=== PATIENT | female | born 1955 | race Caucasian/White ===

== ENCOUNTER 2020-07-12 00:43 | Outpatient (CLI) | payer MEDICARE, BC, SELFPAY ==
[2020-07-12 18:04] LABS: SARS-CoV-2 RNA PCR Negative
== END 2020-07-12 00:44 | disposition home or self-care (01) ==
LOC: ANHCOVIDDT 00:43
PROVIDERS: PCP Physician Assistant; Visit Provider Internal Medicine Cardiovascular Disease
DX: Z01.812 Encounter for preprocedural laboratory examination (principal); Z20.828 Contact with and (suspected) exposure to other viral communicable diseases
CPT/HCPCS: 87635; C9803; U0003

== ENCOUNTER 2020-07-15 00:17 | Day surgery (SDC) | payer MEDICARE, BC, SELFPAY ==
[2020-07-14 10:59] VITALS: BMI 29.9
[2020-07-15] VITALS (8 sets, daily range): BP systolic 101–115; BP diastolic 48–70; PULSE 63–70; RESP 12–15; TEMP 36.1–36.3; O2SAT 97–100
--- NOTE | 2020-07-15 10:00 | ECG_ITS ---
Measurements Intervals [place] Rate: 60 P: -49 MS: 174 QRS: 10 QRSD: 147 T: 85 QT: 456 QTc: 456 Interpretive Statements ELECTRONIC ATRIAL PACEMAKER ELECTRONIC VENTRICULAR PACEMAKER BASELINE ARTIFACT- I, III, V4-V5 NO FURTHER INTERPRETATION IS POSSIBLE ATYPICAL ECG Electronically Signed On 07-15-2020 11:47:25 CDT by Collin Pederson D.O.
[2020-07-15 10:38] LABS: Basophils Percent Auto 0.5 % (0.2-1.2); Eosinophils Absolute Auto 0.1 K/mm3 (0-0.3); Eosinophils Percent Auto 1.9 % (0-4.4); Hematocrit 36.9 % (37.0-47.0); Hemoglobin 12.2 g/dL (12.0-15.0); Immature Granulocyte Absolute 0.01 K/mm3 (0.00-0.031); Immature Granulocyte Percent A 0.3 % (0-0.5); Lymphocytes Absolute Auto 1.22 K/mm3 (0.9-3.2); Lymphocytes Percent Auto 33.1 % (18.3-44.2); Mean Corpuscular HGB Conc 33.1 g/dl (32-36); Mean Corpuscular Hemoglobin 31.4 pg (26-34); Mean Corpuscular Volume 95.1 fl (80-100); Mean Platelet Volume 10.5 fl (7.4-10.4); Monocytes Absolute Auto 0.2 K/mm3 (0.1-0.6); Monocytes Percent Auto 6.5 % (2.6-8.5); Neutrophils Absolute Auto 2.1 K/mm3 (1.3-6.7); Neutrophils Percent Auto 57.7 % (45.5-73.1); Platelet Count Result 198 k/mm3 (150-375); Red Blood Count 3.88 M/mm3 (4.2-5.4); Red Cell Distribution Width 12.3 % (11.5-14.5); White Blood Count 3.7 K/mm3 (4.5-10.0)
[2020-07-15 10:48] LABS: Prothrombin Time 13.1 Seconds (11.1-14.7)
--- NOTE | 2020-07-15 11:22 | WPDHPUPDATE1 ---
History and Physical Update Update Date/Time: 07/15/20 11:22 History and Physical has been reviewed, including an updated exam of the patient. There are NO changes in the patient's condition. History of [employer]'s pacemaker implanted in 2010 in [place] followed by Dr. Pederson. Found to be at [facility] recently and is here for generator change. She is pacemaker dependent. Good left ventricular function. Risks, benefits, and alternatives have been discussed and questions answered. Patient agrees to proceed with procedure.
[2020-07-15 11:24] LABS: Anion Gap 4 mmol/L (8-16); Blood Urea Nitrogen 22 mg/dL (7-17); Calcium 7.9 mg/dL (8.4-10.2); Carbon Dioxide 28 mmol/L (22-30); Chloride 107 mmol/L (98-107); Estimated CRCL calculation 63 ml/min; Estimated Glomerular Filt Rate > 60; Glucose 62 mg/dL (65-105); Potassium 4.4 mmol/L (3.4-5.0); Sodium 139 mmol/L (137-145)
--- NOTE | 2020-07-15 11:24 | WPDMODSED ---
Moderate Sedation Note-Pt Data Patient Data Diagnosis: Pacemaker at [facility] Present Complaint: History of [employer]'s pacemaker implanted in 2010 in [place] followed by Dr. Pederson. Found to be at [facility] recently and is here for generator change. She is pacemaker dependent. Good left ventricular function. Nausea with most opiates which can be offset by antiemetics. Able to tolerate Versed. Procedure to be performed/Plan: generator change Reviewed risks of pacemaker implant with patient. These include breathing problems, allergic reactions, bleeding, infection were again reviewed. Also if there is a lead problem and the lead needs to be replaced there is a possibility of pneumothorax, cardiac puncture, need for unanticipated surgery, lead dislodgement among others. She is aware she is pacemaker dependent and that adds some risks to the procedure. Allergies Allergy/AdvReac Type Severity Reaction Status Date / Time morphine Allergy Severe Hives Verified 07/01/20 14:12 Sulfa (Sulfonamide Allergy Unknown hives Verified 07/01/20 14:12 Antibiotics) pentazocine [From Talwin] AdvReac Severe nausea Verified 07/01/20 14:12 vomiting acetaminophen AdvReac Unknown vomiting Verified 07/01/20 14:12 oxycodone AdvReac Unknown vomiting Verified 07/01/20 14:12 propoxyphene AdvReac Unknown vomiting Verified 07/01/20 14:12 meperidine [From Demerol] AdvReac Hives Verified 07/01/20 14:12 Home Medications Medication Instructions Recorded Confirmed Type bupropion HCl 150 mg PO DAILY 08/23/19 07/14/20 History dexlansoprazole [Dexilant] 60 mg PO DAILY 08/23/19 07/14/20 History trazodone 150 mg PO DAILY 08/23/19 07/14/20 History cholecalciferol (vitamin D3) 250 250 mcg PO DAILY 06/11/20 07/14/20 History mcg (10,000 unit) capsule comp.stocking,knee,long,medium #12 each 06/11/20 06/11/20 Rx cyclobenzaprine 5 mg tablet 5 mg PO TID PRN 06/11/20 07/14/20 History dicyclomine 10 mg capsule 10 mg PO TID 06/11/20 07/14/20 History furosemide 40 mg tablet 40 mg PO DAILY tablet 06/11/20 07/14/20 History levothyroxine 125 mcg tablet 125 mcg PO DAILY 06/11/20 07/14/20 History linaclotide 72 mcg capsule 72 mcg PO TID PRN cap 06/11/20 07/14/20 History pilocarpine HCl 5 mg tablet 5 mg PO BID tablet 06/11/20 07/14/20 History potassium chloride 10 mEq 10 meq PO BID 06/11/20 07/14/20 History tablet,extended release tramadol 50 mg tablet 100 mg PO BID tablet 06/11/20 07/14/20 History liothyronine 5 mcg tablet 5 mcg PO DAILY 07/01/20 07/14/20 History magnesium glycinate 100 mg tablet 200 mg PO DAILY tablet 07/01/20 07/14/20 History multivitamin 1 tablet PO DAILY 07/01/20 07/14/20 History vitamin B complex 1 tablet PO DAILY 07/01/20 07/14/20 History Sedation/Anesthesia: No previous sedation/anesthesia problems (including family history). [facility] Past Medical History Medical History (Updated 07/15/20 @ 11:27 by Prabha Ho MD) AV block, 3rd degree Cataracts, bilateral Low blood pressure Pacemaker Saint Danyel pacemaker for complete heart block in 2010, [place] Thyroid disease Surgical History Surgical History H/O cataract removal with insertion of prosthetic lens H/O oophorectomy rt H/O: hysterectomy History of bunionectomy bilateral History of knee replacement History of total knee arthroplasty bilateral Hx of cholecystectomy Hx of hernia repair Hx of tonsillectomy S/P gastroplasty S/P laser cataract surgery Family History Family History Father Heart disease Cancer Mother Cancer Sibling Heart disease Social History Social History (Updated 07/15/20 @ 11:28 by Prabha Ho MD) Social History: , 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 Living [place] but returned to [place] in 2019 to be closer to family. Has 2 daughters and a stepdaughter. Likes to do crafts and needle
--- NOTE | 2020-07-15 13:48 | PM.OP ---
Procedure Note - Brief Procedure Note - Brief Date of procedure: 07/15/20 Pre-op diagnosis: TC Post-op diagnosis: same Procedure performed: Conscious sedation generator change Description of procedure: See detailed report Anesthesia: local ( with conscious sedation) Surgeon: Prabha Ho MD Estimated blood loss (mL): 15 Drains: No Packing: No Pathology: none sent Condition: stable Disposition: observation Findings: extremely thickened capsule, oozing of pocket
--- NOTE | 2020-07-15 13:49 | PM.PROC ---
Procedure Note - Detailed Date of procedure: 07/15/20 Pre-op diagnosis: TC Post-op diagnosis: same Procedure performed: conscious sedation generator change Description of procedure: PROCEDURE: Conscious sedation Generator change UNDERLYING RHYTHM: pacemaker dependent CONSCIOUS SEDATION: Assessment: The patient has no history of anesthesia problems. The oropharynx is clear. The patient was deemed to be a good candidate for conscious sedation. The patient had continuous hemodynamic and oximetric monitoring during the procedure. Start time: 1208 Completion time: 1345 Total conscious sedation time: 97 minutes Medications: Versed 8 mg fentanyl 150 mcg Zofran 4 mg IV push in divided doses Trained observer: Zakia Alonso RN Outcome: The patient tolerated the procedure well with no complications. PROCEDURE: After informed consent, the patient is brought to the civil laboratory technician and the left prepectoral area was prepped and draped in usual fashion. The patient was given a prophylactic antibiotic with ancef intravenously. After conscious sedation as described above, the area was anesthetized with 1% lidocaine. A skin incision is made with the Plasma Blade and carried down to the pacing capsule which was also incised. The pacing capsule was extremely thickened and very tough, about 1 cm in thickness, and required extensive dissection to reach and free the pulse generator and leads. Some of the capsule was excised and removed, to allow for better visualization, better skin approximation and wound healing. Hemostasis is obtained using the Plasma Blade. The lead/s was/were freed from the underlying capsule and the pulse generator was delivered from the pocket. The lead/s was/were disconnected from the existing device and reconnected to the new device. A gentle tug could not remove it/them. The device and lead/s was/were interrogated and found to be functioning appropriately. The area was copiously irrigated with antibiotic-containing solution. There was a lot of oozing fo the soft tissues and the areas were cauterized. The device was replaced in the pocket. I started to close the pocket but the incision again commenced oozing, so the pocket was reopened and explored, and electrocautery applied. There was generalized oozing but no specific area of bleeding. The pocket was re-irrigated with antibiotic solution. Topical thrombin was placed in the pocket and the pulse generator was replaced. The subcutaneous tissues were closed in a two-layer fashion with interrupted 2 0 Vicryl sutures and the skin was closed in a continuous fashion using 4 0 Vicryl. The area was cleansed , local pressure applied, and then an Aquacel dressing applied. A pressure dressing was applied as well. The patient tolerated the procedure well with no complications. Estimated blood loss was 15 cc's. DEVICE INFORMATION: New pulse generator: [employer] D[employer] model PM 2272, serial number [id number] Existing right atrial lead: [employer], model 2088 TC/46, serial number [id number] Existing right ventricular lead: [employer], model 2088 TC / 52, serial number [id number] Explanted pulse generator: [employer] model number WF9618, serial number [id number] THRESHOLD INFORMATION: Rght atrium: P-wave sensing 1.5 mV, impedance 440 Ohms, threshold 0.5 volts at 0.5 milliseconds Right atrium: No R-wave sensed, impedance 450 Ohms, threshold 0.7 volts at pulse width 0.5 milliseconds PROGRAMMED PARAMETERS: DDD 60/150 Surgeon: Prabha Ho MD Estimated blood loss (mL): 15 Drains: No Packing: No Pathology: none sent Complications: No immediate complications Condition: stable Disposition: observation Findings: Extremely thickened and very tough capsule over the pulse generator requiring extensive dissection to free the pulse generator and leads. Pacemaker dependent. Follow up: Follow up in our office in one week for an incision check th
--- NOTE | 2020-07-15 13:56 | ECG_ITS ---
Measurements Intervals [place] Rate: 60 P: 65 [place]: 176 QRS: 20 QRSD: 140 T: 127 QT: 464 QTc: 467 Interpretive Statements ELECTRONIC ATRIAL PACEMAKER WITH INHIBITION ELECTRONIC VENTRICULAR PACEMAKER NO FURTHER INTERPRETATION IS POSSIBLE ATYPICAL ECG Electronically Signed On 07-15-2020 15:20:42 CDT by Collin Pederson D.O.
== END 2020-07-15 16:55 | disposition home or self-care (01) ==
PROVIDERS: PCP Physician Assistant; Visit Provider Internal Medicine Cardiovascular Disease
PROC: 0JPT0PZ Removal of Cardiac Rhythm Related Device from Trunk Subcutaneous Tissue and Fascia, Open Approach (ICD-10-PCS; CPT 33228; principal; 2020-07-15 11:30)
DX: Z45.010 Encounter for checking and testing of cardiac pacemaker pulse generator [battery] (principal); I44.2 Atrioventricular block, complete; E07.9 Disorder of thyroid, unspecified; H26.9 Unspecified cataract; Z87.891 Personal history of nicotine dependence
CPT/HCPCS: 33228; 36415; 80048; 85025; 85610; 93005; C1785; J0690; J2250; J2405; J3010; J7040

== ENCOUNTER → 2020-07-28 12:46 | Outpatient (CLI) | payer MEDICARE, BC, SELFPAY ==
--- NOTE | ~2020-07-28 | XR_ITS ---
EXAMINATION: XR lumbar spine 6V w bending DATE: 07/28/2020 13:14 INDICATION: Lumbago. TECHNIQUE: 7 views of lumbar spine including flexion and extension views were obtained. COMPARISON: Lumbar spine CT 07/28/2020 FINDINGS: There is 18 degrees levoscoliosis of lumbar spine. Vertebral body heights are normal. There is mildly decreased disc height at L2-L3 and L4-L5. The spine is hypomobile with flexion and extensi on. There is severe facet joint osteoarthritis on the right from L3-L4 through L5-S1 and on the left at L3-L4 and L4-L5. Surgical clips overlie the abdomen. IMPRESSION: 1. Mild lumbar spondylosis. 2. Lumbar levoscoliosis. Reviewed, dictated and finalized at location B. R SET UP OPERATOR
--- NOTE | ~2020-07-28 | CT_ITS ---
EXAMINATION: CT lumbar spine wo con DATE: 07/28/2020 13:24 INDICATION: Low back pain. Left-sided sciatica. TECHNIQUE: Computed tomography (CT) of the lumbar spine was performed without intravenous contrast. A utomated exposure control and iterative reconstruction technique were employed. The dose-length produ ct was 767.41 mGy-cm. COMPARISON: Lumbar spine radiographs 07/28/2020 FINDINGS: There are surgical changes in the stomach. There is 22 degrees levoscoliosis of lumbar spin e. Vertebral body heights are normal. There is mildly decreased disc height at L2-L3 and L4-L5. The f ollowing disc levels are specifically discussed: L1-L2: The disc does not extend beyond the endplate margin. There is mild bilateral facet joint osteo arthritis. There is no neural foraminal stenosis. There is no central canal stenosis. L2-L3: The disc is bulging. There is mild right and severe left facet joint osteoarthritis. There is no neural foraminal stenosis. There is mild central canal stenosis. L3-L4: The disc is bulging. There is severe bilateral facet joint osteoarthritis. There is mild bilat eral neural foraminal stenosis. There is mild central canal stenosis. L4-L5: The disc is bulging and There is severe bilateral facet joint osteoarthritis. There is mild bi lateral neural foraminal stenosis. There is mild central canal stenosis. L5-S1: The disc is bulging. There is severe bilateral facet joint osteoarthritis. There is mild bilat eral neural foraminal stenosis. There is mild central canal stenosis. IMPRESSION: 1. Mild lumbar spondylosis. 2. Lumbar levoscoliosis. Reviewed, dictated and finalized at location B. CTOR OF UNDERGRADUATE ADMISSIONS
== END ==
PROVIDERS: PCP Physician Assistant; Visit Provider Nurse Practitioner Adult Health
DX: M47.26 Other spondylosis with radiculopathy, lumbar region (principal)
CPT/HCPCS: 72114; 72131

== ENCOUNTER 2020-08-05 06:53 | Outpatient (NON) | payer MEDICARE, BC, SELFPAY ==
[2020-08-06 18:24] LABS: SARS-CoV-2 RNA PCR Negative
== END 2020-08-05 06:54 ==
LOC: ANHCOVIDDT 07:27
PROVIDERS: PCP Physician Assistant; Visit Provider Physician Assistant
DX: Z20.828 Contact with and (suspected) exposure to other viral communicable diseases (principal); R68.89 Other general symptoms and signs
CPT/HCPCS: 87635; C9803; U0003

== ENCOUNTER → 2020-09-23 15:36 | Outpatient (CLI) | payer MEDICARE, BC, SELFPAY ==
--- NOTE | ~2020-09-23 | MM_ITS ---
EXAMINATION: MM screening [facility] BI w cristopher HISTORY: Screening mammogram TECHNIQUE: Craniocaudal and mediolateral oblique 3-D tomosynthesis images were obtained and synthetic 2-D images were generated. CAD analysis was submitted and interpreted. COMPARISON: No prior mammogram is available for comparison at this institution. BREAST PARENCHYMAL COMPOSITION: The breasts are almost entirely fatty. FINDINGS: RIGHT BREAST: A mass is present in the anterior third of the upper outer quadrant of the breast 4 cm from the nipple. LEFT BREAST: There is no evidence of suspicious mass, calcification, or architectural distortion to s uggest malignancy. IMPRESSION: 1. Right breast mass which may represent the patient's baseline however no comparison is currently av ailable. 2. Comparison with prior mammograms is necessary. BI-RADS Category 0: Incomplete: Needs comparison with prior mammograms. Reviewed, dictated and finalized at location A. 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 Right breast mass which may represent the patient's baseline however no comp arison is currently available. 2. Comparison with prior mammograms is necessary. BI-RADS Category 0: Incomplete: Needs comparison with prior mammograms.
== END ==
PROVIDERS: PCP Physician Assistant; Visit Provider Physician Assistant
DX: Z12.31 Encounter for screening mammogram for malignant neoplasm of breast (principal); R92.8 Other abnormal and inconclusive findings on diagnostic imaging of breast
CPT/HCPCS: 77063; 77067

== ENCOUNTER 2021-03-27 11:37 | Outpatient (CLI) | payer MEDICARE, BC, SELFPAY ==
--- NOTE | ~2021-03-27 | XR_ITS ---
EXAMINATION: XR abdomen obstructive series EXAM DATE: 03/27/2021 11:58 INDICATION: Lower abdominal pain. TECHNIQUE: Frontal upright projection of the upper abdomen, frontal projection of the lower abdomen f or interpretation. There is no prior study for comparison. FINDINGS: There is moderate amount of colonic stool and gas. No small bowel dilation, nonobstructiv e bowel gas pattern. Calcifications in the pelvis are believed to be phleboliths. There is no orga nomegaly suspected. There is moderate lumbar levoscoliosis. Epigastric surgical/anastomosis material. Surgical clips overlying the abdomen Some right basilar granulomas. Pacemaker/AICD device. IMPRESSION: Moderate amount of colonic stool. Reviewed, dictated and finalized at location B.
== END 2021-03-27 11:38 | disposition home or self-care (01) ==
LOC: ANHIMG 11:42
PROVIDERS: PCP Physician Assistant; Visit Provider Physician Assistant
DX: R10.9 Unspecified abdominal pain (principal)
CPT/HCPCS: 74019

== ENCOUNTER 2021-04-09 00:49 | Day surgery (SDC) | payer MEDICARE, BC, SELFPAY ==
[2021-03-30 14:25] VITALS: BMI 31.6
[2021-04-09 06:40] VITALS: BP 122/40; PULSE 60; RESP 18; TEMP 36.1; O2SAT 99
--- NOTE | 2021-04-09 06:52 | WPDANESEPPF ---
Anes - Initial Pre Proc Eval Procedure: Operation Date: 04/09/21 08:00 Proposed Procedures p Esophagogastroduodenoscopy & Screening Colonoscopy - Alexis Hess MD Date/Time: 04/09/21 06:52 Surgeon: Alexis Hess MD Pre Op Diagnosis: GERD, neoplasm Screening Patient Data Age: 65 Gender: F Height: 1.65 m Weight: 86.3 kg Last Vital Signs Temp 36.1 C L 04/09/21 06:40 Pulse 60 04/09/21 06:40 Resp 18 04/09/21 06:40 BP 122/40 L 04/09/21 06:40 Pulse Ox 99 04/09/21 06:40 Allergies Allergy/AdvReac Type Severity Reaction Status Date / Time morphine Allergy Severe Hives Verified 04/09/21 06:39 Sulfa (Sulfonamide Allergy Unknown hives Verified 04/09/21 06:39 Antibiotics) meperidine [From Demerol] Allergy Hives Verified 04/09/21 06:39 pentazocine [From Talwin] AdvReac Severe nausea Verified 04/09/21 06:39 vomiting acetaminophen AdvReac Unknown vomiting Verified 04/09/21 06:39 oxycodone AdvReac Unknown vomiting Verified 04/09/21 06:39 propoxyphene AdvReac Unknown vomiting Verified 04/09/21 06:39 Home Medications Medication Instructions Recorded Confirmed Type comp.stocking,knee,long,medium #12 each 06/11/20 03/30/21 Rx cyclobenzaprine 5 mg tablet 5 mg PO TID PRN 06/11/20 03/30/21 History levothyroxine 125 mcg tablet 125 mcg PO DAILY 06/11/20 03/30/21 History tramadol 50 mg tablet 100 mg PO BID tablet 06/11/20 03/30/21 History liothyronine 5 mcg tablet 5 mcg PO BID 07/01/20 03/30/21 History magnesium glycinate 100 mg tablet 200 mg PO DAILY tablet 07/01/20 03/30/21 History vitamin B complex 1 tablet PO DAILY 07/01/20 03/30/21 History bupropion HCl 150 mg tablet,12 hr 150 mg PO DAILY #90 tablet 09/08/20 03/30/21 Rx sustained-release dicyclomine 10 mg capsule 10 mg PO TID PRN #270 cap 09/08/20 03/30/21 Rx pilocarpine HCl 5 mg tablet 5 mg PO BID #180 tablet 09/08/20 03/30/21 Rx trazodone 150 mg tablet 150 mg PO .QHS #90 tablet 09/08/20 03/30/21 Rx multivitamin with minerals 1 tablet PO DAILY 12/30/20 03/30/21 History dexlansoprazole 60 mg 60 mg PO DAILY #90 cap 02/24/21 03/30/21 Rx capsule,biphase delayed release cholecalciferol (vitamin D3) 250 5,000 mcg PO DAILY cap 03/27/21 03/30/21 History mcg (10,000 unit) capsule furosemide 40 mg PO DAILY PRN 03/30/21 03/30/21 History potassium chloride 10 meq PO BID PRN 03/30/21 03/30/21 History Patient hx anesthesia problems: none Family hx anesthesia problems: none PMFSH Past Medical History Medical History Anxiety AV block, 3rd degree Cataracts, bilateral Chronic pain syndrome Fibromyalgia History of pacemaker Low blood pressure Pacemaker Saint [employer]el pacemaker for complete heart block in [address], [place] Thyroid disease Surgical History Surgical History H/O cataract removal with insertion of prosthetic lens H/O oophorectomy rt H/O: hysterectomy History of bunionectomy bilateral History of knee replacement History of total knee arthroplasty bilateral Hx of cholecystectomy Hx of hernia repair Hx of tonsillectomy S/P gastroplasty S/P laser cataract surgery Family History Family History Father Heart disease Cancer Mother Cancer Sibling Heart disease FH: heart attack Social History Social History Social History: , 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 Living [place] but returned to [place] in 2019 to be closer to family. Has 2 daughters and a stepdaughter. Likes to do crafts and needle work. Smoking packs per day: 1 Smoking cigarettes per day: 20.0 Years smoked: 12 Smoking pack-years: 12.00 Smoking status: Former smoker Tobacco type: cigarettes Smoking end date: 04/02/07 Alcohol intake: current Alcohol use details: 6 PE
[2021-04-09] MEDS: LACTATED RINGERS 1,000 ML 150 ML IV CONT (06:54)
--- NOTE | 2021-04-09 07:11 | WPDGICN ---
Assessment and Plan Assessment and plan (1) GERD (gastroesophageal reflux disease): Code(s): K21.9 - Gastro-esophageal reflux disease without esophagitis Status: Acute Assessment and Plan: Patient complains of chronic GE reflux disease. Currently this appears controlled on Dexilant. Plan to continue anti-reflux measures an EGD will be performed because a chronic GE reflux disease. Which no patients has a family history of esophageal cancer in her mother. (2) Abdominal pain: Code(s): R10.9 - Unspecified abdominal pain Status: Acute Assessment and Plan: Patient with known irritable bowel syndrome. Recently has had more intense abdominal pain. This will be evaluated time of colonoscopy. (3) Encounter for screening colonoscopy: Code(s): Z12.11 - Encounter for screening for malignant neoplasm of colon Status: Acute Assessment and Plan: Screening colonoscopy advised because of patient's age. She has a history of chronic constipation presumed to be from irritable bowel syndrome. Currently stable on Linzess. Further recommendations will be given after endoscopy. GI Consult Note Consult date/time: 04/09/21 07:11 HPI: Kenrick Marr is a 65 year old female Presents for GI endoscopy. Followed by DALY Da Silva. Patient has a long history of irritable bowel syndrome. She has a tendency towards constipation and takes Linzess on a daily basis. She reports having a very intense abdominal pain several weeks ago. The pain lasted for 2 days. This prompted her to request follow-up screening colonoscopy. Patient denies any blood in her stools. Her weight appetite and bowel movements have otherwise been normal. Patient does have an underlying history of GE reflux disease. She has history of chronic heartburn for which she takes PPI for control of symptoms. Family history is significant that her mother had esophageal cancer. And for these reasons an EGD will be performed. Patient denies any dysphagia. She has had no bleeding. Heartburn appears controlled on current therapy. Review of Systems Review of Systems: All systems reviewed & are unremarkable except as noted in HPI and below PMFSH Past Medical History Medical History Anxiety AV block, 3rd degree Cataracts, bilateral Chronic pain syndrome Fibromyalgia History of pacemaker Low blood pressure Pacemaker Saint Danyel pacemaker for complete heart block in 2010, [place] Thyroid disease Surgical History Surgical History H/O cataract removal with insertion of prosthetic lens H/O oophorectomy rt H/O: hysterectomy History of bunionectomy bilateral History of knee replacement History of total knee arthroplasty bilateral Hx of cholecystectomy Hx of hernia repair Hx of tonsillectomy S/P gastroplasty S/P laser cataract surgery Family History Family History Father Heart disease Cancer Mother Cancer Sibling Heart disease FH: heart attack Social History Social History Social History: , 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 Living [place] but returned to [place] in 2019 to be closer to family. Has 2 daughters and a stepdaughter. Likes to do crafts and needle work. Smoking packs per day: 1 Smoking cigarettes per day: 20.0 Years smoked: 12 Smoking pack-years: 12.00 Smoking status: Former smoker Tobacco type: cigarettes Smoking end date: 04/02/07 Alcohol intake: current Alcohol use details: 6 PER YEAR Substance use: never Substance use type: does not use Living arrangements: with family Gender identity (if verbalized by the patient): Female Spiritual care concerns: No Meds Home Medications and
[2021-04-09 08:31] VITALS: BP 95/53; PULSE 70; RESP 20; O2SAT 100
[2021-04-09 08:41] VITALS: BP 111/59; PULSE 66; RESP 22; O2SAT 99
[2021-04-09 08:51] VITALS: BP 106/63; PULSE 65; RESP 17; O2SAT 99
== END 2021-04-09 08:57 | disposition home or self-care (01) ==
PROVIDERS: PCP Physician Assistant; Visit Provider Internal Medicine Gastroenterology
PROC: 0DJ08ZZ Inspection of Upper Intestinal Tract, Via Natural or Artificial Opening Endoscopic (ICD-10-PCS; CPT 43235; principal; 2021-04-09 08:00)
DX: Z12.11 Encounter for screening for malignant neoplasm of colon (principal); D17.5 Benign lipomatous neoplasm of intra-abdominal organs; K64.8 Other hemorrhoids; K57.30 Diverticulosis of large intestine without perforation or abscess without bleeding; I44.2 Atrioventricular block, complete; M79.7 Fibromyalgia; F41.9 Anxiety disorder, unspecified; Z95.0 Presence of cardiac pacemaker; E07.9 Disorder of thyroid, unspecified; Z87.891 Personal history of nicotine dependence; E66.9 Obesity, unspecified; Z68.31 Body mass index [BMI] 31.0-31.9, adult
CPT/HCPCS: 45385; 88305; J2704; J7120

== ENCOUNTER 2021-06-09 13:31 | Outpatient (CLI) | payer MEDICARE, BC, SELFPAY ==
--- NOTE | 2021-06-09 13:41 | ECHO_ITS ---
Patient Info Name: Kenrick Marr Age: 66 years : 1955 Gender: Female Ht: 65 in Wt: 185 lbs BSA: 1.99 m2 BP: 93 / 68 mmHg Heart Rhythm: Sinus Rhythm Exam Date: 06/09/2021 1:50 PM Exam Location: [facility] Patient Status: Outpatient Admit Date: 06/09/2021 Staff Ordering Physician: Collin Pederson DO Software Intern: Lolly Olson CT Attending Provider: Collin Pederson DO Referring Physician: Bg PA; Exam Type: CA echo doppler color flow Study Info Indications I51.9 - Heart disease, unspecified Complete two-dimensional, color flow and Doppler transthoracic echocardiogram is performed. Summary 1. Complete two-dimensional, color flow and Doppler transthoracic echocardiogram is performed. 2. Left ventricular systolic function is preserved, estimated at 50-55%. 3. Left ventricular chamber dimension is mildly enlarged. 4. The left ventricular diastolic function is abnormal. 5. E/e' 10 is mildly elevated. 6. Global longitudinal strain is mildly abnormal at -16.1%. 7. Linear artifact in right ventricle suggestive of catheter(s), pacemaker lead(s), or ICD lead(s). 8. Left atrial chamber dimension is mildly enlarged. 9. Linear artifact in the right atrium suggestive of catheter(s), pacemaker lead(s), or ICD lead(s). 10. There is trace mitral valve regurgitation. 11. No pulmonary hypertension, estimated pulmonary arterial systolic pressure is 7 mmHg. Left Ventricle E/e' 10 is mildly elevated. Global longitudinal strain is mildly abnormal at -16.1%. Left ventricular systolic function is preserved, estimated at 50-55%. Left ventricular chamber dimension is mildly enlarged. The left ventricular diastolic function is abnormal. Right Ventricle Linear artifact in right ventricle suggestive of catheter(s), pacemaker lead(s), or ICD lead(s). Right ventricular chamber dimension is normal. Right ventricular systolic function is normal. Left Atria Left atrial chamber dimension is mildly enlarged. Right Atria Linear artifact in the right atrium suggestive of catheter(s), pacemaker lead(s), or ICD lead(s). Right atrial chamber dimension is normal. Aortic Valve The aortic valve is trileaflet. There is no aortic valve stenosis. There is no aortic valve regurgitation. Pulmonic Valve There is no pulmonic regurgitation. Mitral Valve There is no mitral valve stenosis. There is trace mitral valve regurgitation. Tricuspid Valve There is no tricuspid valve regurgitation. No pulmonary hypertension, estimated pulmonary arterial systolic pressure is 7 mmHg. Pericardium/Pleural There is no pericardial effusion. Inferior Vena Cava Normal inferior vena cava with >50% collapse upon inspiration consistent with normal right atrial pressure, 5 mmHg. Aorta The aortic root size at the sinus of Valsalva is normal. Left Ventricular Outflow Tract Name Value Normal LVOT 2D LVOT Diameter 2.2 cm LVOT Doppler LVOT Peak Gradient 4 mmHg LVOT Mean Gradient 2 mmHg LVOT VTI 24 cm LVOT VTI/AV VTI Ratio
== END 2021-06-09 13:32 | disposition home or self-care (01) ==
LOC: ANHCARD 13:33
PROVIDERS: PCP Physician Assistant; Visit Provider Internal Medicine Cardiovascular Disease
DX: I51.9 Heart disease, unspecified (principal)
CPT/HCPCS: 93306

== ENCOUNTER → 2021-06-16 04:43 | Outpatient (CLI) | payer MEDICARE, BC, SELFPAY ==
[2021-06-17 01:26] LABS: SARS-CoV-2 RNA PCR Negative
== END ==
PROVIDERS: PCP Physician Assistant; Visit Provider Physician Assistant
DX: Z20.822 Contact with and (suspected) exposure to COVID-19 (principal); R09.89 Other specified symptoms and signs involving the circulatory and respiratory systems
CPT/HCPCS: C9803; U0003; U0005

== ENCOUNTER → 2021-11-06 13:54 | Outpatient (CLI) | payer MEDICARE, BC, SELFPAY ==
--- NOTE | ~2021-11-06 | MM_ITS ---
EXAMINATION: MM screening lyndsey BI w cristopher HISTORY: Screening TECHNIQUE: Craniocaudal and mediolateral oblique 3-D tomosynthesis images were obtained and synthetic 2-D images were generated. CAD analysis was submitted and interpreted. COMPARISON: Comparison to multiple prior studies sequentially, with oldest reviewed study dated 03/29. BREAST PARENCHYMAL COMPOSITION: There are scattered areas of fibroglandular density. FINDINGS: There is no evidence of suspicious mass, calcification, or architectural distortion to sugg est malignancy in either breast. There has been no suspicious interval change. IMPRESSION: 1. No mammographic evidence of malignancy. 2. Recommend routine screening mammography in one year. BI-RADS Category 1: Negative Reviewed, dictated and finalized at location A. ESS ARTIST
== END ==
PROVIDERS: PCP Physician Assistant; Visit Provider Physician Assistant
DX: Z12.31 Encounter for screening mammogram for malignant neoplasm of breast (principal)
CPT/HCPCS: 77063; 77067

== ENCOUNTER 2022-04-18 16:53 | Emergency (ER) | payer MEDICARE, BC, SELFPAY ==
--- NOTE | ~2022-04-18 | XR_ITS ---
EXAM: XR abdomen/kub 1V DATE: 04/18/2022 17:33 HISTORY: left flank pain hx kidney stones . COMPARISON: None available. FINDINGS: Suture lines over the GE junction and the upper abdomen. Normal bowel gas pattern. No orga nomegaly. No abnormal abdominal calcification. Lumbar scoliosis and degenerative change. IMPRESSION: No radiographic evidence of obstruction or ileus.. Reviewed, dictated and finalized at location K.
--- NOTE | 2022-04-18 16:55 | ED.BACK ---
HPI - Back Pain/Injury General Chief Complaint: Back Pain/Injury Stated Complaint: lower back pain Time Seen by Provider: 04/18/22 16:55 Source: patient Mode of arrival: ambulatory Limitations: no limitations History of Present Illness HPI Narrative: Ms. Marr is a 66-year-old female patient presenting to the clinic today with complaints of left sided back/flank pain. Pain is dull at this time rating about a 7 out of 10 currently. Reports that the pain wraps around into her groin. States that she has had nausea, fatigue, and flank pain over the last 3 weeks She denies any fever, chills, or urinary symptoms. Has not had any blood in her stool or urine. Last bowel movement was this morning and was normal for the patient. States she has a history of IBS and she had not had a bowel movement for 1 week prior but has been taking her Linzess. Related Data Home Medications Medication Instructions Recorded Confirmed liothyronine 5 mcg tablet 5 mcg PO BID 07/01/20 04/18/22 magnesium glycinate 100 mg tablet 200 mg PO DAILY 07/01/20 04/18/22 vitamin B complex 1 tablet PO DAILY 07/01/20 04/18/22 multivitamin with minerals 1 tablet PO DAILY 12/30/20 04/18/22 (Hair,Skin and Nails tablet) cholecalciferol (vitamin D3) 250 5,000 mcg PO DAILY 03/27/21 04/18/22 mcg (10,000 unit) capsule gabapentin 300 mg capsule 300 mg PO BID 01/19/22 04/18/22 levothyroxine 125 mcg tablet 112 mcg PO DAILY 01/19/22 04/18/22 (Synthroid) topiramate 50 mg tablet 50 mg PO BID 01/19/22 04/18/22 cholecalciferol (vitamin D3) 125 125 mcg PO DAILY 02/18/22 04/18/22 mcg (5,000 unit) capsule cyclobenzaprine 5 mg tablet 5 mg PO BID PRN muscle spasms 02/18/22 04/18/22 metformin 500 mg tablet 500 mg PO DAILY 02/18/22 04/18/22 vitamin Q46-tdsqgmm B1 1,000 1 ml IM WEEKLY 02/18/22 04/18/22 mcg-100 mg/mL injection solution Allergies Allergy/AdvReac Type Severity Reaction Status Date / Time morphine Allergy Severe Hives Verified 04/18/22 16:56 Sulfa (Sulfonamide Allergy Unknown hives Verified 04/18/22 16:56 Antibiotics) meperidine [From Demerol] Allergy Hives Verified 04/18/22 16:56 pentazocine [From Talwin] AdvReac Severe nausea Verified 04/18/22 16:56 vomiting oxycodone AdvReac Unknown vomiting Verified 04/18/22 16:56 propoxyphene AdvReac Unknown vomiting Verified 04/18/22 16:56 Review of Systems Review of Systems: Pertinent positives per HPI. Patient denies any fever, chills, rash, headache, visual changes, dizziness, cough, runny nose, sore throat, shortness of breath, chest pain, palpitations, nausea, vomiting, diarrhea, constipation, abdominal pain, or any urinary issues. [facility] Past Medical History Medical History Anxiety AV block, 3rd degree Cataracts, bilateral Chronic pain syndrome Fibromyalgia History of pacemaker Low blood pressure Pacemaker Saint Danyel pacemaker for complete heart block in 2010, [place] Thyroid disease Surgical History Surgical History H/O cataract removal with insertion of prosthetic lens H/O oophorectomy rt H/O: hysterectomy History of bunionectomy bilateral History of knee replacement History of total knee arthroplasty bilateral Hx of cholecystectomy Hx of hernia repair Hx of tonsillectomy S/P gastroplasty S/P laser cataract surgery Family History Family History Father Heart disease Cancer Mother Cancer Sibling Heart disease FH: heart attack Social History Social History Social History: , 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 Living [place] but returned to [place] in 2019 to be closer to family. Has 2 daughters and a stepdaughter. Likes to do crafts and needle work. Smoking packs per day: 1 Smoking c
[2022-04-18 17:10] VITALS: BP 123/70; PULSE 81; RESP 16; TEMP 37.1; O2SAT 98
[2022-04-18 17:18] VITALS: BP 123/70; PULSE 81; RESP 16; TEMP 37.1; O2SAT 98
== END 2022-04-18 18:17 | disposition home or self-care (01) ==
PROVIDERS: Emergency Provider Nurse Practitioner Family; PCP Physician Assistant
DX: R10.9 Unspecified abdominal pain (principal); R11.2 Nausea with vomiting, unspecified; K59.04 Chronic idiopathic constipation; Z87.891 Personal history of nicotine dependence; M79.7 Fibromyalgia; Z95.0 Presence of cardiac pacemaker; Z98.42 Cataract extraction status, left eye; Z98.41 Cataract extraction status, right eye; Z96.1 Presence of intraocular lens; Z96.653 Presence of artificial knee joint, bilateral
CPT/HCPCS: 74018; 81003; 87086; 99213; G0463

== ENCOUNTER 2022-06-10 15:35 | Emergency (ER) | payer MEDICARE, BC, SELFPAY ==
--- NOTE | 2022-06-10 15:44 | ED.URI ---
HPI - URI/Sore Throat General Chief Complaint: Upper Respiratory Infection Stated Complaint: sore throat, drainage, short of breath, fatigue Time Seen by Provider: 06/10/22 16:00 Source: patient and RN notes reviewed Mode of arrival: ambulatory Limitations: no limitations History of Present Illness HPI Narrative: 67-year-old female presents with concern for approximately 2-week history of nasal congestion, rhinorrhea, sinus pain, persistent cough, sore throat. Reports she has began having fatigue and feels achy. Reports she has had several negative COVID test at home, she has been taking [id number]-ers-[id number] cough medicine with temporary relief. She reports chest wall pain from coughing MD elicited complaint: cough and nasal congestion Related Data Home Medications Medication Instructions Recorded Confirmed liothyronine 5 mcg tablet 5 mcg PO BID 07/01/20 06/10/22 magnesium glycinate 100 mg tablet 200 mg PO DAILY 07/01/20 06/10/22 vitamin B complex 1 tablet PO DAILY 07/01/20 06/10/22 multivitamin with minerals 1 tablet PO DAILY 12/30/20 06/10/22 (Hair,Skin and Nails tablet) cholecalciferol (vitamin D3) 250 5,000 mcg PO DAILY 03/27/21 06/10/22 mcg (10,000 unit) capsule levothyroxine 125 mcg tablet 112 mcg PO DAILY 01/19/22 06/10/22 (Synthroid) topiramate 50 mg tablet 50 mg PO BID 01/19/22 06/10/22 cyclobenzaprine 5 mg tablet 5 mg PO BID PRN muscle spasms 02/18/22 06/10/22 metformin 500 mg tablet 500 mg PO DAILY 02/18/22 06/10/22 vitamin B11-exwtbdk B1 1,000 1 ml IM WEEKLY 02/18/22 06/10/22 mcg-100 mg/mL injection solution semaglutide 0.25 mg or 0.5 mg (2 0.25 mg subcut DIRECTED 06/10/22 06/10/22 mg/1.5 mL) subcutaneous pen injector (Ozempic) Allergies Allergy/AdvReac Type Severity Reaction Status Date / Time morphine Allergy Severe Hives Verified 04/18/22 16:56 Sulfa (Sulfonamide Allergy Unknown hives Verified 04/18/22 16:56 Antibiotics) meperidine [From Demerol] Allergy Hives Verified 04/18/22 16:56 pentazocine [From Amy] AdvReac Severe nausea Verified 04/18/22 16:56 vomiting oxycodone AdvReac Unknown vomiting Verified 04/18/22 16:56 propoxyphene AdvReac Unknown vomiting Verified 04/18/22 16:56 Review of Systems Review of Systems: CONSTITUTIONAL: Reports malaise, chills, fatigue. Denies sweats, or fever. EYES: Denies visual changes, redness, or discharge. ENT: Reports rhinorrhea, congestion, sinus pain, sore throat. Denies otalgia CARDIOVASCULAR: Denies chest pain, palpitations, or edema. RESPIRATORY: Reports persistent cough. Denies dyspnea. GASTROINTESTINAL: Denies abdominal pain, nausea, vomiting, diarrhea SKIN: Denies rash or itching. MUSCULOSKELETAL: Reports myalgia. NEUROLOGIC: Denies headache. All systems reviewed & are unremarkable except as noted in HPI and below PMFSH Past Medical History Medical History Anxiety AV block, 3rd degree Cataracts, bilateral Chronic pain syndrome Fibromyalgia History of pacemaker Low blood pressure Pacemaker Saint Danyel pacemaker for complete heart block in [address], [place] Thyroid disease Surgical History Surgical History H/O cataract removal with insertion of prosthetic lens H/O oophorectomy rt H/O: hysterectomy History of bunionectomy bilateral History of knee replacement History of total knee arthroplasty bilateral Hx of cholecystectomy Hx of hernia repair Hx of tonsillectomy S/P gastroplasty S/P laser cataract surgery Family History Family History Father Heart disease Cancer Mother Cancer Sibling Heart disease FH: heart attack Social History Social History Social History: , 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 Living [place] but ret
[2022-06-10 15:46] VITALS: BP 118/65; PULSE 97; RESP 16; TEMP 36.9; O2SAT 100
== END 2022-06-10 16:20 | disposition home or self-care (01) ==
PROVIDERS: Emergency Provider Nurse Practitioner; PCP Physician Assistant
DX: J32.9 Chronic sinusitis, unspecified (principal); J40 Bronchitis, not specified as acute or chronic; Z87.891 Personal history of nicotine dependence; M79.7 Fibromyalgia; Z95.0 Presence of cardiac pacemaker; E07.9 Disorder of thyroid, unspecified
CPT/HCPCS: 99213; G0463

== ENCOUNTER 2023-05-14 18:16 | Inpatient (IN) | payer MEDICARE, BC, SELFPAY ==
[2023-05-14] VITALS (31 sets, daily range): BP systolic 92–123; BP diastolic 48–83; PULSE 60–84; RESP 12–25; TEMP 36.2–36.7; O2SAT 96–100; BMI 25.9
--- NOTE | ~2023-05-14 | NM_ITS ---
EXAMINATION: NM niki stress w perfusion DATE: 05/17/2023 09:49 INDICATION: Dyspnea TECHNIQUE: Rest images were obtained following intravenous administration of 11.5 mCi Tc99m tetrofosm in (Myoview). The patient was infused intravenously with Lexiscan (Regadenoson). Then, 30.8 mCi Tc99m tetrofosmin (Myoview) was administered intravenously, and stress images were obtained. Data was andrés nstructed into short axis and horizontal and vertical long axis SPECT images. Gated SPECT images were also obtained. COMPARISON: None. FINDINGS: There is a mild perfusion defect at the apical septal segment and partially involving the a djacent apical and mid anteroseptal segments on the stress images appears larger and more prominent o n the rest images equivocal for infarct versus breast attenuation artifact. No reversible perfusion d efects to suggest ischemia. There is normal left ventricular chamber size, wall motion and ejection f raction. Left ventricular ejection fraction measures 66%. IMPRESSION: 1. Perfusion defect at the apical septal and portions of the immediately adjacent apical and mid ante roseptal segments on the stress image which appears larger and more severe on the rest imaging which could represent either infarct or breast attenuation artifact. No reversible perfusion defects to sug gest ischemia. 2. Left ventricular ejection fraction measuring 66%. Reviewed, dictated and finalized at location A. IMPRESSION: 1. Perfusion defect at the apical septal and portions of the immediately adjace nt apical and mid anteroseptal segments on the stress image which appears large r and more severe on the rest imaging which could represent either infarct or b reast attenuation artifact. No reversible perfusion defects to suggest ischemia . 2. Left ventricular ejection fraction measuring 66%.
--- NOTE | ~2023-05-14 | XR_ITS ---
XR chest 2V DATE: 05/14/2023 18:58 INDICATION: Chest pain. Hypotension. TECHNIQUE: PA and lateral views COMPARISON: 08/23/2019 PA and lateral chest FINDINGS: Left-sided dual-lead pacemaker device with leads unchanged in position since 08/23/2019. Pos toperative changes are again noted in the left upper quadrant of the abdomen. Normal heart size. Mild aortic unfolding. No hilar or mediastinal enlargement. No pulmonary infiltrate or consolidation, pleural effusion or pulmonary vascular congestion or pneumo thorax. Diffuse osteopenia. IMPRESSION: No active cardiopulmonary disease or significant change since 08/23/2019 Reviewed, dictated and finalized at location A. IMPRESSION: No active cardiopulmonary disease or significant change since 2018
--- NOTE | 2023-05-14 18:28 | ED.CHESTPAIN ---
HPI - Chest Pain General Chief Complaint: Chest Pain Stated Complaint: CHEST PAIN /SOB Time Seen by Provider: 05/14/23 18:27 History of Present Illness HPI narrative: Patient is a 67-year-old female with history of third-degree heart block status post pacemaker placement, systolic dysfunction, hypotension here with chest pain. Chest pain began around 10 30 11:00 a.m. this morning, she noted it was worse on exertion when she was walking up the stairs from her laundry room. It is associated with some shortness of breath. The pain radiated into her upper chest and neck. She denies any associated diaphoresis. She notes that it feels like a pressure sensation at this moment but does not feel as strong as it did earlier. Her last stress test she believes was about 3 years ago when she had her last echocardiogram. She uses Lasix intermittently for lower extremity edema, has not needed it recently due to minimal amount of swelling. No cough, congestion, fever, chills. No recent illness, no recent diarrhea. No recent long car rides, no history of PE or DVT. She notes that her blood pressures usually run 90s over 60s. [employer] Grinder is Dr. Pederson. Related Data Home Medications Medication Instructions Recorded Confirmed liothyronine 5 mcg tablet 5 mcg PO BID 07/01/20 02/17/23 magnesium glycinate 100 mg tablet 200 mg PO DAILY 07/01/20 02/17/23 multivitamin with minerals 1 tablet PO DAILY 12/30/20 02/17/23 (Hair,Skin and Nails tablet) cholecalciferol (vitamin D3) 250 5,000 mcg PO DAILY 03/27/21 02/17/23 mcg (10,000 unit) capsule vitamin B20-lrtdqkf B1 1,000 1 ml IM WEEKLY 02/18/22 02/17/23 mcg-100 mg/mL injection solution potassium chloride 10 mEq 10 meq PO DAILY 07/23/22 02/17/23 tablet,extended release levothyroxine 112 mcg tablet 112 mcg PO DAILY 08/19/22 02/17/23 (Levo-T) semaglutide 0.25 mg or 0.5 mg (2 0.5 mg subcut DIRECTED 01/21/23 02/17/23 mg/1.5 mL) subcutaneous pen injector (Ozempic) Allergies Allergy/AdvReac Type Severity Reaction Status Date / Time morphine Allergy Severe Hives Verified 05/14/23 18:28 Sulfa (Sulfonamide Allergy Unknown hives Verified 05/14/23 18:28 Antibiotics) meperidine [From Demerol] Allergy Hives Verified 05/14/23 18:28 pentazocine [From Talwin] AdvReac Severe nausea Verified 05/14/23 18:28 vomiting oxycodone AdvReac Unknown vomiting Verified 05/14/23 18:28 propoxyphene AdvReac Unknown vomiting Verified 05/14/23 18:28 Review of Systems Review of Systems: CONSTITUTIONAL: Denies fever, chills, or sweats. ENT: Denies rhinorrhea, congestion, sore throat, or otalgia. CARDIOVASCULAR: chest pain, no palpitations, or edema. RESPIRATORY: Denies cough or dyspnea. GASTROINTESTINAL: Denies abdominal pain, nausea, vomiting, or diarrhea. MUSCULOSKELETAL: Denies back pain, joint pain, or myalgia. NEUROLOGIC: Denies headache, numbness, or weakness. [facility] Past Medical History Medical History Anxiety AV block, 3rd degree Cataracts, bilateral Chronic pain syndrome Fibromyalgia History of pacemaker Low blood pressure Pacemaker Saint Danyel pacemaker for complete heart block in 2010, [place] Thyroid disease Surgical History Surgical History H/O cataract removal with insertion of prosthetic lens H/O oophorectomy rt H/O: hysterectomy History of bunionectomy bilateral History of knee replacement History of total knee arthroplasty bilateral Hx of cholecystectomy Hx of hernia repair Hx of tonsillectomy S/P gastroplasty S/P laser cataract surgery Family History Family History Father Heart disease Cancer Mother Cancer Sibling Heart disease FH: heart attack Social History Social History Social History:
--- NOTE | 2023-05-14 18:35 | ECG_ITS ---
Measurements Intervals [place] Rate: 65 P: 35 MO: 147 QRS: 18 QRSD: 169 T: 96 QT: 433 QTc: 453 Interpretive Statements ELECTRONIC VENTRICULAR PACEMAKER ABNORMAL RHYTHM ECG COMPARED TO ECG 07/15/2020 15:05:20 NO SIGNIFICANT CHANGES Electronically Signed On 05-15-2023 11:12:36 CDT by Keara Menchaca MD
[2023-05-14 18:44] LABS: Basophils Percent Auto 0.7 % (0.2-1.2); Eosinophils Absolute Auto 0.1 K/mm3 (0-0.3); Eosinophils Percent Auto 1.1 % (0-4.4); Hemoglobin 12.5 g/dL (12.0-15.0); Immature Granulocyte Absolute 0.01 K/mm3 (0.00-0.031); Immature Granulocyte Percent A 0.2 % (0-0.5); Lymphocytes Absolute Auto 1.42 K/mm3 (0.9-3.2); Lymphocytes Percent Auto 31.1 % (18.3-44.2); Mean Corpuscular HGB Conc 32.1 g/dl (32-36); Mean Corpuscular Hemoglobin 30.3 pg (26-34); Mean Corpuscular Volume 94.4 fl (80-100); Mean Platelet Volume 11.1 fl (7.4-10.4); Monocytes Absolute Auto 0.3 K/mm3 (0.1-0.6); Monocytes Percent Auto 7.4 % (2.6-8.5); Neutrophils Absolute Auto 2.7 K/mm3 (1.3-6.7); Neutrophils Percent Auto 59.5 % (45.5-73.1); Platelet Count Result 235 k/mm3 (150-375); Red Blood Count 4.13 M/mm3 (4.2-5.4); Red Cell Distribution Width 12.9 % (11.5-14.5); White Blood Count 4.6 K/mm3 (4.5-10.0)
[2023-05-14 18:54] LABS: Alanine Aminotransferase 16 U/L (6-35); Alkaline Phosphatase 70 U/L (38-126); Anion Gap 6 mmol/L (8-16); Aspartate Amino Transferase 28 U/L (14-36); Bilirubin,Total 0.4 mg/dL (0.2-1.3); Blood Urea Nitrogen 13 mg/dL (7-17); Calcium 8.6 mg/dL (8.4-10.2); Carbon Dioxide 29 mmol/L (22-30); Chloride 100 mmol/L (98-107); Estimated CRCL calculation 47 ml/min; Estimated Glomerular Filt Rate > 60; Glucose 97 mg/dL (65-110); Lipase 96 U/L (23-300); Potassium 3.8 mmol/L (3.4-5.0); Sodium 135 mmol/L (137-145)
[2023-05-14 19:02] LABS: INR 1.1
[2023-05-14 19:05] LABS: NT Pro B Type Natriuretic Pept 102 pg/mL (19.9-100)
[2023-05-14 19:06] LABS: Troponin I < 0.012 ng/mL (0.000-0.034)
[2023-05-14] MEDS: ASPIRIN 81 MG CHEWABLE TABLET 324 MG PO (19:31)
[2023-05-14] MEDS: fentaNYL CITRATE INJ (*CRX) 100 MCG/2 ML VIAL 50 MCG IV PUSH (19:33)
[2023-05-14 21:56] LABS: Troponin I < 0.012 ng/mL (0.000-0.034)
--- NOTE | 2023-05-14 23:06 | ADMGEN ---
This patient, Kenrick Marr, was admitted to IMU Room 213-01 at 2158. Patient/family oriented to hospital policies and general routines including ID bracelet, bed and alarms, visiting hours, pain management, procedures, bathroom and other care routines, personal items, smoking policy, room service/diet, and visiting hours. Information on how to activate the Rapid Response Team has been discussed. Patient/Family are encouraged to report perceived risks to care and to ask questions if they do not understand what they are told or what they should do.
[2023-05-15] VITALS (16 sets, daily range): BP systolic 94–111; BP diastolic 37–53; PULSE 59–83; RESP 18–20; TEMP 36.3–37.1; O2SAT 97–100
--- NOTE | 2023-05-15 01:28 | PM.IMHP ---
H&P: HPI History of Present Illness Date/Time: 05/14/23 23:30 Chief Complaint: Chest pain and shortness a breath. Narrative: This is a very pleasant 67-year-old female with history of complete heart block status post Saint Danyel dual chamber pacemaker implantation in November 2010, systolic and diastolic dysfunction, GERD, fibromyalgia, and hypothyroidism who presented to the emergency department via private vehicle from home for evaluation of chest pain and shortness of breath. The patient provides the following history. She felt fine when she got up this morning. At about 10:30 she was walking up the stairs from her laundry room when she started to feel much more winded than would be typical in this situation and she tells me that it was hard for her to make it up the stairs. Around the same time she developed a heaviness or tightness in the upper chest which worsened as the day progressed. She has never had similar symptoms and given her strong family history of coronary artery disease she decided to come in for evaluation. She denies syncope, near syncope, sweats, nausea, and vomiting. on arrival to the ED she was given 4 baby aspirin and 50 mcg of fentanyl with resolution of her symptoms. EKG showed a paced rhythm and her initial troponin was negative. She is being admitted in this setting for close monitoring and Cardiology consultation given her risk factors. Review of Systems Review of Systems: Twelve systems were reviewed and are negative except for as per HPI. [facility] Past Medical History Medical History (Updated 05/15/23 @ 01:41 by Iram Sloan PA-C) Anxiety AV block, 3rd degree Chronic pain syndrome Combined systolic and diastolic cardiac dysfunction Fibromyalgia Hypothyroidism Irritable bowel syndrome Low blood pressure Pacemaker Saint Danyel pacemaker for complete heart block in [place], [place] Surgical History Surgical History (Updated 05/15/23 @ 01:41 by Irma Sloan PA-C) History of bilateral knee arthroplasty History of bunionectomy of both great toes History of cataract extraction with lens replacement History of cholecystectomy History of hernia repair History of hysterectomy History of permanent cardiac pacemaker placement (11/2010) Saint Danyel dual chamber pacemaker. History of right oophorectomy History of tonsillectomy Status post gastroplasty Family History Family History Father Heart disease Cancer Mother Cancer Sibling Heart disease FH: heart attack Social History Social History (Updated 05/15/23 @ 01:38 by Irma Sloan PA-C) Social History: Surrogate medical decision maker: Shady Marr, spouse. Code status: Full code. Smoking packs per day: 1 Smoking cigarettes per day: 20.0 Years smoked: 25 Smoking pack-years: 25.00 Smoking status: Former smoker Tobacco type: cigarettes Second hand tobacco smoke exposure: Yes Smoking end date: 04/02/07 Alcohol intake: current Alcohol use details: 6 PER YEAR Substance use: never Substance use type: does not use Lack of Transportation: No Lack of Food: Never True Current Housing: I Have Housing Concerned About Future Housing: No Difficulty Paying Gas/Electric Bills: No Difficulty Paying for Meds: No Currently Unemployed: No Education: High School Diploma/GED Difficulty w/ Childcare or Family Care: No Living arrangements: with family Additional living arrangements comments: . Has 2 daughters and a stepdaughter. Enjoys crafting and doing needle work. 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 Spiritual care concerns: No Meds Home Medications and Allergies Home Medications Medication Instructions Recorded Confirmed Type liothyronine 5 mcg tablet 5 mcg PO BID 07/01/20 05/14/23 History magnesium glycinate 100 mg tablet 200 mg PO DAILY
[2023-05-15 01:33] LABS: Troponin I < 0.012 ng/mL (0.000-0.034)
[2023-05-15] MEDS: fentaNYL CITRATE INJ (*CRX) 100 MCG/2 ML VIAL 25 MCG IV PUSH ×2 (02:04→09:57)
[2023-05-15] MEDS: LEVOTHYROXINE SODIUM 112 MCG TABLET PO ×2 (02:46→21:04)
[2023-05-15] MEDS: MELATONIN 5 MG TABLET 30 MG PO ×2 (02:47→21:05)
[2023-05-15] MEDS: PANTOPRAZOLE 40 MG TABLET PO ×2 (02:48→21:04)
[2023-05-15] MEDS: traZODone HCL 50 MG TABLET 150 MG PO ×2 (02:48→21:04)
[2023-05-15 04:14] LABS: Anion Gap 2 mmol/L (8-16); Blood Urea Nitrogen 14 mg/dL (7-17); Calcium 8.3 mg/dL (8.4-10.2); Carbon Dioxide 27 mmol/L (22-30); Chloride 104 mmol/L (98-107); Cholesterol 139 mg/dL (0-200); Estimated CRCL calculation 52 ml/min; Estimated Glomerular Filt Rate > 60; Glucose 72 mg/dL (65-110); HDL Direct 48 mg/dL; Magnesium 2.3 mg/dL (1.6-2.3); Potassium 3.7 mmol/L (3.4-5.0); Sodium 133 mmol/L (137-145); Triglycerides 57 mg/dL (<150)
[2023-05-15 04:25] LABS: LDL Cholesterol Direct 68 mg/dL
--- NOTE | 2023-05-15 07:24 | PM.IMPN ---
Progress Note: A&P Assessment and Plan (1) Chest pain: Qualifiers: Chest pain type: unspecified Qualified Code(s): R07.9 - Chest pain, unspecified Code(s): R07.9 - Chest pain, unspecified Status: Acute Assessment and Plan: Monitor telemetry, echo pending Troponin negative x3 Consult cardiology, may need stress test (2) Combined systolic and diastolic cardiac dysfunction: Code(s): I51.89 - Other ill-defined heart diseases Status: Acute Assessment and Plan: Appears euvolemic at this time, monitor (3) Hypothyroidism: Code(s): E03.9 - Hypothyroidism, unspecified Status: Acute Assessment and Plan: Check TSH, continue levothyroxine (4) Low blood pressure: Code(s): I95.9 - Hypotension, unspecified Status: Acute Assessment and Plan: Blood pressures 05/15 Stable, monitor Plan DVT prophylaxis with Lovenox GI prophylaxis not indicated Code status full code Subjective Date/time seen: 05/15/23 07:24 Interval history: 67-year-old female with history of complete heart block status post pacemaker, heart failure, GERD and hypothyroidism among other comorbidities is presenting with chest pain and shortness of breath. No overnight events noted. No chest pain or shortness of breath. No nausea, vomiting or diarrhea. No fevers or chills. Review of Systems Review of Systems: 12 point review of systems was assessed and was negative except as noted in the HPI Exam Narrative: General: No acute distress, alert and oriented per baseline HEENT: Atraumatic, normocephalic, mucous membranes moist CV: Regular rate and rhythm, S1, S2 Lungs: Clear to auscultation bilaterally, no rales or crackles noted, no wheezes, good air entry Abdomen: Soft, nontender, nondistended Extremities: Normal to inspection Skin: No rashes noted, no lesions or wounds seen Psych: Euthymic, normal affect Objective Data Vital Signs Vital Signs: Vital Signs - 24 hr 05/14/23 18:21 05/14/23 18:26 05/14/23 18:27 Temperature 98.0 F Pulse Rate 75 71 Respiratory Rate 18 Blood Pressure 100/51 L Pulse Oximetry 99 100 Oxygen Delivery Room Air Room Air 05/14/23 18:28 05/14/23 18:30 05/14/23 18:31 Temperature Pulse Rate 69 69 71 Respiratory Rate 25 H 14 15 Blood Pressure Pulse Oximetry 100 98 Oxygen Delivery 05/14/23 18:40 05/14/23 18:45 05/14/23 18:46 Temperature Pulse Rate 66 64 63 Respiratory Rate 17 19 13 Blood Pressure 92/48 L 93/63 L Pulse Oximetry 100 100 100 Oxygen Delivery 05/14/23 18:56 05/14/23 19:00 05/14/23 19:01 Temperature Pulse Rate 66 64 63 Respiratory Rate 12 13 20 Blood Pressure 97/78 L 94/61 L Pulse Oximetry 100 100 100 Oxygen Delivery 05/14/23 19:15 05/14/23 19:16 05/14/23 19:30 Temperature Pulse Rate 68 62 63 Respiratory Rate 18 19 23 H Blood Pressure 93/61 L 103/63 Pulse Oximetry 100 100 100 Oxygen Delivery 05/14/23 19:36 05/14/23 19:45 05/14/23 20:00 Temperature Pulse Rate 62 61 64 Respiratory Rate 15 16 14 Blood Pressure 113/68 Pulse Oximetry 97 100 100 Oxygen Delivery 05/14/23 20:05 05/14/23 20:15 05/14/23 20:16 Temperature Pulse Rate 68 63 62 Respiratory Rate 19 14 18 Blood Pressure 118/60 Pulse Oximetry 100 98 100 Oxygen Delivery 05/14/23 20:34 05/14/23 20:45 05/14/23 21:05 Temperature Pulse Rate 62 63 62 Respiratory Rate 16 19 21 H Blood Pressure 108/83 Pulse Oximetry 100 100 96 Oxygen Delivery 05/14/23 21:15 05/14/23 21:16 05/14/23 22:09 Temperature 97.9 F Pulse Rate 64 60 71 Respiratory Rate 13 17 18 Blood Pressure 123/63 109/51 L Pulse Oximetry 100 100 100 Oxygen Delivery 05/14/23 22:05 05/14/23 22:02 05/14/23 23:23 Temperature 97.1 F L Pulse Rate 71 84 63 Respiratory Rate 18 18 Blood Pressure 105/50 L Pulse Oximetry 100 100 Oxygen Delivery Room Air
[2023-05-15 07:53] LABS: Alanine Aminotransferase 14 U/L (6-35); Albumin Level 3.1 g/dL (3.5-5.1); Alkaline Phosphatase 63 U/L (38-126); Aspartate Amino Transferase 21 U/L (14-36); Bilirubin,Total 0.3 mg/dL (0.2-1.3)
[2023-05-15 07:56] LABS: Basophils Percent Auto 0.8 % (0.2-1.2); Eosinophils Absolute Auto 0.1 K/mm3 (0-0.3); Eosinophils Percent Auto 1.8 % (0-4.4); Hematocrit 37.6 % (37.0-47.0); Hemoglobin 11.9 g/dL (12.0-15.0); Immature Granulocyte Absolute 0.01 K/mm3 (0.00-0.031); Immature Granulocyte Percent A 0.3 % (0-0.5); Lymphocytes Absolute Auto 1.55 K/mm3 (0.9-3.2); Mean Corpuscular HGB Conc 31.6 g/dl (32-36); Mean Corpuscular Hemoglobin 30.2 pg (26-34); Mean Corpuscular Volume 95.4 fl (80-100); Monocytes Absolute Auto 0.3 K/mm3 (0.1-0.6); Monocytes Percent Auto 8.1 % (2.6-8.5); Platelet Count Result 223 k/mm3 (150-375); Red Blood Count 3.94 M/mm3 (4.2-5.4); Red Cell Distribution Width 12.9 % (11.5-14.5)
[2023-05-15] MEDS: buPROPion HCL SR (12 HR) 150 MG TAB PO ×2 (09:33→21:04)
[2023-05-15] MEDS: MAGNESIUM OXIDE 200 MG TABLET PO (09:33)
[2023-05-15] MEDS: CHOLECALCIFEROL 1,000 UNITS TABLET 10000 UNITS PO (09:34)
[2023-05-15] MEDS: LIOTHYRONINE SODIUM 5 MCG TABLET PO ×2 (09:34→18:26)
[2023-05-15] MEDS: ENOXAPARIN 40 MG/0.4 ML SYRINGE SUB-Q (09:57)
--- NOTE | 2023-05-15 21:16 | PHAR ---
PT'S HOME MEDS PILOCARPINE 5 MG TABS AND LINZESS 72 MCG CAPSULES VERIFIED BY PHARMACY
[2023-05-15] MEDS: traMADol HCL (*CRX) 50 MG TABLET 100 MG PO (21:26)
[2023-05-16] VITALS (13 sets, daily range): BP systolic 85–101; BP diastolic 45–59; PULSE 60–76; RESP 14–20; TEMP 36.2–36.6; O2SAT 95–100
--- NOTE | 2023-05-16 01:45 | ECHO_ITS ---
Patient Info Name: Kenrick Marr Age: 67 years : 1955 Gender: Female Ht: 65 in Wt: 155 lbs BSA: 1.81 m2 HR: 70 bpm BP: 99 / 45 mmHg Technical Quality: Fair Exam Date: 05/16/2023 1:20 PM Exam Location: [facility] Patient Status: Inpatient Admit Date: 05/16/2023 Staff Ordering Physician: Irma Sloan PA-C Parachute Marker: Barbara Mishra RDCS Attending Provider: Cecilia Vernon MD Referring Physician: Nathalia TOMPKINS; Exam Type: CA echo dop color flow w con Study Info Indications R07.9 - Chest pain, unspecified Complete two-dimensional, color flow and Doppler transthoracic echocardiogram is performed with contrast to opacify the left ventricle and to improve the deliniation of the left ventricle endocardial borders. Contrast/Agitated Saline Contrast/Ag. Saline: Definity Amount: 4.00 ml Administered By: Barbara Mishra RDCS Existing IV Access: Yes IV Access Condition: patent with no signs of infiltration Summary 1. Definity contrast administered improved wall motion interpretation. 2. Left ventricular systolic function is preserved, estimated at 50-55%. 3. Left ventricular chamber dimension is normal. 4. The left ventricular diastolic function is grade I diastolic dysfunction. 5. E/e' 8 is minimally elevated. 6. No pulmonary hypertension, estimated pulmonary arterial systolic pressure is 25 mmHg. Left Ventricle E/e' 8 is minimally elevated. Definity contrast administered improved wall motion interpretation. Left ventricular systolic function is preserved, estimated at 50-55%. Left ventricular chamber dimension is normal. The left ventricular diastolic function is grade I diastolic dysfunction. Right Ventricle Right ventricular systolic function is normal and with normal TAPSE 1.8 cm. Right ventricular chamber dimension is normal. Left Atria Left atrial chamber dimension is normal. Right Atria Right atrial chamber dimension is normal. Aortic Valve The aortic valve is probable trileaflet. There is no aortic valve stenosis. There is no aortic valve regurgitation. Pulmonic Valve There is no pulmonic regurgitation. Mitral Valve There is no mitral valve stenosis. There is no mitral valve regurgitation. Tricuspid Valve There is no tricuspid valve regurgitation. No pulmonary hypertension, estimated pulmonary arterial systolic pressure is 25 mmHg. Pericardium/Pleural There is no pericardial effusion. Inferior Vena Cava Normal inferior vena cava with >50% collapse upon inspiration consistent with normal right atrial pressure, 5 mmHg. Aorta The aortic root size at the sinus of Valsalva is normal. Left Ventricular Outflow Tract Name Value Normal LVOT 2D LVOT Diameter 1.93 cm LVOT Doppler LVOT Peak Gradient 3 mmHg LVOT Mean Gradient 2 mmHg LVOT VTI 20.28 cm LVOT VTI/AV VTI Ratio 0.94 LVOT Stroke Volume 59.38 ml LVOT CO 3.54 l/min LVOT CI 1.95 L/min/m2 Pulmonic Valve
--- NOTE | 2023-05-16 08:23 | PM.IMPN ---
Progress Note: A&P Assessment and Plan (1) Chest pain: Qualifiers: Chest pain type: unspecified Qualified Code(s): R07.9 - Chest pain, unspecified Code(s): R07.9 - Chest pain, unspecified Status: Acute Assessment and Plan: Monitor telemetry, echo pending Troponin negative x3 Consult cardiology pending, may need stress test (2) Combined systolic and diastolic cardiac dysfunction: Code(s): I51.89 - Other ill-defined heart diseases Status: Acute Assessment and Plan: Appears euvolemic at this time, monitor (3) Hypothyroidism: Code(s): E03.9 - Hypothyroidism, unspecified Status: Acute Assessment and Plan: Check TSH, continue levothyroxine (4) Low blood pressure: Code(s): I95.9 - Hypotension, unspecified Status: Acute Assessment and Plan: Blood pressures 05/16 Stable, monitor Plan DVT prophylaxis with Lovenox GI prophylaxis not indicated Code status full code Subjective Date/time seen: 05/16/23 08:23 Interval history: 67-year-old female with history of complete heart block status post pacemaker, heart failure, GERD and hypothyroidism among other comorbidities is presenting with chest pain and shortness of breath. No overnight events noted. No chest pain or shortness of breath. No nausea, vomiting or diarrhea. No fevers or chills. Review of Systems Review of Systems: 12 point review of systems was assessed and was negative except as noted in the HPI Exam Narrative: General: No acute distress, alert and oriented per baseline HEENT: Atraumatic, normocephalic, mucous membranes moist CV: Regular rate and rhythm, S1, S2 Lungs: Clear to auscultation bilaterally, no rales or crackles noted, no wheezes, good air entry Abdomen: Soft, nontender, nondistended Extremities: Normal to inspection Skin: No rashes noted, no lesions or wounds seen Psych: Euthymic, normal affect Objective Data Vital Signs Vital Signs: Vital Signs - 24 hr 05/15/23 12:00 05/15/23 10:00 05/15/23 12:00 Temperature 97.7 F Pulse Rate 65 63 65 Respiratory Rate 18 Blood Pressure 111/37 L Pulse Oximetry 97 Oxygen Delivery 05/15/23 14:00 05/15/23 16:00 05/15/23 16:00 Temperature 98.8 F Pulse Rate 83 67 66 Respiratory Rate 20 Blood Pressure 95/38 L Pulse Oximetry 98 Oxygen Delivery 05/15/23 18:00 05/15/23 20:00 05/15/23 20:00 Temperature 97.6 F Pulse Rate 65 60 70 Respiratory Rate 20 Blood Pressure 94/40 L Pulse Oximetry 100 Oxygen Delivery 05/15/23 20:00 05/15/23 22:00 05/15/23 23:18 Temperature 97.6 F Pulse Rate 60 73 69 Respiratory Rate 20 20 Blood Pressure 94/46 L Pulse Oximetry 100 99 Oxygen Delivery Room Air 05/16/23 00:00 05/16/23 02:00 05/16/23 04:00 Temperature Pulse Rate 69 60 60 Respiratory Rate 20 Blood Pressure Pulse Oximetry 99 Oxygen Delivery Room Air 05/16/23 04:00 05/16/23 04:00 05/16/23 05:51 Temperature 97.9 F Pulse Rate 60 60 61 Respiratory Rate 20 18 Blood Pressure 99/45 L Pulse Oximetry 99 100 Oxygen Delivery Room Air 05/16/23 07:56 Temperature 97.3 F L Pulse Rate 68 Respiratory Rate 14 Blood Pressure 87/47 L Pulse Oximetry 97 Oxygen Delivery Intake/Output Intake/Output: Intake & Output 05/13/23 05/14/23 05/15/23 05/16/23 23:59 23:59 23:59 23:59 Intake Total 780 550 Output Total 1875 700 Balance -1095 -150 Meds/Results Medications: Active Medications Generic Name Dose Route Start Last Admin Trade Name Phiq PRN Reason Stop Dose Admin Acetaminophen 650 mg 05/15/23 01:45 Acetaminophen 325 Mg Tablet PO Q6H PRN Mild Pain (1-3) or Fever Bupropion HCl 150 mg 05/15/23 09:00 05/15/23 21:04 Bupropion Hcl Sr (12 Hr) 150 Mg Tab PO 150 mg Q12HR ELISABETH Administration Cyclobenzaprine HCl 5 mg 05/15/23 01:47 Cyclobenzaprine Hcl 5 Mg Ta
[2023-05-16] MEDS: MAGNESIUM OXIDE 200 MG TABLET PO (09:27)
[2023-05-16] MEDS: CHOLECALCIFEROL 1,000 UNITS TABLET 10000 UNITS PO (09:27)
[2023-05-16] MEDS: LIOTHYRONINE SODIUM 5 MCG TABLET PO ×2 (09:27→17:31)
[2023-05-16] MEDS: ENOXAPARIN 40 MG/0.4 ML SYRINGE SUB-Q (09:28)
[2023-05-16] MEDS: buPROPion HCL SR (12 HR) 150 MG TAB PO ×2 (09:28→21:36)
[2023-05-16 09:52] LABS: Thyroid Stimulating Hormone 0.107 uIU/mL (0.465-4.680)
--- NOTE | 2023-05-16 11:30 | PM.CNCAR ---
Assessment and Plan Assessment and plan (1) Chest pain: Qualifiers: Chest pain type: unspecified Qualified Code(s): R07.9 - Chest pain, unspecified Code(s): R07.9 - Chest pain, unspecified Status: Acute Assessment and Plan: Atypical. MA has been r/o by serial troponin and EKG. Obtain lexiscan myoview stress test in AM. (2) Systolic dysfunction: Code(s): I51.9 - Heart disease, unspecified Status: Acute Assessment and Plan: Very mild systolic and diastolic dysfunction. An echo has been ordered. (3) Low blood pressure: Code(s): I95.9 - Hypotension, unspecified Status: Acute Assessment and Plan: Stable. Advise to keep well hydrated. Could be side effect of non-cardiac medication. (4) Pacemaker: Code(s): Z95.0 - Presence of cardiac pacemaker Status: Acute Assessment and Plan: PPM had been interrogated recently 02/17/23 with normal function. History of Present Illness History of Present Illness Consult date/time: 05/16/23 11:30 Reason For Visit: CHEST PAIN Narrative: 67 yr old woman who is my regular cardiology patient presents to hospital for chest pain. She has a history of [employer] pacemaker. Presents with her . States she had exertional sob and chest pressure intermittently. Her BP was running low also.? She has some dizziness upon standing at times. Reports she can walk 1/4 mile without any problems. She has edema of legs that gets worse at end of the day for years.? Denies chest pain, sob, orthopnea, PND, palpitations. Cardiovascular Procedures Echo/MUGA:: 06/09/21 Echo: EF 50-55%, mild LVE, diastolic dysfunction (E/e' 10), mild LAE, trace MR. 07/02/20 Echo: EF 45-50%, grade I diastolic dysfunction, trace MR/TR. 12/15/16 Echo: EF 55-60%. Electrophysiology:: 02/17/23 EKG: Ventriclar paced rhythm at 91 bpm. EKG: AV paced rhythm. 07/15/20 Dr. Ho: Generator change. 08/23/19 EKG: AV pacemaker. 12/03/10 [employer]el dual chamber pacemaker implant. Review of Systems Constitutional: Constitutional: Reports as per HPI, Denies chills and Denies fever(s) Cardiovascular: Cardiovascular: Reports as per HPI, Reports chest pain and Denies irregular heart rhythm Respiratory: Respiratory: Reports as per HPI and Reports dyspnea Gastrointestinal: Gastrointestinal: Reports as per HPI and Denies abdominal pain Genitourinary: Genitourinary: Reports as per HPI and Denies dysuria Musculoskeletal: Musculoskeletal: Reports as per HPI Neurologic: Reports as per HPI, Denies dizziness and Denies syncope [facility] Past Medical History Medical History (Updated 05/15/23 @ 01:41 by Irma Sloan PA-C) Anxiety AV block, 3rd degree Chronic pain syndrome Combined systolic and diastolic cardiac dysfunction Fibromyalgia Hypothyroidism Irritable bowel syndrome Low blood pressure Pacemaker [employer] pacemaker for complete heart block in 2010, [place] Surgical History Surgical History (Updated 05/15/23 @ 01:41 by Irma Sloan PA-C) History of bilateral knee arthroplasty History of bunionectomy of both great toes History of cataract extraction with lens replacement History of cholecystectomy History of hernia repair History of hysterectomy History of permanent cardiac pacemaker placement (11/2010) [employer]el dual chamber pacemaker. History of right oophorectomy History of tonsillectomy Status post gastroplasty Family History Family History Father Heart disease Cancer Mother Cancer Sibling Heart disease FH: heart attack Social History Social History (Updated 05/15/23 @ 01:38 by Irma Sloan PA-C) Social History: Surrogate medical decision maker: Shady Marr, spouse. Code status: Full code. Smoking packs per day: 1 Smoking cigarettes per day: 20.0 Years smoked: 25 Smoking pack-years: 25.00 Smoking status: F
[2023-05-16] MEDS: PERFLUTREN LIPID MICROSPHERES 1.5 ML VIAL DILUTED TO 10 ML TOTAL VOLUME IV PUSH (14:10)
[2023-05-16] MEDS: SODIUM CHLORIDE 0.9% IV 250 ML 100 ML IV CONT (15:44)
[2023-05-16] MEDS: BISACODYL 10 MG SUPPOSITORY RECTAL (18:25)
[2023-05-16] MEDS: traMADol HCL (*CRX) 50 MG TABLET 100 MG PO (21:35)
[2023-05-16] MEDS: MELATONIN 5 MG TABLET 30 MG PO (21:35)
[2023-05-16] MEDS: PANTOPRAZOLE 40 MG TABLET PO (21:35)
[2023-05-16] MEDS: traZODone HCL 50 MG TABLET 150 MG PO (21:35)
[2023-05-16] MEDS: LEVOTHYROXINE SODIUM 112 MCG TABLET PO (21:36)
[2023-05-17] VITALS (9 sets, daily range): BP systolic 91–104; BP diastolic 43–56; PULSE 59–76; RESP 16–18; TEMP 35.9–36.8; O2SAT 96–99
--- NOTE | 2023-05-17 | EST_ITS ---
Patient Info Name: Kenrick Marr Age: 67 years : 1955 Gender: Female Ht: 65 in Wt: 158 lbs BSA: 1.83 m2 HR: 64 bpm BP: 150 / 53 mmHg Heart Rhythm: Left Bundle Branch Block Exam Date: 05/17/2023 8:38 AM Exam Location: [facility] Stress Patient Status: Inpatient Admit Date: 05/16/2023 Staff Ordering Physician: Collin Pederson DO Attending Provider: Cecilia Vernon MD Exercise Technologist: Lolly Olson CT Exercise Physician: Collin Pederson DO Exam Type: CA stress niki w NM Study Info Indications Z95.0 - Presence of cardiac pacemaker I44.7 - Left bundle-branch block, unspecified R07.89 - Other chest pain A regadenoson stress test was performed. Summary 1. 1. Inconclusive lexiscan stress test for ischemic ST changes by ECG criteria due to baseline LBBB. 2. 2. Stable hemodynamics throughout the test. 3. 3. Nuclear scan to follow and will be reported separately. Please correlate with it. 4. 4. Patient informed of the above results. Protocol: Lexiscan Stress ECG Details Stage: REST Duration (min): 0 min : 59 sec HR (bpm): 60 SBP (mmHg): 150 DBP (mmHg): 53 Stage: REST Duration (min): 7 min : 58 sec HR (bpm): 62 SBP (mmHg): 150 DBP (mmHg): 53 Stage: STAGE 1 Duration (min): 1 min : 0 sec HR (bpm): 80 SBP (mmHg): 150 DBP (mmHg): 53 Stage: RECOVERY Duration (min): 1 min : 0 sec HR (bpm): 77 SBP (mmHg): 84 DBP (mmHg): 56 Stage: RECOVERY Duration (min): 2 min : 0 sec HR (bpm): 79 SBP (mmHg): 84 DBP (mmHg): 56 Stage: RECOVERY Duration (min): 3 min : 0 sec HR (bpm): 72 SBP (mmHg): 100 DBP (mmHg): 59 Stage: RECOVERY Duration (min): 3 min : 57 sec HR (bpm): 72 SBP (mmHg): 100 DBP (mmHg): 59 Rest HR: 62 bpm Peak HR: 82 bpm Rest Sys BP: 150 mmHg Peak Sys BP: 100 mmHg Max Pred HR: 151 bpm % Max Pred HR: 54 % Target HR: 128 bpm Max RPP: 8,200 bpm*mmHg Termination Reason: Completed protocol Total Time: 1 min : 0 sec Rest Mejia BP: 53 mmHg Peak Mejia BP: 59 mmHg Total Dose: 0.4 mg Resting ECG Sinus rhythm, LBBB. Stress ECG No ST changes. Arrhythmias None. Report Signatures
[2023-05-17] MEDS: ONDANSETRON INJ 4 MG/2 ML VIAL IV PUSH (02:26)
--- NOTE | 2023-05-17 07:50 | PM.PNCARD ---
Progress Note: A&P Assessment and Plan (1) Chest pain: Qualifiers: Chest pain type: unspecified Qualified Code(s): R07.9 - Chest pain, unspecified Code(s): R07.9 - Chest pain, unspecified Status: Acute Assessment and Plan: Atypical. [place] has been r/o by serial troponin and EKG. Obtain lexiscan myoview stress test today. If negative, may d/c home from cardiology standpoint. (2) Systolic dysfunction: Code(s): I51.9 - Heart disease, unspecified Status: Acute Assessment and Plan: Euvolemic. Very mild systolic and diastolic dysfunction. 05/16/23 Echo: EF 50-55%, grade I diastolic dysfunction (E/e' 8). (3) Low blood pressure: Code(s): I95.9 - Hypotension, unspecified Status: Acute Assessment and Plan: Stable and could be her normal. Advise to keep well hydrated. Could be side effect of non-cardiac medication contributing. (4) Pacemaker: Code(s): Z95.0 - Presence of cardiac pacemaker Status: Acute Assessment and Plan: PPM had been interrogated recently 02/17/23 with normal function. Subjective Date/time seen: 05/17/23 07:50 Interval history: She is feeling better. No chest pain or sob this morning. Exam Const: General: cooperative, healthy appearing and comfortable Orientation/consciousness: oriented to person, oriented to place and oriented to time Resp: Auscultation: clear to auscultation bilaterally, no crackles, no rales and no rhonchi Cardio: Rate: regular rate Rhythm: regular rhythm Heart sounds: no murmurs Peripheral pulses: dorsalis pedis present Neuro: General: oriented to person, oriented to place and oriented to time Extrem: Right lower extremity: no edema Left lower extremity: no edema Objective Data Vital Signs Vital Signs: Vital Signs - 24 hr 05/16/23 07:56 05/16/23 12:00 05/16/23 16:00 Temperature 97.3 F L 97.4 F L 97.7 F Pulse Rate 68 66 65 Respiratory Rate 14 16 16 Blood Pressure 87/47 L 85/59 L 101/57 L Pulse Oximetry 97 100 95 Oxygen Delivery 05/16/23 08:00 05/16/23 10:00 05/16/23 12:00 Temperature Pulse Rate 63 62 64 Respiratory Rate Blood Pressure Pulse Oximetry Oxygen Delivery 05/16/23 14:00 05/16/23 16:00 05/16/23 08:00 Temperature Pulse Rate 65 62 Respiratory Rate Blood Pressure Pulse Oximetry Oxygen Delivery Room Air 05/16/23 12:00 05/16/23 16:00 05/16/23 18:00 Temperature Pulse Rate 76 Respiratory Rate Blood Pressure Pulse Oximetry Oxygen Delivery Room Air Room Air 05/16/23 20:00 05/16/23 20:00 05/16/23 20:00 Temperature 97.1 F L Pulse Rate 60 60 60 Respiratory Rate 18 18 Blood Pressure 98/53 L Pulse Oximetry 99 99 Oxygen Delivery Room Air 05/16/23 22:00 05/17/23 00:00 05/17/23 00:00 Temperature Pulse Rate 63 60 63 Respiratory Rate 18 Blood Pressure Pulse Oximetry 99 Oxygen Delivery Room Air 05/17/23 00:15 05/17/23 02:00 05/17/23 04:00 Temperature 97 F L Pulse Rate 59 L 64 76 Respiratory Rate 16 Blood Pressure 104/43 L Pulse Oximetry 99 Oxygen Delivery 05/17/23 04:00 05/17/23 04:00 05/17/23 06:00 Temperature 96.7 F L Pulse Rate 64 71 70 Respiratory Rate 16 16 Blood Pressure 92/43 L Pulse Oximetry 99 98 Oxygen Delivery Room Air Intake/Output Intake/Output: Intake & Output 05/14/23 05/15/23 05/16/23 05/17/23 23:59 23:59 23:59 23:59 Intake Total 780 2110 550 Output Total 187 1850 1650 Balance -1095 260 -1100 Meds/Results Medications: Active Medications Generic Name Dose Route Start Last Admin Trade Name Freq PRN Reason Stop Dose Admin Acetaminophen 650 mg 05/15/23 01:45 Acetaminophen 325 Mg Tablet PO Q6H PRN Mild Pain (1-3) or Fever Bisacodyl 10 mg 05/16/23 13:37 05/16/23 18:25 Bisacodyl 10 Mg Suppository RECTAL 10 mg QAM PRN Administration Constipation Bupropion HCl 150 mg 05/15/23 0
--- NOTE | 2023-05-17 08:44 | PM.IMPN ---
Progress Note: A&P Assessment and Plan (1) Chest pain: Qualifiers: Chest pain type: unspecified Qualified Code(s): R07.9 - Chest pain, unspecified Code(s): R07.9 - Chest pain, unspecified Status: Acute Assessment and Plan: Monitor telemetry, troponin negative x3 Consult cardiology appreciated, stress test 05/17 (2) Combined systolic and diastolic cardiac dysfunction: Code(s): I51.89 - Other ill-defined heart diseases Status: Acute Assessment and Plan: Appears euvolemic at this time, monitor Echo from 05/16 showed an EF of 50-55% with grade 1 diastolic dysfunction (3) Hypothyroidism: Code(s): E03.9 - Hypothyroidism, unspecified Status: Acute Assessment and Plan: TSH quite low, continue levothyroxine at lower dose, recheck TSH in 4-6 weeks (4) Low blood pressure: Code(s): I95.9 - Hypotension, unspecified Status: Acute Assessment and Plan: Blood pressures 05/17 Stable, monitor Plan DVT prophylaxis with Lovenox GI prophylaxis not indicated Code status full code Subjective Date/time seen: 05/17/23 08:44 Interval history: 67-year-old female with history of complete heart block status post pacemaker, heart failure, GERD and hypothyroidism among other comorbidities is presenting with chest pain and shortness of breath. No overnight events noted. No chest pain or shortness of breath. No nausea, vomiting or diarrhea. No fevers or chills. Review of Systems Review of Systems: 12 point review of systems was assessed and was negative except as noted in the HPI Exam Narrative: General: No acute distress, alert and oriented per baseline HEENT: Atraumatic, normocephalic, mucous membranes moist CV: Regular rate and rhythm, S1, S2 Lungs: Clear to auscultation bilaterally, no rales or crackles noted, no wheezes, good air entry Abdomen: Soft, nontender, nondistended Extremities: Normal to inspection Skin: No rashes noted, no lesions or wounds seen Psych: Euthymic, normal affect Objective Data Vital Signs Vital Signs: Vital Signs - 24 hr 05/16/23 12:00 05/16/23 16:00 05/16/23 10:00 Temperature 97.4 F L 97.7 F Pulse Rate 66 65 62 Respiratory Rate 16 16 Blood Pressure 85/59 L 101/57 L Pulse Oximetry 100 95 Oxygen Delivery 05/16/23 12:00 05/16/23 14:00 05/16/23 16:00 Temperature Pulse Rate 64 65 62 Respiratory Rate Blood Pressure Pulse Oximetry Oxygen Delivery 05/16/23 12:00 05/16/23 16:00 05/16/23 18:00 Temperature Pulse Rate 76 Respiratory Rate Blood Pressure Pulse Oximetry Oxygen Delivery Room Air Room Air 05/16/23 20:00 05/16/23 20:00 05/16/23 20:00 Temperature 97.1 F L Pulse Rate 60 60 60 Respiratory Rate 18 18 Blood Pressure 98/53 L Pulse Oximetry 99 99 Oxygen Delivery Room Air 05/16/23 22:00 05/17/23 00:00 05/17/23 00:00 Temperature Pulse Rate 63 60 63 Respiratory Rate 18 Blood Pressure Pulse Oximetry 99 Oxygen Delivery Room Air 05/17/23 00:15 05/17/23 02:00 05/17/23 04:00 Temperature 97 F L Pulse Rate 59 L 64 76 Respiratory Rate 16 Blood Pressure 104/43 L Pulse Oximetry 99 Oxygen Delivery 05/17/23 04:00 05/17/23 04:00 05/17/23 06:00 Temperature 96.7 F L Pulse Rate 64 71 70 Respiratory Rate 16 16 Blood Pressure 92/43 L Pulse Oximetry 99 98 Oxygen Delivery Room Air 05/17/23 08:00 Temperature 98 F Pulse Rate 59 L Respiratory Rate 18 Blood Pressure 98/47 L Pulse Oximetry 98 Oxygen Delivery Intake/Output Intake/Output: Intake & Output 05/14/23 05/15/23 05/16/23 05/17/23 23:59 23:59 23:59 23:59 Intake Total 780 2110 550 Output Total 1879 1850 1650 [facility] -1095 260 -2859 Meds/Results Medications: Active Medications Generic Name Dose Route Start Last Admin Trade Name Freq PRN Reason Stop Dose Admin Acetaminophen 650 mg 04/20
[2023-05-17] MEDS: CHOLECALCIFEROL 1,000 UNITS TABLET 10000 UNITS PO (10:23)
[2023-05-17] MEDS: MAGNESIUM OXIDE 200 MG TABLET PO (10:24)
[2023-05-17] MEDS: ENOXAPARIN 40 MG/0.4 ML SYRINGE SUB-Q (10:24)
[2023-05-17] MEDS: LIOTHYRONINE SODIUM 5 MCG TABLET PO (10:25)
[2023-05-17] MEDS: buPROPion HCL SR (12 HR) 150 MG TAB PO (10:25)
--- NOTE | 2023-05-17 13:52 | PM.DS ---
DS: Admitting Diagnosis Discharge Date 05/17/23 Admitting Diagnosis chest pain DS: Discharge Diagnosis Discharge Diagnosis (1) Chest pain: Qualifiers: Chest pain type: unspecified Qualified Code(s): R07.9 - Chest pain, unspecified Code(s): R07.9 - Chest pain, unspecified Status: Acute Assessment and Plan: Monitor telemetry, troponin negative x3 Consult cardiology appreciated, stress test 05/17 (2) Combined systolic and diastolic cardiac dysfunction: Code(s): I51.89 - Other ill-defined heart diseases Status: Acute Assessment and Plan: Appears euvolemic at this time, monitor Echo from 05/16 showed an EF of 50-55% with grade 1 diastolic dysfunction (3) Hypothyroidism: Code(s): E03.9 - Hypothyroidism, unspecified Status: Acute Assessment and Plan: TSH quite low, continue levothyroxine at lower dose, recheck TSH in 4-6 weeks (4) Low blood pressure: Code(s): I95.9 - Hypotension, unspecified Status: Acute Assessment and Plan: Blood pressures 05/17 Stable, monitor Plan DVT prophylaxis with Lovenox GI prophylaxis not indicated Code status full code DS: Summary Hospital Course Hospital Course: 67-year-old female with history of complete heart block status post pacemaker, heart failure, GERD and hypothyroidism among other comorbidities is presenting with chest pain and shortness of breath. Euvolemic. Very mild systolic and diastolic dysfunction. 05/16/23 Echo: EF 50-55%, grade I diastolic dysfunction (E/e' 8). Please see above and med rec for details. Stress test was negative, symptoms resolved. Time Spent with Patient Time attestation: Total time spent providing and/or coordinating discharge services: Exam Narrative: General: No acute distress, alert and oriented per baseline HEENT: Atraumatic, normocephalic, mucous membranes moist CV: Regular rate and rhythm, S1, S2 Lungs: Clear to auscultation bilaterally, no rales or crackles noted, no wheezes, good air entry Abdomen: Soft, nontender, nondistended Extremities: Normal to inspection Skin: No rashes noted, no lesions or wounds seen Psych: Euthymic, normal affect Discharge Plan Discharge Attending physician on discharge: Marlen Duckworth Consulting providers: Collin Pederson; Keara Menchaca; Jhon Parisi; Radhames Manning Discharging Clinician: Marlen Duckworth Patient Disposition: Home, Self-Care Activity: as tolerated Diet: as tolerated Patient Instructions: Chest Pain (DC) Stand Alone Forms: General Discharge Information Follow-up/Referrals: Collin Pederson DO [Physician] - Zoran Da Silva, SAVAGEC [Primary Care Provider] - Discharge Medications: Continued cholecalciferol (vitamin D3) 250 mcg (10,000 unit) capsule 10,000 mcg PO DAILY liothyronine 5 mcg tablet 5 mcg PO BID magnesium glycinate 100 mg tablet 200 mg PO DAILY vitamin [id number] B1 1,000-100 mg/mL solution 1 ml IM WEEKLY Rx Instructions: Takes on Tuesday evening. levothyroxine [Levo-T] 112 mcg tablet 112 mcg PO HS pilocarpine HCl 5 mg tablet 10 mg PO BID cyclobenzaprine 5 mg tablet 5 mg PO DAILY PRN (Reason: muscle spasms) Ozempic 1 mg/dose (4 mg/3 mL) pen injector 1.5 mg SUBCUT WEEKLY Rx Instructions: Takes on Sundays dexlansoprazole [Dexilant] 60 mg capsule,biphase delayed releas 60 mg PO HS melatonin tablet 30 mg PO HS bupropion HCl 150 mg tablet sustained-release 12 hr 150 mg PO BID Linzess 72 mcg capsule 75 mcg PO DAILY trazodone 150 mg tablet 150 mg PO HS No Action tramadol 50 mg tablet 100 mg PO BID PRN (Reason: pain) Qty: 120 0RF Date of admission: 05/16/23 10:45 Primary Care Provider: Zoran Da Silva Admitting Provider: Cecilia Vernon V. Attending physician on admission: Marlen Duckworth Condition: Serious
== END 2023-05-17 15:03 | disposition home or self-care (01) | DRG 313 ==
LOC: ANHED 20:57 → ANHIMU 21:36
PROVIDERS: Physician Assistant; Admitting Provider Internal Medicine; Emergency Provider Student in an Organized Health Care Education/Training Program; PCP Physician Assistant; Visit Provider Student in an Organized Health Care Education/Training Program
DX: R07.9 Chest pain, unspecified (principal); I51.89 Other ill-defined heart diseases; I95.9 Hypotension, unspecified; K58.9 Irritable bowel syndrome, unspecified; K21.9 Gastro-esophageal reflux disease without esophagitis; E03.9 Hypothyroidism, unspecified; M79.7 Fibromyalgia; G89.4 Chronic pain syndrome; F41.9 Anxiety disorder, unspecified; Z96.653 Presence of artificial knee joint, bilateral; Z95.0 Presence of cardiac pacemaker; Z87.891 Personal history of nicotine dependence
CPT/HCPCS: 36415; 71046; 78452; 80048; 80053; 80061; 80076; 83690; 83735; 83880; 84443; 84484; 85025; 85610; 85730; 93005; 93017; 96372; 96374; 96376; 99285; A9270; A9502; C8929; G0378; J1650; J2405; J2785; J3010; J7050; Q9957

== ENCOUNTER → 2023-06-11 10:22 | Outpatient (CLI) | payer MEDICARE, BC, SELFPAY ==
--- NOTE | ~2023-06-11 | MM_ITS ---
EXAMINATION: MM screening lyndsey BI w cristopher HISTORY: Screening mammogram TECHNIQUE: Craniocaudal and mediolateral oblique 3-D tomosynthesis images were obtained and synthetic 2-D images were generated. CAD analysis was submitted and interpreted. COMPARISON: November 06, 2021, September 23, 2020, April 06, 2019 bilateral screening mammogram examinati ons BREAST PARENCHYMAL COMPOSITION: FINDINGS: There are 2 closely associated asymmetric opacities in the anterior lower outer quadrant of the right breast, measuring approximately 3 and 4.5 mm (craniocaudal Tomosynthesis image ). Latonia gnostic right mammogram is recommended, with ultrasound if required. Otherwise no suspicious mass, architectural distortion, malignant calcification, skin thickening or r etraction or significant new or developing density of either breast is noted. IMPRESSION: 1. Right breast mammographic asymmetries, anterior lower outer quadrant 2. Diagnostic right mammogram is recommended, with ultrasound if required BI-RADS Category 0: Incomplete: Needs additional imaging evaluation. Reviewed, dictated and finalized at location A.
== END ==
PROVIDERS: PCP Physician Assistant; Visit Provider Physician Assistant
DX: Z12.31 Encounter for screening mammogram for malignant neoplasm of breast (principal); R92.8 Other abnormal and inconclusive findings on diagnostic imaging of breast
CPT/HCPCS: 77063; 77067

== ENCOUNTER → 2023-06-30 09:15 | Outpatient (CLI) | payer MEDICARE, BC, SELFPAY ==
--- NOTE | ~2023-06-30 | MMUS_ITS ---
EXAMINATION: MM diagnostic lyndsey RT w cristopher, US breast RT limited HISTORY: 2 closely associated asymmetric opacities in the anterior lower outer right breast were repo rted on 06/11/2023 screening mammogram examination TECHNIQUE: Additional 3-D tomosynthesis images of the right breast were performed and synthetic 2-D i mages were generated. CAD analysis was submitted and interpreted. High resolution upper outer and low er-outer quadrant right breast ultrasound was performed. COMPARISON: 06/11/2023, , 09/23/2020 bilateral screening mammogram examinations FINDINGS: MAMMOGRAPHIC FINDINGS: There are 2 small circumscribed opacities measuring approximately 3.74 mm in the anterior aspect of t he mid to lower outer right breast. ULTRASOUND: 9:00 4.5 cm from nipple: 2.5 x 5.7 mm probable benign lymph node, measuring approximately 2.5 x 5.7 m m. 9-10:00 4 cm from nipple: Parallel circumscribed sonolucency measuring 2.3 x 1.5 x 3.4 mm, without in ternal vascularity or posterior shadowing, benign in appearance No suspicious mass or shadowing of the upper outer or lower outer quadrants is detected IMPRESSION: 1. Benign findings; no mammographic or sonographic evidence of malignancy 2. Routine annual mammographic screening is recommended BI-RADS Category 2: Benign finding(s). Reviewed, dictated and finalized at location A. IMPRESSION: 1. Benign findings; no mammographic or sonographic evidence of malignancy 2. Routine annual mammographic screening is recommended BI-RADS Category 2: Benign finding(s).
== END ==
PROVIDERS: PCP Physician Assistant; Visit Provider Physician Assistant
DX: R92.8 Other abnormal and inconclusive findings on diagnostic imaging of breast (principal)
CPT/HCPCS: 76642; 77061; 77065; G0279

== ENCOUNTER 2023-10-28 19:36 | Emergency (ER) | payer MEDICARE, BC, SELFPAY ==
[2023-10-28 19:45] VITALS: BP 98/68; PULSE 57; RESP 14; TEMP 36.6; O2SAT 100
[2023-10-28 20:20] LABS: Basophils Percent Auto 0.8 % (0.2-1.2); Eosinophils Absolute Auto 0.1 K/mm3 (0-0.3); Eosinophils Percent Auto 1.7 % (0-4.4); Hemoglobin 12.7 g/dL (12.0-15.0); Immature Granulocyte Absolute 0.01 K/mm3 (0.00-0.031); Immature Granulocyte Percent A 0.2 % (0-0.5); Lymphocytes Absolute Auto 1.77 K/mm3 (0.9-3.2); Lymphocytes Percent Auto 37.6 % (18.3-44.2); Mean Corpuscular Hemoglobin 30.1 pg (26-34); Mean Corpuscular Volume 97.2 fl (80-100); Monocytes Absolute Auto 0.4 K/mm3 (0.1-0.6); Monocytes Percent Auto 7.4 % (2.6-8.5); Neutrophils Absolute Auto 2.5 K/mm3 (1.3-6.7); Neutrophils Percent Auto 52.3 % (45.5-73.1); Platelet Count Result 251 k/mm3 (150-375); Red Blood Count 4.22 M/mm3 (4.2-5.4); Red Cell Distribution Width 13.2 % (11.5-14.5); White Blood Count 4.7 K/mm3 (4.5-10.0)
[2023-10-28 20:33] LABS: Alanine Aminotransferase 13 U/L (6-35); Alkaline Phosphatase 73 U/L (38-126); Anion Gap 7 mmol/L (8-16); Aspartate Amino Transferase 26 U/L (14-36); Bilirubin,Total 0.5 mg/dL (0.2-1.3); Blood Urea Nitrogen 11 mg/dL (7-17); Calcium 8.7 mg/dL (8.4-10.2); Carbon Dioxide 24 mmol/L (22-30); Chloride 103 mmol/L (98-107); Estimated CRCL calculation 46 ml/min; Estimated Glomerular Filt Rate > 60; Glucose 74 mg/dL (65-110); Lipase 79 U/L (23-300); Potassium 3.9 mmol/L (3.4-5.0); Sodium 134 mmol/L (137-145)
[2023-10-28 21:42] LABS: Appearance Urine Clear (Clear); Bacteria Urine None Seen /hpf; Bilirubin Urine Negative (Negative); Blood Urine Negative (Negative); Color Urine Yellow (Yellow); Glucose Urine UA Negative (Negative); Ketones Urine Negative (Negative); Leukocyte Esterase Ur Trace LEU/UL (Negative); Nitrate Urine Negative (Negative); Non Pathogenic Casts 0-2; Protein Urine Negative (Negative); RBC Urine 0-2 /hpf (0-2); Specific Grav Ur 1.013 (1.001-1.035); Squamous Epithelial Cell Urine None seen /hpf (Few); Urobilinogen Urine 0.2 mg/dL (<2.0); WBC Urine 0-5 /hpf; pH Urine 5.5 (5.0-9.0)
[2023-10-28 21:48] LABS: Add Urine Microscopic? YES
== END 2023-10-28 23:35 | disposition left against medical advice (07) ==
LOC: ANHED 23:19
PROVIDERS: Emergency Provider Emergency Medicine; PCP Physician Assistant
DX: R10.9 Unspecified abdominal pain (principal)
CPT/HCPCS: 36415; 80053; 81001; 83690; 85025; 99199

== ENCOUNTER 2023-11-23 12:31 | Outpatient (CLI) | payer MEDICARE, BC, SELFPAY ==
--- NOTE | ~2023-11-23 | CT_ITS ---
EXAMINATION: CT soft tissue neck chest wo DATE: 11/23/2023 13:26 INDICATION: Neck pain. Shortness of breath. Hyperhidrosis. TECHNIQUE: Computed tomography (CT) of the neck and chest was performed with 75 mL Omnipaque-350 intr avenous contrast. Automated exposure control and iterative reconstruction technique were employed. Th e dose-length product was 1436.46 mGy-cm. COMPARISON: CT lumbar spine 07/28/2020 FINDINGS: CT NECK: There are likely changes of ocular lens replacement surgeries. There are no pathologically e nlarged lymph nodes. CT CHEST: There is mild scarring at the lung apices. Calcified right lung nodules and calcified right hilar and mediastinal lymph nodes are consistent with old granulomatous disease. There is mild atele ctasis in the inferior lungs. No pleural effusion. The heart size is normal. No pericardial effusion. There is a left chest wall pacer with leads in the right atrium and right ventricle. There is mild i ntrahepatic biliary duct dilatation. Calcifications in the spleen are consistent with old granulomato us disease. There are surgical changes of the stomach. There is mild thoracic spondylosis. IMPRESSION: 1. No etiology for the patient's symptoms. 2. Mild intrahepatic biliary duct dilatation. Reviewed, dictated and finalized at location E. DERMATOLOGY
== END 2023-11-23 12:32 ==
LOC: MICIMG 12:32
PROVIDERS: PCP Physician Assistant; Visit Provider Physician Assistant
DX: R61 Generalized hyperhidrosis (principal); K83.8 Other specified diseases of biliary tract
CPT/HCPCS: 70490; 71250

== ENCOUNTER 2023-11-29 04:50 | Inpatient (IN) | payer MEDICARE, BC, SELFPAY ==
[2023-11-29] VITALS (10 sets, daily range): BP systolic 103–142; BP diastolic 55–80; PULSE 56–118; RESP 14–18; TEMP 36.3–36.8; O2SAT 95–100; BMI 25.4
--- NOTE | ~2023-11-29 | XR_ITS ---
EXAMINATION: XR sm bowel follow through WS DATE: 11/30/2023 16:02 INDICATION: Small bowel obstruction. TECHNIQUE: Oral contrast was administered, and a time course of radiographs of the abdomen was obtain ed. Fluoroscopy of the small bowel was not performed. Fluoroscopy exposure time was 0 minutes. The to kam number of images was 6. COMPARISON: CT abdomen and pelvis 11/29/2023 FINDINGS: There are surgical clips and staple lines are in the stomach. The nasogastric tube tip is in the stom ach with proximal side port in the distal esophagus. There are multiple dilated loops of small bowel. Transit time from the stomach to proximal colon was approximately 1 hour. IMPRESSION: 1. Dilated small bowel with normal transit time of contrast to the colon, consistent with adynamic il eus versus partial small bowel obstruction. Reviewed, dictated and finalized at location A. IMPRESSION: 1. Dilated small bowel with normal transit time of contrast to the colon, consi stent with adynamic ileus versus partial small bowel obstruction.
--- NOTE | ~2023-11-29 | XR_ITS ---
EXAMINATION: XR abdomen gastric tube insert DATE: 11/29/2023 10:19 INDICATION: Nasogastric tube placement. TECHNIQUE: An upright view of the abdomen was obtained on 2 radiographs. COMPARISON: CT abdomen and pelvis 11/29/2023 FINDINGS: The lower abdomen is excluded. There are no dilated loops of bowel. There is a left chest w all pacer with leads in the right atrium and right ventricle. There are surgical changes in the stoma ch. The nasogastric tube is folded on itself with tip in the distal esophagus. IMPRESSION: 1. Nasogastric tube folded on itself with tip in the distal esophagus. Reviewed, dictated and finalized at location A.
--- NOTE | ~2023-11-29 | CT_ITS ---
CT of the Abdomen and Pelvis: Indication: Abdominal pain Technique: 2.5 mm axial scans were obtained through the abdomen and pelvis following intravenous adm inistration of 100 cc of Omnipaque 350. Dose reduction technique was used on this scan by utilizing a utomated exposure control and iterative reconstruction technique. The dose-length product (DLP) was 3 63.64 mGy-cm. Findings: Scans through the lung bases are unremarkable. There is severe intrahepatic and extrahepatic biliary dilatation, common bile duct measuring up to 15 mm in diameter diffusely. Main pancreatic duct is also extensively dilated up to 5 mm. No definite o bstructing mass seen at the pancreatic head region. The spleen, adrenals and kidneys are within kolby l limits. No evidence of aortic aneurysm. No lymphadenopathy. Extensive stool is compatible with constipation. There are multiple dilated proximal small bowel loop s, transition point in the mid abdomen (axial image 99, coronal image 29). This is consistent with sm all bowel obstruction Images through the pelvis were performed. Urinary bladder unremarkable. No adnexal mass evident. Smal l amount of abdominopelvic ascites present. Impression: Small bowel obstruction, transition point at the mid small bowel, as detailed above. Severe intrahepatic and extra hepatic biliary dilatation, as well as mild dilatation of the main panc reatic duct. No definite obstructing mass identified, however a small ampullary lesion is a considera tion given apparent double duct sign. Correlate clinically and with LFTs. Consider ERCP as indicated. Comparison with any prior outside abdominopelvic CT scans (if such exist) would be useful to assess for chronicity of these findings. Small amount of abdominopelvic ascites. Reviewed, dictated and finalized at [facility]. Impression: Small bowel obstruction, transition point at the mid small bowel, as detailed a wojciech. Severe intrahepatic and extra hepatic biliary dilatation, as well as mild dilat ation of the main pancreatic duct. No definite obstructing mass identified, how ever a small ampullary lesion is a consideration given apparent double duct sig n. Correlate clinically and with LFTs. Consider ERCP as indicated. Comparison w ith any prior outside abdominopelvic CT scans (if such exist) would be useful t o assess for chronicity of these findings. Small amount of abdominopelvic ascites.
--- NOTE | ~2023-11-29 | US_ITS ---
EXAMINATION: US abdomen limited DATE: 12/01/2023 10:23 INDICATION: Abnormal liver function tests. TECHNIQUE: Multiple grayscale and Doppler ultrasound images of the abdomen were obtained. COMPARISON: CT abdomen and pelvis 11/29/2023 FINDINGS: The visualized portions of the head and body of the pancreas are normal. The pancreatic mary t is at the upper limits of normal in size. There is severe intrahepatic biliary duct dilatation. The re is normal flow in the main portal vein. The gallbladder is absent. The common duct is dilated to 1 2 mm. IMPRESSION: 1. Severe intrahepatic biliary duct dilatation and moderate extrahepatic biliary duct dilatation stat us post cholecystectomy. Reviewed, dictated and finalized at location A. IMPRESSION: 1. Severe intrahepatic biliary duct dilatation and moderate extrahepatic biliar y duct dilatation status post cholecystectomy.
--- NOTE | ~2023-11-29 | XR_ITS ---
EXAMINATION: XR abdomen gastric tube insert DATE: 11/29/2023 10:19 INDICATION: Nasogastric tube placement. TECHNIQUE: An upright view of the abdomen was obtained. COMPARISON: Abdomen radiographs at 10:03 AM FINDINGS: The lower abdomen is excluded. There are no dilated loops of bowel. There are surgical parker ges of the stomach. The nasogastric tube tip is in the stomach. There is a left chest wall pacer with leads in the right atrium and right ventricle. IMPRESSION: 1. Nasogastric tube tip in the stomach. Reviewed, dictated and finalized at location A.
--- NOTE | ~2023-11-29 | XR_ITS ---
Supine and upright views of the abdomen Clinical history: Small bowel obstruction COMPARISON: 04/18/2022 Findings: Bowel gas pattern is nonspecific. No evidence for obstruction or free air. No abnormal mass lesion or calcification is seen. Suture line noted in the left midabdomen. Osseous structures are in tact. Impression: Nonspecific bowel gas pattern. Reviewed, dictated and finalized at [facility]. Impression: Nonspecific bowel gas pattern.
--- NOTE | 2023-11-29 05:16 | ED.GENADULT ---
HPI - General Adult General Chief complaint: Abdominal Pain <Presley Light MD - Last Filed: 11/29/23 06:50> Stated complaint: abd pain <Presley Light MD - Last Filed: 11/29/23 06:50> Time Seen by Provider: 11/29/23 05:08 <Presley Light MD - Last Filed: 11/29/23 06:50> History of Present Illness HPI narrative: patient is a 68-year-old female who presents emergency department with chief complaint of right-sided abdominal pain. Patient reports that she was sleeping woke up with diffuse pain throughout her abdomen. The patient states he feels as though it is fall and feels as though her abdomen is distended. The patient reports that she has prior history of a gastric plaque CN also has history of a cholecystectomy and appendectomy. Patient reports no prior history of bowel obstructions reports no urinary symptoms does report that she has had some nausea and feels as though she needs to vomit. <Presley Light MD - Last Filed: 11/29/23 06:50> Related Data Home medications: Home Medications Medication Instructions Recorded Confirmed magnesium glycinate 100 mg tablet 200 mg PO DAILY 07/01/20 11/17/23 cholecalciferol (vitamin D3) 250 10,000 mcg PO DAILY 03/27/21 11/17/23 mcg (10,000 unit) capsule vitamin [id number] B1 1,000 1 ml IM WEEKLY 02/18/22 11/17/23 mcg-100 mg/mL injection solution melatonin 30 mg PO HS 05/14/23 11/17/23 semaglutide 1 mg/dose (4 mg/3 mL) 1.5 mg subcut WEEKLY 05/14/23 11/17/23 subcutaneous pen injector (Ozempic) <Presley Light MD - Last Filed: 11/29/23 06:50> Allergies/adverse reactions: Allergies Allergy/AdvReac Type Severity Reaction Status Date / Time morphine Allergy Severe Hives Verified 11/29/23 05:07 Sulfa (Sulfonamide Allergy Unknown hives Verified 11/29/23 05:07 Antibiotics) meperidine [From Demerol] Allergy Hives Verified 11/29/23 05:07 pentazocine [From Talwin] AdvReac Severe nausea Verified 11/29/23 05:07 vomiting oxycodone AdvReac Unknown vomiting Verified 11/29/23 05:07 propoxyphene AdvReac Unknown vomiting Verified 11/29/23 05:07 <Presley Light MD - Last Filed: 11/29/23 06:50> Review of Systems Review of Systems: A 10 system review of systems was completed on the patient and is negative except for what is stated in the HPI. Nursing and ancillary documentation was reviewed. <Presley Light MD - Last Filed: 11/29/23 06:50> [facility] Past Medical History Medical History: Medical History Anxiety AV block, 3rd degree Chronic pain syndrome Combined systolic and diastolic cardiac dysfunction Fibromyalgia Hypothyroidism Irritable bowel syndrome Low blood pressure Pacemaker Saint Danyel pacemaker for complete heart block in 2010, [place] <Presley Light MD - Last Filed: 11/29/23 06:50> Surgical History Surgical History: Surgical History History of bilateral knee arthroplasty History of bunionectomy of both great toes History of cataract extraction with lens replacement History of cholecystectomy History of hernia repair History of hysterectomy History of permanent cardiac pacemaker placement (11/2010) Saint Danyel dual chamber pacemaker. History of right oophorectomy History of tonsillectomy Status post gastroplasty <Presley Light MD - Last Filed: 11/29/23 06:50> Family History Family History: Family History Father Heart disease Cancer Mother Cancer Sibling Heart disease FH: heart attack <Presley Light MD - Last Filed: 11/29/23 06:50> Social History Social History: Social History Social History: Surrogate medical
[2023-11-29] MEDS: HYDROmorphone HCL INJ (*CRX) 1 MG/ML SYR IV PUSH ×4 (05:27→23:40)
[2023-11-29] MEDS: SODIUM CHLORIDE 0.9% IV 1,000 ML 999 ML IV CONT (05:27)
[2023-11-29] MEDS: ONDANSETRON INJ 4 MG/2 ML VIAL IV PUSH ×4 (05:27→19:18)
--- NOTE | 2023-11-29 05:55 | PC.NURSE ---
2 nurses and 1 tech attempted to draw labs. Phlebotomy contacted to attempt lab draw.
[2023-11-29 06:30] LABS: Basophils Percent Auto 0.6 % (0.2-1.2); Eosinophils Absolute Auto 0.1 K/mm3 (0-0.3); Hematocrit 43.7 % (37.0-47.0); Hemoglobin 13.8 g/dL (12.0-15.0); Immature Granulocyte Absolute 0.01 K/mm3 (0.00-0.031); Immature Granulocyte Percent A 0.2 % (0-0.5); Lymphocytes Absolute Auto 1.63 K/mm3 (0.9-3.2); Lymphocytes Percent Auto 32.5 % (18.3-44.2); Mean Corpuscular HGB Conc 31.6 g/dl (32-36); Mean Corpuscular Hemoglobin 30.5 pg (26-34); Mean Corpuscular Volume 96.5 fl (80-100); Mean Platelet Volume 10.5 fl (7.4-10.4); Monocytes Absolute Auto 0.4 K/mm3 (0.1-0.6); Monocytes Percent Auto 8.2 % (2.6-8.5); Neutrophils Absolute Auto 2.9 K/mm3 (1.3-6.7); Neutrophils Percent Auto 57.5 % (45.5-73.1); Platelet Count Result 222 k/mm3 (150-375); Red Blood Count 4.53 M/mm3 (4.2-5.4); Red Cell Distribution Width 12.9 % (11.5-14.5)
[2023-11-29 07:10] LABS: Alanine Aminotransferase 27 U/L (6-35); Albumin Level 4.1 g/dL (3.5-5.1); Alkaline Phosphatase 86 U/L (38-126); Anion Gap 2 mmol/L (8-16); Aspartate Amino Transferase 95 U/L (14-36); Bilirubin,Total 0.4 mg/dL (0.2-1.3); Blood Urea Nitrogen 15 mg/dL (7-17); Calcium 8.9 mg/dL (8.4-10.2); Carbon Dioxide 30 mmol/L (22-30); Chloride 102 mmol/L (98-107); Estimated CRCL calculation 46 ml/min; Estimated Glomerular Filt Rate > 60; Glucose 98 mg/dL (65-110); Lactic Acid Reflex 1.3 mmol/L (0.7-2.0); Lipase 140 U/L (23-300); Sodium 134 mmol/L (137-145)
--- NOTE | 2023-11-29 07:10 | PC.NURSE ---
Report given to JACKIE Mendez. RN stated she had no questions for me at this time.
[2023-11-29 07:31] LABS: Add Urine Microscopic? YES; Appearance Urine Cloudy (Clear); Bacteria Urine None Seen /hpf; Bilirubin Urine Negative (Negative); Blood Urine Negative (Negative); Color Urine Yellow (Yellow); Glucose Urine UA Negative (Negative); Ketones Urine Trace mg/dL (Negative); Leukocyte Esterase Ur 1+ LEU/UL (Negative); Need Manual Microscopic Reviewed; Nitrate Urine Negative (Negative); Non Pathogenic Casts 0-2; Protein Urine Negative (Negative); RBC Urine 0-2 /hpf (0-2); Specific Grav Ur 1.016 (1.001-1.035); Squamous Epithelial Cell Urine Moderate /hpf (Few); Urobilinogen Urine 0.2 mg/dL (<2.0); WBC Urine 0-5 /hpf; pH Urine 5.5 (5.0-9.0)
[2023-11-29] MEDS: HYDROmorphone HCL INJ (*CRX) 1 MG/ML SYR 0.5 MG IV PUSH (08:44)
[2023-11-29] MEDS: METOCLOPRAMIDE HCL INJ 10 MG/2 ML VIAL IV PUSH (09:05)
[2023-11-29] MEDS: diphenhydrAMINE HCl INJ 50 MG/ML VIAL 25 MG IV PUSH (09:08)
--- NOTE | 2023-11-29 10:45 | ADMGEN ---
This patient, Kenrick Marr, was admitted to Medical Room 342-01. Patient/family oriented to hospital policies and general routines including ID bracelet, bed and alarms, visiting hours, pain management, procedures, bathroom and other care routines, personal items, smoking policy, room service/diet, and visiting hours. Information on how to activate the Rapid Response Team has been discussed. Patient/Family are encouraged to report perceived risks to care and to ask questions if they do not understand what they are told or what they should do.
--- NOTE | 2023-11-29 13:39 | PM.CNGS ---
Assessment and Plan Assessment and plan (1) SBO (small bowel obstruction): Code(s): K56.609 - Unspecified intestinal obstruction, unspecified as to partial versus complete obstruction Status: Acute Assessment and Plan: CT showed evidence of a small bowel obstruction with transition point in the mid small bowel. Lactic acid and WBC normal. She has no diffuse peritoneal signs on exam. We would recommend continuing conservative management for now with NG tube decompression and bowel rest. Will start IV fluids, PRN analgesics, and antiemetics as needed. Will order an obstructive series for tomorrow morning. May consider evaluating the small bowel obstruction further with a water soluble small bowel follow through in the next few days depending on how the patient progresses. Continue to monitor with serial abdominal exams and imaging. (2) Irritable bowel syndrome: Qualifiers: Irritable bowel syndrome type: with diarrhea Qualified Code(s): K58.0 - Irritable bowel syndrome with diarrhea Code(s): K58.9 - Irritable bowel syndrome without diarrhea Status: Acute Assessment and Plan: Typically deals with constipation. There is stool throughout the colon on CT. She last had a BM yesterday but reports her bowel movements are typically small and she does not feel like she is completely relieved. Offered a dulcolax suppository but she refused as she cannot hold them in. Discussed possibly an enema and she states she would prefer to hold off for now. (3) Pacemaker: Code(s): Z95.0 - Presence of cardiac pacemaker Status: Acute (4) Chronic pain: Qualifiers: Chronic pain type: other chronic pain Qualified Code(s): G89.29 - Other chronic pain Code(s): G89.29 - Other chronic pain Status: Acute (5) Fibromyalgia: Code(s): M79.7 - Fibromyalgia Status: Chronic (6) Abnormal CT of the abdomen: Code(s): R93.5 - Abnormal findings on diagnostic imaging of other abdominal regions, including retroperitoneum Status: Acute Assessment and Plan: Discussed incidental findings of severe intrahepatic and extra hepatic biliary dilatation with mild dilatation of the main pancreatic duct on CT with the patient. Recommended f/u with PCP for further workup. Plan I have discussed the patient's case and plan of care with Dr. Tubbs. Thank you for allowing us to see the patient in consultation and we will continue to follow along with you. History of Present Illness Consult details Consult date: 11/29/23 Reason for consult: other (Small bowel obstruction) Requesting physician: Jill Shearer MD Narrative: This is a 68 year old woman with multiple previous abdominal surgeries who we have been asked to see in surgical consultation for a small bowel obstruction. She reports waking up around 3 am this morning with severe right-sided abdominal pain radiating around to her right mid back. She had associated bloating, nausea, and multiple episodes of vomiting at home and in the ER. In the ER, workup showed CT evidence of a small bowel obstruction with transition point at the mid small bowel, and small amount of abdominopelvic ascites. Also noted was severe intrahepatic and extra hepatic biliary dilatation as well as mild dilatation of the main pancreatic duct, no obstructing mass identified but a small ampullary lesion is a consideration given apparent double duct sign. WBC count and lactic acid normal. She was admitted to the Hospitalist service. We were consulted and she is now seen on the medical floor. An NG tube was successfully placed and she has about 400 cc out of the NG in the canister on my exam. She is still complaining of a significant amount of abdominal pain and does not have any PRN medications ordered. She had some dry heaving around the NG tube after it was placed. She denies ever having a small bowel obstruction in the past. She does report issues with chronic constipati
[2023-11-29] MEDS: SODIUM CHLORIDE 0.9% IV 1,000 ML 100 ML IV CONT ×2 (13:57→23:40)
--- NOTE | 2023-11-29 15:03 | PM.IMHP ---
H&P: HPI History of Present Illness Date/Time: 11/29/23 15:00 Chief Complaint: Abdominal pain. Narrative: This is a 68-year-old female with history of open cholecystectomy, hysterectomy, gastroplasty, hiatal hernia repair, gastroesophageal reflux disease, complete heart block status post Saint Danyel dual chamber pacemaker implantation in November 2010, systolic and diastolic dysfunction, fibromyalgia, and hypothyroidism who presented to the emergency department for evaluation of abdominal pain. The patient provides the following history. She was in her usual state of health when she went to bed last night and was wakened at 04:00 with right-sided abdominal pain associated with bloating, nausea, and dry heaves. She had several episodes of nonbloody and nonbilious emesis thereafter. The pain is sharp and shooting and occasional cramping in nature and seems to radiate through to the back. The pain radiates through to the back. She had a normal bowel movement yesterday and reports that she typically suffers from constipation. She has never had similar symptoms. She denies fever, chills, sweats, cold and flu symptoms, chest and pleuritic pain, palpitations, and shortness of breath. Of note, she was seen by her primary care provider on 10/28/23 with epigastric and left lower quadrant discomfort which was suspected to be related to Ozempic as her symptoms improved with decreasing dose. She was also complaining of sharp and shooting pain in her neck which did not show any acute findings. In the ED: She was afebrile on arrival with stable blood pressures. CT of the abdomen and pelvis showed a small bowel obstruction with transition point at the mid small bowel, a small amount of ascites, and severe intrahepatic and extrahepatic biliary deligation and mild dilatation of the main pancreatic duct. NG tube was inserted for decompression and she is being admitted in this setting for GI and surgery consultations. Review of Systems Review of Systems: Twelve systems were reviewed and are negative except for as per HPI. [facility] Past Medical History Medical History (Updated 11/29/23 @ 19:23 by Irma Sloan PA-C) Anxiety AV block, 3rd degree Chronic pain syndrome Combined systolic and diastolic cardiac dysfunction Fibromyalgia Ru's thyroiditis Irritable bowel syndrome Pacemaker Saint Danyel pacemaker for complete heart block in . Sjogrens syndrome Surgical History Surgical History History of appendectomy during her cholecystectomy History of bilateral knee arthroplasty History of bunionectomy of both great toes History of cataract extraction with lens replacement History of cholecystectomy Open cholecystectomy with incidental appendectomy over 40 years ago History of exploratory laparotomy 35 years ago had an exploratory surgery due to a duodenal obstruction, did not require bowel resection History of hernia repair Hiatal hernia repair during her gastric stapling History of hysterectomy Open partial hysterectomy and eventual open total abdominal hysterectomy History of permanent cardiac pacemaker placement (11/2010) Saint Danyel dual chamber pacemaker. History of right oophorectomy History of tonsillectomy Status post gastroplasty Gastric stapling about 40 years ago Family History Family History Father Heart disease Cancer Mother Cancer Sibling Heart disease FH: heart attack Social History Social History Social History: Surrogate medical decision maker: Shady Marr, spouse. Code status: Full code. Smoking packs per day: 1 Smoking cigarettes per day: 20.0 Years smoked: 25 Smoking pack-years: 25.00 Smoking status: Former smoker Second hand tobacco smoke exposure: Yes Alcohol intake: former Alcohol use d
[2023-11-30] MEDS: ONDANSETRON INJ 4 MG/2 ML VIAL IV PUSH ×3 (02:29→21:14)
[2023-11-30] MEDS: PHENOL/SOD PHENO SPRAY CHERRY (*BKC) 1 SPRAY MUCOUS MEM ×2 (02:29→21:15)
[2023-11-30] MEDS: HYDROmorphone HCL INJ (*CRX) 1 MG/ML SYR IV PUSH ×4 (04:31→21:14)
[2023-11-30 06:00] VITALS: BP 121/70; PULSE 86; RESP 18; TEMP 36.6; O2SAT 97
[2023-11-30 06:05] LABS: Hematocrit 45.5 % (37.0-47.0); Hemoglobin 14.4 g/dL (12.0-15.0); Mean Corpuscular HGB Conc 31.6 g/dl (32-36); Mean Corpuscular Hemoglobin 30.4 pg (26-34); Mean Corpuscular Volume 96.2 fl (80-100); Mean Platelet Volume 10.8 fl (7.4-10.4); Platelet Count Result 277 k/mm3 (150-375); Red Blood Count 4.73 M/mm3 (4.2-5.4); White Blood Count 12.8 K/mm3 (4.5-10.0)
[2023-11-30 06:15] LABS: Alanine Aminotransferase 89 U/L (6-35); Albumin Level 3.8 g/dL (3.5-5.1); Alkaline Phosphatase 85 U/L (38-126); Anion Gap 5 mmol/L (8-16); Aspartate Amino Transferase 112 U/L (14-36); Blood Urea Nitrogen 13 mg/dL (7-17); Calcium 8.4 mg/dL (8.4-10.2); Carbon Dioxide 25 mmol/L (22-30); Chloride 104 mmol/L (98-107); Estimated CRCL calculation 51 ml/min; Estimated Glomerular Filt Rate > 60; Glucose 109 mg/dL (65-110); Magnesium 2.3 mg/dL (1.6-2.3); Potassium 3.8 mmol/L (3.4-5.0); Sodium 134 mmol/L (137-145)
[2023-11-30] MEDS: LEVOTHYROXINE SODIUM INJ 100 MCG/5 ML VIAL 50 MCG IV PUSH (06:30)
[2023-11-30] MEDS: diphenhydrAMINE HCl INJ 50 MG/ML VIAL 25 MG IV PUSH ×3 (08:41→22:13)
[2023-11-30] MEDS: BISACODYL 10 MG SUPPOSITORY RECTAL (08:42)
[2023-11-30] MEDS: HYDROmorphone HCL INJ (*CRX) 1 MG/ML SYR 0.5 MG IV PUSH (08:50)
[2023-11-30] MEDS: SODIUM CHLORIDE 0.9% IV 1,000 ML 100 ML IV CONT ×2 (09:33→21:14)
--- NOTE | 2023-11-30 09:42 | PM.PNGS ---
Progress Note: A&P Assessment and Plan (1) SBO (small bowel obstruction): Code(s): K56.609 - Unspecified intestinal obstruction, unspecified as to partial versus complete obstruction Status: Acute Assessment and Plan: Clinically improving with conservative measures. KUB this morning showed normal bowel gas pattern. Dulcolax supp given this am. Continue NG tube decompression, bowel rest, and IV fluids for now. Consider water soluble SBFT if no bowel function later today Plan I have discussed the patient's case and plan of care with Dr. Tubbs. Subjective Subjective Date/Time Seen: 11/30/23 09:42 Patient reports: no new complaints, feels better, pain is less, no flatus and no bowel movement Interval history: Patient doing better this morning. Reports abdominal pain is much improved since yesterday, as well as her abdominal distention. Nausea has resolved. No other complaints at this time. Exam Const: General: comfortable and no acute distress Orientation/consciousness: patient oriented x3 GI: Inspection: non-distended GI Palp: Yes Soft to palpation, No Tenderness to palpation present (GI), No Guarding due to palpation present (GI) and No Rebound tenderness present Auscultation: normal bowel sounds Objective Data Vital Signs Vital Signs: Vital Signs - 24 hr 11/29/23 10:21 11/29/23 11:35 11/29/23 14:00 Temperature 97.6 F 97.4 F L 97.9 F Pulse Rate 56 L 68 73 Respiratory Rate 14 15 14 Blood Pressure 130/77 139/70 129/66 Pulse Oximetry 98 95 96 Oxygen Delivery 11/29/23 20:31 11/29/23 20:00 11/30/23 06:00 Temperature 98.3 F 98 F Pulse Rate 95 86 Respiratory Rate 18 18 Blood Pressure 121/62 121/70 Pulse Oximetry 97 97 Oxygen Delivery Room Air Intake/Output Intake/Output: Intake & Output 11/27/23 11/28/23 11/29/23 11/30/23 23:59 23:59 23:59 23:59 Intake Total 1971.7 988.3 Output Total 750 Balance 1971.7 238.3 Meds/Results Medications: Active Medications Generic Name Dose Route Start Last Admin Trade Name Freq PRN Reason Stop Dose Admin Hydromorphone HCl 0.5 mg 11/29/23 13:40 11/30/23 08:50 Hydromorphone Hcl Inj (*Crx) 1 Mg/Ml Syr IV PUSH 0.5 mg Q2H PRN Administration Pain Rated 4-6 Hydromorphone HCl 1 mg 11/29/23 13:40 11/30/23 04:31 Hydromorphone Hcl Inj (*Crx) 1 Mg/Ml Syr IV PUSH 1 mg Q2H PRN Administration Pain Rated 7-10 Sodium Chloride 1,000 mls @ 100 mls/hr 11/29/23 13:40 11/30/23 09:33 Normal Saline Iv IV CONT 100 mls/hr .Q10H ELISABETH Administration Levothyroxine Sodium 50 mcg 11/30/23 06:30 11/30/23 06:30 Levothyroxine Sodium Inj 100 Mcg/5 Ml Vial IV PUSH 50 mcg DAILY@0630 ELISABETH Administration Ondansetron HCl 4 mg 11/29/23 13:40 11/30/23 02:29 Ondansetron Inj 4 Mg/2 Ml Vial IV PUSH 4 mg Q6H PRN Administration Nausea And Vomiting Phenol 1 spray 11/29/23 19:46 11/30/23 02:29 Phenol/Sod Pheno [place] (*Bkc) MUCOUS MEM 1 spray PRN PRN Administration Sore Throat Radiology Results: ITS Impressions Abdomen/Pelvis CT 11/29/23 07:47 Impression: Small bowel obstruction, transition point at the mid small bowel, as detailed above. Severe intrahepatic and extra hepatic biliary dilatation, as well as mild dilatation of the main pancreatic duct. No definite obstructing mass identified, however a small ampullary lesion is a consideration given apparent double duct sign. Correlate clinically and with LFTs. Consider ERCP as indicated. Comparison with any prior outside abdominopelvic CT scans (if such exist) would be useful to assess for chronicity of these findings. Small amount of abdominopelvic ascites. Abdomen X-Ray 11/30/23 06:04 Impression: Nonspecific bowel gas pattern. Labs Labs: Laboratory Results - last 24 hr 11/30/23 05:19 WBC 12.8 H RBC 4.73 Hgb 14.4 Hct 45.5 MCV 96.2 MCH 30.4 MCHC 31.6 L RDW 13.0 Plt Coun
--- NOTE | 2023-11-30 12:36 | WPDGICN ---
Assessment and Plan Assessment and plan (1) Dilated bile duct: Code(s): K83.8 - Other specified diseases of biliary tract Status: Acute Assessment and Plan: -incidental findings of severe intrahepatic and extra hepatic biliary dilatation with mild dilatation of the main pancreatic duct on CT scan. No obvious gallstones or pancreatic mass, however a small ampullary lesion is a consideration given apparent double duct sign.?She is asymptomatic in regards to these findings at this time. -s/p cholecystectomy. -Recommended an MRCP but due to her having a pacemaker, she states she cannot have one. -Recommend EUS as out patient, pending EUS finding may need outpatient ERCP. ERCP to be done here would be difficult due to her previous gastroplasty with cayla fundoplication. (2) Elevated LFTs: Code(s): R79.89 - Other specified abnormal findings of blood chemistry Status: Acute Assessment and Plan: ALT/AST elevation, mixed pattern, will complete liver work-up to r/o chronic liver diseases. abdominal US ordered. (3) Small bowel obstruction: Code(s): K56.609 - Unspecified intestinal obstruction, unspecified as to partial versus complete obstruction Status: Acute Assessment and Plan: managed by surgery (4) GERD (gastroesophageal reflux disease): Code(s): K21.9 - Gastro-esophageal reflux disease without esophagitis Status: Acute Assessment and Plan: well controlled on dexilant. (5) Pacemaker: Code(s): Z95.0 - Presence of cardiac pacemaker Status: Acute Assessment and Plan: due to hx of pacemaker, she is unable to have MRCP (6) Status post gastroplasty: Code(s): Z98.890 - Other specified postprocedural states Status: Acute (7) History of hernia repair: Code(s): Z98.890 - Other specified postprocedural states; Z87.19 - Personal history of other diseases of the digestive system Status: Acute (8) History of cholecystectomy: Code(s): Z90.49 - Acquired absence of other specified parts of digestive tract Status: Acute GI Consult Note Consult date/time: 11/30/23 12:36 Reason for consult: Severe intrahepatic and extra hepatic biliary dilatation, HPI: Kenrick Marr is a 68 year old female ?who presented to the emergency department yesterday with abdominal pain that started the night before.? She states that this was the worst pain she has ever had.? She is also feeling very bloated.? She had a bowel movement yesterday afternoon but has not had 1 since.? She is not passing any flatus.? She does not recall anything in particular that she ate yesterday that could have led to these symptoms.? Patient has had multiple open abdominal surgeries in the past including an open cholecystectomy, gastroplasty, and hiatal hernia repair. CT showed evidence of a small bowel obstruction with transition point in the mid small bowel along with incidental findings of severe intrahepatic and extra hepatic biliary dilatation with mild dilatation of the main pancreatic duct. patient denies any prior history of being told she had ductal dilation or elevated liver enzymes. She denies any right upper quadrant pain or previous history of jaundice, Past medical history significant for cholecystectomy 2/ to cholelithiasis in 1976, gastroplasty and hiatal hernia repair. She denies any family history liver cancers or chronic liver disease. She denies any significant alcohol use. She denies any new medications. She has a history of GERD and IBS. Currently on Dexilant 60 mg daily. Reports for the past 5 year with chronic constipation. patient reports for many years she had alternating diarrhea constipation but does struggle with constipation past 5 years. EGD/colonoscopy in 2020. 4 cm hiatal hernia noted otherwise normal EGD. colonoscopy with benign Lipoma, on 10 year recall. family hx significant for grandmother with esophageal cancer. Review
[2023-11-30 14:00] VITALS: BP 107/59; PULSE 85; RESP 16; TEMP 36.8; O2SAT 94
--- NOTE | 2023-11-30 16:08 | PM.IMPN ---
Progress Note: A&P Assessment and Plan (1) Small bowel obstruction: Code(s): K56.609 - Unspecified intestinal obstruction, unspecified as to partial versus complete obstruction Status: Acute Assessment and Plan: CT scan showed small-bowel obstruction with transition point at the mid small bowel as well as severe intrahepatic and extrahepatic biliary dilatation and mild dilatation of the main pancreatic duct without definitive obstructing mass. NG tube has been inserted for decompression. Continue IVF, bowel rest. Analgesics and antiemetics. 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 She has had some mild itching treated with Benadryl. GI and general surgery following, plan for small bowel follow through today as ERCP is not possible due to her pacemaker. Will continue to follow recs of specialists and conservative management. Review of Systems Review of Systems: All systems reviewed & are unremarkable except as noted in HPI and below Exam Narrative: General:?Well-developed, moderately ill-appearing female in the semi-Oscar position in bed. HEENT:??PERRL, EOMI. NG tube in the right naris draining opaque yellowish orange fluid. Neck:??Supple. No JVD. Respiratory:?Lungs are clear to auscultation bilaterally. Cardiovascular:??RRR with S1-S2. Chest:?Pacemaker device in the left anterior chest. Gastrointestinal:??Abdomen is mildly tender to right side, without rebound. hypoactive bowel sounds. Skin:??Warm and dry.?Generalized pallor Extremities:??No cyanosis, clubbing, or significant edema. Radial and pedal pulses intact. Neurological:??Alert.? Cranial nerves 2-12 are grossly intact. No gross focal deficits to casual conversation. Psychiatric:?Appropriate mood and affect. Objective Data Vital Signs Vital Signs: Vital Signs - 24 hr 11/29/23 20:31 11/29/23 20:00 11/30/23 06:00 Temperature 98.3 F 98 F Pulse Rate 95 86 Respiratory Rate 18 18 Blood Pressure 121/62 121/70 Pulse Oximetry 97 97 Oxygen Delivery Room Air 11/30/23 08:45 11/30/23 14:00 Temperature 98.3 F Pulse Rate 85 Respiratory Rate 16 Blood Pressure 107/59 L Pulse Oximetry 94 Oxygen Delivery Room Air Intake/Output Intake/Output: Intake & Output 11/27/23 11/28/23 11/29/23 11/30/23 23:59 23:59 23:59 23:59 Intake Total 1971.7 988.3 Output Total 750 Balance 1971.7 238.3 Meds/Results Medications: Active Medications Generic Name Dose Route Start Last Admin Trade Name Freq PRN Reason Stop Dose Admin Diphenhydramine HCl 25 mg 11/30/23 14:22 Diphenhydramine Hcl Inj 50 Mg/Ml Vial IV PUSH Q6HR PRN Itching Hydromorphone HCl 0.5 mg 11/29/23 13:40 11/30/23 08:50 Hydromorphone Hcl Inj (*Crx) 1 Mg/Ml Syr IV PUSH 0.5 mg Q2H PRN Administration Pain Rated 4-6 Hydromorphone HCl 1 mg 11/29/23 13:40 11/30/23 13:17 Hydromorphone Hcl Inj (*Crx) 1 Mg/Ml Syr IV PUSH 1 mg Q2H PRN Administration Pain Rated 7-10 Sodium Chloride 1,000 mls @ 100 mls/hr 11/29/23 13:40 11/30/23 09:33 Norm
[2023-11-30 17:31] LABS: INR 1.1; Prothrombin Time 14.9 Seconds (11.1-14.7)
[2023-11-30 17:53] LABS: Iron 86 ug/dL (37-170)
[2023-11-30 18:02] LABS: Percent Iron Saturation 23 % (20-50)
[2023-11-30 18:27] LABS: Hepatitis B Surface Antigen Negative (Negative)
[2023-11-30 18:32] LABS: HAV RESULT Negative (Negative); Hepatitis B Core IgM Result Negative (Negative)
[2023-11-30 18:44] LABS: Hepatitis C Virus Antibody Negative (Negative)
[2023-11-30 20:05] VITALS: BP 129/74; PULSE 74; RESP 18; TEMP 36.7; O2SAT 98
[2023-12-01] MEDS: HYDROmorphone HCL INJ (*CRX) 1 MG/ML SYR IV PUSH ×2 (01:24→06:42)
[2023-12-01] MEDS: diphenhydrAMINE HCl INJ 50 MG/ML VIAL 25 MG IV PUSH ×2 (04:46→12:03)
[2023-12-01] MEDS: SODIUM CHLORIDE 0.9% IV 1,000 ML 100 ML IV CONT (05:57)
[2023-12-01] MEDS: LEVOTHYROXINE SODIUM INJ 100 MCG/5 ML VIAL 50 MCG IV PUSH (05:57)
[2023-12-01 06:32] LABS: Basophils Percent Auto 0.5 % (0.2-1.2); Eosinophils Percent Auto 0.3 % (0-4.4); Hematocrit 42.3 % (37.0-47.0); Hemoglobin 13.3 g/dL (12.0-15.0); Immature Granulocyte Absolute 0.03 K/mm3 (0.00-0.031); Immature Granulocyte Percent A 0.4 % (0-0.5); Lymphocytes Absolute Auto 0.82 K/mm3 (0.9-3.2); Lymphocytes Percent Auto 10.7 % (18.3-44.2); Mean Corpuscular HGB Conc 31.4 g/dl (32-36); Mean Corpuscular Hemoglobin 30.9 pg (26-34); Mean Corpuscular Volume 98.4 fl (80-100); Mean Platelet Volume 11.1 fl (7.4-10.4); Monocytes Absolute Auto 0.7 K/mm3 (0.1-0.6); Monocytes Percent Auto 9.1 % (2.6-8.5); Neutrophils Absolute Auto 6.1 K/mm3 (1.3-6.7); Platelet Count Result 238 k/mm3 (150-375); Red Cell Distribution Width 13.5 % (11.5-14.5); White Blood Count 7.7 K/mm3 (4.5-10.0)
[2023-12-01 06:37] LABS: Anion Gap 4 mmol/L (8-16); Blood Urea Nitrogen 21 mg/dL (7-17); Calcium 8.4 mg/dL (8.4-10.2); Carbon Dioxide 28 mmol/L (22-30); Chloride 111 mmol/L (98-107); Estimated CRCL calculation 51 ml/min; Estimated Glomerular Filt Rate > 60; Glucose 90 mg/dL (65-110); Potassium 4.2 mmol/L (3.4-5.0); Sodium 143 mmol/L (137-145)
[2023-12-01 06:41] VITALS: BP 110/60; PULSE 91; RESP 18; TEMP 36.8; O2SAT 95
[2023-12-01] MEDS: ONDANSETRON INJ 4 MG/2 ML VIAL IV PUSH (06:42)
--- NOTE | 2023-12-01 10:44 | PM.PNGS ---
Progress Note: A&P Assessment and Plan (1) SBO (small bowel obstruction): Code(s): K56.609 - Unspecified intestinal obstruction, unspecified as to partial versus complete obstruction Status: Acute Assessment and Plan: Continues to slowly improve. SBFT suggests PSBO vs ileus with normal transit of contrast to the colon. Bowels are moving. Will try clamping trial and remove NG if tolerated. Start clear liquids once NG is removed. Plan I have discussed the patient's case and plan of care with Dr. Tubbs. Subjective Subjective Date/Time Seen: 12/01/23 09:44 Patient reports: flatus and bowel movement Interval history: Patient feeling much better today. Her abdominal pain is improving. She has had over 5 bowel movements since the small-bowel follow-through yesterday, which showed normal transit of contrast to the colon with dilated small bowel. Her NG has been clamped since about 8:50 this morning and she is tolerating this well. She had an abdominal US ordered today due to elevated liver enzymes. She is s/p cholecystectomy. Initial CT abd/pelvis from the ER did mention biliary and pancreatic duct dilatation. Exam Const: General: comfortable and no acute distress Orientation/consciousness: patient oriented x3 GI: Inspection: non-distended GI Palp: Yes Soft to palpation, No Tenderness to palpation present (GI) (no tenderness but feels sore throughout), No Guarding due to palpation present (GI) and No Rebound tenderness present Auscultation: normal bowel sounds Objective Data Vital Signs Vital Signs: Vital Signs - 24 hr 11/30/23 14:00 11/30/23 20:05 11/30/23 21:00 Temperature 98.3 F 98.1 F Pulse Rate 85 74 Respiratory Rate 16 18 Blood Pressure 107/59 L 129/74 Pulse Oximetry 94 98 Oxygen Delivery Room Air 12/01/23 06:41 Temperature 98.2 F Pulse Rate 91 Respiratory Rate 18 Blood Pressure 110/60 Pulse Oximetry 95 Oxygen Delivery Intake/Output Intake/Output: Intake & Output 11/28/23 11/29/23 11/30/23 12/01/23 23:59 23:59 23:59 23:59 Intake Total 1971.7 1988.3 871.7 Output Total 1250 700 Balance 1971.7 738.3 171.7 Meds/Results Medications: Active Medications Generic Name Dose Route Start Last Admin Trade Name Freq PRN Reason Stop Dose Admin Acetaminophen 1,000 mg 12/01/23 10:42 Acetaminophen 500 Mg Tablet PO Q6H PRN Mild Pain (1-3) or Fever Diphenhydramine HCl 25 mg 11/30/23 14:22 12/01/23 04:46 Diphenhydramine Hcl Inj 50 Mg/Ml Vial IV PUSH 25 mg Q6HR PRN Administration Itching Hydromorphone HCl 0.5 mg 12/01/23 10:44 Hydromorphone Hcl Inj (*Crx) 1 Mg/Ml Syr IV PUSH Q2H PRN Pain Rated 7-10 Sodium Chloride 1,000 mls @ 70 mls/hr 11/29/23 13:40 12/01/23 05:57 Normal Saline Iv IV CONT 100 mls/hr .[id number] ELISABEHT Administration Levothyroxine Sodium 50 mcg 11/30/23 06:30 12/01/23 05:57 Levothyroxine Sodium Inj 100 Mcg/5 Ml Vial IV PUSH 50 mcg DAILY@0630 ELISABETH Administration Ondansetron HCl 4 mg 11/29/23 13:40 12/01/23 06:42 Ondansetron Inj 4 Mg/2 Ml Vial IV PUSH 4 mg Q6H PRN Administration Nausea And Vomiting Phenol 1 spray 11/29/23 19:46 11/30/23 21:15 Phenol/Sod Pheno [place] Banda (*Bkc) MUCOUS MEM 1 spray PRN PRN Administration Sore Throat Radiology Results: ITS Impressions Abdomen/Pelvis CT 11/29/23 07:47 Impression: Small bowel obstruction, transition point at the mid small bowel, as detailed above. Severe intrahepatic and extra hepatic biliary dilatation, as well as mild dilatation of the main pancreatic duct. No definite obstructing mass identified, however a small ampullary lesion is a consideration given apparent double duct sign. Correlate clinically and with LFTs. Consider ERCP as indicated. Comparison with any prior outside abdominopelvic CT scans (if such exist) would be useful to assess for chronicity of these findings. Small amount of abd
[2023-12-01 14:00] VITALS: BP 109/54; PULSE 82; RESP 16; TEMP 36.8; O2SAT 95
[2023-12-01] MEDS: HYDROmorphone HCL INJ (*CRX) 1 MG/ML SYR 0.5 MG IV PUSH (14:34)
--- NOTE | 2023-12-01 16:16 | PM.IMPN ---
Progress Note: A&P Assessment and Plan (1) Small bowel obstruction: Code(s): K56.609 - Unspecified intestinal obstruction, unspecified as to partial versus complete obstruction Status: Acute Assessment and Plan: CT scan showed small-bowel obstruction with transition point at the mid small bowel as well as severe intrahepatic and extrahepatic biliary dilatation and mild dilatation of the main pancreatic duct without definitive obstructing mass. NG tube removed today, trial clear liquids. Continue IVF, bowel rest. Analgesics and antiemetics. GI and gen surgery following ERCP not able to be done due to pacemaker Abdominal US showed severe intrahepatic biliary duct dilatation and moderate extrahepatic biliary duct dilatation status post cholecystectomy. 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 NG tube removed today and she will trial clear liquids. She has had some mild itching treated with Benadryl. GI and general surgery following. Abdominal US showed severe intrahepatic biliary duct dilatation and moderate extrahepatic biliary duct dilatation status post cholecystectomy. Will continue to follow recs of specialists and conservative management with PRN pain and antiemetics. Review of Systems Review of Systems: All systems reviewed & are unremarkable except as noted in HPI and below Exam Narrative: General:?Well-developed, moderately ill-appearing female in the semi-Oscar position in bed. HEENT:??PERRLA, EOMI. Neck:??Supple. No JVD. Respiratory:?Lungs are clear to auscultation bilaterally. Cardiovascular:??RRR with S1-S2. Chest:?Pacemaker device in the left anterior chest. Gastrointestinal:??Abdomen is mildly tender to right side, without rebound. Normoactive bowel sounds. Skin:??Warm and dry.? Extremities:??No cyanosis, clubbing, or significant edema. Radial and pedal pulses intact. Neurological:??Alert.? Cranial nerves 2-12 are grossly intact. No gross focal deficits to casual conversation. Psychiatric:?Appropriate mood and affect. Objective Data Vital Signs Vital Signs: Vital Signs - 24 hr 11/30/23 20:05 11/30/23 21:00 12/01/23 06:41 Temperature 98.1 F 98.2 F Pulse Rate 74 91 Respiratory Rate 18 18 Blood Pressure 129/74 110/60 Pulse Oximetry 98 95 Oxygen Delivery Room Air 12/01/23 08:33 12/01/23 14:00 Temperature 98.3 F Pulse Rate 82 Respiratory Rate 16 Blood Pressure 109/54 L Pulse Oximetry 95 Oxygen Delivery Room Air Intake/Output Intake/Output: Intake & Output 11/28/23 11/29/23 11/30/23 12/01/23 23:59 23:59 23:59 23:59 Intake Total 1971.7 1988.3 1575.0 Output Total 1250 700 Balance 1971.7 738.3 875.0 Meds/Results Medications: Active Medications Generic Name Dose Route Start Last Admin Trade Name Freq PRN Reason Stop Dose Admin Acetaminophen 1,000 mg 12/01/23 10:42 Acetaminophen 500 Mg Tablet PO Q6H PRN Mild Pain (1-3) or Fever Diphenhydramine HCl 25 mg 11/30/23 14:22 12/01/23 12:03 Diphenhydramine Hcl Inj 50 Mg/Ml Vial IV PUSH 25 mg Q6HR PRN Administration Itching Hydromorphone HCl 0.5 mg 12/01/23 10:44 12/01/23 14:34 Hydromorphone Hcl Inj (*Crx) 1 Mg/Ml Syr IV PUSH 0.5 mg Q2H PRN Administration
--- NOTE | 2023-12-01 16:47 | WPDGIPROGNO ---
Progress Note: A&P Assessment and Plan (1) Dilated bile duct: Code(s): K83.8 - Other specified diseases of biliary tract Status: Acute Assessment and Plan: ct reviewed, dilated bile duct but no obvious lesion given previous gastric surgery, ercp will be challenging at our institution already sent referral for EUS pancreas at [facility], patient is aware (2) Elevated LFTs: Code(s): R79.89 - Other specified abnormal findings of blood chemistry Status: Acute Assessment and Plan: trend lft's, mild elevation ordered work up hepatitis negative (3) Small bowel obstruction: Code(s): K56.609 - Unspecified intestinal obstruction, unspecified as to partial versus complete obstruction Status: Acute Assessment and Plan: clinically better, surgery on board SB XR Dilated small bowel with normal transit time of contrast to the colon, consistent with adynamic ileus versus partial small bowel obstruction. (4) Abnormal CT of the abdomen: Code(s): R93.5 - Abnormal findings on diagnostic imaging of other abdominal regions, including retroperitoneum Status: Acute (5) Status post gastroplasty: Code(s): Z98.890 - Other specified postprocedural states Status: Acute (6) History of cholecystectomy: Code(s): Z90.49 - Acquired absence of other specified parts of digestive tract Status: Acute (7) GERD (gastroesophageal reflux disease): Code(s): K21.9 - Gastro-esophageal reflux disease without esophagitis Status: Acute Subjective Date/time seen: 12/01/23 16:47 Interval history: she is feeling better, tolerating liquid diet, passing gas Review of Systems Review of Systems: All systems reviewed & are unremarkable except as noted in HPI and below Exam Const: General: comfortable and no acute distress Orientation/consciousness: patient oriented x3 HENMT: Face/Nose/Sinus: Normal nares present Eyes: General: appearance normal, both eyes and all related structures Neck: Neck: supple Resp: Effort & Inspection: normal respiratory effort Cardio: Rate: regular rate GI: Inspection: non-distended GI Palp: Yes Soft to palpation, No Tenderness to palpation present (GI) (no tenderness but feels sore throughout), No Guarding due to palpation present (GI) and No Rebound tenderness present Auscultation: normal bowel sounds Skin: General skin exam: normal color Neuro: Speech: normal speech Motor exam (neuro): 5/5 motor strength present throughout Extrem: General: normal to inspection Psych: Affect: normal affect Objective Data Vital Signs Vital Signs: Vital Signs - 24 hr 11/30/23 20:05 11/30/23 21:00 12/01/23 06:41 Temperature 98.1 F 98.2 F Pulse Rate 74 91 Respiratory Rate 18 18 Blood Pressure 129/74 110/60 Pulse Oximetry 98 95 Oxygen Delivery Room Air 12/01/23 08:33 12/01/23 14:00 Temperature 98.3 F Pulse Rate 82 Respiratory Rate 16 Blood Pressure 109/54 L Pulse Oximetry 95 Oxygen Delivery Room Air Intake/Output Intake/Output: Intake & Output 11/28/23 11/29/23 11/30/23 12/01/23 23:59 23:59 23:59 23:59 Intake Total 1971.7 1988.3 1575.0 Output Total 1250 700 Balance 1971.7 738.3 875.0 Meds/Results Medications: Active Medications Generic Name Dose Route Start Last Admin Trade Name Freq PRN Reason Stop Dose Admin Acetaminophen 1,000 mg 12/01/23 10:42 Acetaminophen 500 Mg Tablet PO Q6H PRN Mild Pain (1-3) or Fever Diphenhydramine HCl 25 mg 11/30/23 14:22 12/01/23 12:03 Diphenhydramine Hcl Inj 50 Mg/Ml Vial IV PUSH 25 mg Q6HR PRN Administration Itching Hydromorphone HCl 0.5 mg 12/01/23 10:44 12/01/23 14:34 Hydromorphone Hcl Inj (*Crx) 1 Mg/Ml Syr IV PUSH 0.5 mg Q2H PRN Administration Pain Rated 7-10 Sodium Chloride 1,000 mls @ 70 mls/hr 11/29/23 13:40 12/01/23 11:47 Normal Saline Iv IV CONT 70 mls/hr .[id number] ELISABETH Infusion Ke
[2023-12-01] MEDS: KETOROLAC 10 MG TABLET PO (18:35)
[2023-12-01] MEDS: SODIUM CHLORIDE 0.9% IV 1,000 ML 70 ML IV CONT (19:25)
[2023-12-01 19:53] VITALS: BP 101/57; PULSE 69; RESP 18; TEMP 36.6; O2SAT 97
[2023-12-01] MEDS: traZODone HCL 50 MG TABLET 150 MG PO (22:41)
[2023-12-02] MEDS: diphenhydrAMINE HCl INJ 50 MG/ML VIAL 25 MG IV PUSH ×2 (03:30→10:12)
[2023-12-02 04:15] VITALS: BP 108/55; PULSE 72; RESP 18; TEMP 37; O2SAT 100
[2023-12-02] MEDS: LEVOTHYROXINE SODIUM INJ 100 MCG/5 ML VIAL 50 MCG IV PUSH (05:51)
[2023-12-02 06:44] LABS: Basophils Percent Auto 0.5 % (0.2-1.2); Eosinophils Absolute Auto 0.1 K/mm3 (0-0.3); Eosinophils Percent Auto 1.6 % (0-4.4); Hematocrit 34.6 % (37.0-47.0); Hemoglobin 10.9 g/dL (12.0-15.0); Immature Granulocyte Absolute 0.02 K/mm3 (0.00-0.031); Immature Granulocyte Percent A 0.4 % (0-0.5); Lymphocytes Absolute Auto 1.23 K/mm3 (0.9-3.2); Lymphocytes Percent Auto 22.2 % (18.3-44.2); Mean Corpuscular HGB Conc 31.5 g/dl (32-36); Mean Corpuscular Hemoglobin 30.4 pg (26-34); Mean Corpuscular Volume 96.6 fl (80-100); Mean Platelet Volume 10.5 fl (7.4-10.4); Monocytes Absolute Auto 0.6 K/mm3 (0.1-0.6); Monocytes Percent Auto 10.6 % (2.6-8.5); Neutrophils Absolute Auto 3.6 K/mm3 (1.3-6.7); Neutrophils Percent Auto 64.7 % (45.5-73.1); Platelet Count Result 183 k/mm3 (150-375); Red Blood Count 3.58 M/mm3 (4.2-5.4); Red Cell Distribution Width 13.2 % (11.5-14.5); White Blood Count 5.5 K/mm3 (4.5-10.0)
[2023-12-02 07:14] LABS: Alanine Aminotransferase 41 U/L (6-35); Albumin Level 2.9 g/dL (3.5-5.1); Alkaline Phosphatase 58 U/L (38-126); Anion Gap -3 mmol/L (8-16); Aspartate Amino Transferase 34 U/L (14-36); Blood Urea Nitrogen 18 mg/dL (7-17); Calcium 8.1 mg/dL (8.4-10.2); Carbon Dioxide 29 mmol/L (22-30); Chloride 109 mmol/L (98-107); Estimated CRCL calculation 51 ml/min; Estimated Glomerular Filt Rate > 60; Glucose 83 mg/dL (65-110); Lipase 98 U/L (23-300); Potassium 3.6 mmol/L (3.4-5.0); Sodium 135 mmol/L (137-145)
--- NOTE | 2023-12-02 08:18 | PM.PNGS ---
Progress Note: A&P Assessment and Plan (1) SBO (small bowel obstruction): Code(s): K56.609 - Unspecified intestinal obstruction, unspecified as to partial versus complete obstruction Status: Resolved Assessment and Plan: Advance diet as tolerated. OK to discharge from surgical standpoint if tolerating solid diet. Recommend Low fiber diet x1-2 weeks and MiraLax daily. Subjective Subjective Date/Time Seen: 12/02/23 08:18 Interval history: Tolerating liquids. Bowels moving. No abdominal pain. Exam GI: Inspection: non-distended GI Palp: Yes Soft to palpation, No Tenderness to palpation present (GI) and No Guarding due to palpation present (GI) Auscultation: normal bowel sounds Objective Data Vital Signs Vital Signs: Vital Signs - 24 hr 12/01/23 08:33 12/01/23 14:00 12/01/23 19:53 Temperature 36.8 C 36.6 C Pulse Rate 82 69 Respiratory Rate 16 18 Blood Pressure 109/54 L 101/57 L Pulse Oximetry 95 97 Oxygen Delivery Room Air 12/01/23 20:00 12/02/23 04:15 Temperature 37.0 C Pulse Rate 72 Respiratory Rate 18 Blood Pressure 108/55 L Pulse Oximetry 100 Oxygen Delivery Room Air Intake/Output Intake/Output: Intake & Output 11/29/23 11/30/23 12/01/23 12/02/23 23:59 23:59 23:59 23:59 Intake Total 1971.7 1988.3 2331.7 250 Output Total 0405 329 0836 Balance 1971.7 738.3 1631.7 -750 Meds/Results Medications: Active Medications Generic Name Dose Route Start Last Admin Trade Name Freq PRN Reason Stop Dose Admin Acetaminophen 1,000 mg 12/01/23 10:42 Acetaminophen 500 Mg Tablet PO Q6H PRN Mild Pain (1-3) or Fever Diphenhydramine HCl 25 mg 11/30/23 14:22 12/02/23 03:30 Diphenhydramine Hcl Inj 50 Mg/Ml Vial IV PUSH 25 mg Q6HR PRN Administration Itching Hydromorphone HCl 0.5 mg 12/01/23 10:44 12/01/23 14:34 Hydromorphone Hcl Inj (*Crx) 1 Mg/Ml Syr IV PUSH 0.5 mg Q2H PRN Administration Pain Rated 7-10 Sodium Chloride 1,000 mls @ 70 mls/hr 11/29/23 13:40 12/01/23 19:25 Normal Saline Iv IV CONT 70 mls/hr .[id number] ELISABETH Administration Ketorolac Tromethamine 10 mg 12/01/23 15:33 12/01/23 18:35 Ketorolac 10 Mg Tablet PO 10 mg Q6H PRN Administration Pain Rated 4-6 Levothyroxine Sodium 50 mcg 11/30/23 06:30 12/02/23 05:51 Levothyroxine Sodium Inj 100 Mcg/5 Ml Vial IV PUSH 50 mcg DAILY@0630 ELISABETH Administration Ondansetron HCl 4 mg 11/29/23 13:40 12/01/23 06:42 Ondansetron Inj 4 Mg/2 Ml Vial IV PUSH 4 mg Q6H PRN Administration Nausea And Vomiting Phenol 1 spray 11/29/23 19:46 11/30/23 21:15 Phenol/Sod Pheno [place] (*Bkc) MUCOUS MEM 1 spray PRN PRN Administration Sore Throat Trazodone HCl 150 mg 12/01/23 21:00 12/01/23 22:41 Trazodone Hcl 50 Mg Tablet PO 150 mg HS ELISABETH Administration Radiology Results: ITS Impressions Abdomen/Pelvis CT 11/29/23 07:47 Impression: Small bowel obstruction, transition point at the mid small bowel, as detailed above. Severe intrahepatic and extra hepatic biliary dilatation, as well as mild dilatation of the main pancreatic duct. No definite obstructing mass identified, however a small ampullary lesion is a consideration given apparent double duct sign. Correlate clinically and with LFTs. Consider ERCP as indicated. Comparison with any prior outside abdominopelvic CT scans (if such exist) would be useful to assess for chronicity of these findings. Small amount of abdominopelvic ascites. Abdomen X-Ray 11/30/23 06:04 Impression: Nonspecific bowel gas pattern. Small Bowel X-Ray 11/30/23 16:30 IMPRESSION: 1. Dilated small bowel with normal transit time of contrast to the colon, consistent with adynamic ileus versus partial small bowel obstruction. Abdomen Ultrasound 12/01/23 10:25 IMPRESSION: 1. Severe intrahepatic biliary duct dilatation and moderate extrahepatic biliary duct dil
[2023-12-02] MEDS: buPROPion HCL SR (12 HR) 150 MG TAB PO (10:12)
[2023-12-02 13:57] VITALS: O2SAT 98
[2023-12-02 14:31] VITALS: BP 103/63; PULSE 64; RESP 16; TEMP 36.7; O2SAT 100
--- NOTE | 2023-12-02 14:35 | PM.DS ---
DS: Admitting Diagnosis Discharge Date 12/02/23 Admitting Diagnosis abdominal pain DS: Discharge Diagnosis Discharge Diagnosis (1) Small bowel obstruction: Code(s): K56.609 - Unspecified intestinal obstruction, unspecified as to partial versus complete obstruction Status: Acute Assessment and Plan: CT scan showed small-bowel obstruction with transition point at the mid small bowel as well as severe intrahepatic and extrahepatic biliary dilatation and mild dilatation of the main pancreatic duct without definitive obstructing mass. tolerating PO intake today GI and gen surgery - cleared for d/c ERCP not able to be done due to pacemaker - referral sent to [facility] by GI Abdominal US showed severe intrahepatic biliary duct dilatation and moderate extrahepatic biliary duct dilatation status post cholecystectomy. (2) Dilated bile duct: Code(s): K83.8 - Other specified diseases of biliary tract Status: Acute Assessment and Plan: see above (3) Hypothyroidism: Qualifiers: Hypothyroidism type: unspecified Qualified Code(s): E03.9 - Hypothyroidism, unspecified Code(s): E03.9 - Hypothyroidism, unspecified Status: Chronic Assessment and Plan: Continue levothyroxine (4) Combined systolic and diastolic cardiac dysfunction: Code(s): I51.89 - Other ill-defined heart diseases Status: Chronic DS: Summary Hospital Course Hospital Course: Patient is a 68-year-old female with PMH of open cholecystectomy, hysterectomy, gastroplasty, hiatal hernia repair, gastroesophageal reflux disease, complete heart block status post [employer] dual chamber pacemaker implantation in November 2010, systolic and diastolic dysfunction, fibromyalgia, and hypothyroidism admitted for evaluation of abdominal pain. She denies fever, chills, sweats, cold and flu symptoms, chest and pleuritic pain, palpitations, and shortness of breath. CT of the abdomen and pelvis showed a small bowel obstruction with transition point at the mid small bowel, a small amount of ascites, and severe intrahepatic and extrahepatic biliary deligation and mild dilatation of the main pancreatic duct. NG tube was inserted for decompression and subsequently removed and she is now tolerating a low fiber diet. General surgery and GI following. Patient will need EUP unable to be done here, so referral was sent by GI to [facility]. Patient is cleared and stable for d/c home today to follow up outpatient and tertiary care for further treatment. Status at Discharge Functional status at discharge: independent ambulation Overall status at discharge: patient is progressing back to baseline Time Spent with Patient Time attestation: Total time spent providing and/or coordinating discharge services: Exam Narrative: General:?Well-developed, moderately ill-appearing female in the semi-Oscar position in bed. HEENT:??PERRLA, EOMI. Neck:??Supple. No JVD. Respiratory:?Lungs are clear to auscultation bilaterally. Cardiovascular:??RRR with S1-S2. Chest:?Pacemaker device in the left anterior chest. Gastrointestinal:??Abdomen is mildly tender to right side, without rebound. Normoactive bowel sounds. Skin:??Warm and dry.? Extremities:??No cyanosis, clubbing, or significant edema. Radial and pedal pulses intact. Neurological:??Alert.? Cranial nerves 2-12 are grossly intact. No gross focal deficits to casual conversation. Psychiatric:?Appropriate mood and affect. DS: Data Data Completed and Pending Labs on day of discharge: Labs from last 24 hours 12/02/23 06:27 WBC 5.5 RBC 3.58 L Hgb 10.9 L Hct 34.6 L MCV 96.6 MCH 30.4 MCHC 31.5 L RDW 13.2 Plt Count 183 MPV 10.5 H Immature Gran % (Auto) 0.4 Neut % (Auto) 64.7 Lymph % (Auto) 22.2 Bacon % (Auto) 10.6 H Eos % (Auto) 1.6 Baso % (Auto) 0.5 Lymph # (Auto) 1.23 Bacon # (Auto) 0.6 Eos # (Auto) 0.1 Baso # (Auto) 0.0 Abs Immat Gran (auto) 0.02 Absolute Neut
[2023-12-03 20:17] LABS: Ceruloplasmin 24 mg/dL (18-53)
[2023-12-04 10:29] LABS: Actin Antibody (IgG) <20 U (<20); LKM 1 Antibody <=20.0 U (<=20.0)
[2023-12-05 18:10] LABS: Anti Nuclear Antibody Titer 1:40 (Negative)
[2023-12-06 20:18] LABS: Mitochondrial (M2) Ab (IgG) <=20.0 U (<=20.0)
== END 2023-12-02 15:02 | disposition home or self-care (01) | DRG 390 ==
LOC: ANHED 09:13 → ANH3MED 09:55
PROVIDERS: Emergency Medicine; Nurse Practitioner Family; Physician Assistant; Admitting Provider General Practice; Emergency Provider Emergency Medicine; PCP Physician Assistant; Visit Provider Nurse Practitioner
DX: K56.609 Unspecified intestinal obstruction, unspecified as to partial versus complete obstruction (principal); K83.8 Other specified diseases of biliary tract; K58.9 Irritable bowel syndrome, unspecified; E03.9 Hypothyroidism, unspecified; I51.89 Other ill-defined heart diseases; K21.9 Gastro-esophageal reflux disease without esophagitis; M79.7 Fibromyalgia; Z98.84 Bariatric surgery status; Z95.0 Presence of cardiac pacemaker; Z90.710 Acquired absence of both cervix and uterus; Z90.49 Acquired absence of other specified parts of digestive tract; Z98.49 Cataract extraction status, unspecified eye; Z96.653 Presence of artificial knee joint, bilateral; Z96.1 Presence of intraocular lens; Z87.891 Personal history of nicotine dependence
CPT/HCPCS: 36415; 74019; 74177; 74250; 76705; 80048; 80053; 80074; 80076; 81001; 82390; 82728; 83520; 83540; 83550; 83605; 83690; 83735; 85025; 85027; 85610; 86038; 86039; 86364; 86376; 96361; 96374; 96375; 96376; 99285; A9270; J1170; J1200; J2405; J2765; J7030; Q9967

== ENCOUNTER 2024-04-04 13:38 | Emergency (ER) | payer MEDICARE, BC, SELFPAY ==
[2024-04-04 13:55] VITALS: BP 114/66; PULSE 78; RESP 16; TEMP 36.3; O2SAT 99
--- NOTE | 2024-04-04 13:56 | ED.SKABFB ---
HPI - Skin/Abscess/Foreign Bdy General Chief complaint: Skin/Abscess/Foreign Body Stated complaint: Hx scabies, still itching Time Seen by Provider: 04/04/24 13:56 Source: patient Mode of arrival: ambulatory Limitations: no limitations History of Present Illness HPI narrative: 68-year-old female presents with complaint of itching. Patient reports that she was exposed to mites from her cat 1 month ago. Was told by the that that she needed to be treated for human scabies . Patient states at that time she was itching and had several erythematous, scabbed bites. Went to an urgent care while on vacation in [place] and was given permethrin, Medrol Dosepak and improve active. Patient states she continues to have itching. Has washed her sheets at leaks 6 times, has use bug bombs and her house. States cat no longer has any active mites. Called a platform stapler today but was not able to get an appointment until May. Patient has no bites but states she has noticed several red bumps to skin that she has never seen before. All systems reviewed and negative except as noted above. Related Data Home Medications Medication Instructions Recorded Confirmed magnesium glycinate 100 mg (as 200 mg PO DAILY 07/01/20 04/04/24 glycinate) tablet melatonin 15 mg PO HS 05/14/23 04/04/24 biotin 10,000 mcg chewable tablet 10,000 mcg PO DAILY 01/24/24 04/04/24 (Hair, Skin and Nails (biotin)) cholecalciferol (vitamin D3) 125 125 mcg PO DAILY 01/24/24 04/04/24 mcg (5,000 unit) tablet Allergies Allergy/AdvReac Type Severity Reaction Status Date / Time morphine Allergy Severe Hives Verified 04/04/24 13:52 meperidine [From Demerol] Allergy Intermediate Hives Verified 04/04/24 13:52 Sulfa (Sulfonamide Allergy Intermediate hives Verified 04/04/24 13:52 Antibiotics) pentazocine [From Talwin] AdvReac Severe nausea Verified 04/04/24 13:52 vomiting oxycodone AdvReac Intermediate vomiting Verified 04/04/24 13:52 propoxyphene AdvReac Intermediate vomiting Verified 04/04/24 13:52 Review of Systems Review of Systems: CONSTITUTIONAL: Denies fever, chills, or sweats. EYES: Denies visual changes, redness, or discharge. ENT: Denies rhinorrhea, congestion, sore throat, or otalgia. CARDIOVASCULAR: Denies chest pain, palpitations, or edema. RESPIRATORY: Denies cough or dyspnea. GASTROINTESTINAL: Denies abdominal pain, nausea, vomiting, or diarrhea. GENITOURINARY: Denies dysuria or hematuria. SKIN: Denies rash. Reports itching, red bumps. MUSCULOSKELETAL: Denies back pain, joint pain, or myalgia. NEUROLOGIC: Denies headache, numbness, or weakness. PSYCHIATRIC: Denies anxiety or depression. All other systems reviewed are negative, except as documented in HPI. [facility] Past Medical History Medical History Anxiety AV block, 3rd degree Chronic pain syndrome Combined systolic and diastolic cardiac dysfunction Fibromyalgia Ru's thyroiditis Irritable bowel syndrome Pacemaker Saint [employer]anyel pacemaker for complete heart block in 2010, [place]. Sjogrens syndrome Surgical History Surgical History History of appendectomy during her cholecystectomy History of bilateral knee arthroplasty History of bunionectomy of both great toes History of cataract extraction with lens replacement History of cholecystectomy Open cholecystectomy with incidental appendectomy over 40 years ago History of exploratory laparotomy 35 years ago had an exploratory surgery due to a duodenal obstruction, did not require bowel resection History of hernia repair Hiatal hernia repair during her gastric stapling History of hysterectomy Open partial hysterectomy and eventual open total abdominal hysterectomy History of permanent cardiac pacemaker placement (11/2010) Saint [employer]anyel dual chamber pacemaker. History of right oophorectomy History of tonsillec
== END 2024-04-04 14:32 | disposition home or self-care (01) ==
PROVIDERS: Emergency Provider Nurse Practitioner Family; PCP Physician Assistant
DX: L29.9 Pruritus, unspecified (principal); Z87.891 Personal history of nicotine dependence; M79.7 Fibromyalgia; E06.3 Autoimmune thyroiditis; Z95.0 Presence of cardiac pacemaker; M35.00 Sjogren syndrome, unspecified; Z96.653 Presence of artificial knee joint, bilateral; Z96.1 Presence of intraocular lens; Z98.42 Cataract extraction status, left eye; Z98.41 Cataract extraction status, right eye
CPT/HCPCS: 99213; G0463

== ENCOUNTER 2024-04-09 10:40 | Outpatient (CLI) | payer MEDICARE, BC, SELFPAY ==
--- NOTE | ~2024-04-09 | XR_ITS ---
EXAMINATION: XR chest 2V 04/09/2024 10:56 INDICATION: Cough for 3 months PROCEDURE: 2 view chest COMPARISON: 05/14/2023 FINDINGS: The lungs are clear. The cardiomediastinal silhouette is within normal limits. There are no pleural effusions. There is no pneumothorax suspected. IMPRESSION: 1: NO ACUTE CARDIOPULMONARY DISEASE. Reviewed, dictated and finalized at location B.
== END 2024-04-09 10:41 ==
LOC: MICIMG 10:43
PROVIDERS: PCP Internal Medicine; Visit Provider Internal Medicine
DX: R05.9 Cough, unspecified (principal)
CPT/HCPCS: 71046

== ENCOUNTER 2024-08-01 12:45 | Outpatient (CLI) | payer MEDICARE, BC, SELFPAY ==
--- NOTE | ~2024-08-01 | CT_ITS ---
EXAMINATION: CT lumbar spine wo con DATE: 08/01/2024 13:04 INDICATION: Lumbar radiculopathy. TECHNIQUE: Computed tomography (CT) of the lumbar spine was performed without intravenous contrast. A utomated exposure control and iterative reconstruction technique were employed. The dose-length produ ct was 733.48 mGy-cm. COMPARISON: CT lumbar spine 07/28/2020 FINDINGS: There is a 10 degrees levoscoliosis of lumbar spine. Vertebral body heights are normal. 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 There is mildly decreased disc height from T12-L1 through L5-S1. The following disc levels are specifically discussed: L1-L2: The disc is bulging. There is mild bilateral facet joint osteoarthritis. There is mild right n eural foraminal stenosis. There is mild central canal stenosis. L2-L3: The disc is bulging. There is mild right and severe left facet joint osteoarthritis. There is mild bilateral neural foraminal stenosis. There is no central canal stenosis. L3-L4: The disc is bulging. There is severe bilateral facet joint osteoarthritis. There is mild bilat eral neural foraminal stenosis. There is mild central canal stenosis. L4-L5: The disc is bulging. There is severe bilateral facet joint osteoarthritis. There is mild bilat eral neural foraminal stenosis. There is mild central canal stenosis. L5-S1: The disc is bulging. There is severe right facet joint osteoarthritis. There is mild bilateral neural foraminal stenosis. There is mild central canal stenosis. IMPRESSION: 1. Mild lumbar spondylosis. 2. Lumbar levoscoliosis. Reviewed, dictated and finalized at location A. TECHNOLOGIST
== END 2024-08-01 12:46 | disposition home or self-care (01) ==
LOC: MICIMG 12:46
PROVIDERS: PCP Internal Medicine; Visit Provider Nurse Practitioner Family
DX: M47.26 Other spondylosis with radiculopathy, lumbar region (principal)
CPT/HCPCS: 72131

== ENCOUNTER 2024-09-09 01:34 | Emergency (ER) | payer MEDICARE, BC, SELFPAY ==
--- NOTE | ~2024-09-09 | XR_ITS ---
EXAMINATION: XR hip RT 2V w AP pelvis DATE: 09/09/2024 04:46 INDICATION: Right hip pain. TECHNIQUE: An anteroposterior view of the pelvis and 2 views of right hip were obtained. COMPARISON: None. FINDINGS: There is lumbar levoscoliosis and mild spondylosis. No fracture. There is mild osteoarthrit is of right hip and moderate osteoarthritis of left hip. IMPRESSION: 1. 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 Reviewed, dictated and finalized at location [facility] [employer]
[2024-09-09 02:03] VITALS: BP 127/72; PULSE 75; RESP 15; TEMP 36.3; O2SAT 99
--- NOTE | 2024-09-09 03:55 | ED_ITS ---
HPI - General Adult General Chief complaint: Extremity Injury, Lower Stated complaint: R groin pain Time Seen by Provider: 09/09/24 03:43 History of Present Illness HPI narrative: 69-year-old female present to the emergency department for evaluation for right groin pain. Patient does have history of sciatica and did recently receive steroid injections that she does not feel helped significantly. Patient has been running with stairs more often trying to get ready for [place] and may have strained her right leg. Patient denies any falls or injuries. Related Data Home Medications ?Medication ?Instructions ?Recorded ?Confirmed ?Last Taken ?Type magnesium glycinate 100 mg (as 200 mg PO DAILY 07/01/20 08/30/24 05/14/23 History glycinate) tablet melatonin 15 mg PO HS 05/14/23 08/30/24 05/13/23 History cholecalciferol (vitamin D3) 125 125 mcg PO DAILY 01/24/24 08/30/24 Unknown History mcg (5,000 unit) tablet dexlansoprazole 60 mg 60 mg PO DAILY 04/04/24 08/30/24 Unknown History capsule,biphase delayed release Allergies Allergy/AdvReac Type Severity Reaction Status Date / Time morphine Allergy Severe Hives Verified 09/09/24 04:13 meperidine (From Demerol) Allergy Intermediate Hives Verified 09/09/24 04:13 Sulfa (Sulfonamide Allergy Intermediate hives Verified 09/09/24 04:13 Antibiotics) pentazocine (From Talwin) AdvReac Severe nausea Verified 09/09/24 04:13 vomiting oxycodone AdvReac Intermediate vomiting Verified 09/09/24 04:13 propoxyphene AdvReac Intermediate vomiting Verified 09/09/24 04:13 Review of Systems Review of Systems: All systems reviewed & are unremarkable except as noted in HPI and below PMFSH Past Medical History Medical History Sjogrens syndrome 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 Surgical History Surgical History History of exploratory laparotomy 35 years ago had an exploratory surgery due to a duodenal obstruction, did not require bowel resection History of appendectomy during her cholecystectomy History of bilateral knee arthroplasty Status post gastroplasty Gastric stapling about 40 years ago History of hernia repair Hiatal hernia repair during her gastric stapling History of tonsillectomy History of cholecystectomy Open cholecystectomy with incidental appendectomy over 40 years ago History of cataract extraction with lens replacement History of hysterectomy Open partial hysterectomy and eventual open total abdominal hysterectomy History of right oophorectomy History of bunionectomy of both great toes History of permanent cardiac pacemaker placement (11/2010) Saint Danyel dual chamber pacemaker. Family History Family History Father Heart disease Cancer Mother Cancer Sibling Heart disease FH: heart attack Social History Social History Social History: Surrogate medical decision maker: Shady Marr, spouse. Code status: Full code. Smoking packs per day: 1 Smoking cigarettes per day: 20.0 Years smoked: 25 Smoking pack-years: 25.00 Smoking status: Former smoker Second hand tobacco smoke exposure: Yes Alcohol intake: former Alcohol use details: 6 PER YEAR Substance use: never Substance use type: does not use Do You Feel Safe in your Home?: Yes Lack of Transportation: No Lack of Food: Never True Current Housing: I Have Housing Concerned About Future Housing: No Difficulty Paying Gas/Electric Bills: No Difficulty Paying for Meds: No Currently Unemployed: No Education: High School Diploma/GED Difficulty w/ Childcare or Family Care: No Living arrangements: with family Additional living arrangements comments: . Has 2 daughters and a stepdaughter. Enjoys crafting and doing needle work. 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 Spiritual care concerns: No Exam Narrative: APPEARANCE: Well appearing, no pain, no distress, well-nourished. HEAD: normocephalic, atraumatic. EYES: PERRLA/EOMI, conjunctivae clear. NOSE: Normal no drainage EARS:TMS clear with good light reflex. THROAT: Pharynx clear, no exudate. NECK: Supple. No adenopathy, no masses. RESPIRATORY: Airway patent, respirations nonlabored. Clear to auscultation bilaterally, no rales, rhonchi, wheezing. CARDIOVASCULAR: Regular rate and rhythm without murmurs rubs or gallops. ABDOMINAL: Soft, nontender, nondistended, normal bowel sounds MUSCULOSKELETAL: Moves all extremities. Strength/ROM intact, No edema, No calf tenderness. NEURO: Alert. Cranial nerves II through XII intact. Good gait. Good coordination SKIN: Warm, dry. Normal Color Course Vital Signs Vital signs: Vital Signs Temperature 97.3 F L 09/09/24 02:03 Pulse Rate 75 09/09/24 02:03 Respiratory Rate 15 09/09/24 02:03 Blood Pressure 127/72 09/09/24 02:03 Pulse Oximetry 99 09/09/24 02:03 Oxygen Delivery Room Air 09/09/24 02:03 Temperature 97.3 F L 09/09/24 02:03 Pulse Rate 64 09/09/24 04:08 Respiratory Rate 20 09/09/24 04:08 Blood Pressure 126/79 09/09/24 04:08 Pulse Oximetry 100 09/09/24 04:08 Oxygen Delivery Room Air 09/09/24 04:08 Medical Decision Making MDM Narrative Medical decision making narrative: 69-year-old female presenting to the emergency department for evaluation for right hip and groin pain without injury. X-ray was negative for acute findings. Patient was treated with IM Dilaudid for pain control and patient states her pain was improved. Patient will have close follow-up with her pain clinic. Patient is being provided [place] for pain control for home. Patient and family are updated on results of workup and plan for treatment for home. Vital Signs Vital Signs: Vital Signs Temperature 97.3 F L 09/09/24 02:03 Pulse Rate 75 09/09/24 02:03 Respiratory Rate 15 09/09/24 02:03 Blood Pressure 127/72 09/09/24 02:03 Pulse Oximetry 99 09/09/24 02:03 Oxygen Delivery Room Air 09/09/24 02:03 Temperature 97.3 F L 09/09/24 02:03 Pulse Rate 64 09/09/24 04:08 Respiratory Rate 20 09/09/24 04:08 Blood Pressure 126/79 09/09/24 04:08 Pulse Oximetry 100 09/09/24 04:08 Oxygen Delivery Room Air 09/09/24 04:08 Imaging Data My impression: Hip x-ray: No acute fracture dislocation Discharge Plan Discharge Clinical Impression: Acute hip pain Patient Disposition: Home, Self-Care Condition: Stable Instructions: Antibiotic Form Additional Instructions: Tramadol for pain control. For additional pain control replace the tramadol with [place]. If you end up needing [place] for pain control than make sure you are taking a stool softener to prevent constipation. Have close follow-up with your pain specialist. Have close follow-up with your primary care physician. Patient Language: Latvian Prescriptions: New hydrocodone-acetaminophen 5-325 mg tablet 1 tablet PO Q12H PRN (Reason: pain) Qty: 14 0RF ondansetron 4 mg tablet,disintegrating 4 mg PO Q8H PRN (Reason: nausea and vomiting) Qty: 20 0RF No Action dexlansoprazole 60 mg capsule,biphase delayed releas 60 mg PO DAILY Ozempic 0.25 mg or 0.5 mg (2 mg/3 mL) pen injector 0.25 mg subcut WEEKLY Qty: 3 0RF Rx Instructions: for 4 weeks; call for next dose magnesium glycinate 100 mg tablet 200 mg PO DAILY cholecalciferol (vitamin D3) 125 mcg (5,000 unit) tablet 125 mcg PO DAILY melatonin tablet 15 mg PO HS bupropion HCl 150 mg tablet sustained-release 12 hr 150 mg PO BID Qty: 90 3RF levothyroxine [Synthroid] 112 mcg tablet See Rx Instructions .ROUTE .COMPLEX Qty: 125 1RF Dose Instruction: TAKE 1 TABLET DAILY Rx Instructions: take 9 pills a week, one from Tuesday to Fridays , 2 on Saturdays and Sundays tramadol 50 mg tablet 50 mg PO Q8H PRN (Reason: pain) Qty: 30 1RF trazodone 150 mg tablet 150 mg PO HS Qty: 90 1RF pilocarpine HCl 5 mg tablet See Rx Instructions .ROUTE .COMPLEX Qty: 360 3RF Dose Instruction: TAKE 1 TABLET FOUR TIMES A DAY Rx Instructions: TAKE 1 TABLET FOUR TIMES A DAY furosemide 20 mg tablet 20 mg PO QAM Qty: 30 5RF Rx Instructions: Take 1 tab prn daily for edema. potassium chloride [Klor-Con 10] 10 mEq tablet extended release 10 meq PO DAILY Qty: 30 5RF Rx Instructions: Take 1 tab prn with Furosemide. cyclobenzaprine 5 mg tablet See Rx Instructions .ROUTE .COMPLEX Qty: 180 0RF Dose Instruction: TAKE 1 TABLET TWICE A DAY NEEDED FOR MUSCLE SPASMS Rx Instructions: TAKE 1 TABLET TWICE A DAY NEEDED FOR MUSCLE SPASMS Follow-up/Referrals: Gildardo Vazquez DO [Primary Care Provider] -
[2024-09-09] MEDS: HYDROmorphone HCL INJ (*CRX) 1 MG/ML SYR 0.5 MG IM (04:05)
[2024-09-09] MEDS: CYCLOBENZAPRINE HCL 10 MG TABLET PO (04:05)
[2024-09-09] MEDS: ONDANSETRON HCL ODT 4 MG TABLET PO (04:05)
[2024-09-09 04:08] VITALS: BP 126/79; PULSE 64; RESP 20; O2SAT 100
[2024-09-09 06:06] VITALS: BP 102/60; PULSE 72; RESP 17; O2SAT 99
--- OUTSIDE RECORDS SUMMARY | 2024-09-16 02:23 | XMS_ITS | Encounter Summary ---
Author Organization [facility] Healthcare Address [address] [place] [address] Care Team Providers [facility] Name Role Phone Jacobo Mcintosh MD Primary Care Provider [phone] Reason for Visit * Auth/Cert (Routine) Specialty Diagnoses / Procedures Referred By Contac t Referred To Contact Diagnoses Other specified diseases of biliary tract Other specified diseases of biliary tract [K83.8] Procedures FL EDG US EXAM SURGICAL ALTER STOM DUODENUM/JEJUNUM FL ERCP DX COLLECTION SPECIMEN BRUSHING/WASHING EUS ERCP Referral ID Status Reason Start Date Expiration Date Visits Re quested Visits Authorized [id number] 1 1 Encounter Details Date Type Department Care Team (Late st Contact Info) Description 12/15/2023 12:15 PM CDT Lab [facility] Outpatient Lab [address] [place] [address] Other specified diseases of biliary tract Social History Tobacco Use Types Packs/Day Years Used Date Smoking Tobacco: Former Cigarettes Q uit: 06/25/2007 Smokeless Tobacco: Never Alcohol Use Standard Drinks/Week Comments Yes 2 (1 standard drink = 0.6 oz pur e alcohol) monthly AUDIT-C Answer Date Recorded Q1: How often do you have a drink containing alc ohol? Monthly or less 12/15/2023 Q2: How many drinks containi ng alcohol do you have on a typical day when you are drinking? 1 or 2 12/15/2023 Q3: How often do you have si x or more drinks on one occasion? Never 12/15/2023 Personal Safety Answer Date Recorded Have you ever been in or are you currently in a harmful physical or emotional relationship or is someone making you feel afraid or unsafe? 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
--- OUTSIDE RECORDS SUMMARY | 2024-09-16 02:23 | XMS_ITS | Referral Summary ---
Author Organization [facility] [address] Address [address] [place] [address] Care Team Providers Care Gastroenterology Manager Name Role Phone Jacobo Mcintosh MD Primary Care Provider [phone] Allergies Active Allergy Reactions Criticality Noted Date Comments Codeine Nausea & Vomiting Low 06/25/2020 Propoxyphene Nausea & Vomiting Low 06/25/2020 Meperidine Nausea & Vomiting Low 06/25/2020 Morphine Nausea & Vomiting Low 06/25/2020 Oxycodone-Acetaminophen Hallucinations Medium 06/25/20 20 Audio hallucinations. Sulfa (Sulfonamide Antibiotics) Hives Medium 06/25/2020 Pentazocine Nausea & Vomiting Low 06/25/2020 Medications dexlansoprazole (DEXILANT) 60 mg capsule Take 1 capsule (60 mg total) by mouth daily Active traZODone (DESYREL) 150 mg tablet Take 1 tablet (150 mg total) by mouth nightly Active pilocarpine (SALAGEN) 5 mg tablet Take 1 tablet (5 mg total) by mouth 2 (two) times a day Active dicyclomine (BENTYL) 10 mg capsule Take 10 mg by mouth 3 (three) times a day As needed for spasm. Active buPROPion SR (WELLBUTRIN SR) 150 mg 12 hr tablet Take 1 tablet (150 mg total) by mouth 2 (two) times a day Active furosemide (LASIX) 40 mg tablet Take 1 tablet (40 mg total) by mouth daily Active cyclobenzaprine (FLEXERIL) 5 mg tablet Take 1 tablet (5 mg total) by mouth 3 (three) times a day as needed for muscle spasms Active potassium chloride ER (potassium chloride ER) 10 mEq CR tablet Take 10 mEq by mouth daily Active cholecalciferol (VITAMIN D-3) 5,000 unit capsule Take 1 capsule (5,000 Units total) by mouth daily Active MAGNESIUM GLYCINATE ORAL Take 200 mg by mouth daily Active Synthroid 100 mcg tablet Take 1 tablet (100 mcg total) by mouth mottler machine feeder before breakfast Active semaglutide (Ozempic) 0.25 mg or 0.5 mg(2 mg/1.5 mL) pen injector injection Inject under the skin Active cyanocobalamin (Vitamin B-12) 1,000 mcg/mL injection Active Active Problems Problem Noted Date Diagnosed Date Other specified diseases of biliary tract 2023 Visit for wound check 07/22/2020 Pacemaker battery depletion 06/25/2020 Complete heart block (CMS/HCC) 06/25/2020 Lipid screening 06/25/2020 Pacemaker-dependent due to n ative cardiac rhythm insufficient to support life 06/25/2020 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 Social History Tobacco Use Types Packs/Day Years Used Date Smoking Tobacco: Former Cigarettes Q uit: 06/25/2007 Smokeless Tobacco: Never Tobacco Cessation:Counseling Given: Not Answered Alcohol Use Standard Drinks/Week Comments Yes 2 [...] on file 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 Gender Identity Not on file Sexual Orientation Not on file Last Filed Vital Signs Vital Sign Reading Time Taken Comments Blood Pressure 117/66 12/15/2023 4:25 PM CDT Pulse 69 12/15/2023 4:25 PM CDT Temperature 36.2 ??C (97.2 ??F) 12/15/2023 1:53 PM CD T Respiratory Rate 23 12/15/2023 4:25 PM CDT Oxygen Saturation 100% 12/15/2023 4:25 PM CDT Inhaled Oxygen Concentration - - Weight 71.7 kg (158 lb) 12/05/2023 1:40 PM CDT Height 165.1 cm (5' 5 ) 12/15/2023 1:53 PM CDT Body Mass Index 26.29 12/05/2023 1:40 PM CDT Plan of Treatment Not on file Insurance MEDICARE [facility] [place] [address] MEDICARE [facility] ACCESS O Advance Directives For more information, please contact: [phone] * Full Code (Latest Code Status on File) Date Activated Date Inactivated Comments 12/15/2023 1:47 PM 12/15/2023 8:39 PM Care Teams Gastroenterology Manager Relationship Specialty Start Date End Date Jacobo Mcintosh MD [address] [facility] [address] [place] [address] PCP - General Internal Medicine 06/25/20
--- OUTSIDE RECORDS SUMMARY | 2024-09-16 02:23 | XMS_ITS | Encounter Summary ---
Author Organization [facility] Address [address] [place] [address] Care Team Providers Care Magnetic Observer Name Role Phone Jacobo Mcintosh MD Primary Care Provider [phone] Reason for Visit * Auth/Cert (Routine) Specialty Diagnoses / Procedures Referred By Contac t Referred To Contact Diagnoses Other specified diseases of biliary tract Other specified diseases of biliary tract [K83.8] Procedures AK EDG US EXAM SURGICAL ALTER STOM DUODENUM/JEJUNUM AK ERCP DX COLLECTION SPECIMEN BRUSHING/WASHING EUS ERCP Referral ID Status Reason Start Date Expiration Date Visits Re quested Visits Authorized [id number] 1 1 Encounter Details Date Type Department Care Team (Late st Contact Info) Description 12/15/2023 3:17 PM CDT Anesthesia Event [facility] [address] [place] [address] Samina Todd MD [address] [facility] [place] [address] Navin Glez CRNA [address] [place] [address] Anesthesia Record Procedure Summary Procedure Name Responsible Anesthesiologist Anesthesia Start Time Anesthesia Stop Time ESOPHAGOGASTRODUODENOSCOPY ULTRASOUND EXAM LIMITED Samina Todd MD 12/15/23 1517 12/15/23 1555 Events Date Time Event Comment 12/15/2023 1355 1517 In Room 1517 An Start 1517 An Start Data 1521 Patient Positioned Laterally 1524 An Data Art 1528 An Data Art Pulse ox switch ed to ear probe 1532 Bite Block Placed 1532 An Induction The patient was reevaluated immediately before moderate or deep sedation use and before anesthesia induction. 1533 Proc Start 1533 Anesthesia Ready 1542 Proc Fin 1548 an stop data 1549 Out of Room 1555 Handoff to RN I completed my handoff to the receiving nurse during which we: 1. Patient identified 2. Responsible provider identified 3. Pertinent medical history reviewed 4. Procedure type and surgical course discussed 5. Intraoperative anesthetic management and any significant issues discussed 6. Expectations and concerns for postop period discussed 7. Questions solicited from receiving nurse 8. Patient disposition at the time of handoff: No value filed. 1555 An Stop Meds Name Total lidocaine (cardiac) syringe 2 % 4 mL propofol 300 mg ondansetron 4 mg Lactated Ringer's (LR) infusion 500 mL * Agents Name O2 * Blood No blood administrations on file. 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 Gender Identity Not on file Sexual Orientation Not on file documented as of this encounter OR Notes * Anesthesia Postprocedure Evaluation - Pat Solano CRNA - 12/15/2023 3:55 PM CDT Patient: Kenrick Marr Procedure Summary Date: 12/15/23 Room / Location: [facility] / [facility] Anesthesia Start: 1517 Anesthesia Stop: 1555 Procedure: ESOPHAGOGASTRODUODENOSCOPY ULTRASOUND EXAM LIMITED Diagnosis: Other specified diseases of biliary tract (Other specified diseases of biliary tract [K83.8]) Providers: Agusto Huddleston MD Responsible Provider: Samina Todd MD Anesthesia Type: general/TIVA ASA Status: 3 Anesthesia Type: general/TIVA Last vitals BP 114/66 Pulse 75 Temp 36.2 ??C (97.2 ??F) (Temporal) Resp 14 SpO2 100% Anesthesia Post Evaluation Patient location: GI recovery area. 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 * Anesthesia Preprocedure Evaluation - Samina Todd MD - 12/15/2023 1:41 PM CDT Images from the original note were not included. Anesthesia Evaluation Kenrick Marr is a 68 y.o. female EUS ERCP Pre-Op Diagnosis Codes: * Other specified diseases of biliary tract [K83.8] HISTORY Past Medical History Information obtained from: patient and chart. Information obtained during: In Person Neurological + Psychiatric history - anxiety and depression Pertinent negatives: CVA/stroke; TIA and CEA Cardiovascular + Other arrhythmia - 3rd degree AV block. + Pacemaker/ICD - Pertinent negatives: NH ; CABG ; negative for CHF; drug-eluting stent(s); bare metal stent(s); unknown stent(s) type and coronary angioplasty Hypertension: hypotension. Respiratory Pertinent negatives: COPD; asthma and sleep apnea (AMARI) Hepatic / Heme + Liver disease (elevated LFT's) Gastrointestinal + GERD - on daily therapy. Daily symptoms. Renal / Pertinent negatives: renal disease Musculoskeletal/Pain + Chronic pain - fibromyalgia. Endocrine / Other + Thyroid disease - hypothyroidism + Rheumatological disease - Sjogren syndrome. 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 06/25/2020 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 Past Medical History: Diagnosis Date Acid indigestion Anxiety and depression Cataracts, bilateral Colon polyp Diverticulitis Elevated LFTs Fibromyalgia GERD (gastroesophageal reflux disease) Ru's thyroiditis Hypothyroidism Pacemaker 2010 [employer] pacemaker for complete heart block, [place] Sjogren's disease (HCC) Small bowel obstruction (CMS/HCC) (HCC) Past Surgical History: Procedure Laterality Date BUNIONECTOMY Bilateral 1990 CATARACT EXTRACTION W/ INTRAOCULAR LENS IMPLANT AND ENDOCYCLOPHOTOCOAGULATION Left 1995 CATARACT EXTRACTION W/ INTRAOCULAR LENS IMPLANT AND ENDOCYCLOPHOTOCOAGULATION 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 Allergies Allergen Reactions Percocet [Oxycodone-Acetaminophen] Hallucinations Audio hallucinations. Sulfa (Sulfonamide Antibiotics) Hives Codeine Nausea & Vomiting Darvon [Propoxyphene] Nausea & Vomiting Demerol [Meperidine] Nausea & Vomiting Morphine Nausea & Vomiting Talwin [Pentazocine] Nausea & Vomiting Taking? Last Dose Start Date End Date Provider BIOTIN ORAL -- -- -- Anatoly Ware MD buPROPion (WELLBUTRIN) 100 mg tablet Not Taking -- -- Anatoly Ware MD buPROPion SR (WELLBUTRIN SR) 150 mg 12 hr tablet 12/09/2023 -- -- Anatoly Ware MD cholecalciferol (VITAMIN D-3) 5,000 unit capsule 12/09/2023 -- -- Anatoly Ware MD cyclobenzaprine (FLEXERIL) 5 mg tablet 12/09/2023 -- -- Anatoly Ware MD dexlansoprazole (DEXILANT) 60 mg capsule 12/09/2023 -- -- Anatoly Ware MD dicyclomine (BENTYL) 10 mg capsule -- -- -- Anatoly Ware MD furosemide (LASIX) 40 mg tablet -- -- -- Anatoly Ware MD levothyroxine (SYNTHROID) 125 mcg tablet Not Taking -- -- Anatoly Ware MD linaCLOtide (Linzess) 72 mcg capsule Not Taking -- -- Anatoly Ware MD liothyronine (CYTOMEL) 5 mcg tablet Not Taking -- -- Anatoly Ware MD magnesium glycinate 100 mg tablet Not Taking -- -- Anatoly Ware MD MAGNESIUM GLYCINATE ORAL 12/09/2023 -- -- Anatoly Ware MD pilocarpine (SALAGEN) 5 mg tablet 12/09/2023 -- -- Anatoly Ware MD potassium chloride ER (potassium chloride ER) 10 mEq CR tablet -- -- -- Anatoly Ware MD Synthroid 100 mcg tablet 12/09/2023 11/18/23 -- Anatoly Ware MD traMADoL (ULTRAM) 50 mg tablet Not Taking -- -- Anatoly Ware MD traZODone (DESYREL) 150 mg tablet 12/08/2023 -- -- Anatoly Ware MD vitamin B complex capsule 12/09/2023 -- -- Anatoly Ware MD vitamin b complex tablet -- -- -- Anatoly Ware MD No current facility-administered medications for this encounter. Social History Tobacco Use Smoking Status Former Current packs/day: 0.00 Types: Cigarettes Quit date: 06/25/2007 Years since quittin.4 Smokeless Tobacco Never Alcohol Use: Unknown (12/09/2023) AUDIT-C Frequency of Alcohol Consumption: Monthly or less Average Number of Drinks: 1 or 2 Frequency of Binge Drinking: Not on file Substance and Sexual Activity Drug Use Never Family History Problem Relation Age of Onset Esophageal cancer Mother Lung cancer Father No Known Problems Brother No Known Problems Brother There were no vitals filed for this visit. PT: No results found for requested labs within last 30 days. INR: No results found for requested labs within last 30 days. APTT: No results found for requested labs within last 30 days. Hgb A1C: No results found for requested labs within last 30 days. CBC RBC: No results found for requested labs within last 30 days. RDW: No results found for requested labs within last 30 days. MCHC: No results found for requested labs within last 30 days. MCH: No results found for requested labs within last 30 days. MCV: No results found for requested labs within last 30 days. Hct: No results found for requested labs within last 30 days. Hgb: No results found for requested labs within last 30 days. WBC: No results found for requested labs within last 30 days. MPV: No results found for requested labs within last 30 days. Platelets: No results found for requested labs within last 30 days. RDW CV: No results found for requested labs within last 30 days. RDW Sd: No results found for requested labs within last 30 days. BMP Glucose: No results found for requested labs within last 30 days. Calcium: No results found for requested labs within last 30 days. Sodium: No results found for requested labs within last 30 days. Potassium: No results found for requested labs within last 30 days. CO2: No results found for requested labs within last 30 days. Chloride: No results found for requested labs within last 30 days. BUN: No results found for requested labs within last 30 days. Creatinine: No results found for requested labs within last 30 days. DOS Physical Exam Medical history, medications, and allergies reviewed. Attestation: This PAT evaluation 12/15/2023. Airway Exam: Mallampati: II Cervical ROM: FROM TM distance: >4 Cardiovascular Exam: Rate: regular Rhythm: regular Dental Exam: Otherwise appears intact and caps Current state: Patient's current state is cooperative. Anesthesia Plan ASA 3 My patient is approved for the Anesthesia Controlled Medication protocol when under care of a SPINAL SURGEON Planned anesthesia: General/TIVA Induction: Induction: intravenous. Postoperative Plan: No plan for postoperative opioid use. No postoperative mechanical ventilation intended. Patient's planned disposition post procedure is Outpatient. Informed Consent: Discussed plan with SPINAL SURGEON. Anesthesia plan and risks discussed with patient. Plan and Consent Comments: Backup plan is a general anesthetic with or without an endotracheal tube or LMA as required Consent and Attending signature: I and/or my designee have discussed the anesthesia plan, benefits, possible alternatives, parental presence at time of induction (if indicated), and clinically relevant risks that may include dental injury, unintentional awareness, and/or other complications. The patient and/or parent/legal guardian understand, and agree to proceed. All questions answered. documented in this encounter Plan of Treatment Not on file documented as of this encounter Visit Diagnoses Not on filedocumented in this encounter Administered Medications Inactive Administered Medications - up to 3 most recent administrations Medication Order MAR Action Action Date Dose Rate Site Lactated Ringer's (LR) infusion 30 mL/hr, intravenous, Continuous, Starting on Kerline 12/15/23 at 1430, Pre-Procedure (GI) Rate/Dose Verify 12/15/2023 3:17 PM CDT 30 mL/hr New Bag 12/15/2023 2:00 PM CDT 30 mL/hr 30 mL/hr lidocaine (cardiac) (XYLOCAINE) preservative free injection intravenous, As needed, Starting on Kerline 12/15/23 at 1532, Anesthesia Intra-op, Indications: Ventricular ArrhythmiasIndications:Ventricular Arrhythmias Given 12/15/2023 3:32 PM CDT 4 mL ondansetron (ZOFRAN) injection intravenous, Administer over 2 Minutes, As needed, Starting on Kerline 12/15/23 at 1522, Anesthesia Intra-op Given 12/15/2023 3:22 PM CDT 4 mg propofoL (DIPRIVAN) 10 mg/mL IV intravenous, As needed, Starting on Kerline 12/15/23 at 1532, Anesthesia Intra-op New Bag 12/15/2023 3:32 PM CDT 300 mg documented in this encounter Care Teams Magnetic Observer Relationship Specialty Start Date End Date Jacobo Mcintosh MD [address] [place] [address] PCP - General Internal Medicine 06/25/20 documented as of this encounter
--- OUTSIDE RECORDS SUMMARY | 2024-09-16 02:23 | XMS_ITS | Encounter Summary ---
Author Organization [facility] Address [address] [place] [address]. 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 No / Unsure 11/04/2021 2:26 PM TRAVEL MED SURG RN documented as of this encounter Plan of Treatment Not on file documented as of this encounter Visit Diagnoses Not on filedocumented in this encounter Care Teams Investigator Claims Relationship Specialty Start Date End Date Zoran Da Silva PA-C [address] [facility] [address] [place] [address] PCP - General PHYSICIAN WARBLE SAW OPERATOR 11/04/21 documented as of this encounter
--- OUTSIDE RECORDS SUMMARY | 2024-09-16 02:23 | XMS_ITS | Data Portability ---
Author Organization [facility] [employer], Main Office Address [address] [place] [address] Assessment No assessment recorded. Plan of Treatment Reminders Order Date Submit Date Provider Last Modified By Organization Details Last Modified Time Details Appointments None recorded. Lab HbA1c (hemoglobin A1c), blood [address] [facility], [address], [place], [address], 3 15:01:06 CMP, serum or plasma [address] [facility], 2022 [address], [place], [address], 3 16:32:59 insulin, serum [address] [facility], 2022 [address] Ac[address], [address], [place], [address], 3 15:01:06 TSH + free T4, serum [address] [facility], 2022 Elizabeth Acosta, [address], [place], [address], 3 15:01:05 T3, free, serum or plasma [address] [facility], 2022 [address], [place], [address], 3 15:01:04 Referral None recorded. Procedures None recorded. Surgeries None recorded. Imaging None recorded. Medication Orders Synthroid 100 mcg tablet 2022 023 [facility], [address], [address], [place], [address], 3 15:00:59 Ozempic 1 mg/dose (4 mg/3 mL) subcutaneou s pen injector 2022 023 [facility], [address] [place], [address], 14:38:36 Synthroid 75 mcg tablet 2022 023 [facility], [address], [address], [place], [address], 14:37:27 Patient TargetsNo targets recorded. Patient InstructionsNo instructions recorded. Reason for Referral None Reported. Results Created Date Observation Date Name Description Value Unit Range Abnormal Flag Note LastModifiedBy Organization Detail LastModifiedTime Result Notes None recorded. Problems Name Problem SNOMED Code Status Onset Date Resolution Date Notes Provider Name and Address Organization Details Recorded Time Prediabetes 930579307 Active 2022 Not Available [facility] 3 09:57:34 Irritable bowel syndrome 36685931 Active 1999 Not Available [facility] 3 09:57:34 Insomnia 622249746 Active 1999 Not Available [facility] 3 09:57:34 Fibromyalgia 559694471 Active 1997 Not Available [facility] 3 09:57:34 Atrioventricu lar block 907499594 Active 2010 Not Available [facility] 3 09:57:34 Hyperthyroidi sm with Ru disease 82434150 Active 2006 Not Available [facility] 3 09:57:34 Depressive disorder 92119229 Active 1969 Not Available [facility] 3 09:57:34 Hypothyroidis m 64419141 Active 2022 Not Available [facility] 3 09:57:34 Problem Notes None recorded. Procedures Surgical History Date Name Laterality Status Provider Name and Address Organization Details Recorded Time Knee Replacement completed Not Available [facility] 11/17/2022 04:43:10 Hysterectomy completed Not [facility] 11/17/2022 04:43:10 Pacemaker completed Not Available [facility] 0 11/17/2022 04:43:10 cholecystectomy completed Not Available [facility] 11/17/2022 04:43:10 Shoulder completed Not Available [facility] 04:43:10 Tonsillectomy completed Not Available [facility] th 11/17/2022 04:43:10 Imaging Results None recorded. Procedure Notes None recorded. Medical Equipment None Reported. Allergies Allergen ID Allergen Name Allergen Category Reaction Reaction Severity Criticality Documentation Date Start Date Code Code System Note Provider Name and Address Organization Details Recorded Time 7155 Talwin medicatio n nausea vomiting Not available Not available Not available 11/17/2022 8002 RxNorm Not Available [facility] 3 04:56:38 7156 Substance with sulfonami de structure and antibacte rial mechanism of action (substanc e) medicatio n hives Not available Not available 11/17/2022 26551 8003 SNOMED Not Available [facility] 3 04:56:38 7157 acetamino phen / oxycodone medicatio n hallucina tions Not available Not available 11/17/2022 23170 3 RxNorm Not Available [facility] 3 04:56:38 7158 morphine medicatio n nausea vomiting Not available Not available Not available 11/17/2022 7052 RxNorm Not Available [facility] 3 04:56:38 7159 Demerol medicatio n nausea vomiting Not available Not available Not available 11/17/2022 77949 1 RxNorm Not Available [facility] 3 04:56:38 7160 propoxyph cleve hydrochlo ride medicatio n nausea vomiting Not available Not available Not available 11/17/2022 19507 RxNorm Not Available [facility] 3 04:56:39 7161 codeine medicatio n nausea vomiting Not available Not available Not available 11/17/2022 2670 RxNorm Not Available [facility] 3 04:56:39 Medications Name Sig Start Date Stop Date Status Note LastModified by Organization Details LastModified Time amoxicillin 500 mg capsule TK FOUR CS PO 1 HOUR B DAPP active Not Available Not Available No t Available furosemide 40 mg tablet active Not Available Not Available Not Available bupropion HCl SR 150 mg tablet,12 hr sustained-r elease active Not Available Not Available Not Available promethazin e-DM 6.25 mg-15 mg/5 mL oral syrup TAKE 5 ML BY MOUTH EVERY 4 TO 6 HOURS NEEDED FOR COUGH 12/30 completed Not Available Not Available Not Available pilocarpine 5 mg tablet TK 1 T PO QID active Not Available Not Available No t Available aspirin 325 mg tablet TK 1 T PO QD 05/19 completed Not Available Not Available Not Available Synthroid 100 mcg tablet TAKE 1 TABLET EVERY MORNING FOR HYPOTHYRO IDISM 2022 active Not Available Not Available Not Avai lable potassium chloride ER 10 mEq tablet,exte nded release active Not Available Not Available Not Available liothyronin e 5 mcg tablet active Not Available Not Available Not Available tramadol 50 mg tablet TAKE 2 TABLETS BY MOUTH TWICE DAILY NEEDED FOR PAIN active Not Available Not Available No t Available ketorolac 10 mg tablet TAKE 1 TABLET BY MOUTH EVERY 6 HOURS FOR 5 DAYS NEEDED FOR PAIN 12/30 completed Not Available Not Available Not Available tamsulosin 0.4 mg capsule TAKE 1 CAPSULE BY MOUTH DAILY 12/30 completed Not Available Not Available Not Available cephalexin 500 mg capsule TK 1 C PO Q 8 H active Not Available Not Available No t Available cyanocobala min (vit B-12) 1,000 mcg/mL injection solution Inject 1 mL every week by subcutane ous route in the morning for 90 days. active Not Available Not Available No t Available trazodone 150 mg tablet TAKE 1 TABLET BY MOUTH EVERY NIGHT AT BEDTIME active Not Available Not Available No t Available levothyroxi ne 125 mcg tablet Take 1 tablet every day by oral route in the morning for 90 days. 12/30 completed Not Available Not Available Not Available Synthroid 75 mcg tablet Take 1 tablet every day by oral route in the morning for 90 days. 2022 active Not Available Not Available Not Avai lable gabapentin 300 mg capsule TAKE ONE CAPSULE BY MOUTH TWICE DAILY 12/30 completed Not Available Not Available Not Available Synthroid 112 mcg tablet TAKE 1 TABLET EVERY MORNING FOR HYPOTHYRO IDISM 2022 active Not Available Not Available Not Avai lable methylpredn isolone 4 mg tablets in a dose pack FOLLOW PACKAGE DIRECTION S 12/30 completed Not Available Not Available Not Available ondansetron 4 mg disintegrat ing tablet DISSOLVE 1 TABLET ON THE TONGUE EVERY 6 HOURS FOR 3 DAYS NEEDED FOR NAUSEA OR VOMITING active Not Available Not Available No t Available metformin ER 500 mg tablet,exte nded release 24 hr Take 1 tablet every day by oral route at dinner for 90 days. 12/30 completed Not Available Not Available Not Available dicyclomine 10 mg capsule take 1 cap po TID PRN active Not Available Not Available No t Available amoxicillin 875 mg-potassiu m clavulanate 125 mg tablet TAKE 1 TABLET BY MOUTH EVERY 12 HOURS FOR 10 DAYS 12/30 completed Not Available Not Available Not Available cyclobenzap rine 5 mg tablet Take 1 tablet 3 times a day by oral route as needed. active Not Available Not Available No t Available potassium chloride ER 10 mEq tablet,exte nded release(par t/cryst) active Not Available Not Available Not Available topiramate 50 mg tablet Take 1 tablet twice a day by oral route. 12/30 completed Not Available Not Available Not Available dexlansopra zole 60 mg capsule,bip hase delayed release TAKE ONE CAPSULE BY MOUTH EVERY DAY. active Not Available Not Available No t Available BD Ultra-Fine Leighann Pen Needle 32 gauge x 5/32 active Not Available Not Available Not Available TRUEplus Insulin 1 mL 31 gauge x 5/16 syringe USE FOR BEFORE-12 INJECTION S UNDER THE SKIN ONCE WEEKLY. active Not Available Not Available No t Available Linzess 145 mcg capsule 03/03 completed Not Available Not Available Not Available Victoza 3-Bryce 0.6 mg/0.1 mL (18 mg/3 mL) subcutaneou s pen injector inject 0.6 mg SQ daily x 1 week, then 1.2 mg SQ daily x 2 weeks then increase to 1.8 mg SQ daily with largest meal 03/03 completed Not Available Not Available Not Available Saxenda 3 mg/0.5 mL (18 mg/3 mL) subcutaneou s pen injector INJECT 0.6 MG UNDER THE SKIN FOR 1 WEEK, 1.2 MG FOR 1 WEEK, 1.8 MG FOR 1 WEEK, 2.4 MG FOR 1 WEEK, THEN 3.0 MG PAULABirgit R. 11/07 completed Not Available Not Available Not Available Linzess 72 mcg capsule TK 1 C PO QD active Not Available Not Available No t Available Ozempic 0.25 mg or 0.5 mg (2 mg/1.5 mL) subcutaneou s pen injector Inject 0.5 mg every week by subcutane ous route at dinner for 90 days. 2022 active Not Available Not Available Not Avai lable Ozempic 1 mg/dose (4 mg/3 mL) subcutaneou s pen injector active Not Available Not Available Not Available Paxlovid 300 mg (150 mg x 2)-100 mg tablets in a dose pack TAKE 2 NIRMATREL VIR WITH 1 RITONAVIR TABLET TWICE DAILY FOR 5 DAYS 12/30 completed Not Available Not Available Not Available Ozempic 0.25 mg or 0.5 mg (2 mg/3 mL) subcutaneou s pen injector active Not Available Not Available Not Available Vitals Date Recorded Body mass index (BMI) Body height Oxygen saturation Oxygen saturation in Arterial blood by Pulse oximetry Heart rate Body temperature Body weight Systolic blood pressure Diastolic blood pressure Provider Name and Address Organization Details Last Updated DateTime 2 32.3 kg/m2 165.1 cm 97 % 97 % 66 /min 98 [degF] 23793.9 2 g 100 mm[Hg] 75 mm[Hg] Not Available [facility] 3 04:45:44 Date Recorded Body mass index (BMI) Body height Oxygen saturation Oxygen saturation in Arterial blood by Pulse oximetry Heart rate Body temperature Body weight Systolic blood pressure Diastolic blood pressure Provider Name and Address Organization Details Last Updated DateTime 2 32.2 kg/m2 165.1 cm 98 % 98 % 67 /min 98 [degF] 14259.4 8 g 115 mm[Hg] 75 mm[Hg] Not Available [facility] 3 04:45:44 Date Recorded Body height Body mass index (BMI) Body weight Respiratory rate Body temperature Heart rate Systolic blood pressure Diastolic blood pressure Provider Name and Address Organization Details Last Updated DateTime 3 165.1 cm 26.6 kg/m2 21479.3 4 g 18 /min 97.2 [degF] 80 /min 111 mm[Hg] 76 mm[Hg] MINDA Callejas [place] [email or web address] [employer] 3 14:33:58 Date Recorded Body height Body mass index (BMI) Body weight Body temperature Heart rate Systolic blood pressure Diastolic blood pressure Provider Name and Address Organization Details Last Updated DateTime 3 165.1 cm 25.5 kg/m2 16604.6 3 g 97.5 [degF] 70 /min 120 mm[Hg] 62 mm[Hg] Kayleigh Orozco [place] [email or web address] [employer] 3 14:19:46 Social History Question Answer Notes LastModified by Organizat ion Details LastModified Time Tobacco Smoking Status Former Smoker Quit in 2206 Not Available [facility] 11/17/2022 04:40:22 What Is Your Level Of Alcohol Consumption? Occasional [id number].[id number] Information not available 11/17/2022 Are You Blind Or Do You Have Difficulty Seeing? No MIGRATION.86243 [id number] Information not available 11/17/2022 What Is Your Level Of Caffeine Consumption? Moderate MIGRATION.28673 [id number] Information not available 11/17/2022 How Much Tobacco Do You Chew? None MIGRATION.57736 [id number] Information not available 11/17/2022 In The 14 Days Before Symptom Onset, Have You Had Close Contact With A Laboratory-confir med COVID-19 While That Case Was Ill? No MIGRATION.43072 [id number] Information not available 11/17/2022 In The 14 Days Before Symptom Onset, Have You Had Close Contact With A Person Who Is Under Investigation For COVID-19 While That Person Was Ill? No MIGRATION.94756 37056 Information not available 11/17/2022 Are You Deaf Or Do You Have Serious Difficulty Hearing? No MIGRATION.92947 36535 Information not available 11/17/2022 What Type Of Diet Are You Following? REGULAR MIGRATION.32357 57905 Information not available 11/17/2022 Which Illicit Or Recreational Drugs Have You Used? None MIGRATION.01567 29960 Information not available 11/17/2022 Do You Or Have You Ever Used E-cigarettes Or Vape? Never Used Electronic Cigarettes MIGRATION.85953 18039 Information not available 11/17/2022 What Is Your Occupation? Retired MIGRATION.36120 18414 Information not available 11/17/2022 What Is Your Relationship Status? MIGRATION.42991 13860 Information not available 11/17/2022 Do You Or Have You Ever Used Smokeless Tobacco? Never Used Smokeless Tobacco MIGRATION.42905 38339 Information not available 11/17/2022 Have You Recently Traveled Abroad? No MIGRATION.84515 81371 Information not available 11/17/2022 Do You Have Any Dietary Restrictions? No MIGRATION.70230 82032 Information not available 11/17/2022 Sex: Female Functional Status Question Answer Note LastModified by Organizat ion Details LastModified Time Do you have difficulty walking or climbing stairs? No MIGRATION.[id number] 026 Information not available 11/17/2022 Do you have transportation difficulties? No MIGRATION.[id number] 026 Information not available 11/17/2022 Are you able to walk? YESWOREST MIGRATION.1436363 026 Information not available 11/17/2022 Do you have difficulty doing errands alone? No MIGRATION.[id number] 026 Information not available 11/17/2022 Are you able to care for yourself? Yes MIGRATION.[id number] 026 Information not available 11/17/2022 Do you have difficulty dressing or bathing? No MIGRATION.[id number] 026 Information not available 11/17/2022 Mental Status Question Answer Note LastModified by Organizat ion Details LastModified Time Do you have difficulty concentrating, remembering or making decisions? No MIGRATION.[id number] 6 Information not available 11/17/2022 Family History Relationship Description Onset Age of this Age Resolved Age Notes LastModified by Organization Details LastModified Time Father Diabetes mellitus MIGRATION.[id number] Not available 11/17/2022 04:43:13 Father Heart disease MIGRATION.973 [id number] Not available 11/17/2022 04:43:13 Mother Diabetes mellitus MIGRATION.126 [id number] Not available 11/17/2022 04:43:14 Mother Heart disease MIGRATION.294 [id number] Not available 11/17/2022 04:43:14 Brother Hypothyroidi sm MIGRATION.304 [id number] Not available 11/17/2022 04:43:14 Brother Heart disease MIGRATION.315 [id number] Not available 11/17/2022 04:43:14 Paternal Aunt Ru thyroiditis MIGRATION.460 [id number] Not available 11/17/2022 04:43:14 Medical History Condition Response ARTHRITIS Y THYROID DISEASE Y GI PROBLEMS Y HEART DISEASE/HEART PROBLEMS Y INSOMNIA Y DEPRESSION (INCLUDING POST ) Y Gynecological HistoryNo gynecological history recorded. Obstetrics History GPAL:G 0 P 0 0 0 0 Past Encounters Encounter ID Performer Location Encounter Start Date Encounter Closed Date Diagnosis/Indication Diagnosis SNOMED-CT Code Diagnosis ICD10 Code [id number] [facility] [address] [place] [address] 03/03/2021 00:00:00 03/03/2021 14:26:21 [id number] [facility] [address] [place] [address] 08/10/2021 00:00:00 08/10/2021 13:54:33 [id number] [facility] [address] [place] [address] 01/08/2022 00:00:00 01/08/2022 13:17:59 [id number] [facility] [address] [place] [address] 05/07/2022 00:00:00 05/07/2022 12:14:50 [id number] Felicia Richmond MD [facility] [address] [place] [address] 12/30/2022 14:20:49 12/30/2022 15:11:18 Prediabetes 852432372 R73.03 Hypothyroidism 91043912 E03.9 [id number] Felicia Richmond MD [facility] [address] [place] [address] 06/23/2023 13:57:49 06/23/2023 15:29:18 Hypothyroidism 44244723 E03.9 Prediabetes 475012409 R7 3.03 Health Concerns Section Related Observation LastModified by Organization Detai ls LastModified Time None Recorded Concern Status LastModified by Organization Details LastModified Time None Recorded Advance Directives Directive None Recorded Payers Encounter Date Sequence Insurance Name Policy Number Policy Mcneil Covered Member ID Mcneil Member ID Guarantor Name 12/30/2022 1 [place] Kenrick Marr [id number] Kenrick Marr 12/30/2022 2 [facility] [id number] Shady Marr [id number] Kenrick Marr 06/23/2023 1 [place] Kenrick Marr [id number] Kenrick Marr 06/23/2023 2 [facility] [id number] Shady Marr [id number] Kenrick Marr Notes Date Note Type Note Provider Name and Address Organization Details Recorded Time 12/30/2022 text/html 67 yo female com es in for follow up in management of prediabetes and hypothyroidism last seen in April at that time we started ozempic for glucose and weight control. we dropped her synthroid down to 112 mcg daily and continued LT3 5 mcg twice daily She has lost over 35 pounds- she just got up to the 0.5 mg dose last month. She is only doing the tick guzman and just got up to the 0.5 mg dose and three clicks. She is tolerating this well. She plateaus and tolerating the titrations well. She was on byetta in the past and dropped down to 155 pounds- she was 159 pounds this morning. For the nausea with the ozempic - she uses the round peppermints and this really helps knock out the GI upset. labs from 12/22/22:TSH of 0.017 uIU/mlFT4 of 1.90 ng/dLglucose 70 mg/dLCr normalLFT utetcu721/64/65/78A1 C 4.9%FT3 of 3.9 pg/mL Felicia Richmond MD [address] [facility] [address], [place], [address], [facility] [employer] 12/30/2022 15:18:22 06/23/2023 text/html 68 yo female com es in for follow up in management of hypothyroidism and prediabetes (A1C of 4.9%) last seen in December at that time we dropped synthroid down to 100 mcg daily due to weight loss and continued T3 5 mcg twice daily. we continued ozempic 0.5 mg weekly as she has lost almost 50 pounds. She has lost another 9 pounds since her last visit. She was recently in the hospital with shortness of breath and palpitations- her cardiac workup was normal and she was sent home She has noticed more jitters and shakiness and sweats. She stopped taking the liothyronine and feels the sweats are a little better/feels better overall. She has dropped her ozempic 1 mg dose and tolerating well.-her sugars are now just over 100 mg/dL fasting and up to 110 mg/dL. She has always eaten small portions and ever since having the gastroplasty surgery in 1980 she has always eaten small portions. labs from 06/11:TSH of 0.108 uIU/mlFT4 of 1.83 ng/dLa1c 4.9%FT3 of 3.5 pg/mlinsulin 8.5 uU/mlglucose 77 mg/dLCr normalLFT normal Felicia Richmond MD [address] [facility] [address], [place], [address], [facility] [employer] [facility] 06/23/2023 14:59:58 OBGyn Episode No OBEpisode recorded.
--- OUTSIDE RECORDS SUMMARY | 2024-09-16 02:23 | XMS_ITS | Clinical Summary ---
Author Organization [facility] [address] Address [address] [place] [address] Care Team Providers Care Gear Shaper Set Up Operator Name Role Phone Jacobo Mcintosh MD Primary Care Provider [phone] Allergies Active Allergy Reactions Criticality Noted Date [...] 1 tablet (100 mcg total) by mouth tar leveler before breakfast 4 Active semaglutide (Ozempic) 0.25 mg or 0.5 [...] to support life 06/25/2020 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 Surgical History Surgery Date Site/Laterality Comments INSERT / REPLACE / REMOVE PACEMAKER 2010 - 09/18/2011 Pacemaker implant 2010 for complete heart block, [place] TONSILLECTOMY 09/19/1964 - 09/18/1965 HIATAL HERNIA REPAIR 09/19/1976 - 09/18/1977 CHOLECYSTECTOMY 09/19/1976 - 09/18/1977 GASTROPLASTY 09/19/1980 - 09/18/1981 HYSTERECTOMY 09/19/1980 - 09/18/1981 half of an ovary was left OOPHORECTOMY 09/19/1982 - 09/18/1983 BUNIONECTOMY 09/19/1990 - 09/18/1991 Bilateral REPLACEMENT TOTAL KNEE 02/17/2010 - 03/18/2010 Bilateral CATARACT EXTRACTION W/ INTRA OCULAR LENS IMPLANT AND ENDOCYCLOPHOTOCOAGULATION 09/19/1995 - 09/18/1996 Left CATARACT EXTRACTION W/ INTRA OCULAR LENS IMPLANT AND ENDOCYCLOPHOTOCOAGULATION 09/19/1984 - 09/18/1985 Right for congenital cataract LASER SURGERY Right laser surgery on right eye to open up capsule from the cataract surgery Medical History Medical History Date Comments Pacemaker 2010 [facility] pac emaker for complete heart block, [place] GERD (gastroesophageal reflux disease) Fibromyalgia Sjogren's disease (HCC) Ru's thyroiditis Acid indigestion Diverticulitis Cataracts, bilateral Anxiety and depression Colon polyp Small bowel obstruction (CMS/HCC) (HCC) Elevated LFTs Hypothyroidism Family History Medical History Relation Name Comments No Known Problems Brother 1 No Known Problems Brother 2 Lung cancer Father Esophageal cancer Mother Relation Name Status Comments Brother 1 Alive Brother 2 Alive Father (Age 82) Mother (Age 76) Social History Tobacco Use Types Packs/Day Years [...] on file 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 Gender Identity Not on file Sexual Orientation Not on file Obstetrics History Last Filed Vital Signs Vital Sign Reading [...] 12/05/2023 1:40 PM CDT Plan of Treatment Health Maintenance Due Date Last Done Comments Breast Cancer Screening-Mammogram 1953 Colon Cancer Screening-Colonoscopy 1953 Depression Screening 1953 Fall Risk Assessment 1953 Hepatitis C Screening 1953 Osteoporosis Screening-Bone Density Scan 1953 DTaP/Tdap/Td Vaccine (1 - Tdap) 1964 Hepatitis B Screening 1971 Zoster Vaccine (1 of 2) 2003 Pneumococcal vaccine 65+ (1 of 1 - PCV) 2018 Well Visit 65+ 2018 Covid-19 Vaccine (5 - 2023-2 5 season) 2024 06/30/2022, 07/23/2021, 12/08/2020, Additional history exists Influenza Vaccine (#1) 2024 Insurance MEDICARE [facility] MEDICARE MEDICARE BLUE ACCESS [employer] Advance Directives For more information, please contact: [phone] * Full Code (Latest Code Status on File) Date Activated Date Inactivated Comments 12/15/2023 1:47 PM 12/15/2023 8:39 PM Care Teams Gear Shaper Set Up Operator Relationship Specialty Start Date End Date Jacobo Mcintosh MD [address] [facility] [address] [place] [address] PCP - General Internal Medicine 06/25/20
--- OUTSIDE RECORDS SUMMARY | 2024-09-16 02:23 | XMS_ITS | Encounter Summary ---
Author Organization [facility] Address [address] [place] [address] Phone Care Team Providers Care Deputy Sheriff Name Role Phone Jacobo Mcintosh MD Primary Care Provider [phone] Encounter Details Date Type Department Care Team (Late st Contact Info) Description 01/03/2024 Documentation [facility] Gastroenterology 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 She said the next couple weeks are not good for an appt due to family matters. Asked to have after 01/29. Made reminder to follow up documented in this encounter Plan of Treatment Not on file documented as of this encounter Visit Diagnoses Not on filedocumented in this encounter Care Teams Deputy Sheriff Relationship Specialty Start Date End Date Jacobo Mcintosh MD [address] [address] PCP - General Internal Medicine 06/25/20 documented as of this encounter
--- OUTSIDE RECORDS SUMMARY | 2024-09-16 02:23 | XMS_ITS | Clinical Summary ---
Author Organization [facility] Address [address] [place] [address]. 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 Gender Identity Not on file Sexual Orientation Not on file Plan of Treatment Health Maintenance Due Date Last Done Comments Colorectal Cancer Screening Colonoscopy (10 Years) 1953 Hepatitis C 1971 DTaP, Tdap and Td Vaccines ( 1 - Tdap) 1972 Mammogram Screening 1993 Zoster Vaccines (1 of 2) 2003 Annual Medicare Wellness Visit 2018 Dexa Scan (General) 2018 Pneumococcal Vaccine: 65+ Years (1 of 1 - PCV) 2018 COVID-19 Vaccine ( - 2023-2 5 season) 2024 07/23/2021, 12/08/2020, 10/30/2020 Influenza Adult (#1) 2024 RSV Immunization or 60+ Years (1 - 1-dose 75+ series) 2028 Meningococcal Vaccine Aged Out No shanna eran eligible based on patient's age to complete this topic RSV Immunizations Under 20 Months Aged Out No longer eligible b ased on patient's age to complete this topic Insurance [facility] MEDICARE [facility] Care Teams Fuel Manager Relationship Specialty Start Date End Date Zoran Da Silva PA-C [address] [facility] [address] [place] [address] PCP - 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
--- OUTSIDE RECORDS SUMMARY | 2024-09-16 02:23 | XMS_ITS | Encounter Summary ---
Author Organization [facility] Address [address] [place] [address] Phone Care Team Providers Care Pharmacy Technician Assistant Name Role Phone Jacobo Mcintosh MD Primary Care Provider [phone]- [phone] Reason for Referral * Consultation (Routine) - Pending Review Specialty Diagnoses / Procedures Referred By Contac t Referred To Contact Gastroenterology Diagnoses Abdominal pain Agusto Huddleston MD [address] [place] [address] Phone: tel: fax: [facility] (All Locations) Referral ID Status Reason Start Date Expiration Date Visits Requested Visits Authorized [id number] Pending Review Specialty Services Required 12/15/2023 01/13/2025 1 1 Question Answer Process Instructions: THE AMBULATORY REFERRAL TO GASTROENTEROLOGY IS NOT AN ORDER FOR A PROCEDURE (I.E. EGD, COLONOSCOPY.) USE THE DIRECT SCHEDULING CASE REQUEST ORDER (GI50) IF THE PATIENT REQUIRES A PROCEDURE TO BE PERFORMED. Please select the performing region: [facility] (All Locations) [167] # of visits: 1 Comments Refer to a general GI physician at [facility] for further workup of abdominal pain Encounter Details Date Type Department Care Team (Late st Contact Info) Description 12/15/[address] 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 Gender Identity Not on file Sexual Orientation Not on file documented as of this encounter Plan of Treatment Scheduled Referrals Name Type Priority Associated Diagnoses Order Schedule Ambulatory referral to Gastroenterology Outpatient Referral Routine Abdominal pain Expected: 12/15/2023 (Approximate), Expires: 12/14/2024 documented as of this encounter Visit Diagnoses Diagnosis Abdominal pain- Primary Abdominal pain, unspecified site documented in this encounter Care Teams Pharmacy Technician Assistant Relationship Specialty Start Date End Date Jacobo Mcintosh MD [address] [place] [address] PCP - General Internal Medicine 06/25/20 documented as of this encounter
--- OUTSIDE RECORDS SUMMARY | 2024-09-16 02:23 | XMS_ITS | Data Portability ---
Author Organization [facility], Physiatry Address [address] [place] [address] Assessment No assessment recorded. Plan of Treatment Reminders Order Date Submit Date Provider Last Modified By Organization Details Last Modified Time Details Appointments None recorded. Lab None recorded. Referral None recorded. Procedures None recorded. Surgeries None recorded. Imaging None recorded. Medication Orders ivermectin 3 mg tablet 2023 024 [facility] [id number] [employer], [address], [place], [address], 4 18:15:28 permethrin 5 % topical cream 2023 024 [facility] [id number] [employer], [address], [place], [address], 4 18:15:26 Medrol (Bryce) 4 mg tablets in a dose pack 2023 024 [place] [id number] [employer], [address], [place], [address], 4 18:15:27 Patient TargetsNo targets recorded. Patient InstructionsNo instructions recorded. Reason for Referral None Reported. 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 ? 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 Not Available [facility] 0 19:17:55 Abdominal pain 16441821 Active 2018 R10.9:Abdo judi pain Not Available [facility] 0 19:17:55 Urinary tract infectiou s disease 19602795 Active 2018 N39.0:U T I Not Available [facility] 0 19:17:55 Cardiac pacemaker in situ 885728537 Active 2018 Z95.0:Pace maker, permanent Not Available [facility] 0 19:17:55 Irritable bowel syndrome 87113873 Active 2019 K58.9:Irri table bowel, predominan tly constipati on Not Available [facility] 0 19:17:55 Knee pain Active 2019 POLA MORTENSEN [facility] 0 12:04:39 Problem Notes None recorded. Medical Equipment None Reported. Allergies Allergen ID Allergen Name Allergen Category Reaction Reaction Severity Criticality Documentation Date Start Date Code Code System Note Provider Name and Address Organization Details Recorded Time 67550 codeine sulfate medicatio n Not available Not available Not available 03/13/20202008 54936 RxNorm Not Available [facility] 0 05:06:27 73039 Demerol medicatio n Not available Not available Not available 03/13/20202008 44148 1 RxNorm Not Available [facility] 0 05:06:27 70559 acetamino phen / oxycodone medicatio n Not available Not available Not available 03/13/20202012 01450 3 RxNorm hallu cinat ions Not Available [facility] 0 05:06:27 36844 Talnaseem NX medicatio n Not available Not available Not available 03/13/20202008 42094 RxNorm Not Available [facility] 0 05:06:27 Medications Name Sig Start Date Stop Date Status Note LastModified by Organization Details LastModified Time amoxicillin 500 mg capsule TAKE 4 CAPS BY MOUTH NOW active Not Available Not Available No t Available ivermectin 3 mg tablet TAKE 1 TABLET BY MOUTH EVERY WEEK FOR 2 DOSES. active Not Available Not Available No t Available bupropion HCl SR 150 mg tablet,12 hr sustained-re lease Take 1 tablet twice a day by oral route. active Not Available Not Available No t Available pilocarpine 5 mg tablet TAKE 1 TABLET FOUR TIMES A DAY DIRECTED active Not Available Not Available Not Available Synthroid 100 mcg tablet active Not Available Not Available Not Available permethrin 5 % topical cream THOROUGHLY MASSAGE INTO SKIN FROM HEAD TO FOOT SOLES ONCE&LEAVE FOR 8-14 HOURS THEN THOROUGHLY WASH active Not Available Not Available No t Available liothyronine 5 mcg tablet active Not Available Not Available Not Available tramadol 50 mg tablet TAKE 2 TABLETS BY MOUTH TWICE DAILY NEEDED FOR PAIN active Not Available Not Available No t Available cyanocobalam in (vit B-12) 1,000 mcg/mL injection solution active Not Available Not Available Not Available trazodone 150 mg tablet TAKE 1 TABLET AT BEDTIME active Not Available Not Available No t Available insulin syringe U-100 with needle 1 mL 31 gauge x 02/01 USE DIRECTED MONTHLY FOR B12 INJECTIONS active Not Available Not Available N ot Available furosemide 20 mg tablet active Not Available Not Available Not Available Synthroid 112 mcg tablet active Not Available Not Available Not Available methylpredni solone 4 mg tablets in a dose pack TAKE 6 TABLETS ON DAY 1 DIRECTED ON PACKAGE AND DECREASE BY 1 TAB EACH DAY FOR A TOTAL OF 6 DAYS active Not Available Not Available No t Available dicyclomine 10 mg capsule active Not Available Not Available Not Available cyclobenzapr ine 5 mg tablet active Not Available Not Available Not Available Klor-Con M10 mEq tablet,exten ded release active Not Available Not Available Not Available topiramate 50 mg tablet TAKE 1 TABLET TWICE A DAY 2020 active Not Available Not Available Not Avai lable dexlansopraz ole 60 mg capsule,biph ase delayed release TAKE 1 CAPSULE BY MOUTH DAILY active Not Available Not Available Not Available Linzess 72 mcg capsule active Not Available Not Available Not Available tramadol 100 mg tablet active Not Available Not Available No t Available Ozempic 1 mg/dose (4 mg/3 mL) subcutaneous pen injector active Not Available Not Available Not Available Ozempic 0.25 mg or 0.5 mg (2 mg/3 mL) subcutaneous pen injector active Not Available Not Available Not Available Vitals Date Recorded Body weight Heart rate Respiratory rate Oxygen saturation Oxygen saturation in Arterial blood by Pulse oximetry Body temperature Systolic blood pressure Diastolic blood pressure Provider Name and Address Organization Details Last Updated DateTime 4 20936.4 4 g 79 /min 18 /min 97 % 97 % 97 [degF] 104 mm[Hg] 66 mm[Hg] Ruslan Reyes [facility] 18:00:05 Social History Question Answer Notes LastModified by Organizat ion Details LastModified Time Tobacco Smoking Status Former Smoker Ruslan [facility] 03/02/2024 18:00:49 What Is Your Level Of Alcohol Consumption? Occasional [email or web address] Information not available 03/02/2024 Sex: Unknown Functional Status None recorded. Mental Status None recorded. Family History Nothing Reported. Medical History No medical history recorded. Gynecological HistoryNo gynecological history recorded. Obstetrics History GPAL:G 0 P 0 0 0 0 Past Encounters Encounter ID Performer Location Encounter Start Date Encounter Closed Date Diagnosis/Indication Diagnosis SNOMED-CT Code Diagnosis ICD10 Code [id number] Ryan Denton APN [facility] [address] [place] [phone] 03/02/2024 17:41:40 03/13/2024 23:28:06 Infestation by Sarcoptes scabiei rikki hominis [id number] B86 Health Concerns Section Related Observation LastModified by Organization Detai ls LastModified Time None Recorded Concern Status LastModified by Organization Details LastModified Time None Recorded Advance Directives Directive None Recorded Payers Encounter Date Sequence Insurance Name Policy Number Policy Mcneil Covered Member ID Mcneil Member ID Guarantor Name 03/02/2024 2 [employer] (O) [id number] Shady Marr [id number] Kenrick Marr 03/02/2024 1 [place] Kenrick Marr [id number] Kenrick Marr Notes Date Note Type Note Provider Name and Address Organization Details Recorded Time 03/02/2024 text/html Animal/Insect/Sp id er BiteReported bypatient.Location :All over body Quality:itching; red Onset/Timin weeks ago Severitypain 09/28; mild Context:possible bed bugs; pt C/O itchy red dots on her body for 2 weeks and reports she feels that bugs are biting her occasionally. Associated Symptoms:swelling/ redness; no numbness/tingling; no bruising; no fever; no joint pain; no warmth Ryan Denton APN [id number] [facility], [place], [address], [place] - [facility] 03/02/2024 18:17:08 OBGyn Episode No OBEpisode recorded.
--- OUTSIDE RECORDS SUMMARY | 2024-09-16 02:23 | XMS_ITS | Encounter Summary ---
Author Organization [facility] Address [address] [place] [address]. [place], [place] [address] [place] [address] Care Team Providers Care Oncology Navigator Name Role Phone Zoran Da Silva PA-C Primary Care Provider [phone] Encounter Details Date Type Department Care Team (Late st Contact Info) Description 11/04/2021 2:[address] JUDGE - 11/04/2021 11:[address] JUDGE Hospital Encounter [facility] [place] [address] Mohamud Wagner MD [address] [facility] [address] [place], [place] [id number] Discharge Disposition: Home or Self Care (Routine Discharge) Social History Tobacco Use Types Packs/Day Years Used Date Smoking Tobacco: Never Assessed Comments Unknown Sex and Gender Information Value Date Recorded Sex Assigned at Not on file Legal Sex Female 5:[address] Gender Identity Not on file Sexual Orientation Not on file COVID-19 Exposure Response Date Recorded In the last 10 days, have yo u been in contact with someone who was confirmed or suspected to have Coronavirus/COVID-19? No / Unsure 11/04/2021 2:[address] JUDGE documented as of this encounter Plan of Treatment Not on file documented as of this encounter Procedures Procedure Name Priority Date/Time Associated Diagnosis Comments XR LUMB SP+FLEX+EXT MIN 4V Routine 11/04/2021 3:[address] JUDGE Lumbar radiculopathy documented in this encounter Results * XR LUMB SP+FLEX+EXT MIN 4V (11/04/2021 3:[address] JUDGE) Anatomical Region Laterality Modality Spine Radiographic Anna ging 11/05/2021 8:[address] JUDGE Impressions 11/05/2021 8:[address] JUDGE IMPRESSION: 1. ?? Moderate degenerative disease and dextroscoliosis. ??No malalignment or evidence of fracture. If neurologic signs are present, MRI recommended. Referred By: ?? Interpreted By: Marlon Vela MD, 11/05/2021 8:46 AM Narrative 11/05/2021 8:[address] JUDGE EXAMINATION: Lumbar spine EXAM DATE: 11/04/2021 2:58 PM REASON FOR EXAM: ??Lumbar radiculopathy ?? Lower back pain and bilateral lower extremity radiculopathy. COMPARISON: None TECHNIQUE: 4 views including neutral and flexion and extension views in lateral projection. FINDINGS: 5 lumbar-type vertebrae are identified. ??Vertebral body height and alignment normal at all levels. ??No evidence of misalignment with flexion or extension. Moderate diffuse degenerative disc disease and facet arthropathy. Moderate levoscoliosis. Postsurgical changes of the abdomen. Moderate bilateral sacroiliac osteoarthritis. Procedure Note Marlon Vela MD - 11/05/2021 EXAMINATION: Lumbar spine EXAM DATE: 11/04/2021 2:58 PM REASON FOR EXAM: Lumbar radiculopathy Lower back pain and bilateral lower extremity radiculopathy. COMPARISON: None TECHNIQUE: 4 views including neutral and flexion and extension views inlateral projection. FINDINGS: 5 lumbar-type vertebrae are identified. Vertebral body height andalignment normal at all levels. No evidence of misalignment with flexionor extension. Moderate diffuse degenerative disc disease and facet arthropathy. Moderate levoscoliosis. Postsurgical changes of the abdomen. Moderate bilateral sacroiliac osteoarthritis. IMPRESSION: 1. Moderate degenerative disease and dextroscoliosis. No malalignmentor evidence of fracture. If neurologic signs are present, MRI recommended. Referred By: Interpreted By: Marlon Vela MD, 11/05/2021 8:46 AM Mohamud Wagner MD GENERAL IMAGING Final Result documented in this encounter Visit Diagnoses Diagnosis Lumbar radiculopathy Thoracic or lumbosacral neuritis or radiculitis, unspecified documented in this encounter Care Teams Oncology Navigator Relationship Specialty Start Date End Date Zoran Da Silva PA-C [address] [address] PCP - General PHYSICIAN INSTRUMENT REPAIRER HELPER 11/04/21 documented as of this encounter
--- OUTSIDE RECORDS SUMMARY | 2024-09-16 02:24 | XMS_ITS | Encounter Summary ---
Author Organization [facility] Address [address] [place] [address] Care Team Providers Care Port Captain Name Role Phone Jacobo Mcintosh MD Primary Care Provider [phone] Reason for Referral * (Routine) - Closed Specialty Diagnoses / Procedures Referred By Russ magdaleno Referred To Contact Diagnoses Pacemaker Pacemaker battery depletion Complete heart block (CMS/HCC) (HCC) Procedures Transthoracic Echo Complete W Doppler/CF Prabha Garibay MD Phone: tel: fax: [facility] Referral ID Status Reason Start Date Expiration Date Visits Re quested Visits Authorized [id number] Closed 06/25/2020 07/25/2021 1 1 Reason for Visit * Reason Comments New Patient eval for gen change * Consultation (Routine) - Closed Specialty Diagnoses / Procedures Referred By Contmarcie t Referred To Contact Cardiology Diagnoses Pacemaker Collin Pederson, DO [address] [facility] [address] [place] [address] Phone: tel: fax: [facility] Cardiology [address] [place] [address] Phone: tel: fax: Referral ID Status Reason Start Date Expiration Date V isits Requested Visits Authorized [id number] Closed Specialty Services Required 06/12/2020 07/12/2021 1 1 Encounter Details Date Type Department Care Team (Late st Contact Info) Description 06/25/2020 2:00 PM CDT Office Visit [facility] Cardiology [address] [place] [address] Prabha Garibay MD [address] [place] [address] Pacemaker battery depletion (Primary Dx); Pacemaker; Complete heart block (CMS/HCC); Pacemaker-dependent due to [place] cardiac rhythm insufficient to support life; Idiopathic hypotension; Lipid screening; 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 use of drug Social History Tobacco Use Types Packs/Day Years Used Date Smoking Tobacco: Former Cigarettes Q uit: 06/25/2007 Smokeless Tobacco: Never Alcohol Use Standard Drinks/Week Comments Yes 2 (1 standard drink = 0.6 oz pur e alcohol) monthly Comments Unknown Sex and Gender Information Value Date Recorded Sex Assigned at Not on file Legal Sex Female 10:57 AM 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 Gender Identity Not on file Sexual Orientation Not on file documented as of this encounter Last Filed Vital Signs Vital Sign Reading Time Taken Comments Blood Pressure 92/64 06/25/2020 1:51 PM CDT Pulse 68 06/25/2020 1:51 PM CDT Temperature - - Respiratory Rate - - Oxygen Saturation 97% 06/25/2020 1:51 PM CDT Inhaled Oxygen Concentration - - Weight 80.7 kg (178 lb) 06/25/2020 1:51 PM CDT Height 165.1 cm (5' 5 ) 06/25/2020 1:51 PM CDT Body Mass Index 29.62 06/25/2020 1:51 PM CDT documented in this encounter Patient Instructions * Patient Instructions* Prabha Garibay MD - 06/25/2020 2:00 PM CDT Near EKG today showed normal pacemaker function Your cholesterol today was 150 which is great, triglycerides 63 and HDL cholesterol 60, LDL 77, allquite good. documented in this encounter Progress Notes * Prabha Garibay MD - 06/25/2020 2:00 PM CDT [facility] Cardiology [facility] DATE OF VISIT: 06/25/2020 DATE: 1955 CHIEF COMPLAINT Chief Complaint Patient presents with ??? New Patient eval for gen change Consultation for generator change HPI Danielle Locke is a 65 y.o. female Kindly referred by Dr. Pederson for pacemaker generator at TC, requiring generator change. She is pacemaker dependent. The patient has a history of complete heart block status post [employer] pacemaker in 2010 in [place]. She moved back home to be closer to her family after her has been retired. She currently is followed by Dr. Pederson. He interrogated the pacemaker and 06/11/2020 and found the patient battery was low at 2.63 volts, TC less than 3 months, pacer dependent. The leads were functioning well with good thresholds. Patient says she tends to run a low blood pressure, usually in the 90s but is asymptomatic. No chest pain, shortness of breath, edema, or dizziness. Echo EF was 58% in 2017. No history of CAD or CHF. No history of any heart failure or CAD. No hypertension or diabetes. Social: , 2 daughters and a stepdaughter. 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 Lived in [place] and returned to [place] in 2019. Likes to do crafts and needle work. MEDICAL HISTORY Past Medical History: Diagnosis Date ??? Acid indigestion ??? Anxiety and depression ??? Cataracts, bilateral ??? Diverticulitis ??? Fibromyalgia ??? GERD (gastroesophageal reflux disease) ??? Ru's thyroiditis ??? Pacemaker 2010 [employer] pacemaker for complete heart block, [place] ??? Sjogren's disease ([facility]/HCC) Social History Tobacco Use ??? Smoking status: Former Smoker Types: Cigarettes Quit date: 06/25/2007 Years since quittin.0 ??? Smokeless tobacco: Never Used Substance Use Topics ??? Alcohol use: Yes Alcohol/week: 2.0 standard drinks Types: 1 Cans of beer, 1 Glasses of wine per week Comment: monthly ??? Drug use: Never Family History Problem Relation Age of Onset ??? Esophageal cancer Mother ??? Lung cancer Father ??? No Known Problems Brother ??? No Known Problems Brother MEDICATIONS Current Outpatient Medications: ??? BIOTIN ORAL, Take by mouth, Disp: , Rfl: ??? buPROPion (WELLBUTRIN) 100 mg tablet, Take 150 mg by mouth Take once a day, second one in the afternoon as needed., Disp: , Rfl: ??? buPROPion SR (WELLBUTRIN SR) 150 mg 12 hr tablet, Take 150 mg by mouth 2 (two) times a day, Disp: , Rfl: ??? cholecalciferol (VITAMIN D-3) 5,000 unit capsule, Take 5,000 Units by mouth daily, Disp: , Rfl: ??? cyclobenzaprine (FLEXERIL) 5 mg tablet, Take 5 mg by mouth 3 (three) times a day as needed for muscle spasms, Disp: , Rfl: ??? dexlansoprazole (DEXILANT) 60 mg capsule, Take 60 mg by mouth daily, Disp: , Rfl: ??? dicyclomine (BENTYL) 10 mg capsule, Take 10 mg by mouth 3 (three) times a day As needed for spasm., Disp: , Rfl: ??? furosemide (LASIX) 40 mg tablet, Take 40 mg by mouth daily, Disp: , Rfl: ??? levothyroxine (SYNTHROID) 125 mcg tablet, Take 125 mcg by mouth behavior interventionist before breakfast,Disp: , Rfl: ??? linaCLOtide (Linzess) 72 mcg capsule, 72 mcg daily, Disp: , Rfl: ??? liothyronine (CYTOMEL) 5 mcg tablet, Take 5 mcg by mouth daily Take one tablet before bedtime.,Disp: , Rfl: ??? magnesium glycinate 100 mg tablet, Take by mouth, Disp: , Rfl: ??? MAGNESIUM GLYCINATE ORAL, Take 200 mg by mouth daily, Disp: , Rfl: ??? pilocarpine (SALAGEN) 5 mg tablet, Take 5 mg by mouth 2 (two) times a day, Disp: , Rfl: ??? potassium chloride ER (potassium chloride ER) 10 mEq CR tablet, Take 10 mEq by mouth daily, Disp: , Rfl: ??? traMADoL (ULTRAM) 50 mg tablet, Take 50 mg by mouth Take two in the morning and two at night., Disp: , Rfl: ??? traZODone (DESYREL) 150 mg tablet, Take 150 mg by mouth nightly, Disp: , Rfl: ??? vitamin B complex capsule, Take 1 capsule by mouth daily, Disp: , Rfl: ??? vitamin b complex tablet, Take 1 tablet by mouth daily, Disp: , Rfl: ALLERGIES Allergies Allergen Reactions ??? Percocet [Oxycodone-Acetaminophen] Hallucinations Audio hallucinations. ??? Sulfa (Sulfonamide Antibiotics) Hives ? ? Codeine Nausea & Vomiting ? ? Darvon [Propoxyphene] Nausea & Vomiting ? ? Demerol [Meperidine] Nausea & Vomiting ? ? Morphine Nausea & Vomiting ? ? Talwin [Pentazocine] Nausea & Vomiting REVIEW OF SYSTEMS Review of Systems Constitution: Negative for malaise/fatigue. HENT: Negative for congestion. Eyes: Negative for visual disturbance. Cardiovascular: Negative for chest pain, dyspnea on exertion and syncope. Respiratory: Negative for shortness of breath. Hematologic/Lymphatic: Negative for bleeding problem. Gastrointestinal: Positive for heartburn. Negative for abdominal pain. Genitourinary: Negative for hematuria. Neurological: Negative for dizziness. Psychiatric/Behavioral: Negative for depression. The patient is nervous/anxious. PHYSICAL EXAM Blood pressure 92/64, pulse 68, height 165.1 cm (5' 5 ), weight 80.7 kg (178 lb), SpO2 97 %. Body mass index is 29.62 kg/m??. Physical Exam Constitutional: She is oriented to person, place, and time. She appears well- developed and well-nourished. No distress. Pleasant middle-aged female in no distress. Pacemaker in the left prepectoral region is well healed. HENT: Head: Normocephalic and atraumatic. Neck: Neck supple. No thyromegaly present. Cardiovascular: Normal rate, regular rhythm and normal heart sounds. No murmur heard. Pulses: Carotid pulses are 2+ on the right side and 2+ on the left side. Dorsalis pedis pulses are 2+ on the right side and 2+ on the left side. Posterior tibial pulses are 2+ on the right side and 2+ on the left side. Pulmonary/Chest: Effort normal and breath sounds normal. No respiratory distress. She has no wheezes. She has no rales. Abdominal: Soft. She exhibits no distension. There is no hepatosplenomegaly. Musculoskeletal: General: No edema. Neurological: She is alert and oriented to person, place, and time. Skin: Skin is warm and dry. Psychiatric: She has a normal mood and affect. Her behavior is normal. LABS AND OTHER DIAGNOSTIC TESTS No results found for: WBC, HGB, HCT, MCV, PLT Chemistry No results found for: SODIUM, POTASSIUM, CHLORIDE, CO2, BUNSER, CREATININE, GLUCOSE No results found for: CALCIUM, ALKPHOS, AST, ALT, BILITOT No results found for: CHOL No results found for: GLUCOSE, CALCIUM, SODIUM, POTASSIUM, CO2, CHLORIDE, BUNSER, CREATININE No results found for: HDL No results found for: LDL] No results found for: LDLCALC No results found for: TRIG No results found for: CHOLHDL No results found for: INR, PROTIME ASSESSMENT Diagnoses and all orders for this visit: Pacemaker battery depletion (Primary) - Transthoracic Echo Complete W Doppler/CF; Future Pacemaker - Ambulatory referral to Cardiology - Transthoracic Echo Complete W Doppler/CF; Future Complete heart block (CMS/HCC) - Transthoracic Echo Complete W Doppler/CF; Future 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 Pacemaker has reached TC. Previously had good LV function by echo in 2017 but, since she is chronically RV pacing,we should re-evaluate her LV function to make sure they is no need for an upgrade to a biventricular pacemaker. Leads have good thresholds, does not appear there is any need for lead revision. Low blood pressure: Chronically low blood pressure, asymptomatic. Lipid screening: Total cholesterol 150, HDL 60, TG 63, LDL 77, glucose 70 all good. PLAN/RECOMMENDATIONS EKG today on my personal review shows NSR rate 60, P waves difficult to discern, LV pacing, Echo to reassess LV function Planning on a generator change on July 15, or . Reviewed risks of generator change which include infection, unlikely but possible need for lead revision, etcetera. Prabha Garibay MD, [facility] Cardiology Office: [phone] or [phone] Portions of the record may have been created with voice recognition [employer] Software.Lapper variances may occur. Despite proofreading, typographical errors may occur. Occasionalwrong-word or '[id number]' substitutions may have occurred due to the inherent limitations of voice recognition software. Read the chart carefully and recognize, using context, where substitutions have occurred. 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 use of drug Pacemaker Pacemaker battery depletion Complete heart block (CMS/HCC) 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 Lipid screening ECG 12-LEAD Routine 06/25/2020 Pacemaker Complete heart block (CMS/HCC) Idiopathic hypotension documented in this encounter Results * TRANSTHORACIC ECHO (TTE) COMPLETE W DOPPLER/CF W CONTRAST (07/02/2020 9:22 AM CDT) Anatomical Region Laterality Modality Ultrasound 07/02/2020 8:33 AM CDT Narrative 07/02/2020 4:33 PM CDT [facility] Cardiology [address], [place] [address] [address], [place] [address] P:[phone] P:[phone] Echocardiographic Report Patient Name: DANIELLE LOCKE : 1955 Study Date: 07/02/2020 8:33:29 AM Gender: F Tech: Location: [place] Ref.Provider: MARVIN Height(Cm): 165 BSA: 1.88 Weight(Kg): 80.74 Heart Rate: 60 BP: 95/62 Quality: Good Order Provider: PRABHA GARIBAY Procedures: Echocardiographic Report: Transthoracic echocardiogram with complete 2D, M-Mode, color Doppler examination and Definity contrast. Indications: Pacemaker Battery Depletion, Complete Heart Block, and Pacemaker. Measurements: 2D/M Mode ?Doppler ? Measurement ?Value ?Normal Range ? Measurement ?Value ?Normal Range ? EF Mod ? 49 ?AV Mean PG ? 3 ?mmHg ? EF MM ?44 ? [ 55 - 70 ] % ?AV Peak Monster ?1.32 ? m/s ? LVIDd MM ? 5.13 ? [ 3.90 - 5.30 ] cm ? AV Peak PG ? 7 ?mmHg ? LVIDs MM ? 4.00 ? [ 2.30 - 3.90 ] cm ? AV VTI ? 0.27 ? cm ? LVPWd MM ? 0.87 ? [ 0.60 - 1.00 ] cm ? LVOT Peak Monster ?0.86 ? [ 0.70 - 1.10 ] m/s ? IVSd MM ?0.93 ? [ 0.60 - 0.90 ] cm ? LVOT VTI ? 0.22 ? cm ? LA Dimension MM ?4.07 ? [ 2.70 - 3.80 ] cm ? MV E Peak Monsetr ?0.84 ? [ 0.60 - 1.30 ] m/s ? AoR Diam MM ?3.07 ? [ 2.60 - 3.70 ] cm ? MV A Peak Monster ?0.87 ? [ 0.40 - 0.80 ] m/s ? LA Volume Index ?20.00 ?[ 16.00 - 28.00 ] cc/m2 ?MV Decel Time ?216 ?[ 150 - 200 ] msec ? ACS MM ? 2.13 ? cm ? PV Peak Monster ?0.88 ? [ 0.40 - 0.80 ] m/s ? TR Peak Monster ?2.40 ? [ 0.40 - 0.80 ] m/s ? TR Peak PG ? 23 ? mmHg ? RVSP ? 31.00 ?mmHg ? E' ? 0.12 ? E/E' ? 7 ? Findings: Interpretation Site: Exam was interpreted at [facility]. Left Ventricle: Normal left ventricular size. Definity contrast agent used to visually enhance endocardial wall motion and contractility. Lot Number: [id number]. Normal left ventricular wall thickness. Mild global left ventricular systolic dysfunction. Paradoxical septal motion consistent with RV pacemaker. Impaired diastolic relaxation Grade I. Ejection fraction is visually estimated at 45-50 %. Ejection fraction is measured at 49 %. Right Ventricle: Normal right ventricular size. Normal right ventricular systolic function. Linear artifact in right ventricle suggestive of catheter(s), pacemaker lead(s), or ICD lead(s). Left Atrium: The left atrium is normal in size. Right Atrium: The right atrium is normal in size. Linear artifact in right atrium suggestive of catheter(s), pacemaker lead(s), or ICD lead(s). Atrial Septum: Normal atrial septum. Mitral Valve: Normal appearance of the mitral valve. Trivial regurgitation of the mitral valve. Aortic Valve: Aortic valve not well visualized. No evidence of hemodynamically significant aortic stenosis by Doppler. No aortic regurgitation. Tricuspid Valve: Normal appearance of the tricuspid valve. Normal right ventricular systolic pressure. Estimated peak RVSP is 31 mmHg. Trivial regurgitation in the tricuspid valve. Pulmonic Valve: Pulmonic valve not well visualized. Pericardium: Normal pericardium with no significant pericardial effusion. Aorta: Normal aortic root. No aortic root dilation. IVC: Normal size and normal respiratory collapse consistent with normal right atrial pressure (<5 mmHg). Conclusions: Normal left ventricular size. Definity contrast agent used to visually enhance endocardial wall motion and contractility. Lot Number: [id number]. Normal left ventricular wall thickness. Mild global left ventricular systolic dysfunction. Paradoxical septal motion consistent with RV pacemaker. Impaired diastolic relaxation Grade I. Ejection fraction is visually estimated at 45-50 %. Ejection fraction is measured at 49 %. Normal appearance of the mitral valve. Trivial regurgitation of the mitral valve. Aortic valve not well visualized. No evidence of hemodynamically significant aortic stenosis by Doppler. No aortic regurgitation. Normal appearance of the tricuspid valve. Normal right ventricular systolic pressure. Estimated peak RVSP is 31 mmHg. Trivial regurgitation in the tricuspid valve. Electronically Signed By: Gilbert Schneider MD 2020-07-02 16:33:41 CDT Procedure Note Lio Schneider MD - 07/02/2020 [facility] Cardiology [address], [place] [address] [address], [place] [address] P:[phone] P:[phone] Echocardiographic Report Patient Name: DANIELLE LOCKEPatient ID: [id number] : [id number] Date: 07/02/2020 8:33:29 AM Gender: FAccession #: [id number] Tech: GMLocation: [place] Ref.Provider: Kendell(Cm): 165 BSA: 1.88Weight(Kg): 80.74 Heart Rate: 60BP: 95/62 Quality: GoodOrder Provider: PRABHA GARIBAY Procedures: Echocardiographic Report: Transthoracic echocardiogram with complete 2D, M-Mode, color Dopplerexamination and Definity contrast. Indications: Pacemaker Battery Depletion, Complete Heart Block, and Pacemaker. Measurements: 2D/M Mode Doppler Measurement Value Normal Range MeasurementValue Normal Range EF Mod 49 AV Mean PG 3mmHg EF MM 44 [ 55 - 70 ] % AV Peak Vel1.32 m/s LVIDd MM 5.13 [ 3.90 - 5.30 ] cm AV Peak PG 7mmHg LVIDs MM 4.00 [ 2.30 - 3.90 ] cm AV VTI0.27 cm LVPWd MM 0.87 [ 0.60 - 1.00 ] cm LVOT Peak Vel0.86 [ 0.70 - 1.10 ] m/s IVSd MM 0.93 [ 0.60 - 0.90 ] cm LVOT VTI0.22 cm LA Dimension MM 4.07 [ 2.70 - 3.80 ] cm MV E Peak Vel0.84 [ 0.60 - 1.30 ] m/s AoR Diam MM 3.07 [ 2.60 - 3.70 ] cm MV A Peak Vel0.87 [ 0.40 - 0.80 ] m/s LA Volume Index 20.00 [ 16.00 - 28.00 ] cc/m2 MV Decel Ecaz589 [ 150 - 200 ] msec ACS MM 2.13 cm PV Peak Vel0.88 [ 0.40 - 0.80 ] m/s TR Peak Vel2.40 [ 0.40 - 0.80 ] m/s TR Peak PG 23mmHg RVSP31.00 mmHg E'0.12 E/E' 7 Findings: Interpretation Site: Exam was interpreted at [facility]. Left Ventricle: Normal left ventricular size. Definity contrast agent used to visuallyenhance endocardial wall motion and contractility. Lot Number: [id number]. Normal leftventricular wall thickness. Mild global left ventricular systolic dysfunction.Paradoxical septal motion consistent with RV pacemaker. Impaired diastolic relaxation GradeI. Ejection fraction is visually estimated at 45-50 %. Ejection fraction is measuredat 49 %. Right Ventricle: Normal right ventricular size. Normal right ventricular systolic function.Linear artifact in right ventricle suggestive of catheter(s), pacemaker lead(s),or ICD lead(s). Left Atrium: The left atrium is normal in size. Right Atrium: The right atrium is normal in size. Linear artifact in right atriumsuggestive of catheter(s), pacemaker lead(s), or ICD lead(s). Atrial Septum: Normal atrial septum. Mitral Valve: Normal appearance of the mitral valve. Trivial regurgitation of the mitralvalve. Aortic Valve: Aortic valve not well visualized. No evidence of hemodynamicallysignificant aortic stenosis by Doppler. No aortic regurgitation. Tricuspid Valve: Normal appearance of the tricuspid valve. Normal right ventricularsystolic pressure. Estimated peak RVSP is 31 mmHg. Trivial regurgitation in the tricuspidvalve. Pulmonic Valve: Pulmonic valve not well visualized. Pericardium: Normal pericardium with no significant pericardial effusion. Aorta: Normal aortic root. No aortic root dilation. IVC: Normal size and normal respiratory collapse consistent with normal rightatrial pressure (<5 mmHg). Conclusions: Normal left ventricular size. Definity contrast agent used to visuallyenhance endocardial wall motion and contractility. Lot Number: [id number]. Normal leftventricular wall thickness. Mild global left ventricular systolic dysfunction.Paradoxical septal motion consistent with RV pacemaker. Impaired diastolic relaxation GradeI. Ejection fraction is visually estimated at 45-50 %. Ejection fraction is measuredat 49 %. Normal appearance of the mitral valve. Trivial regurgitation of the mitralvalve. Aortic valve not well visualized. No evidence of hemodynamicallysignificant aortic stenosis by Doppler. No aortic regurgitation. Normal appearance of the tricuspid valve. Normal right ventricularsystolic pressure. Estimated peak RVSP is 31 mmHg. Trivial regurgitation in the tricuspidvalve. Electronically Signed By: Gilbert Schneider MD 2020-07-02 16:33:41 CDT Prabha Garibay MD CV ECHO PROCEDURES Final Re sult * POCT lipid panel (06/30/2020 5:48 PM CDT) Cholesterol, POC 150 mg/dL HDL, POC 60 mg/dL Triglycerides, POC 63 mg/dL LDL Cholesterol POC 77 mg/dL Chol/HDL Ratio, POC 2.5 Non-HDL Cholesterol, POC 90 mg/dL Cholesterol Total, POC 150 mg/dL Capillary blood 06/30/2020 5 :48 PM CDT us Prabha Garibay MD POINT OF CARE TEST ORDERABL ES Final Result * ECG 12 lead (06/25/2020) us Prabha Garibay MD ECG ORDERABLES Final Resul t documented in this encounter Visit Diagnoses Diagnosis Pacemaker battery depletion- Primary Fitting and adjustment of cardiac pacemaker Pacemaker Cardiac pacemaker in situ Complete heart block (CMS/HCC) (HCC) Atrioventricular block, complete 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 MAGNESIUM GLYCINATE ORAL Take 200 mg by mouth daily cholecalciferol (VITAMIN D-3) 5,000 unit capsule Take 1 capsule (5,000 Units total) by mouth daily potassium chloride ER (potassium chloride ER) 10 mEq CR tablet Take 10 mEq by mouth daily cyclobenzaprine (FLEXERIL) 5 mg tablet Take 1 tablet (5 mg total) by mouth 3 (three) times a day as needed for muscle spasms furosemide (LASIX) 40 mg tablet Take 1 tablet (40 mg total) by mouth daily buPROPion SR (WELLBUTRIN SR) 150 mg 12 hr tablet Take 1 tablet (150 mg total) by mouth 2 (two) times a day dicyclomine (BENTYL) 10 mg capsule Take 10 mg by mouth 3 (three) times a day As needed for spasm. pilocarpine (SALAGEN) 5 mg tablet Take 1 tablet (5 mg total) by mouth 2 (two) times a day traZODone (DESYREL) 150 mg tablet Take 1 tablet (150 mg total) by mouth nightly dexlansoprazole (DEXILANT) 60 mg capsule Take 1 capsule (60 mg total) by mouth daily BIOTIN ORAL Take by mouth 4 linaCLOtide (Linzess) 72 mcg capsule 72 mcg daily 4 magnesium glycinate 100 mg tablet Take by mouth 4 vitamin b complex tablet Take 1 tablet by mouth daily 4 vitamin B complex capsule Take 1 capsule by mouth daily 4 buPROPion (WELLBUTRIN) 100 mg tablet Take 150 mg by mouth Take once a day, second one in the afternoon as needed. 4 traMADoL (ULTRAM) 50 mg tablet Take 50 mg by mouth Take two in the morning and two at night. 4 liothyronine (CYTOMEL) 5 mcg tablet Take 5 mcg by mouth daily Take one tablet before bedtime. 4 levothyroxine (SYNTHROID) 125 mcg tablet Take 1 tablet (125 mcg total) by mouth behavior interventionist before breakfast 4 added in this encounter Orders Outpatient Referral Count Last Ordered Date Fir st Ordered Date AMB REFERRAL TO CARDIOLOGY 1 06/25/2020 documented in this encounter Care Teams Port Captain Relationship Specialty Start Date End Date Jacobo Mcintosh MD [address] [facility] [address] [place] [address] PCP - General Internal Medicine 06/25/20 documented as of this encounter
--- OUTSIDE RECORDS SUMMARY | 2024-09-16 02:24 | XMS_ITS | Encounter Summary ---
Author Organization [facility] Address [address] [place] [address] Care Team Providers Care Pediatric Speech Therapist Name Role Phone Jacobo Mcintosh MD Primary Care Provider [phone]- [phone] Reason for Visit * Reason Onset Date Comments Generator change 06/25/2020 Encounter Details Date Type Department Care Team (Late st Contact Info) Description 06/25/2020 Telephone [facility] Cardiology [address] [place] [address] Prabha Ho MD [address] [place] [address] Generator change Social History Tobacco Use Types Packs/Day Years Used Date Smoking Tobacco: Former Cigarettes Q uit: 06/25/2007 Smokeless Tobacco: Never Alcohol Use Standard Drinks/Week Comments Yes 2 (1 standard drink = 0.6 oz pur e alcohol) monthly Comments Unknown Sex and Gender Information Value Date Recorded Sex Assigned at Not on file Legal Sex Female 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 Discussed instructions, mailed them, and also sent them via my chart. Pt verbalized understanding. * Telephone Encounter - Prabha Ho MD - 06/25/2020 9:[address] Pederson, has a [employer] pacemaker, at [facility]. Getting an echo done on July 02. Pacemaker dependent. Please schedule a generator change on July 15 or , assuming the echo will be okay. documented in this encounter Plan of Treatment Not on file documented as of this encounter Visit Diagnoses Not on filedocumented in this encounter Care Teams Pediatric Speech Therapist Relationship Specialty Start Date End Date Jacobo Mcintosh MD [address] [place] [id number] PCP - General Internal Medicine 06/25/20 documented as of this encounter
--- OUTSIDE RECORDS SUMMARY | 2024-09-16 02:24 | XMS_ITS | Encounter Summary ---
Author Organization [facility] Address [address] [place] [address] Phone Care Team Providers Care Phosphorus Processing Supervisor Name Role Phone Jacobo Mcintosh MD Primary Care Provider [phone]- [phone] Reason for Visit * Reason Onset Date Comments GI: EUS+ERCP w/LFTs Scheduled 12/05/2023 Encounter Details Date Type Department Care Team (Late st Contact Info) Description 12/05/2023 Telephone [facility] Gastroenterology [address] [place] [address] [address] [place] [address] Sarah Mckeon LPN GI: EUS+ERCP w/LFTs Scheduled Social History Tobacco Use Types Packs/Day Years [...] feel afraid or unsafe? 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 I assured pT she would NOTHING TO EAT OR DRINK AFTER MID-NIGHT before the procedure. She must have a car pick up driver that day, and she's not taking any blood thinners. * Telephone Encounter - Sarah Mckeon LPN - 12/05/2023 4:46 PM CDT Images from the original note were not included. 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 Collin Pederson [facility] 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 N/A BLEEDING/CLOTTING: None NEUROLOGICAL: None ENDOCRINE: None PRIOR PROCEDURE ISSUES: None VAMP CREASER/: NA IMPLANTS.: Cardiac pacemaker/ICD (defibrillator)- see protocol. Must have documented device check <6 months and no recent shocks since cards visit. [place]: No ICD, pacer case by case basis but best not done at [place] (contact [place] anesthesia Daniel Camara and and escalate to physician to get clearance) cardiac pacemaker PSYCH/Behavioral Hx: yes [place] has limited security depresion Notes: Thyoriditis, Sjorgens Syndrome PACEMAKER/ICD Y/N: Yes Device info:09/10 [employer] Last documented device check: Any shocks since last cards visit (if yes must see cardiology for procedure clearance): DIALYSIS Y/N: No/NA []HD- Schedule on non-HD day, see protocol []PD- Drain PD fluid AM of procedure, if colonoscopy order AB ppx, see protocol REGULAR DIABETIC MEDS Y/N: No/NA []Yes- Discuss diabetes medication management with prescribing physician GLP DIABETIC MEDICATIONS Y/N: No/NA None Educated Patient on the need to hold Medication, and to contact their ordering MD or Physical Meteorologist about bridging medication for procedure. No [] Yes - Letter Sent to Ordering Physician/Physical Meteorologist Date sent: Hold instructions: GLP Weight Loss Medications No 11/16/23 Oz[address] Felicia Richmond and pt is not going to go back on medication Zoran Pizano [place] Educated Patient on the need to hold Medication, and to contact their ordering MD or Physical Meteorologist about bridging medication for procedure. Y/N: Yes Semaglutide (Ozempic, Wegovy) (weekly) [] Yes - Letter Sent to Ordering Physician/Physical Meteorologist Hold older Instructions: BLOOD THINNERS/ANTICOAG/ANTIPLATELET (BESIDES ASA) Medication: NONE Physician contacted for hold order/date sent: Hold order Method sent: Date hold received: Hold instructions: CONTINUE ASPIRIN INFORMATION REQUESTED []Imaging: []Medical Progress Note/H&P []Medication list []Other: PATIENT OPTIMIZATION []Physician reviewing escalation: []CPAP: Date scheduled: Outcome : [] Location limitations: Scheduling Scheduling location limitations: Art Supervisor needed [] NA Language: POA [] NA Name: Required extended education:no SPECIAL PROCEDURE INSTRUCTIONS Scheduling Notes Procedure information Date of procedure: Time of procedure: Arrival time: Location: Proceduralist: Instructions Method of instructions: email [email or web address] [x]Confirmation of ride/digester cook [x]Post anesthesia restrictions given [x]NPO Instructions: [x]Diet Instructions: [x]Take non-blood thinner prescription meds that morning [x]Bring med list, photo ID, insurance card, no valuables []Bring COVID vaccination card (if vaccinated) Bowel Prep Prep prescribed: NA Method of Bowel Prep (RX): NA * Telephone Encounter - Sarah Mckeon LPN - 12/05/2023 4:43 PM CDT ----- Message from Lissette Paula sent at 12/05/2023 3:00 PM CDT ----- Regarding: REFERRAL [facility] ----- Message ----- From: Lawanda Casillas RN Sent: 12/05/2023 2:01 PM CDT To: Lissette Mclaughlin, This pt needs [facility] as there are no openings at [facility] in the next several weeks that work with the ptschedule as she will not be in town 12/18-12/24. Can you her schedule with a [facility] nurse next week for . She will need LFT's same day. Thanks, Lawanda EUS/ERCP Received: Today Lissette Paula Im Gi Biliary Procedure Referrals Agusto Song MD [facility], Kaylha Eus/ercp with me in 2 weeks or do (when I am back). Check LFTs prior. [facility] or [facility] ----- Message ----- From: Lissette Paula Sent: 12/02/2023 10:47 AM CDT To: Agusto Huddleston MD Subject: FW: Biliary Records Review Please advise on schedulin. Office visit versus direct procedure (specify procedure) 2. Urgency/timeframe to schedule 3. Dx 4. Covid Test? ----- Message ----- From: Thaddeus Seay Sent: 12/02/2023 9:39 AM CDT To: vIan Gi Biliary 1 Pool Subject: Biliary Records Review Records scanned under media tab, 'outside secondary info'. Please advise on scheduling documented in this encounter Plan of Treatment Not on file documented as of this encounter Visit Diagnoses Diagnosis Other specified diseases of biliary tract- Primary documented in this encounter Orders Case Request Count Last Ordered Date First Orde red Date CASE REQUEST GI 1 12/05/2023 documented in this encounter Care Teams Phosphorus Processing Supervisor Relationship Specialty Start Date End Date Jacobo Mcintosh MD [address] [facility] [address] [place] [address] PCP - General Internal Medicine 06/25/20 documented as of this encounter
--- OUTSIDE RECORDS SUMMARY | 2024-09-16 02:24 | XMS_ITS | Encounter Summary ---
Author Organization [facility] Healthcare Address [address] [place] [address] Care Team Providers Care Finished Yarn Examiner Name Role Phone Jacobo Mcintosh MD Primary Care Provider [phone] Reason for Visit * Auth/Cert (Routine) Specialty Diagnoses / Procedures Referred By Contac t Referred To Contact Diagnoses Other specified diseases of biliary tract Other specified diseases of biliary tract [K83.8] Procedures NV EDG US EXAM SURGICAL ALTER STOM DUODENUM/JEJUNUM NV ERCP DX COLLECTION SPECIMEN BRUSHING/WASHING EUS ERCP Referral ID Status Reason Start Date Expiration Date Visits Re quested Visits Authorized [id number] 1 1 Encounter Details Date Type Department Care Team (Latest Contact Info) Description 12/15/2023 12:05 PM CDT - 12/15/2023 4:39 PM CDT Hospital Encounter 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 Gender Identity Not on file Sexual Orientation [...] CDT Inhaled Oxygen Concentration - - Weight - - Height 165.1 cm (5' 5 ) 12/15/2023 1:53 PM CDT Body Mass Index - - documented in this encounter Medications at Time of Discharge buPROPion SR (WELLBUTRIN SR) 150 mg 12 hr tablet Take 1 tablet (150 mg total) by mouth 2 (two) times a day cholecalciferol (VITAMIN D-3) 5,000 unit capsule Take 1 capsule (5,000 Units total) by mouth daily cyanocobalamin (Vitamin B-12) 1,000 mcg/mL injection cyclobenzaprine (FLEXERIL) 5 mg tablet Take 1 tablet (5 mg total) by mouth 3 (three) times a day as needed for muscle spasms dexlansoprazole (DEXILANT) 60 mg capsule Take 1 capsule (60 mg total) by mouth daily dicyclomine (BENTYL) 10 mg capsule Take 10 mg by mouth 3 (three) times a day As needed for spasm. 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 female who is here for Procedure(s): EUS ERCP The indication(s) for the procedure(s): dilated CBD and PD. Past Medical History: Diagnosis Date Acid indigestion Anxiety and depression Cataracts, bilateral Colon polyp Diverticulitis Elevated LFTs Fibromyalgia GERD (gastroesophageal reflux disease) Ru's thyroiditis Hypothyroidism Pacemaker 2010 [employer] pacemaker for complete heart block, [place] Sjogren's disease (HCC) Small bowel obstruction (CMS/HCC) (HCC) Past Surgical History: Procedure Laterality Date BUNIONECTOMY Bilateral 1990 CATARACT EXTRACTION W/ INTRAOCULAR LENS IMPLANT AND ENDOCYCLOPHOTOCOAGULATION Left 1995 CATARACT EXTRACTION W/ INTRAOCULAR LENS IMPLANT AND ENDOCYCLOPHOTOCOAGULATION 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 CHOLECYSTECTOMY 1976 GASTROPLASTY 1980 HIATAL HERNIA REPAIR 1976 HYSTERECTOMY 1980 half of an ovary was left INSERT / REPLACE / REMOVE PACEMAKER 2010 Pacemaker implant 2010 for complete heart block, [place] LASER SURGERY Right laser surgery on right eye to open up capsule from the cataract surgery OOPHORECTOMY 1982 REPLACEMENT TOTAL KNEE Bilateral 02/2010 TONSILLECTOMY 1965 Social History Tobacco Use Smoking status: Former Current packs/day: 0.00 Types: Cigarettes Quit date: 06/25/2007 Years since quittin.4 Smokeless tobacco: Never Substance and Sexual Activity Drug use: Never Sexual activity: None Alcohol Use: Unknown (12/09/2023) AUDIT-C Frequency of Alcohol Consumption: Monthly or less Average Number of Drinks: 1 or 2 Frequency of Binge Drinking: Not on file Family History Problem Relation Age of Onset Esophageal cancer Mother Lung cancer Father No Known Problems Brother No Known Problems Brother Allergies Allergen Reactions Percocet [Oxycodone-Acetaminophen] Hallucinations Audio hallucinations. Sulfa (Sulfonamide Antibiotics) Hives Codeine Nausea & Vomiting Darvon [Propoxyphene] Nausea & Vomiting Demerol [Meperidine] Nausea & Vomiting Morphine Nausea & Vomiting Talwin [Pentazocine] Nausea & Vomiting Prior to Admission medications Medication Sig Start Date End Date Taking? Authorizing Provider buPROPion SR (WELLBUTRIN SR) 150 mg 12 hr tablet Take 1 tablet (150 mg total) by mouth 2 (two) times a day Yes Anatoly Ware MD cholecalciferol (VITAMIN D-3) 5,000 unit capsule Take 1 capsule (5,000 Units total) by mouth daily Yes Anatoly Ware MD cyclobenzaprine (FLEXERIL) 5 mg tablet Take 1 tablet (5 mg total) by mouth 3 (three) times a day asneeded for muscle spasms Yes Anatoly Ware MD dexlansoprazole (DEXILANT) 60 mg capsule Take 1 capsule (60 mg total) by mouth daily Yes Anatoly Ware MD MAGNESIUM GLYCINATE ORAL Take 200 mg by mouth daily Yes Anatoly Ware MD pilocarpine (SALAGEN) 5 mg tablet Take 1 tablet (5 mg total) by mouth 2 (two) times a day Yes Anatoly Ware MD Synthroid 100 mcg tablet Take 1 tablet (100 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 Patient not taking: Reported on 12/09/2023 Anatoly Ware MD dicyclomine (BENTYL) 10 mg capsule Take 10 mg by mouth 3 (three) times a day As needed for spasm. 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 Patient not taking: Reported on 12/09/2023 Anatoly Ware MD magnesium glycinate 100 mg tablet Take by mouth Patient not taking: Reported on 12/09/2023 Anatoly Ware MD potassium chloride ER (potassium chloride ER) 10 mEq CR tablet Take 10 mEq by mouth daily Anatoly Ware MD traMADoL (ULTRAM) 50 mg tablet Take 50 mg by mouth Take two in the morning and two at night. Patient not taking: Reported on 12/09/2023 Anatoly Ware MD vitamin b complex tablet Take 1 tablet by mouth daily Anatoly Ware MD Review of Systems A pertinent, focused review of systems was completed and negative, except as noted above. OBJECTIVE: Vitals: There were no vitals filed for this visit. Physical Exam: Airway: No significant abnormality. Cardiac: No significant abnormality. Pulmonary: No significant abnormality. Neurological: No significant abnormality. Gastrointestinal: No significant abnormality. ASA Score: per Anesthesia Sedation/Anesthesia Plan: per Anesthesia The risks and complications of the procedure have been explained to the patient. Informed consent was signed. Impression and plan: Will proceed with the planned procedure for the reasons stated above. documented in this encounter Procedure Notes * Agusto Huddleston MD - 12/15/2023 3:07 PM CDTAssociated Order(s): EUS ENDOSCOPY LAB Patient Name: Kenrick Marr Procedure Date: 12/15/2023 3:07 PM Admit Type: Outpatient Room: [facility] Date of : 1955 Instrument Name: [id number] Gender: Female Note Status: Finalized Procedure: Upper EUS Indications: Common bile duct and pancreatic duct dilation (etiology unknown) seen on CT scan Providers: Agusto Huddleston M.D. Referring MD: Jacobo Mcintosh MD Medicines: Monitored Anesthesia Care Complications: No immediate complications. Estimated Blood Loss: Estimated blood loss: none. Procedure: Pre-Anesthesia Assessment: - The risks and benefits of the procedure and the sedation options and risks were discussed with the patient. All questions were answered and informed consent was obtained. - Immediately prior to administration of medications, the patient was re-assessed for adequacy to receive sedatives. The risks, benefits and alternatives were discussed and informed consent was obtained.The Endoscope was introduced through the mouth, and advanced to the second part of duodenum The [id number] was introduced through the mouth, and advanced to the second part of duodenum The upper EUS was accomplished without difficulty. The patient tolerated the procedure well. Findings: ENDOSCOPIC FINDING: : The examined esophagus was normal. Evidence of a vertical banded gastroplasty was found in the gastric body. This was characterized by healthy appearing mucosa. The exam of the stomach was otherwise normal. There was evidence of a widely patent duodenoenterostomy in the second portion of the duodenum. This was characterized by healthy appearing mucosa. The ampulla was normal. ENDOSONOGRAPHIC FINDING: : There was no sign of significant endosonographic abnormality in the ampulla. There was dilation in the common bile duct which measured up to 12 mm. There was no sign of significant endosonographic abnormality in the left lobe of the liver. There was no sign of significant endosonographic abnormality in the main pancreatic duct and entire pancreas. The pancreatic duct measured up to 4 mm in diameter. No pathologic lymphadenopathy seen. Impression: - Normal esophagus. - A vertical banded gastroplasty was found, characterized by healthy appearing mucosa. - Widely patent duodenoenterostomy, characterized by healthy appearing mucosa was found. - There was no sign of significant pathology in the ampulla. - There was dilation in the common bile duct which measured up to 12 mm. - There was no evidence of significant pathology in the left lobe of the liver. - There was no sign of significant pathology in the main pancreatic duct and entire pancreas. Recommendation: - Observe patient's clinical course following today's procedure with therapeutic intervention. - Return to referring physician as previously scheduled. - Refer to a general GI physician at [facility] for further workup of abdominal pain. Attending Participation: I personally performed the entire procedure. Electronically signed by Agusto Huddleston M.D. Agusto Huddleston M.D. 12/15/2023 4:01:11 PM This document was signed electronically. Number of Addenda: 0 Note Initiated On: 12/15/2023 3:07 PM Scope In: Scope Out: documented in this encounter Plan of Treatment Pending Results Name Type Priority Associated Diagnoses Date /Time FL ERCP Endo Imaging Procedure IP Routine Other specified diseases of biliary tract 12/15/2023 3:49 PM CDT documented as of this encounter Procedures Procedure Name Priority Date/Time Associated Diagnosis Comments ERCP IP Routine 12/15/2023 3:49 PM CDT Other specified diseases of biliary tract ESOPHAGOGASTRODUODENOSCOPY ULTRASOUND EXAM LIMITED 12/15/2023 3:17 PM CDT Other specified diseases of biliary tract EUS 12/15/2023 3:07 PM CDT documented in this encounter Results * EUS (12/15/2023 3:07 PM CDT) Anatomical Region Laterality Modality Other Narrative Procedure Note Agusto Huddleston MD - 12/15/2023 3:07 PM CDT ENDOSCOPY LAB Patient Name: Kenrick Marr Procedure Date: 12/15/2023 3:07 PM Admit Type: Outpatient Room: [facility] Date of : 1955 Instrument Name:[id number] Gender: Female Note Status: Finalized Procedure: Upper EUS Indications: Common bile duct and pancreatic duct dilation (etiology unknown) seen on CT scan Providers: Agusto Huddleston M.D. Referring MD: Jacobo Mcintosh MD Medicines: Monitored Anesthesia Care Complications: No immediate complications. Estimated Blood Loss: Estimated blood loss: none. Procedure: Pre-Anesthesia Assessment: - The risks and benefits of the procedure and the sedation options and risks were discussed with the patient. All questions were answered and informed consent was obtained. - Immediately prior to administration ofmedications, the patient was re-assessed for adequacy to receive sedatives. The risks, benefits and alternatives were discussed and informed consent was obtained.The Endoscope was introduced through the mouth, and advanced to the second part of duodenum The [id number] wasintroduced through the mouth, and advanced to the second partof duodenum The upper EUS was accomplished without difficulty. The patient tolerated the procedurewell. Findings: ENDOSCOPIC FINDING: : The examined esophagus was normal. Evidence of a vertical banded gastroplasty was found in the gastric body. This was characterized by healthy appearing mucosa. The exam of the stomach was otherwise normal. There was evidence of a widely patent duodenoenterostomy in thesecond portion of the duodenum. This was characterized by healthy appearing mucosa. The ampulla was normal. ENDOSONOGRAPHIC FINDING: : There was no sign of significant endosonographic abnormality in the ampulla. There was dilation in the common bile duct which measured up to 12mm. There was no sign of significant endosonographic abnormality in theleft lobe of the liver. There was no sign of significant endosonographic abnormality in themain pancreatic duct and entire pancreas. The pancreatic duct measured upto 4 mm in diameter. No pathologic lymphadenopathy seen. Impression: - Normal esophagus. - A vertical banded gastroplasty was found, characterized by healthy appearing mucosa. - Widely patent duodenoenterostomy, characterizedby healthy appearing mucosa was found. - There was no sign of significant pathology in the ampulla. - There was dilation in the common bile duct which measured up to 12 mm. - There was no evidence of significant pathology in the left lobe of the liver. - There was no sign of significant pathology in the main pancreatic duct and entire pancreas. Recommendation: - Observe patient's clinical course followingtoday's procedure with therapeutic intervention. - Return to referring physician as previously scheduled. - Refer to a general GI physician at [facility] forfurther workup of abdominal pain. Attending Participation: I personally performed the entire procedure. Electronically signed by Agusto Huddleston M.D. Agusto Huddleston M.D. 12/15/2023 4:01:11 PM This document was signed electronically. Number of Addenda: 0 Note Initiated On: 12/15/2023 3:07 PM Scope In: Scope Out: Agusto Huddleston MD ENDOSCOPY PROCEDURES Final Result documented in this encounter Visit Diagnoses Diagnosis Other specified diseases of biliary tract- Primary documented in this encounter Admitting Diagnoses Diagnosis Other specified diseases of biliary tract documented in this encounter Administered Medications Inactive Administered Medications - up to 3 most recent administrations Medication Order MAR Action Action Date Dose Rate Site Lactated Ringer's (LR) infusion 30 mL/hr, intravenous, Continuous, Starting on Kerline 12/15/23 at 1430, Pre-Procedure (GI) Rate/Dose Verify 12/15/2023 3:17 PM CDT 30 mL/hr New Bag 12/15/2023 2:00 PM CDT 30 mL/hr 30 mL/hr ondansetron (ZOFRAN) injection 4 mg 4 mg, intravenous, Administer over 2 Minutes, Every 6 hours PRN, nausea, vomiting, Starting on Kerline 12/15/23 at 1347, Pre-Procedure (GI) sodium chloride 0.9% flush 0.5-20 mL 0.5-20 mL, intra-catheter, As needed, line care, Starting on Kerline 12/15/23 at 1347, Pre-Procedure (GI), Flush volume based on line type and size. Flush before and after each use. , Indications: FlushingIndications:Flushing documented in this encounter Discontinued Medications Medication Sig Discontinue Reason Start Date End Da te vitamin b complex tablet Take 1 tablet by mouth daily 12/15/2023 vitamin B complex capsule Take 1 capsule by mouth daily 12/15/2023 magnesium glycinate 100 mg tablet Take by mouth 12/15/2023 liothyronine (CYTOMEL) 5 mcg tablet Take 5 mcg by mouth daily Take one tablet before bedtime. 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 12/15/2023 buPROPion (WELLBUTRIN) 100 mg tablet Take 150 mg by mouth Take once a day, second one in the afternoon as needed. 12/15/2023 BIOTIN ORAL Take by mouth 12/15/2023 documented as of this encounter Historical Medications * This list may reflect changes made after this encounter. 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 Continuous Medication Order 12/13/2023 12/14/2023 12/15/2023 Lactated Ringer's (LR) infusion 30 mL/hr, intravenous, Continuous, Starting on Kerline 12/15/23 at 1430, Pre-Procedure (GI) 1400 (New Bag - Prov ider: Harini Arboleda RN)1517 (Rate/Dose Verify - Provider: Navin Glez CRNA)1543 (Stopped - Provider: Pat Solano CRNA) PRN Medication Order 12/13/2023 12/14/2023 12/15/2023 ondansetron (ZOFRAN) injection 4 mg 4 mg, intravenous, Administer over 2 Minutes, Every 6 hours PRN, nausea, vomiting, Starting on Kerline 12/15/23 at 1347, Pre-Procedure (GI) ondansetron (ZOFRAN) injection 4 mg 4 mg, intravenous, Administer over 2 Minutes, Every 30 min PRN, nausea, vomiting, Starting on Kerline 12/15/23 at 1544, For 2 doses, Recovery (GI), Indications: Nausea and Vomiting sodium chloride 0.9% flush 0.5-20 mL 0.5-20 mL, intra-catheter, As needed, line care, Starting on Kerline 12/15/23 at 1347, Pre-Procedure (GI), Flush volume based on line type and size. Flush before and after each use. , Indications: Flushing documented in this encounter Orders Medications Ordered That Nikolai ht Not Have Been Administered Count Last Ordered Date First Ordered Date ondansetron (ZOFRAN) injection 4 mg 2 12/14 sodium chloride 0.9% flush 0.5-20 mL 1 11/18 Discharge Count Last Ordered Date First Orde red Date DISCHARGE PATIENT 1 12/15/2023 documented in this encounter Care Teams Finished Yarn Examiner Relationship Specialty Start Date End Date Jacobo Mcintosh MD [address] [facility] [address] [facility] [address] [place] [address] PCP - General Internal Medicine 06/25/20 documented as of this encounter
--- OUTSIDE RECORDS SUMMARY | 2024-09-16 02:24 | XMS_ITS | Encounter Summary ---
Author Organization [facility] Healthcare Address [address] [place] [address] Care Team Providers Care Phlebotomy Technologist Name Role Phone Jacobo Mcintosh MD Primary Care Provider +1- [phone] Reason for Visit * Reason Onset Date Comments GI Preprocedure 12/02/2023 Encounter Details Date Type Department Care Team (Late st Contact Info) Description 12/02/2023 Telephone [facility] Specialty Services [address] [place] [phone] Lawanda Casillas RN GI Preprocedure Social History Tobacco Use Types Packs/Day Years Used Date Smoking Tobacco: Former Cigarettes Q uit: 06/25/2007 Smokeless Tobacco: Never Alcohol Use Standard Drinks/Week Comments Yes 2 (1 standard drink = 0.6 oz pur e alcohol) monthly Personal Safety Answer Date Recorded Getting School Help Needed Not on file 12/01 Comments Unknown Sex and Gender Information Value Date Recorded Sex Assigned at Not on file 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 Gender Identity Not on file Sexual Orientation Not on file documented as of this encounter Last Filed Vital Signs Vital Sign Reading Time Taken Comments Blood Pressure - - Pulse - - Temperature - - Respiratory Rate - - Oxygen Saturation - - Inhaled Oxygen Concentration - - Weight 71.7 kg (158 lb) 12/05/2023 1:40 PM CDT Height 165.1 cm (5' 5 ) 12/05/2023 1:40 PM CDT Body Mass Index 26.29 12/05/2023 1:40 PM CDT documented in this encounter Miscellaneous Notes * Telephone Encounter - Lawanda Casillas RN - 12/05/2023 1:39 PM CDT PROCEDURE Type: EUS/ERCP Indication: Other specified diseases [...] NoneAV block pacemaker 2010, Dr. Collin Pederson [facility] ST[facility] 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 N/A BLEEDING/CLOTTING: None NEUROLOGICAL: None ENDOCRINE: None PRIOR PROCEDURE ISSUES: None JEWEL BEARING FACER/: NA IMPLANTS.: Cardiac pacemaker/ICD (defibrillator)- see protocol. Must have documented device check <6 months and no recent shocks since cards visit. SC: No ICD, pacer case by case basis but best not done at [place] (contact [place] anesthesia Daniel Camara and and escalate to physician to get clearance) cardiac pacemaker PSYCH/Behavioral Hx: yes [place] has limited security depresion Notes: Thyoriditis, Sjorgens Syndrome PACEMAKER/ICD Y/N: Yes Device info:[employer] MRI [address] Dual chamber Last documented device check: 08/23/23 Any shocks since last cards visit (if [...] and to contact their ordering MD or Roller Checker about bridging medication for procedure. No [] Yes - Letter Sent to Ordering Physician/Roller Checker Date sent: Hold instructions: GLP Weight Loss Medications No 11/16/23 Ozempic stopped [address] Felicia Richmond and pt is not going to go back on medication Zoran Pizano [place] al Educated Patient on the need to hold Medication, and to contact their ordering MD or Roller Checker about bridging medication for procedure. Y/N: Yes Semaglutide (Ozempic, Wegovy) (weekly) [] Yes - Letter Sent to Ordering Physician/Roller Checker Hold older Instructions: BLOOD THINNERS/ANTICOAG/ANTIPLATELET (BESIDES ASA) Medication: NONE Physician contacted for hold order/date sent: Hold order Method sent: Date hold received: Hold instructions: CONTINUE ASPIRIN INFORMATION REQUESTED []Imaging: []Medical Progress Note/H&P []Medication list []Other: PATIENT OPTIMIZATION []Physician reviewing escalation: []CPAP: Date scheduled: Outcome : [] Location limitations: Scheduling Scheduling location limitations: Ladle Filler needed [] NA Language: POA [] NA Name: Required extended education:no SPECIAL PROCEDURE INSTRUCTIONS Scheduling Notes Procedure information Date of procedure: Time of procedure: Arrival time: Location: Proceduralist: Instructions Method of instructions: email [email or web address] [x]Confirmation of ride/mainframe architect [x]Post anesthesia restrictions given [x]NPO Instructions: [x]Diet Instructions: [x]Take non-blood thinner prescription meds that morning [x]Bring med list, photo ID, insurance card, no valuables []Bring COVID vaccination card (if vaccinated) Bowel Prep Prep prescribed: NA Method of Bowel Prep (RX): NA * Telephone Encounter - Lawanda Casillas RN - 12/02/2023 11:46 AM CDT Images from the original note were not included. I called the pt to schedule Voicemail x 1 for pt to call me back at [phone]. I called her mobile number and it is disconnected. I called her spouse listed as other contact and that is not the correct number 07/02/2020 TTE Conclusions: Normal left ventricular size. Definity contrast [...] mmHg. Trivial regurgitation in the tricuspid valve. [facility] [address] [address] Fax: Date: Dec 02, 2023 Ambulatory referral to Gastroenterology Patient: Kenrick Marr [address] [place] [address] : 1955 SSN: [id number] Sex: F Insurance: Member ID: Referring Provider Information: BARBIE HERNANDEZ Fax: Referral Information: # Visits: 1 Referral Type: Consultation [3] Urgency: Routine Referral Reason: Specialty Services Required Start Date: Dec 02, 2023 End Date: To be determined by Insurer Diagnosis: Other specified diseases of biliary tract (K83.8) Other specified diseases of pancreas (K86.89) Refer to Location: [facility] (All Locations) Please contact the referral location for scheduling Process Instructions Call [phone] to schedule your visit. Refer to Provider: AGUSTO HUDDLESTON Phone #: [phone] Fax #: [phone] Address: [place] KRUSE [address] [address] Process Instructions: THE AMBULATORY REFERRAL TO GASTROENTEROLOGY IS NOT AN ORDER FOR A PROCEDURE (I.E. EGD, COLONOSCOPY.) USE THE DIRECT SCHEDULING CASE REQUEST ORDER (GI50) IF THE PATIENT REQUIRES A PROCEDURE TO BE PERFORMED. Please select the performing region: [facility] (All Locations) [167] To provider: AGUSTO HUDDLESTON [[id number]] # of visits: 1 Transcribed by: Thaddeus Seay EUS/ERCP Received: Today Lissette Paula Gi Biliary Procedure Referrals Pool Agusto Huddleston MD McGee, Kaylha Eus/ercp with me in 2 weeks or do (when I am back). Check LFTs prior. [facility] or [facility] Previous Messages Previous Messages ----- Message ----- From: Lissette Paula Sent: 12/02/2023 10:47 AM CDT To: Agusto Huddleston MD Subject: FW: Biliary Records Review Please advise on schedulin. Office visit versus direct procedure (specify procedure) 2. Urgency/timeframe to schedule 3. Dx 4. Covid Test? ----- Message ----- From: Thaddeus Seay Sent: 12/02/2023 9:39 AM CDT To: Rajan Tracey Gi Biliary 1 Pool Subject: Biliary Records Review Records scanned under media tab, 'outside secondary info'. Please advise on scheduling. documented in this encounter Plan of Treatment Not on file documented as of this encounter Visit Diagnoses Not on filedocumented in this encounter Care Teams Phlebotomy Technologist Relationship Specialty Start Date End Date Jacobo Mcintosh MD [address] [facility] [address] [place] [address] PCP - General Internal Medicine 06/25/20 documented as of this encounter
--- OUTSIDE RECORDS SUMMARY | 2024-09-16 02:24 | XMS_ITS | Encounter Summary ---
Author Organization [facility] Medical Group Address [address] [place] [address] Care Team Providers Care Fender Repairer Name Role Phone Jacobo Mcintosh MD Primary Care Provider +1- [phone] Encounter Details Date Type Department Care Team (Late st Contact Info) Description 07/22/2020 10:30 AM HYDRAULIC BULL RIVETER OPERATOR Office Visit [facility] Cardiology [address] [facility] [address] [place] [address] Visit for wound check (Primary Dx) Social History Tobacco Use Types Packs/Day Years Used Date Smoking Tobacco: Former Cigarettes Q uit: 06/25/2007 Smokeless Tobacco: Never Alcohol Use Standard Drinks/Week Comments Yes 2 (1 standard drink = 0.6 oz pur e alcohol) monthly Comments Unknown Sex and Gender Information Value Date Recorded Sex Assigned at Not on file Legal Sex Female 10:57 AM 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 Dressing removed. Incision well approximated. No redness or drainage. Pt aware to call for signs of infections such as increase in bautista, redness, drainage, fever. Ok to shower,pat dry and leave ALESSANDRA. Pt will call today to make f/u appt with Dr Pederson. AULIC BULL RIVETER OPERATOR documented in this encounter Plan of Treatment Not on file documented as of this encounter Visit Diagnoses Diagnosis Visit for wound check- Primary documented in this encounter Care Teams Fender Repairer Relationship Specialty Start Date End Date Jacobo Mcintosh MD [address] [facility] [address] [place] [address] PCP - General Internal Medicine 06/25/20 documented as of this encounter
--- OUTSIDE RECORDS SUMMARY | 2024-09-16 02:24 | XMS_ITS | Encounter Summary ---
Author Organization [facility] Medical [facility] Address [address] [place] [address] Care Team Providers Care Dope Weigh Operator Name Role Phone Jacobo Mcintosh MD Primary Care Provider +1- [phone] Encounter Details Date Type Department Care Team (Late st Contact Info) Description 06/26/2020 Telephone [facility] Cardiology [address] [facility] [address] [place] [address] Prabha Ho MD [address] [facility] [address] [place] [address] Social History Tobacco Use Types Packs/Day Years Used Date Smoking Tobacco: Former Cigarettes Q uit: 06/25/2007 Smokeless Tobacco: Never Alcohol Use Standard Drinks/Week Comments Yes 2 (1 standard drink = 0.6 oz pur e alcohol) monthly Comments Unknown Sex and Gender Information Value Date Recorded Sex Assigned at Not on file Legal Sex Female 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 documented in this encounter Plan of Treatment Not on file documented as of this encounter Visit Diagnoses Not on filedocumented in this encounter Care Teams Dope Weigh Operator Relationship Specialty Start Date End Date Jacobo Mcintosh MD [address] [facility] [address] [place] [address] PCP - General Internal Medicine 06/25/20 documented as of this encounter
--- OUTSIDE RECORDS SUMMARY | 2024-09-16 02:24 | XMS_ITS | Encounter Summary ---
Author Organization [facility] Address [address] [place] [address] Care Team Providers Care Landscape Painter Name Role Phone Jacobo Mcintosh MD Primary Care Provider +1- [phone] Reason for Visit * (Routine) - Closed Specialty Diagnoses / Procedures Referred By Contac t Referred To Contact Diagnoses Pacemaker Pacemaker battery depletion Complete heart block (CMS/HCC) (HCC) Procedures Transthoracic Echo Complete W Doppler/CF Kendra Garibay MD Phone: tel: fax: [facility] Referral ID Status Reason Start Date Expiration Date Visits Re quested Visits Authorized [id number] Closed 06/25/2020 07/25/2021 1 1 Encounter Details Date Type Department Care Team (Latest Contact Info) Description 07/02/2020 8:15 AM CDT Ancillary Procedure [facility] Medical [facility] Cardiology [address] [place] [address] Pacemaker; Pacemaker battery depletion; Complete heart block (CMS/HCC) Social History Tobacco Use Types Packs/Day Years Used Date Smoking Tobacco: Former Cigarettes Q uit: 06/25/2007 Smokeless Tobacco: Never Alcohol Use Standard Drinks/Week Comments Yes 2 (1 standard drink = 0.6 oz pur e alcohol) monthly Comments Unknown Sex and Gender Information Value Date Recorded Sex Assigned at Not on file Legal Sex Female 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 Gender Identity Not on file Sexual Orientation Not on file documented as of this encounter Last Filed Vital Signs Vital Sign Reading Time Taken Comments Blood Pressure - - Pulse - - Temperature 36.6 ??C (97.8 ??F) 07/02/2020 8:34 AM CD T Respiratory Rate - - Oxygen Saturation - - Inhaled Oxygen Concentration - - Weight - - Height - - Body Mass Index - - documented in this encounter Plan of Treatment Not on file documented as of this encounter Procedures Procedure Name Priority Date/Time Associated Diagnosis Comments TRANSTHORACIC ECHO (TTE) COMPLETE W DOPPLER/CF W CONTRAST Routine 07/02/2020 9:22 AM CDT Pacemaker Pacemaker battery depletion Complete heart block (CMS/HCC) documented in this encounter Results * TRANSTHORACIC ECHO (TTE) COMPLETE W DOPPLER/CF W CONTRAST (07/02/2020 9:22 AM CDT) Anatomical Region Laterality Modality Ultrasound 07/02/2020 8:33 AM CDT Narrative 07/02/2020 4:33 PM CDT [facility] Cardiology [address], [place] [address] [address], [place] [address] P:[phone] P:[phone] Echocardiographic Report Patient Name: DANIELLE LOCKE : 1955 Study Date: 07/02/2020 8:33:29 AM Gender: F Tech: Location: [place] Ref.Provider: MARVIN Height(Cm): 165 BSA: 1.88 Weight(Kg): 80.74 Heart Rate: 60 BP: 95/62 Quality: Good Order Provider: KENDRA GARIBAY Procedures: Echocardiographic Report: Transthoracic echocardiogram with [...] 3.80 ] cm ? MV E Peak Monster ?0.84 ? [ 0.60 - 1.30 ] [...] Findings: Interpretation Site: Exam was interpreted at [facility]. Left Ventricle: Normal left ventricular size. Definity [...] Procedure Note Lio Schneider MD - 07/02/2020 [facility] Cardiology [address] [address] [address] [facility] [address], [place] [address] P:[phone] P:[phone] Echocardiographic Report Patient Name: DANIELLE LOCKEPatient ID: [id number] : [id number] Date: 07/02/2020 8:33:29 AM Gender: FAccession #: [id number] Tech: Location: [place] Ref.Provider: Vitaight(Cm): 165 BSA: 1.88Weight(Kg): 80.74 Heart Rate: 60BP: 95/62 Quality: GoodOrder Provider: KENDRA GARIBAY Procedures: Echocardiographic Report: Transthoracic echocardiogram with [...] 16.00 - 28.00 ] cc/m2 MV Decel [id number] [ 150 - 200 ] msec ACS MM 2.13 cm PV Peak Vel0.88 [ 0.40 - 0.80 ] m/s TR Peak Vel2.40 [ 0.40 - 0.80 ] m/s TR Peak PG 23mmHg RVSP31.00 mmHg E'0.12 E/E' 7 Findings: Interpretation Site: Exam was interpreted at [facility]. Left Ventricle: Normal left ventricular size. Definity [...] By: Gilbert Schneider MD 2020-07-02 16:33:41 CDT Kendra Garibay MD CV ECHO PROCEDURES Final Re sult documented in this encounter Visit Diagnoses Diagnosis Pacemaker Cardiac pacemaker in situ Pacemaker battery depletion Fitting and adjustment of cardiac pacemaker Complete heart block (CMS/HCC) (HCC) Atrioventricular block, complete documented in this encounter Administered Medications Inactive Administered Medications - up to 3 most recent administrations Medication Order MAR Action Action Date Dose Rate Site perflutren lipid (DEFINITY) 1.5 mL in sodium chloride 0.9% 10 mL syringe 1-10 mL, intravenous, Once in imaging, contrast, Starting on Tue07/02/20 at 0856, For 1 dose Given 07/02/2020 9:46 AM CDT 1 mL documented in this encounter Orders Medications Ordered That Nikolai ht Not Have Been Administered Count Last Ordered Date First Ordered Date perflutren lipid (DEFINITY) 1.5 mL in sodium chloride 0.9% 10 mL syringe 1 07/02/2020 documented in this encounter Care Teams Landscape Painter Relationship Specialty Start Date End Date Jacobo Mcintosh MD [address] [facility] [address] [place] [address] PCP - General Internal Medicine 06/25/20 documented as of this encounter
--- OUTSIDE RECORDS SUMMARY | 2024-09-16 02:24 | XMS_ITS | Encounter Summary ---
Author Organization [facility] Address [address] [facility] [facility] [address] [place] [address] Care Team Providers Care Music Therapy Specialist Name Role Phone Jacobo Mcintosh MD Primary Care Provider +1- [phone] Encounter Details Date Type Department Care Team (Late st Contact Info) Description 07/15/2020 Orders Only [facility] Cardiology [address] [place] [address] Prabha Ho MD [address] [facility] [address] [place] [address] Social History Tobacco Use Types Packs/Day Years Used Date Smoking Tobacco: Former Cigarettes Q uit: 06/25/2007 Smokeless Tobacco: Never Alcohol Use Standard Drinks/Week Comments Yes 2 (1 standard drink = 0.6 oz pur e alcohol) monthly Comments Unknown Sex and Gender Information Value Date Recorded Sex Assigned at Not on file Legal Sex Female 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 Gender Identity Not on file Sexual Orientation Not on file documented as of this encounter Plan of Treatment Not on file documented as of this encounter Procedures Procedure Name Priority Date/Time Associated Diagnosis Comments CARDIOLOGY DOCUMENT SCAN Routine 07/15/2020 documented in this encounter Results * SCAN - CARDIOLOGY (07/15/2020) Anatomical Region Laterality Modality Other Prabha Ho MD CV CARDIAC SERVICES PROCEDU RES Final Result documented in this encounter Visit Diagnoses Not on filedocumented in this encounter Care Teams Music Therapy Specialist Relationship Specialty Start Date End Date Jacobo Mcintosh MD [address] [facility] [address] [place] [address] PCP - General Internal Medicine 06/25/20 documented as of this encounter
--- OUTSIDE RECORDS SUMMARY | 2024-09-16 02:24 | XMS_ITS | Encounter Summary ---
Author Organization [facility] Healthcare Address [address] [place] [address] Care Team Providers Care Alumni Secretary Name Role Phone Jacobo Mcintosh MD Primary Care Provider +1- [phone] Reason for Visit * Auth/Cert (Routine) Specialty Diagnoses / Procedures Referred By Contac t Referred To Contact Diagnoses Other specified diseases of biliary tract Other specified diseases of biliary tract [K83.8] Procedures [place] EDG US EXAM SURGICAL ALTER STOM DUODENUM/JEJUNUM [place] ERCP DX COLLECTION SPECIMEN BRUSHING/WASHING EUS ERCP Referral ID Status Reason Start Date Expiration Date Visits Re quested Visits Authorized [id number] 1 1 Encounter Details Date Type Department Care Team (Latest Contact Info) Description 12/15/2023 2:15 PM CDT - 12/15/2023 2:45 PM CDT Surgery [facility] [address] [place] [address] Agusto Huddleston MD [address] [facility] [address] [place] [address] ESOPHAGOGASTRODUODENOSCOPY ULTRASOUND EXAM LIMITED Surgery Details Date/Time Status Location OR Service Patient Class Case Class Case Type Trauma Case? 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 Gender Identity Not on file Sexual Orientation Not on file documented as of this encounter Last Filed Vital Signs Vital Sign Reading Time Taken Comments Blood Pressure 98/59 12/15/2023 1:53 PM CDT Pulse 74 12/15/2023 1:53 PM CDT Temperature 36.2 ??C (97.2 ??F) 12/15/2023 1:53 PM CD T Respiratory Rate 13 12/15/2023 1:53 PM CDT Oxygen Saturation 99% 12/15/2023 1:53 PM CDT Inhaled Oxygen Concentration - - [...] 1 tablet (100 mcg total) by mouth autocad before breakfast 11/18/2023 traZODone (DESYREL) 150 mg [...] [facility] [employer] pacemaker for complete heart block, [place] Sjogren's disease (HCC) Small bowel obstruction (CMS/HCC) [...] Pacemaker implant 2010 for complete heart block, [place] LASER SURGERY Right laser surgery on right eye to open up capsule from the cataract surgery OOPHORECTOMY 1983 REPLACEMENT TOTAL KNEE Bilateral 02/2010 TONSILLECTOMY 1965 [...] 1 tablet (100 mcg total) by mouth autocad before breakfast 11/18/23 Yes Anatoly Ware MD [...] 1 tablet (125 mcg total) by mouth autocad before breakfast Patient not taking: Reported on [...] 12/15/2023 3:07 PM Admit Type: Outpatient Room: [facility] Date of : 1955 Instrument Name: [id number] Gender: Female Note Status: Finalized Procedure: Upper [...] to the second part of duodenum The GF-[id number] was introduced through the mouth, and advanced [...] Refer to a general GI physician at [facility] for further workup of abdominal pain. [...] 12/15/2023 3:07 PM Admit Type: Outpatient Room: [facility] Date of : 1955 Instrument Name:[id number] Gender: Female Note Status: Finalized Procedure: Upper [...] to the second part of duodenum The GF-[id number] wasintroduced through the mouth, and advanced to [...] Refer to a general GI physician at [facility] forfurther workup of abdominal pain. Attending [...] Other specified diseases of biliary tract- Primary Other specified diseases of biliary tract documented in this encounter Admitting Diagnoses Diagnosis [...] 1 tablet (125 mcg total) by mouth autocad before breakfast 12/15/2023 traMADoL (ULTRAM) 50 mg [...] 1 tablet (100 mcg total) by mouth autocad before breakfast 11/18/2023 added in this encounter [...] 12/15/2023 documented in this encounter Care Teams Alumni Secretary Relationship Specialty Start Date End Date Jacobo Mcintosh MD [address] [facility] [address] [place] [address] PCP - General Internal Medicine 06/25/20 documented as of this encounter
--- OUTSIDE RECORDS SUMMARY | 2024-09-16 02:24 | XMS_ITS | Encounter Summary ---
Author Organization [facility] Address [address] [place] [address] Care Team Providers Care Yard Jacker Name Role Phone No, Physician Primary Care Provider Jacobo Mcintosh MD Primary Care Provider +1- [phone] Encounter Details Date Type Department Care Team (Late st Contact Info) Description 06/20/2020 Telephone [facility] Cardiology [address] [place] [address] Prabha Ho MD [address] [facility] [address] [place] [address] Social History Tobacco Use Types Packs/Day Years Used Date Smoking Tobacco: Never Assessed Comments Unknown Sex and Gender Information Value Date Recorded Sex Assigned at Not on file Legal Sex Female 10:57 AM 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 * Telephone Encounter - Tammi Miller - 06/20/2020 10:46 AM CDT TAX ASSOCIATE ATTORNEY called to speak with [facility]. documented in this encounter Plan of Treatment Not on file documented as of this encounter Visit Diagnoses Not on filedocumented in this encounter Care Teams Yard Jacker Relationship Specialty Start Date End Date No, Physician PCP - General 06/13/20 06/24/20 Jacobo Mcintosh MD [address] [facility] [address] [place] [address] PCP - General Internal Medicine 06/25/20 documented as of this encounter
--- OUTSIDE RECORDS SUMMARY | 2024-09-16 03:33 | XMS_ITS | Encounter Summary ---
Author Organization [facility] Address [address] [place] [address]. [place], [place] [address] [place] [address] Care Team Providers Care Director Of Residence Life Name Role Phone Zoran Da Silva PA-C Primary Care Provider [phone] Encounter Details Date Type Department Care Team (Late st Contact Info) Description 11/04/2021 2:48 PM FLATWORK PRESSER - 11/04/2021 11:59 PM FLATWORK PRESSER Hospital Encounter [facility] [place] [address] Mohamud Wagner MD 3 [facility] [address] [place], [place] [id number] Discharge Disposition: Home or Self Care (Routine Discharge) Social History Tobacco Use Types Packs/Day Years Used Date Smoking Tobacco: Never Assessed Comments Unknown Sex and Gender Information Value Date Recorded Sex Assigned at Not on file Legal Sex Female 5:39 AM FLATWORK PRESSER Gender Identity Not on file Sexual Orientation Not on file COVID-19 Exposure Response Date Recorded In the last 10 days, have yo u been in contact with someone who was confirmed or suspected to have Coronavirus/COVID-19? No / Unsure 11/04/2021 2:26 PM FLATWORK PRESSER documented as of this encounter Plan of Treatment Not on file documented as of this encounter Procedures Procedure Name Priority Date/Time Associated Diagnosis Comments XR LUMB SP+FLEX+EXT MIN 4V Routine 11/04/2021 3:13 PM FLATWORK PRESSER Lumbar radiculopathy documented in this encounter Results * XR LUMB SP+FLEX+EXT MIN 4V (11/04/2021 3:13 PM FLATWORK PRESSER) Anatomical Region Laterality Modality Spine Radiographic Anna ging 11/05/2021 8:46 AM FLATWORK PRESSER Impressions 11/05/2021 8:47 AM FLATWORK PRESSER IMPRESSION: 1. ?? Moderate degenerative disease and dextroscoliosis. ??No malalignment or evidence of fracture. If neurologic signs are present, MRI recommended. Referred By: ?? Interpreted By: Marlon Vela MD, 11/05/2021 8:46 AM Narrative 11/05/2021 8:47 AM FLATWORK PRESSER EXAMINATION: Lumbar spine EXAM DATE: 11/04/2021 2:58 [...] unspecified documented in this encounter Care Teams Director Of Residence Life Relationship Specialty Start Date End Date Zoran Da Silva PA-C [address] [address] PCP - General PHYSICIAN FIREMAN HELPER 11/04/21 documented as of this encounter
--- OUTSIDE RECORDS SUMMARY | 2024-09-16 03:33 | XMS_ITS | Encounter Summary ---
Author Organization [facility] Address [address] [place] [address]. [place], [place] [address] [place] [address] Care Team Providers Care Network Field Engineer Name Role Phone Zoran Da Silva PA-C Primary Care Provider [phone] Encounter Details Date Type Department Care Team (Latest Contact Info) Description 11/04/2021 Travel Social History Tobacco Use Types Packs/Day Years Used Date Smoking Tobacco: Never Assessed Comments Unknown Sex and Gender Information Value Date Recorded Sex Assigned at Not on file Legal Sex Female 5:39 AM SPRAYER LEATHER Gender Identity Not on file Sexual Orientation Not on file COVID-19 Exposure Response Date Recorded In the last 10 days, have yo u been in contact with someone who was confirmed or suspected to have Coronavirus/COVID-19? No / Unsure 11/04/2021 2:26 PM SPRAYER LEATHER documented as of this encounter Plan of Treatment Not on file documented as of this encounter Visit Diagnoses Not on filedocumented in this encounter Care Teams Network Field Engineer Relationship Specialty Start Date End Date Zoran Da Silva PA-C [address] [facility] [address] [place] [address] PCP - General PHYSICIAN HEALTH TECHNICIAN HEARING 11/04/21 documented as of this encounter
--- OUTSIDE RECORDS SUMMARY | 2024-09-16 03:33 | XMS_ITS | Clinical Summary ---
Author Organization [facility] Address [address] [place] [address]. [place] [address] Care Team Providers Care Quality Tester Name Role Phone Zoran Da Silva PA-C Primary Care Provider [phone] Social History Tobacco Use Types Packs/Day Years Used Date Smoking Tobacco: Never Assessed Comments Unknown Sex and Gender Information Value Date Recorded Sex Assigned at Not on file Legal Sex Female 5:39 AM BURLAP MAN Gender Identity Not on file Sexual Orientation [...] patient's age to complete this topic Insurance [facility] MEDICARE [facility] Care Teams Quality Tester Relationship Specialty Start Date End Date Zoran Da Silva PA-C [address] [facility] [address] [place] [address] PCP - General PHYSICIAN TRACTOR DRIVER TEAMSTER 11/04/21
--- OUTSIDE RECORDS SUMMARY | 2024-09-16 03:34 | XMS_ITS | Referral Summary ---
Author Organization [facility] [address] Address [address] [place] [address] Care Team Providers Care Soccer Ball Assembler Name Role Phone Jacobo Mcintosh MD Primary Care Provider [phone] Allergies Active Allergy Reactions Criticality Noted Date [...] 1 tablet (100 mcg total) by mouth meat clerk before breakfast Active semaglutide (Ozempic) 0.25 mg [...] on file Legal Sex Female 10:57 AM TOBACCO DRUMMER Gender Identity Not on file Sexual Orientation [...] of Treatment Not on file Insurance MEDICARE [facility] [place] [address] MEDICARE [place] ACCESS [facility] Advance Directives For more information, please contact: [phone] * Full Code (Latest Code Status on File) Date Activated Date Inactivated Comments 12/15/2023 1:47 PM 12/15/2023 8:39 PM Care Teams Soccer Ball Assembler Relationship Specialty Start Date End Date Jacobo Mcintosh MD [address] [place] [address] PCP - General Internal Medicine 06/25/20
--- OUTSIDE RECORDS SUMMARY | 2024-09-16 03:34 | XMS_ITS | Encounter Summary ---
Author Organization [facility] Address [address] [facility] [address] [place] [address] Care Team Providers Care Pump Erector Helper Name Role Phone Jacobo Mcintosh MD Primary Care Provider [phone] Encounter Details Date Type Department Care Team (Late st Contact Info) Description 06/26/2020 Telephone [facility] Cardiology [address] [facility] [address] [place] [address] Prabha Ho MD [address] [facility] [address] [place] [address] Social History Tobacco Use Types Packs/Day Years Used Date Smoking Tobacco: Former Cigarettes Q uit: 06/25/2007 Smokeless Tobacco: Never Alcohol Use Standard Drinks/Week Comments Yes 2 (1 standard drink = 0.6 oz pur e alcohol) monthly Comments Unknown Sex and Gender Information Value Date Recorded Sex Assigned at Not on file Legal Sex Female 10:57 AM KINESIOLOGIST Gender Identity Not on file Sexual Orientation Not on file documented as of this encounter Miscellaneous Notes * Telephone Encounter - Tanya Naik RN - 06/26/2020 9:54 AM CDT . documented in this encounter Plan of Treatment Not on file documented as of this encounter Visit Diagnoses Not on filedocumented in this encounter Care Teams Pump Erector Helper Relationship Specialty Start Date End Date Jacobo Mcintosh MD [address] [facility] [address] [place] [address] PCP - General Internal Medicine 06/25/20 documented as of this encounter
--- OUTSIDE RECORDS SUMMARY | 2024-09-16 03:34 | XMS_ITS | Encounter Summary ---
Author Organization [facility] Address [address] [facility] [address] [place] [address] Care Team Providers Care Percussion Instrument Repairer Name Role Phone Jacobo Mcintosh MD Primary Care Provider [phone]- [phone] Encounter Details Date Type Department Care Team (Late st Contact Info) Description 07/15/2020 Orders Only [facility] Cardiology [address] [place] [address] Prabha Ho MD [address] [facility] [address] [place] [address] Social History Tobacco Use Types Packs/Day Years Used Date Smoking Tobacco: Former Cigarettes Q uit: 06/25/2007 Smokeless Tobacco: Never Alcohol Use Standard Drinks/Week Comments Yes 2 (1 standard drink = 0.6 oz pur e alcohol) monthly Comments Unknown Sex and Gender Information Value Date Recorded Sex Assigned at Not on file Legal Sex Female 10:57 AM SUPERVISOR CORE DRILLING Gender Identity Not on file Sexual Orientation [...] on filedocumented in this encounter Care Teams Percussion Instrument Repairer Relationship Specialty Start Date End Date Jacobo Mcintosh MD [address] [facility] [address] [place] [address] PCP - General Internal Medicine 06/25/20 documented as of this encounter
--- OUTSIDE RECORDS SUMMARY | 2024-09-16 03:34 | XMS_ITS | Encounter Summary ---
Author Organization [facility] Address [address] [place] [address] Care Team Providers Care Finisher Hand Name Role Phone Jacobo Mcintosh MD Primary Care Provider [phone]- [phone] Reason for Visit * Reason Onset Date Comments GI Preprocedure 12/02/2023 Encounter Details Date Type Department Care Team (Late st Contact Info) Description 12/02/2023 Telephone [facility] Specialty Services [address] [place] [phone] Lawanda Casillas RN GI Preprocedure Social History [...] on file Legal Sex Female 10:57 AM BOATSWAIN MATE Gender Identity Not on file Sexual Orientation [...] NoneAV block pacemaker 2010, Dr. Collin Pederson [facility]any[facility] pacemaker, last device check 08/23/23, [...] None ENDOCRINE: None PRIOR PROCEDURE ISSUES: None FOAM MOLDER/: NA IMPLANTS.: Cardiac pacemaker/ICD (defibrillator)- see protocol. Must have documented device check <6 months and no recent shocks since cards visit. [place]: No ICD, pacer case by case basis but best not done [place] ([place] anesthesia Daniel Camara and and escalate to physician to get clearance) cardiac pacemaker PSYCH/Behavioral Hx: yes [place] has limited security depresion Notes: Thyoriditis, Sjorgens [...] and to contact their ordering MD or Truck Rental Manager about bridging medication for procedure. No [] Yes - Letter Sent to Ordering Physician/Truck Rental Manager Date sent: Hold instructions: GLP Weight Loss Medications No 11/16/23 Ozem[address] stopped [address] Felicia Richmond and pt is not going to go back on medication Zoran Pizano [place] co Educated Patient on the need to hold Medication, and to contact their ordering MD or Truck Rental Manager about bridging medication for procedure. Y/N: Yes Semaglutide (Ozempic, Wegovy) (weekly) [] Yes - Letter Sent to Ordering Physician/Truck Rental Manager Hold older Instructions: BLOOD THINNERS/ANTICOAG/ANTIPLATELET (BESIDES ASA) Medication: NONE Physician contacted for hold order/date sent: Hold order Method sent: Date hold received: Hold instructions: CONTINUE ASPIRIN INFORMATION REQUESTED []Imaging: []Medical Progress Note/H&P []Medication list []Other: PATIENT OPTIMIZATION []Physician reviewing escalation: []CPAP: Date scheduled: Outcome : [] Location limitations: Scheduling Scheduling location limitations: Carpenters Helper needed [] NA Language: POA [] NA Name: Required extended education:no SPECIAL PROCEDURE INSTRUCTIONS Scheduling Notes Procedure information Date of procedure: Time of procedure: Arrival time: Location: Proceduralist: Instructions Method of instructions: email [email or web address] [x]Confirmation of ride/assembly riveter [x]Post anesthesia restrictions given [x]NPO Instructions: [x]Diet [...] for pt to call me back at [phone]. I called her mobile number and it [...] mmHg. Trivial regurgitation in the tricuspid valve. [facility] [address] [address] Fax: Date: Dec 02, 2023 Ambulatory referral to Gastroenterology Patient: Kenrick Marr [address] [place] [address] : 1955 SSN: [id number] Sex: F Insurance: Member ID: Referring Provider Information: BARBIE HERNANDEZ Fax: Referral Information: # Visits: 1 Referral Type: Consultation [3] Urgency: Routine Referral Reason: Specialty Services Required Start Date: Dec 02, 2023 End Date: To be determined by Insurer Diagnosis: Other specified diseases of biliary tract (K83.8) Other specified diseases of pancreas (K86.89) Refer to Location: [facility] (All Locations) Please contact the referral location for scheduling Process Instructions Call [phone] to schedule your visit. Refer to Provider: AGUSTO HUDDLESTON Phone #: [phone] Fax #: [phone] Address: [place] [address] [address] Process Instructions: THE AMBULATORY REFERRAL TO GASTROENTEROLOGY IS NOT AN ORDER FOR A PROCEDURE (I.E. EGD, COLONOSCOPY.) USE THE DIRECT SCHEDULING CASE REQUEST ORDER (GI50) IF THE PATIENT REQUIRES A PROCEDURE TO BE PERFORMED. Please select the performing region: [facility] (All Locations) [167] To provider: AGUSTO HUDDLESTON [[id number]] # of visits: 1 Transcribed by: Thaddeus [...] on filedocumented in this encounter Care Teams Finisher Hand Relationship Specialty Start Date End Date Jacobo Mcintosh MD [address] [facility] [address] [place] [address] PCP - General Internal Medicine 06/25/20 documented as of this encounter
--- OUTSIDE RECORDS SUMMARY | 2024-09-16 03:34 | XMS_ITS | Encounter Summary ---
Author Organization [facility] Address [address] [place] [address] Care Team Providers Care Water Vessel Captain Name Role Phone Jacobo Mcintosh MD Primary Care Provider [phone]- [phone] Reason for Visit * Auth/Cert (Routine) Specialty Diagnoses / Procedures Referred By Contac t Referred To Contact Diagnoses Other specified diseases of biliary tract Other specified diseases of biliary tract [K83.8] Procedures [place] EDG US EXAM SURGICAL ALTER STOM DUODENUM/JEJUNUM [place] ERCP DX COLLECTION SPECIMEN BRUSHING/WASHING EUS ERCP Referral ID Status Reason Start Date Expiration Date Visits Re quested Visits Authorized [id number] 1 1 Encounter Details Date Type Department Care Team (Late st Contact Info) Description 12/15/2023 12:15 PM CDT Lab [facility] Outpatient Lab [address] [place] [address] Other specified diseases of biliary [...] on file Legal Sex Female 10:57 AM OPERATING ROOM NURSE Gender Identity Not on file Sexual Orientation Not on file documented as of this encounter Plan of Treatment Not on file documented as of this encounter Visit Diagnoses Diagnosis Other specified diseases of biliary tract documented in this encounter Care Teams Water Vessel Captain Relationship Specialty Start Date End Date Jacobo Mcintosh MD [address] [facility] [address] [place] [id number] PCP - General Internal Medicine 06/25/20 documented as of this encounter
--- OUTSIDE RECORDS SUMMARY | 2024-09-16 03:34 | XMS_ITS | Clinical Summary ---
Author Organization [facility] [address] Address [address] [place] [address] Care Team Providers Care Sba Business Development Officer Name Role Phone Jacobo Mcintosh MD Primary Care Provider [phone] Allergies Active Allergy Reactions Criticality Noted Date [...] 1 tablet (100 mcg total) by mouth workers compensation claims examiner before breakfast 4 Active semaglutide (Ozempic) 0.25 [...] Pacemaker implant 2010 for complete heart block, [place] TONSILLECTOMY 09/19/1964 - 09/18/1965 HIATAL HERNIA REPAIR [...] History Medical History Date Comments Pacemaker 2010 [facility] pac emaker for complete heart block, [place] GERD (gastroesophageal reflux disease) Fibromyalgia Sjogren's disease [...] on file Legal Sex Female 10:57 AM DRUM DRIER OPERATOR Gender Identity Not on file Sexual [...] exists Influenza Vaccine (#1) 2024 Insurance MEDICARE [facility] MEDICARE MEDICARE BLUE ACCESS [facility] Advance Directives For more information, please contact: [phone] * Full Code (Latest Code Status on File) Date Activated Date Inactivated Comments 12/15/2023 1:47 PM 12/15/2023 8:39 PM Care Teams Sba Business Development Officer Relationship Specialty Start Date End Date Jacobo Mcintosh MD [address] [facility] [address] [place] [address] PCP - General Internal Medicine 06/25/20
--- OUTSIDE RECORDS SUMMARY | 2024-09-16 03:34 | XMS_ITS | Encounter Summary ---
Author Organization [facility] Address [address] [facility] [address] [place] [address] Care Team Providers Care Special Procedure Tech Name Role Phone No, Physician Primary Care Provider [phone] Jacobo Mcintosh MD Primary Care Provider [phone]- [phone] Encounter Details Date Type Department Care Team (Late st Contact Info) Description 06/20/2020 Telephone [facility] Cardiology [address] [place] [address] Prabha Ho MD [address] [place] [address] Social History Tobacco Use Types Packs/Day Years Used Date Smoking Tobacco: Never Assessed Comments Unknown Sex and Gender Information Value Date Recorded Sex Assigned at Not on file Legal Sex Female 10:57 AM ENERGY AND SUSTAINABILITY MANAGER Gender Identity Not on file Sexual Orientation Not on file documented as of this encounter Miscellaneous Notes * Telephone Encounter - Tanya Naik RN - 06/20/2020 11:25 AM CDT Message forwarded on to [employer]. * Telephone Encounter - Tammi Miller - 06/20/2020 10:46 AM CDT FOOD TECHNOLOGY TEACHER called to speak with [employer]. documented in this encounter Plan of Treatment Not on file documented as of this encounter Visit Diagnoses Not on filedocumented in this encounter Care Teams Special Procedure Tech Relationship Specialty Start Date End Date No, Physician PCP - General 06/13/20 06/24/20 Jacobo Mcintosh MD [address] [facility] [address] [place] [address] PCP - General Internal Medicine 06/25/20 documented as of this encounter
--- OUTSIDE RECORDS SUMMARY | 2024-09-16 03:34 | XMS_ITS | Encounter Summary ---
Author Organization [facility] Address [address] [facility] [address] [place] [address] Care Team Providers Care Oil Painter Name Role Phone Jacobo Mcintosh MD Primary Care Provider [phone] Encounter Details Date Type Department Care Team (Late st Contact Info) Description 07/22/2020 10:30 AM GRADUATE ASSISTANT Office Visit [facility] Cardiology [address] [facility] [address] [place] [address] Visit for wound check (Primary [...] on file Legal Sex Female 10:57 AM GRADUATE ASSISTANT Gender Identity Not on file Sexual Orientation [...] to make f/u appt with Dr Pederson. UATE ASSISTANT documented in this encounter Plan of Treatment Not on file documented as of this encounter Visit Diagnoses Diagnosis Visit for wound check- Primary documented in this encounter Care Teams Oil Painter Relationship Specialty Start Date End Date Jacobo Mcintosh MD [address] [facility] [address] [place] [address] PCP - General Internal Medicine 06/25/20 documented as of this encounter
--- OUTSIDE RECORDS SUMMARY | 2024-09-16 03:34 | XMS_ITS | Encounter Summary ---
Author Organization [facility] Address [address] [place] [address] Care Team Providers Care Squad Leader Name Role Phone Jacobo Mcintosh MD Primary Care Provider +1- [phone] Reason for Referral * (Routine) - Closed Specialty Diagnoses / Procedures Referred By Russ magdaleno Referred To Contact Diagnoses Pacemaker Pacemaker battery depletion Complete heart block (CMS/HCC) (HCC) Procedures Transthoracic Echo Complete W Doppler/CF Prabha Garibay MD Phone: tel: fax: [facility] Referral ID Status Reason Start Date Expiration Date Visits Re quested Visits Authorized [id number] Closed 06/25/2020 07/25/2021 1 1 Reason for Visit * Reason Comments New Patient eval for gen change * Consultation (Routine) - Closed Specialty Diagnoses / Procedures Referred By Contmarcie t Referred To Contact Cardiology Diagnoses Pacemaker Collin Pederson, DO [address] [facility] [address] [place] [address] Phone: tel: fax: [facility] Cardiology [address] [place] [address] Phone: tel: fax: Referral ID Status Reason Start Date Expiration Date V isits Requested Visits Authorized [id number] Closed Specialty Services Required 06/12/2020 07/12/2021 1 1 Encounter Details Date Type Department Care Team (Late st Contact Info) Description 06/25/2020 2:00 PM CDT Office Visit [facility] Cardiology [address] [place] [address] Prabha Garibay MD [address] [place] [address] Pacemaker battery depletion (Primary Dx); Pacemaker; Complete heart block (CMS/HCC); 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; Idiopathic hypotension; Lipid screening; middle or intermediate school principal use of drug Social History Tobacco Use Types Packs/Day Years Used Date Smoking Tobacco: Former Cigarettes Q uit: 06/25/2007 Smokeless Tobacco: Never Alcohol Use Standard Drinks/Week Comments Yes 2 (1 standard drink = 0.6 oz pur e alcohol) monthly Comments Unknown Sex and Gender Information Value Date Recorded Sex Assigned at Not on file Legal Sex Female 10:57 AM AGRICULTURAL PRODUCE COMMISSION AGENT Gender Identity Not on file Sexual Orientation [...] Garibay MD - 06/25/2020 2:00 PM CDT [facility] Cardiology [facility] [...] [employer] pacemaker in 2010 in [place]. She moved back home to be closer [...] a stepdaughter. 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 Lived in [place] and returned to [place] in 2019. Likes to do crafts and needle work. MEDICAL HISTORY Past Medical History: Diagnosis Date ??? Acid indigestion ??? Anxiety and depression ??? Cataracts, bilateral ??? Diverticulitis ??? Fibromyalgia ??? GERD (gastroesophageal reflux disease) ??? Ru's thyroiditis ??? Pacemaker 2010 [employer] pacemaker for complete heart block, [place] ??? Sjogren's disease ([facility]/HCC) Social History Tobacco Use ??? Smoking status: [...] mcg tablet, Take 125 mcg by mouth actuarial manager before breakfast,Disp: , Rfl: ??? 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 Prabha Garibay MD, [facility] Cardiology Office: [phone] or [phone] Portions of the record may have been created with voice recognition cafegive Direct Software.Autism Tutor variances may occur. Despite proofreading, typographical errors may occur. 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 Lipid screening ECG 12-LEAD Routine 06/25/2020 Pacemaker Complete heart block (CMS/HCC) Idiopathic hypotension documented in this encounter Results * TRANSTHORACIC ECHO (TTE) COMPLETE W DOPPLER/CF W CONTRAST (07/02/2020 9:22 AM CDT) Anatomical Region Laterality Modality Ultrasound 07/02/2020 8:33 AM CDT Narrative 07/02/2020 4:33 PM CDT [facility] Cardiology [address], [place] [address] [address], [place] [address] P:[phone] P:[phone] Echocardiographic Report Patient Name: DANIELLE LOCKE : 1955 Study Date: 07/02/2020 8:33:29 AM Gender: F Tech: Location: [place] Ref.Provider: MARVIN Height(Cm): 165 BSA: 1.88 Weight(Kg): [...] Findings: Interpretation Site: Exam was interpreted at [facility]. Left Ventricle: Normal left ventricular size. [...] Procedure Note Lio Schneider MD - 07/02/2020 [facility] Cardiology [address], [place] [address] [address], [place] [address] P:[phone] P:[phone] Echocardiographic Report Patient Name: DANIELLE LOCKEPatient ID: [id number] : [id number] Date: 07/02/2020 8:33:29 AM Gender: FAccession #: [id number] Tech: GMLocation: [place] Ref.Provider: Kendell(Cm): 165 BSA: 1.88Weight(Kg): 80.74 Heart [...] 16.00 - 28.00 ] cc/m2 MV Decel Fsym932 [ 150 - 200 ] msec ACS MM 2.13 cm PV Peak Vel0.88 [ 0.40 - 0.80 ] m/s TR Peak Vel2.40 [ 0.40 - 0.80 ] m/s TR Peak PG 23mmHg RVSP31.00 mmHg E'0.12 E/E' 7 Findings: Interpretation Site: Exam was interpreted at [facility]. Left Ventricle: Normal left ventricular size. 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 Unspecified hypotension Lipid screening Screening for lipoid disorders middle or intermediate school principal use of drug Pacemaker Cardiac pacemaker in [...] 1 tablet (125 mcg total) by mouth actuarial manager before breakfast 4 added in this encounter Orders Outpatient Referral Count Last Ordered Date Fir st Ordered Date AMB REFERRAL TO CARDIOLOGY 1 06/25/2020 documented in this encounter Care Teams Squad Leader Relationship Specialty Start Date End Date Jacobo Mcintosh MD [address] [facility] [address] [place] [address] PCP - General Internal Medicine 06/25/20 documented as of this encounter
--- OUTSIDE RECORDS SUMMARY | 2024-09-16 03:34 | XMS_ITS | Encounter Summary ---
Author Organization [facility] Address [address] [place] [address] Phone Care Team Providers Care Physical Director Name Role Phone Jacobo Mcintosh MD Primary Care Provider +1- [phone] Reason for Visit * Reason Onset Date Comments GI: EUS+ERCP w/LFTs Scheduled 12/05/2023 Encounter Details Date Type Department Care Team (Late st Contact Info) Description 12/05/2023 Telephone [facility] Gastroenterology [address] [place] [address] Medical Office [address], [address] [place] [address] Sarah Mckeon LPN GI: EUS+ERCP [...] on file Legal 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 She must have a test car driver that day, and she's not taking [...] NoneAV block pacemaker 2010, Dr. Collin Pederson [facility] [employer] pacemaker, last device check 08/23/23 [...] None ENDOCRINE: None PRIOR PROCEDURE ISSUES: None FAST FOOD SERVICES MANAGER/: NA IMPLANTS.: Cardiac pacemaker/ICD (defibrillator)- see protocol. Must have documented device check <6 months and no recent shocks since cards visit. [place]: No ICD, pacer case by case basis but best not done at [place] (contact [place] anesthesia Daniel Camara and and escalate to physician to get clearance) cardiac pacemaker PSYCH/Behavioral Hx: yes [place] has limited security depresion Notes: Thyoriditis, Sjorgens [...] and to contact their ordering MD or Well Flow Operator about bridging medication for procedure. No [] Yes - Letter Sent to Ordering Physician/Well Flow Operator Date sent: Hold instructions: GLP Weight Loss Medications No 11/16/23 Ozem[address] Felicia Richmond and pt is not going to go back on medication Zoran Pizano [place] Educated Patient on the need to hold Medication, and to contact their ordering MD or Well Flow Operator about bridging medication for procedure. Y/N: Yes Semaglutide (Ozempic, Wegovy) (weekly) [] Yes - Letter Sent to Ordering Physician/Well Flow Operator Hold older Instructions: BLOOD THINNERS/ANTICOAG/ANTIPLATELET (BESIDES ASA) Medication: NONE Physician contacted for hold order/date sent: Hold order Method sent: Date hold received: Hold instructions: CONTINUE ASPIRIN INFORMATION REQUESTED []Imaging: []Medical Progress Note/H&P []Medication list []Other: PATIENT OPTIMIZATION []Physician reviewing escalation: []CPAP: Date scheduled: Outcome : [] Location limitations: Scheduling Scheduling location limitations: Support Clerk needed [] NA Language: POA [] NA Name: Required extended education:no SPECIAL PROCEDURE INSTRUCTIONS Scheduling Notes Procedure information Date of procedure: Time of procedure: Arrival time: Location: Proceduralist: Instructions Method of instructions: email [x]Confirmation of ride/skip operator [x]Post anesthesia restrictions given [x]NPO Instructions: [x]Diet [...] CDT To: Lissette Mclaughlin, This pt needs [facility] as there are no openings at [facility] in the next several weeks that work [...] Seay Sent: 12/02/2023 9:39 AM CDT To: [facility] Biliary 1 Pool Subject: Biliary Records [...] 12/05/2023 documented in this encounter Care Teams Physical Director Relationship Specialty Start Date End Date Jacobo Mcintosh MD [address] [facility] [address] [place] [address] PCP - General Internal Medicine 06/25/20 documented as of this encounter
--- OUTSIDE RECORDS SUMMARY | 2024-09-16 03:34 | XMS_ITS | Encounter Summary ---
Author Organization [facility] Address [address] [place] [address] Care Team Providers Care Certified Nurse Aide Name Role Phone Jacobo Mcintosh MD Primary Care Provider +1- [phone] Reason for Visit * Auth/Cert (Routine) Specialty Diagnoses / Procedures Referred By Contac t Referred To Contact Diagnoses Other specified diseases of biliary tract Other specified diseases of biliary tract [K83.8] Procedures HI EDG US EXAM SURGICAL ALTER STOM DUODENUM/JEJUNUM HI ERCP DX COLLECTION SPECIMEN BRUSHING/WASHING EUS ERCP Referral ID Status Reason Start Date Expiration Date Visits Re quested Visits Authorized [id number] 1 1 Encounter Details Date Type Department Care Team (Late st Contact Info) Description 12/15/2023 3:17 PM CDT Anesthesia Event [facility] [address] [place] [address] Samina Todd MD [address] [place] [address] Navin Glez CRNA [address] [place] [address] Anesthesia Record Procedure Summary Procedure Name Responsible [...] on file 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 06/25/2020 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 Past Medical History: Diagnosis Date Acid indigestion Anxiety and depression Cataracts, bilateral Colon polyp Diverticulitis Elevated LFTs Fibromyalgia GERD (gastroesophageal reflux disease) Ru's thyroiditis Hypothyroidism Pacemaker 2010 [employer] pacemaker for complete heart block, [place] Sjogren's disease (HCC) Small bowel obstruction (CMS/HCC) [...] Pacemaker implant 2010 for complete heart block, [place] LASER SURGERY Right laser surgery on right [...] Medication protocol when under care of a COMPUTER AIDED DESIGN TECHNICIAN Planned anesthesia: General/TIVA Induction: Induction: intravenous. Postoperative Plan: No plan for postoperative opioid use. No postoperative mechanical ventilation intended. Patient's planned disposition post procedure is Outpatient. Informed Consent: Discussed plan with COMPUTER AIDED DESIGN TECHNICIAN. Anesthesia plan and risks discussed with patient. [...] mg documented in this encounter Care Teams Certified Nurse Aide Relationship Specialty Start Date End Date Jacobo Mcintosh MD [address] [place] [address] PCP - General Internal Medicine 06/25/20 documented as of this encounter
--- OUTSIDE RECORDS SUMMARY | 2024-09-16 03:34 | XMS_ITS | Encounter Summary ---
Author Organization [facility] Address [address] [place] [address] Phone Care Team Providers Care Ecommerce Merchandising Manager Name Role Phone Jacobo Mcintosh MD Primary Care Provider +1- [phone] Encounter Details Date Type Department Care Team (Late st Contact Info) Description 01/03/2024 Documentation [facility] Gastroenterology [facility] 12th [place] [address] [place] [address] Tawanna Richmond RN Social History Tobacco Use [...] on file 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
--- OUTSIDE RECORDS SUMMARY | 2024-09-16 03:34 | XMS_ITS | Encounter Summary ---
Author Organization [facility] Address [address] [place] [address] Care Team Providers Care Supervisor Photocomposition Name Role Phone Jacobo Mcintosh MD Primary Care Provider +1- [phone] Reason for Visit * Auth/Cert (Routine) Specialty Diagnoses / Procedures Referred By Contac t Referred To Contact Diagnoses Other specified diseases of biliary tract Other specified diseases of biliary tract [K83.8] Procedures AL EDG US EXAM SURGICAL ALTER STOM DUODENUM/JEJUNUM [place] ERCP DX COLLECTION SPECIMEN BRUSHING/WASHING EUS ERCP Referral ID Status Reason Start Date Expiration Date Visits Re quested Visits Authorized [id number] 1 1 Encounter Details Date Type Department Care Team (Latest Contact Info) Description 12/15/2023 12:05 PM CDT - 12/15/2023 4:39 PM CDT Hospital Encounter 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 Gender Identity Not on file Sexual Orientation [...] 1 tablet (100 mcg total) by mouth financial center manager before breakfast 11/18/2023 traZODone (DESYREL) 150 mg [...] 1 tablet (100 mcg total) by mouth financial center manager before breakfast 11/18/23 Yes Anatoly Ware MD [...] 1 tablet (125 mcg total) by mouth financial center manager before breakfast Patient not taking: Reported on 12/09/2023 Anatoly Ware MD linaCLOtide (Linzess) 72 mcg capsule 72 mcg daily Patient not taking: Reported on 12/09/2023 Anatoly Ware MD liothyronine (CYTOMEL) 5 mcg tablet Take 5 mcg by mouth daily Take one tablet before bedtime. Patient not taking: Reported on 12/09/2023 Anatoly Wrae MD magnesium glycinate 100 mg tablet Take [...] 12/15/2023 3:07 PM Admit Type: Outpatient Room: [facility] Date of : 1955 Instrument Name: [id number] Gender: Female Note Status: Finalized Procedure: Upper [...] to the second part of duodenum The GF-[id number] was introduced through the mouth, and advanced [...] Refer to a general GI physician at [facility] for further workup of abdominal pain. Attending [...] 12/15/2023 3:07 PM Admit Type: Outpatient Room: [facility] Date of : 1955 Instrument Name:[id number] Gender: Female Note Status: Finalized Procedure: Upper [...] to the second part of duodenum The GF-[id number] wasintroduced through the mouth, and advanced to [...] Refer to a general GI physician at [facility] forfurther workup of abdominal pain. Attending Participation: [...] 1 tablet (125 mcg total) by mouth financial center manager before breakfast 12/15/2023 traMADoL (ULTRAM) 50 mg [...] 1 tablet (100 mcg total) by mouth financial center manager before breakfast 11/18/2023 added in this encounter [...] 12/15/2023 documented in this encounter Care Teams Supervisor Photocomposition Relationship Specialty Start Date End Date Jacobo Mcintosh MD [address] [facility] [address] [facility] [address] [place] [address] PCP - General Internal Medicine 06/25/20 documented as of this encounter
--- OUTSIDE RECORDS SUMMARY | 2024-09-16 03:34 | XMS_ITS | Encounter Summary ---
Author Organization [facility] Address [address] [place] [address] Phone Care Team Providers Care Communications Technologist Name Role Phone Jacobo Mcintosh MD Primary Care Provider +1- [phone] Reason for Referral * Consultation (Routine) - Pending Review Specialty Diagnoses / Procedures Referred By Contac t Referred To Contact Gastroenterology Diagnoses Abdominal pain Agusto Huddleston MD [address] [place] [address] Phone: tel: fax: [facility] (All Locations) Referral ID Status Reason Start Date Expiration Date Visits Requested Visits Authorized [id number] Pending Review Specialty Services Required 12/15/2023 01/13/2025 1 1 Question Answer Process Instructions: THE AMBULATORY REFERRAL TO GASTROENTEROLOGY IS NOT AN ORDER FOR A PROCEDURE (I.E. EGD, COLONOSCOPY.) USE THE DIRECT SCHEDULING CASE REQUEST ORDER (GI50) IF THE PATIENT REQUIRES A PROCEDURE TO BE PERFORMED. 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 Gender Identity Not on file Sexual Orientation Not on file documented as of this encounter Plan of Treatment Scheduled Referrals Name Type Priority Associated Diagnoses Order Schedule Ambulatory referral to Gastroenterology Outpatient Referral Routine Abdominal pain Expected: 12/15/2023 (Approximate), Expires: 12/14/2024 documented as of this encounter Visit Diagnoses Diagnosis Abdominal pain- Primary Abdominal pain, unspecified site documented in this encounter Care Teams Communications Technologist Relationship Specialty Start Date End Date Jacobo Mcintosh MD [address] [place] [address] PCP - General Internal Medicine 06/25/20 documented as of this encounter
--- OUTSIDE RECORDS SUMMARY | 2024-09-16 03:34 | XMS_ITS | Encounter Summary ---
Author Organization [facility] Healthcare Address [address] [place] [address] Care Team Providers Care Director Food And Beverage Name Role Phone Jacobo Mcintosh MD Primary Care Provider +1- [phone] Reason for Visit * Auth/Cert (Routine) Specialty Diagnoses / Procedures Referred By Contac t Referred To Contact Diagnoses Other specified diseases of biliary tract Other specified diseases of biliary tract [K83.8] Procedures [place] EDG US EXAM SURGICAL ALTER STOM DUODENUM/JEJUNUM [place] ERCP DX COLLECTION SPECIMEN BRUSHING/WASHING EUS ERCP Referral ID Status Reason Start Date Expiration Date Visits Re quested Visits Authorized [id number] 1 1 Encounter Details Date Type Department Care Team (Latest Contact Info) Description 12/15/2023 2:15 PM CDT - 12/15/2023 2:45 PM CDT Surgery [facility] [address] [place] [address] Agusto Huddleston MD [address] [facility] [address] [address] [place] [address] ESOPHAGOGASTRODUODENOSCOPY ULTRASOUND EXAM LIMITED Surgery Details Date/Time Status Location OR Service Patient Class Case Class Case Type Trauma Case? 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 Gender Identity Not on file Sexual Orientation [...] 1 tablet (100 mcg total) by mouth saddle and harness maker before breakfast 11/18/2023 traZODone (DESYREL) 150 mg [...] [employer] pacemaker for complete heart block, [place] Sjogren's disease (HCC) Small bowel obstruction (CMS/HCC) [...] Pacemaker implant 2010 for complete heart block, [place] LASER SURGERY Right laser surgery on right [...] day asneeded for muscle spasms Yes Anatoly Waer MD dexlansoprazole (DEXILANT) 60 mg capsule Take [...] 1 tablet (100 mcg total) by mouth saddle and harness maker before breakfast 11/18/23 Yes Anatoly Ware MD [...] 1 tablet (125 mcg total) by mouth saddle and harness maker before breakfast Patient not taking: Reported on [...] 12/15/2023 3:07 PM Admit Type: Outpatient Room: [facility] Date of : 1955 Instrument Name: [id number] Gender: Female Note Status: Finalized Procedure: Upper [...] to the second part of duodenum The GF-[id number] was introduced through the mouth, and advanced [...] Refer to a general GI physician at [facility] for further workup of abdominal pain. Attending [...] 12/15/2023 3:07 PM Admit Type: Outpatient Room: [facility] Date of : 1955 Instrument Name:[id number] Gender: Female Note Status: Finalized Procedure: Upper [...] to the second part of duodenum The [id number] wasintroduced through the mouth, and advanced to [...] Refer to a general GI physician at [facility] forfurther workup of abdominal pain. Attending Participation: [...] 1 tablet (125 mcg total) by mouth saddle and harness maker before breakfast 12/15/2023 traMADoL (ULTRAM) 50 mg [...] 1 tablet (100 mcg total) by mouth saddle and harness maker before breakfast 11/18/2023 added in this encounter [...] 12/15/2023 documented in this encounter Care Teams Director Food And Beverage Relationship Specialty Start Date End Date Jacobo Mcintosh MD [address] [facility] [address] [place] [address] PCP - General Internal Medicine 06/25/20 documented as of this encounter
--- OUTSIDE RECORDS SUMMARY | 2024-09-16 03:34 | XMS_ITS | Encounter Summary ---
Author Organization [facility] Address [address] [place] [address] Care Team Providers Care Stores Assistant Name Role Phone Jacobo Mcintosh MD Primary Care Provider [phone] Reason for Visit * (Routine) - Closed Specialty Diagnoses / Procedures Referred By Contac t Referred To Contact Diagnoses Pacemaker Pacemaker battery depletion Complete heart block (CMS/HCC) (HCC) Procedures Transthoracic Echo Complete W Doppler/CF Kendra Garibay MD Phone: tel: fax: [facility] Referral ID Status Reason Start Date Expiration Date Visits Re quested Visits Authorized [id number] Closed 06/25/2020 07/25/2021 1 1 Encounter Details Date Type Department Care Team (Latest Contact Info) Description 07/02/2020 8:15 AM CDT Ancillary Procedure [facility] Cardiology [address] [place] [address] Pacemaker; Pacemaker battery depletion; Complete [...] on file 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 Gender Identity Not on file Sexual Orientation [...] AM CDT Narrative 07/02/2020 4:33 PM CDT [facility] Cardiology [address], [place] [address] [address] [facility] [address], [place] [address] P:[phone] P:[phone] Echocardiographic Report Patient Name: DANIELLE LOCKE : 1955 Study Date: 07/02/2020 8:33:29 AM Gender: F Tech: Location: [place] Ref.Provider: MARVIN Height(Cm): 165 BSA: 1.88 Weight(Kg): [...] Findings: Interpretation Site: Exam was interpreted at [facility]. Left Ventricle: Normal left ventricular size. Definity [...] Procedure Note Lio Schneider MD - 07/02/2020 [facility] Cardiology [address] [facility] [address] [facility] [address] [facility] [address], [place] [address] [address] [facility] [address], [place] [address] P:[phone] P:[phone] Echocardiographic Report Patient Name: DANIELLE LOCKEPatient ID: [id number] : [id number] Date: 07/02/2020 8:33:29 AM Gender: FAccession #: [id number] Tech: Location: [place] Ref.Provider: Vitaight(Cm): 165 BSA: 1.88Weight(Kg): 80.74 Heart [...] 16.00 - 28.00 ] cc/m2 MV Decel Raup386 [ 150 - 200 ] msec ACS MM 2.13 cm PV Peak Vel0.88 [ 0.40 - 0.80 ] m/s TR Peak Vel2.40 [ 0.40 - 0.80 ] m/s TR Peak PG 23mmHg RVSP31.00 mmHg E'0.12 E/E' 7 Findings: Interpretation Site: Exam was interpreted at [facility]. Left Ventricle: Normal left ventricular size. Definity [...] 07/02/2020 documented in this encounter Care Teams Stores Assistant Relationship Specialty Start Date End Date Jacobo Mcintosh MD [address] [facility] [address] [place] [address] PCP - General Internal Medicine 06/25/20 documented as of this encounter
--- OUTSIDE RECORDS SUMMARY | 2024-09-16 03:34 | XMS_ITS | Encounter Summary ---
Author Organization [facility] Address [address] [place] [address] Care Team Providers Care Electrocardiogram Technician Name Role Phone Jacobo Mcintosh MD Primary Care Provider [phone] Reason for Visit * Reason Onset Date Comments Generator change 06/25/2020 Encounter Details Date Type Department Care Team (Late st Contact Info) Description 06/25/2020 Telephone [facility] Cardiology [address] [place] [address] Prabha Ho MD [address] [place] [address] Generator change Social History Tobacco Use Types Packs/Day Years Used Date Smoking Tobacco: Former Cigarettes Q uit: 06/25/2007 Smokeless Tobacco: Never Alcohol Use Standard Drinks/Week Comments Yes 2 (1 standard drink = 0.6 oz pur e alcohol) monthly Comments Unknown Sex and Gender Information Value Date Recorded Sex Assigned at Not on file Legal 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
--- OUTSIDE RECORDS SUMMARY | 2024-09-16 03:36 | XMS_ITS | CONTINUITY OF CARE DOCUMENT ---
Author Name cassi ye Address Unknown Organization [facility] Address [address] [place] [address] [address] [place] [address] Phone [phone] Care Team Providers Care Middle School Coach Name Role Phone Sriram ASHRAF, Marni Unavailable [phone] Asia Black MD Unavailable Asia Black MD Unavailable INSURANCE PROVIDERS Payer name Policy type / Coverage type Barron red libertarian ID [place] MEDICARE Medicare [id number]
== END 2024-09-09 06:08 | disposition home or self-care (01) ==
PROVIDERS: Emergency Provider Emergency Medicine; PCP Internal Medicine
DX: M25.551 Pain in right hip (principal); E06.3 Autoimmune thyroiditis; F41.9 Anxiety disorder, unspecified; M79.7 Fibromyalgia; Z95.0 Presence of cardiac pacemaker
CPT/HCPCS: 73502; 96372; 99283; A9270; J1171

== ENCOUNTER 2025-01-19 15:11 | Emergency (ER) | payer MEDICARE, BC, SELFPAY ==
--- NOTE | 2025-01-19 15:13 | ED.FEMALEGU ---
HPI - Female Genitourinary General Chief complaint: Urogenital-Female Stated complaint: urinary bleeding and burning Time Seen by Provider: 01/19/25 15:13 Source: patient Mode of arrival: ambulatory Limitations: no limitations History of Present Illness HPI Narrative: Kenrick is a 69 year old female patient presenting to the clinic today with c/o dysuria, suprapubic pain, left flank pain, and hematuria x 2 days. She reports she has been taken Cystex without relief. Denies any fever but does have some nausea. Related Data Home Medications ?Medication ?Instructions ?Recorded ?Confirmed ?Last Taken ?Type magnesium glycinate 100 mg (as 200 mg PO DAILY 07/01/20 01/19/25 05/14/23 History glycinate) tablet melatonin 15 mg PO HS 05/14/23 01/19/25 05/13/23 History cholecalciferol (vitamin D3) 125 125 mcg PO DAILY 01/24/24 01/19/25 Unknown History mcg (5,000 unit) tablet furosemide 20 mg tablet 20 mg PO .PRN 11/13/24 01/19/25 Unknown History Allergies Allergy/AdvReac Type Severity Reaction Status Date / Time morphine Allergy Severe Hives Verified 01/19/25 15:13 meperidine (From Demerol) Allergy Intermediate Hives Verified 01/19/25 15:13 Sulfa (Sulfonamide Allergy Intermediate hives Verified 01/19/25 15:13 Antibiotics) pentazocine (From Talwin) AdvReac Severe nausea Verified 01/19/25 15:13 vomiting oxycodone AdvReac Intermediate vomiting Verified 01/19/25 15:13 propoxyphene AdvReac Intermediate vomiting Verified 01/19/25 15:13 Review of Systems Review of Systems: Pertinent positives per HPI. 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 Surgical History Surgical History History of exploratory laparotomy 35 years ago had an exploratory surgery due to a duodenal obstruction, did not require bowel resection History of appendectomy during her cholecystectomy History of bilateral knee arthroplasty Status post gastroplasty Gastric stapling about 40 years ago History of hernia repair Hiatal hernia repair during her gastric stapling History of tonsillectomy History of cholecystectomy Open cholecystectomy with incidental appendectomy over 40 years ago History of cataract extraction with lens replacement History of hysterectomy Open partial hysterectomy and eventual open total abdominal hysterectomy History of right oophorectomy History of bunionectomy of both great toes History of permanent cardiac pacemaker placement (11/2010) Saint Danyel dual chamber pacemaker. Family History Family History Father Heart disease Cancer Mother Cancer Sibling Heart disease FH: heart attack Social History Social History Social History: Surrogate medical decision maker: Shady Marr, spouse. Code status: Full code. Smoking packs per day: 1 Smoking cigarettes per day: 20.0 Years smoked: 25 Smoking pack-years: 25.00 Smoking status: Former smoker Second hand tobacco smoke exposure: Yes Alcohol intake: former Alcohol use details: 6 PER YEAR Substance use: never Substance use type: does not use Do You Feel Safe in your Home?: Yes Lack of Transportation: No Lack of Food: Never True Current Housing: I Have Housing Concerned About Future Housing: No Difficulty Paying Gas/Electric Bills: No Difficulty Paying for Meds: No Currently Unemployed: No Education: High School Diploma/GED Difficulty w/ Childcare or Family Care: No Living arrangements: with family Additional living arrangements comments: . Has 2 daughters and a stepdaughter. Enjoys crafting and doing needle work. 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 Spiritual care concerns: No Comments At the time of my signature, I reviewed and agree with the nursing past medical, surgical, social, and family history. There is no relevant family history pertinent to the patient complaint. Exam Narrative: General: Well-developed, well nourished, in no apparent distress. Head: Normocephalic, atraumatic. Cardio: Regular rate and rhythm, s1 and s2 normal, no murmur appreciated. Resp: Clear to auscultation bilaterally, no rhonchi, rales, wheezing or rubs. Abdomen: Soft, pliable, bowel sounds present in all quadrants, suprapubic tender to palpation, no organomegly, left CVAT tenderness. Course Course Emergency Course: Portions of this record may have been created with voice recognition software. Level of Care: Express Care Visit Vital Signs Vital signs: Vital Signs Temperature 36.0 C L 01/19/25 15:24 Pulse Rate 69 01/19/25 15:24 Respiratory Rate 20 01/19/25 15:24 Blood Pressure 115/61 01/19/25 15:24 Pulse Oximetry 100 01/19/25 15:24 Oxygen Delivery Room Air 01/19/25 15:24 Temperature 36.0 C L 01/19/25 15:24 Pulse Rate 69 01/19/25 15:24 Respiratory Rate 20 01/19/25 15:24 Blood Pressure 115/61 01/19/25 15:24 Pulse Oximetry 100 01/19/25 15:24 Oxygen Delivery Room Air 01/19/25 15:24 Vital signs reviewed MDM - Female Genitourinary MDM Narrative Medical decision making narrative: At the time of visit patient is resting comfortably on the exam table. Patient appears to be nontoxic. Labs: Urinalysis positive for blood, protein, and leukocytes. We will send urine for culture. Plan: I suspect patient likely has early pyelonephritis. Prescription for Augmentin was sent to the pharmacy. Patient reports she has allergies to Bactrim and Keflex. Supportive measures were discussed with the patient and they voiced understanding discharge instructions and agrees to treatment plan. Return precautions reviewed Differential Diagnosis Differential diagnosis: Likely urinary tract infection, cystitis and other (Pyelonephritis) Lab Data Labs: Lab Results 01/19/25 Range/Units 15:27 POC Urine Color Yellow POC Urine Clarity Cloudy POC Urine pH 5.5 POC Ur Specif [place] 1.025 POC Urine Protein 2+ (Negative) POC Ur Glucose (UA) Negative (Negative) POC Urine Ketones Negative (Negative) POC Urine Blood 3+ (Negative) POC Urine Nitrite Negative (Negative) POC Urine Bilirubin Negative (Negative) POC Urine Urobilinogen 0.2 POC U Leukocyte Esteras 1+ (Negative) Discharge Plan Discharge Clinical Impression: Acute pyelonephritis Patient Disposition: Home Condition: Stable Instructions: Antibiotic Form, Kidney Infection (ED) Additional Instructions: Urinalysis positive for leukocytes, protein, and blood. We will send urine for culture. Take Augmentin as prescribed Increase fluids and stay well hydrated Wipe front to back. May use wet wipes. Avoid tub baths If sexually active- pee before and after intercourse. Wear cotton panties Avoid tight clothing up against the genitals Follow up with your PCP in 1 week if symptoms persist. Patient Language: Chadian Prescriptions: New amoxicillin-pot clavulanate 875-125 mg tablet 1 tablet PO Q12H 7 Days Qty: 14 0RF No Action magnesium glycinate 100 mg tablet 200 mg PO DAILY cholecalciferol (vitamin D3) 125 mcg (5,000 unit) tablet 125 mcg PO DAILY furosemide 20 mg tablet 20 mg PO .PRN Rx Instructions: Take 1 tab prn daily for edema. melatonin tablet 15 mg PO HS bupropion HCl 150 mg tablet sustained-release 12 hr 150 mg PO BID Qty: 90 3RF levothyroxine [Synthroid] 112 mcg tablet See Rx Instructions .ROUTE .COMPLEX Qty: 125 1RF Dose Instruction: TAKE 1 TABLET DAILY Rx Instructions: take 9 pills a week, one from Tuesday to Fridays , 2 on Saturdays and Sundays pilocarpine HCl 5 mg tablet See Rx Instructions .ROUTE .COMPLEX Qty: 360 3RF Dose Instruction: TAKE 1 TABLET FOUR TIMES A DAY Rx Instructions: TAKE 1 TABLET FOUR TIMES A DAY potassium chloride [Klor-Con 10] 10 mEq tablet extended release 10 meq PO DAILY Qty: 30 5RF Rx Instructions: Take 1 tab prn with Furosemide. tramadol 50 mg tablet 50 mg PO Q8H PRN (Reason: pain) Qty: 30 1RF dexlansoprazole 60 mg capsule,biphase delayed releas 60 mg PO DAILY Qty: 90 3RF Ozempic 1 mg/dose (4 mg/3 mL) pen injector 1 mg subcut WEEKLY Qty: 9 1RF trazodone 150 mg tablet 150 mg PO HS Qty: 90 3RF cyclobenzaprine 5 mg tablet See Rx Instructions .ROUTE .COMPLEX Qty: 180 0RF Dose Instruction: TAKE 1 TABLET TWICE A DAY NEEDED FOR MUSCLE SPASMS Rx Instructions: TAKE 1 TABLET TWICE A DAY NEEDED FOR MUSCLE SPASMS Follow-up/Referrals: Gildardo Vazquez DO [Primary Care Provider] - Time of Disposition: 15:37 Quality NIHSS Nursing Documentation ED NIHSS nursing documentation: reviewed/agree
[2025-01-19 15:24] VITALS: BP 115/61; PULSE 69; RESP 20; TEMP 36; O2SAT 100
[2025-01-19 15:33] LABS: EDUAAPPEAR Cloudy; EDUABILI Negative (Negative); EDUABLOOD 3+ (Negative); EDUACOLOR1 Yellow; EDUAGLUCOSE Negative (Negative); EDUAKETONE Negative (Negative); EDUALEUKO 1+ (Negative); EDUANITRATE Negative (Negative); EDUAPH 5.5; EDUAPROTEIN 2+ (Negative); EDUASPGRAVITY 1.025; EDUAUROBILI 0.2
== END 2025-01-19 15:42 | disposition home or self-care (01) ==
PROVIDERS: Emergency Provider Nurse Practitioner Family; PCP Internal Medicine
DX: N10 Acute pyelonephritis (principal); Z87.891 Personal history of nicotine dependence; M35.00 Sjogren syndrome, unspecified; E06.3 Autoimmune thyroiditis; K58.9 Irritable bowel syndrome, unspecified; M79.7 Fibromyalgia; Z95.0 Presence of cardiac pacemaker; Z96.653 Presence of artificial knee joint, bilateral
CPT/HCPCS: 81003; 87086; 87186; 99213; G0463

== ENCOUNTER 2025-02-06 16:33 | Emergency (ER) | payer MEDICARE, BC, SELFPAY ==
[2025-02-06 16:35] VITALS: BP 107/66; PULSE 78; RESP 14; TEMP 36.8; O2SAT 100
--- NOTE | 2025-02-06 17:32 | ED_ITS ---
HPI - Nausea/Vomiting/Diarrhea General Chief complaint: Nausea/Vomiting/Diarrhea Stated complaint: diarrhea for 5 days Time Seen by Provider: 02/06/25 17:20 Source: patient and RN notes reviewed Mode of arrival: ambulatory Limitations: no limitations History of Present Illness HPI Narrative: 69-year-old female Presents Express Care complaining of nausea, diarrhea, abdominal pain for 5 days. Patient reports her diarrhea is loose in mucus like. Patient reports that color is yellow and pale. Reports having 7-10 episodes of diarrhea a day. Patient reports her diarrhea is foul-smelling. Patient was recently on Augmentin earlier this month for a bladder infection. She has been off antibiotics for for more than a week. Patient reports having left lower abdominal pain that is nonradiating. Patient denies any Fevers, body aches, chills. Patient denies any vomiting. Patient has been able to keep fluids down but cannot stop the diarrhea. Patient has tried [id number] Pepcid without relief. Patient denies any blood in her stools. Patient has history of a cholecystectomy, small-bowel obstruction, diverticulitis, gastric bypass surgery. Patient denies any history of C diff. Related Data Home Medications ?Medication ?Instructions ?Recorded ?Confirmed ?Last Taken ?Type magnesium glycinate 100 mg (as 200 mg PO DAILY 07/01/20 02/06/25 05/14/23 History glycinate) tablet melatonin 15 mg PO HS 05/14/23 02/06/25 05/13/23 History cholecalciferol (vitamin D3) 125 125 mcg PO DAILY 01/24/24 02/06/25 Unknown History mcg (5,000 unit) tablet furosemide 20 mg tablet 20 mg PO .PRN 11/13/24 02/06/25 Unknown History Allergies Allergy/AdvReac Type Severity Reaction Status Date / Time morphine Allergy Severe Hives Verified 02/06/25 16:44 meperidine (From Demerol) Allergy Intermediate Hives Verified 02/06/25 16:44 Sulfa (Sulfonamide Allergy Intermediate hives Verified 02/06/25 16:44 Antibiotics) pentazocine (From Talwin) AdvReac Severe nausea Verified 02/06/25 16:44 vomiting oxycodone AdvReac Intermediate vomiting Verified 02/06/25 16:44 propoxyphene AdvReac Intermediate vomiting Verified 02/06/25 16:44 Review of Systems Review of Systems: CONSTITUTIONAL: Denies fever, chills, body aches, or sweats. EYES: Denies visual changes, redness, or discharge. ENT: Denies rhinorrhea, congestion, sore throat, or otalgia. CARDIOVASCULAR: Denies chest pain, palpitations, or edema. RESPIRATORY: Denies cough or dyspnea. GASTROINTESTINAL: Positive for abdominal pain, diarrhea, nausea, mucus stools. Negative for nausea, bloody stools, hematochezia. GENITOURINARY: Denies dysuria or hematuria. SKIN: Denies rash or itching. MUSCULOSKELETAL: Denies back pain, joint pain, or myalgia. NEUROLOGIC: Denies headache, numbness, or weakness. PSYCHIATRIC: Denies anxiety or depression. All other systems reviewed are negative, except as documented in HPI. 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 Surgical History Surgical History History of exploratory laparotomy 35 years ago had an exploratory surgery due to a duodenal obstruction, did no t require bowel resection History of appendectomy during her cholecystectomy History of bilateral knee arthroplasty Status post gastroplasty Gastric stapling about 40 years ago History of hernia repair Hiatal hernia repair during her gastric stapling History of tonsillectomy History of cholecystectomy Open cholecystectomy with incidental appendectomy over 40 years ago History of cataract extraction with lens replacement History of hysterectomy Open partial hysterectomy and eventual open total abdominal hysterectomy History of right oophorectomy History of bunionectomy of both great toes History of permanent cardiac pacemaker placement (11/2010) Saint Danyel dual chamber pacemaker. Family History Family History Father Heart disease Cancer Mother Cancer Sibling Heart disease FH: heart attack Social History Social History Social History: Surrogate medical decision maker: Shady Marr, spouse. Code status: Full code. Smoking packs per day: 1 Smoking cigarettes per day: 20.0 Years smoked: 25 Smoking pack-years: 25.00 Smoking status: Former smoker Second hand tobacco smoke exposure: Yes Alcohol intake: former Alcohol use details: 6 PER YEAR Substance use: never Substance use type: does not use Do You Feel Safe in your Home?: Yes Lack of Transportation: No Lack of Food: Never True Current Housing: I Have Housing Concerned About Future Housing: No Difficulty Paying Gas/Electric Bills: No Difficulty Paying for Meds: No Currently Unemployed: No Education: High School Diploma/GED Difficulty w/ Childcare or Family Care: No Living arrangements: with family Additional living arrangements comments: . Has 2 daughters and a stepdaughter. Enjoys crafting and doing needle work. 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 Spiritual care concerns: No Exam Narrative: GENERAL: This is a well-nourished, well-developed adult, in no apparent distress. They are non ill-appearing, nontoxic appearing. HEAD: normocephalic, atraumatic. EYES: Sclera clear/white. Vision is grossly intact. Conjunctiva normal bilaterally. Extraocular movements intact. EARS: External ears normal, Hearing grossly intact. NOSE: External nose normal THROAT: Mucous membranes moist. Tongue appears dry. NECK: Normal range of motion CARDIOVASCULAR: Regular rate and rhythm without murmurs, gallops, or rubs. RESPIRATORY: Clear to auscultation. Breath sounds equal bilaterally. No wheezes, rales, or rhonchi. GASTROINTESTINAL: Abdomen soft, flat, left lower quadrant pain to palpation, nondistended. Bowel sounds are hyperactive. No hepato-splenomegaly, or palpable masses. No guarding or rigidity. No rebound tenderness. SKIN: warm, Dry, intact with no suspicious lesions or rash, good texture and turgor. NEURO: awake, alert, and oriented to person, place and time. There were no obvious focal neurologic abnormalities. EXTREMITIES: No joint tenderness, effusion, or edema noted. BACK: Nontender without deformity. No CVA tenderness. Course Course Emergency Course: Portions of this record may have been created with voice recognition software Level of Care: Express Care Visit Vital Signs Vital signs: Vital Signs Temperature 98.2 F 02/06/25 16:35 Pulse Rate 78 02/06/25 16:35 Respiratory Rate 14 02/06/25 16:35 Blood Pressure 107/66 02/06/25 16:35 Pulse Oximetry 100 02/06/25 16:35 Temperature 98.2 F 02/06/25 16:35 Pulse Rate 78 02/06/25 16:35 Respiratory Rate 14 02/06/25 16:35 Blood Pressure 107/66 02/06/25 16:35 Pulse Oximetry 100 02/06/25 16:35 Transfer Transfered to: [place] Transportation: Other (Private vehicle) Transfer rationale: Abnormal stools, left lower quadrant pain, requiring higher level care Accepting physician: Janice Morelos PA-C MDM - Nausea/Vomiting/Diarrhea MDM Narrative Medical decision making narrative: Given patient's symptoms and physical exam findings it is recommended the patient seek a higher level care for further evaluation management of her symptoms. Patient also likely has mild dehydration from diarrhea. Patient is agreeable to go to the emergency department at [facility]. Called report over to [facility] and spoke with Janice Morelos PA-C was aware is patient accepted the patient for transfer. Patient advised to remain NPO and proceed immediately to the ER. Differential Diagnosis Differential diagnosis: Likely gastroenteritis, clostridium difficile infection, dehydration and other (Diverticulitis) Discharge Plan Discharge Clinical Impression: Abdominal pain, acute, left lower quadrant Diarrhea Qualifiers: Diarrhea type: presumed infectious Qualified Code(s): R19.7 - Diarrhea, unspecified Patient Disposition: Acute Care Hospital Condition: Stable Patient Language: Lithuanian Prescriptions: No Action magnesium glycinate 100 mg tablet 200 mg PO DAILY cholecalciferol (vitamin D3) 125 mcg (5,000 unit) tablet 125 mcg PO DAILY furosemide 20 mg tablet 20 mg PO .PRN Rx Instructions: Take 1 tab prn daily for edema. melatonin tablet 15 mg PO HS bupropion HCl 150 mg tablet sustained-release 12 hr 150 mg PO BID Qty: 90 3RF levothyroxine [Synthroid] 112 mcg tablet See Rx Instructions .ROUTE .COMPLEX Qty: 125 1RF Dose Instruction: TAKE 1 TABLET DAILY Rx Instructions: take 9 pills a week, one from Tuesday to Fridays , 2 on Saturdays and Sundays pilocarpine HCl 5 mg tablet See Rx Instructions .ROUTE .COMPLEX Qty: 360 3RF Dose Instruction: TAKE 1 TABLET FOUR TIMES A DAY Rx Instructions: TAKE 1 TABLET FOUR TIMES A DAY potassium chloride [Klor-Con 10] 10 mEq tablet extended release 10 meq PO DAILY Qty: 30 5RF Rx Instructions: Take 1 tab prn with Furosemide. tramadol 50 mg tablet 50 mg PO Q8H PRN (Reason: pain) Qty: 30 1RF dexlansoprazole 60 mg capsule,biphase delayed releas 60 mg PO DAILY Qty: 90 3RF Ozempic 1 mg/dose (4 mg/3 mL) pen injector 1 mg subcut WEEKLY Qty: 9 1RF trazodone 150 mg tablet 150 mg PO HS Qty: 90 3RF cyclobenzaprine 5 mg tablet See Rx Instructions .ROUTE .COMPLEX Qty: 180 0RF Dose Instruction: TAKE 1 TABLET TWICE A DAY NEEDED FOR MUSCLE SPASMS Rx Instructions: TAKE 1 TABLET TWICE A DAY NEEDED FOR MUSCLE SPASMS Follow-up/Referrals: Gildardo Vazquez DO [Primary Care Provider] - Time of Disposition: 17:39
== END 2025-02-06 17:33 | disposition short-term general hospital (02) ==
PROVIDERS: PCP Internal Medicine
DX: R10.32 Left lower quadrant pain (principal); R19.7 Diarrhea, unspecified; Z87.891 Personal history of nicotine dependence; M35.00 Sjogren syndrome, unspecified; E06.3 Autoimmune thyroiditis; M79.7 Fibromyalgia; Z95.0 Presence of cardiac pacemaker; Z98.84 Bariatric surgery status
CPT/HCPCS: 99212; G0463

== ENCOUNTER 2025-02-06 17:50 | Emergency (ER) | payer MEDICARE, BC, SELFPAY ==
--- OUTSIDE RECORDS SUMMARY | 2025-02-06 17:52 | XMS_ITS | Data Portability ---
Author Organization [facility], Main Office Address [address] [place] [address] Assessment No assessment recorded. Plan of Treatment Reminders Order Date Submit Date Provider Last Modified By Organization Details Last Modified Time Details Appointments None recorded. Lab HbA1c (hemoglobin A1c), blood 2022 023 [facility], [address], [place], [address], 3 15:01:06 CMP, serum or plasma 2022 023 [facility], 2022 [address], [address], [place], [address], 3 16:32:59 insulin, serum 2022 023 [facility], 2022 Elizabeth Ac[address], [address], [place], [address], 3 15:01:06 TSH + free T4, serum 2022 023 [facility], 2022 [address], [address], [place], [address], 3 15:01:05 T3, free, serum or plasma 2022 023 [facility], 2022 Elizabeth Ac[address], [address], [place], [address], 3 15:01:04 Referral None recorded. Procedures None recorded. Surgeries None recorded. Imaging None recorded. Medication Orders Ozempic 1 mg/dose (4 mg/3 mL) subcutaneou s pen injector 2022 023 [facility], [address] [place], [address], 3 14:38:36 Synthroid 75 mcg tablet 2022 023 [facility], [address], [address], [place], [address], 3 14:37:27 Synthroid 100 mcg tablet 2022 023 [facility], [address], [address], [place], [address], 3 15:00:59 Patient TargetsNo targets recorded. Patient InstructionsNo instructions recorded. Reason for Referral None Reported. Results Created Date Observation Date Name Description Value Unit Range Abnormal Flag Note LastModifiedBy Organization Detail LastModifiedTime Result Notes None recorded. Problems Name Problem SNOMED Code Status Onset Date Resolution Date Notes Provider Name and Address Organization Details Recorded Time Prediabetes 356810579 Active 2022 Not Available [facility] 3 09:57:34 Irritable bowel syndrome 39693781 Active 1999 Not Available [facility] 3 09:57:34 Insomnia 234685858 Active 1999 Not Available [facility] 3 09:57:34 Fibromyalgia 433752391 Active 1997 Not Available [facility] 3 09:57:34 Atrioventricu lar block 699855643 Active 2010 Not Available [facility] 3 09:57:34 Hyperthyroidi sm with Ru disease 06523479 Active 2006 Not Available [facility] 3 09:57:34 Depressive disorder 86724633 Active 1969 Not Available [facility] 3 09:57:34 Hypothyroidis m 84534007 Active 2022 Not Available [facility] 3 09:57:34 Problem Notes None recorded. Procedures Surgical History Date Name Laterality Status Provider Name and Address Organization Details Recorded Time Knee Replacement completed Not Available [facility] 11/17/2022 04:43:10 Hysterectomy completed Not Available [facility] 11/17/2022 04:43:10 Pacemaker completed Not Available [facility] 0 11/17/2022 04:43:10 cholecystectomy completed Not Available [facility] 11/17/2022 04:43:10 Shoulder completed Not Available [facility] 04:43:10 Tonsillectomy completed Not Available [facility] 11/17/2022 04:43:10 Imaging Results None recorded. Procedure Notes None recorded. Medical Equipment None Reported. Allergies Allergen ID Allergen Name Allergen Category Reaction Reaction Severity Criticality Documentation Date Start Date Code Code System Note Provider Name and Address Organization Details Recorded Time 7155 [facility] medicatio n nausea vomiting Not available Not available Not available 11/17/2022 8002 RxNorm Not Available [facility] 3 04:56:38 7156 Substance with sulfonami de structure and antibacte rial mechanism of action (substanc e) medicatio n hives Not available Not available 11/17/2022 03076 8003 SNOMED Not Available [facility] 3 04:56:38 7157 acetamino phen / oxycodone medicatio n hallucina tions Not available Not available 11/17/2022 25600 3 RxNorm Not Available [facility] 3 04:56:38 7158 morphine medicatio n nausea vomiting Not available Not available Not available 11/17/2022 7052 RxNorm Not Available [facility] 3 04:56:38 7159 Demerol medicatio n nausea vomiting Not available Not available Not available 11/17/2022 56108 1 RxNorm Not Available [facility] 3 04:56:38 7160 propoxyph [place] hydrochlo ride medicatio n nausea vomiting Not available Not available Not available 11/17/2022 51244 RxNorm Not Available [facility] 3 04:56:39 7161 codeine medicatio n nausea vomiting Not available Not available Not available 11/17/2022 2670 RxNorm Not Available [facility] 3 04:56:39 Medications Name Sig Start Date [...] % 97 % 66 /min 98 [degF] 64104.9 2 g 100 mm[Hg] 75 mm[Hg] Not Available [facility] 3 04:45:44 Date Recorded Body mass index (BMI) Body height Oxygen saturation Oxygen saturation in Arterial blood by Pulse oximetry Heart rate Body temperature Body weight Systolic blood pressure Diastolic blood pressure Provider Name and Address Organization Details Last Updated DateTime 2 32.2 kg/m2 165.1 cm 98 % 98 % 67 /min 98 [degF] 58828.4 8 g 115 mm[Hg] 75 mm[Hg] Not Available [facility] 3 04:45:44 Date Recorded Body height Body mass index (BMI) Body weight Respiratory rate Body temperature Heart rate Systolic blood pressure Diastolic blood pressure Provider Name and Address Organization Details Last Updated DateTime 3 165.1 cm 26.6 kg/m2 57827.3 4 g 18 /min 97.2 [degF] 80 /min 111 mm[Hg] 76 mm[Hg] MINDA Callejas [place] [employer] [facility] 3 14:33:58 Date Recorded Body height Body mass index (BMI) Body weight Body temperature Heart rate Systolic blood pressure Diastolic blood pressure Provider Name and Address Organization Details Last Updated DateTime 3 165.1 cm 25.5 kg/m2 36358.6 3 g 97.5 [degF] 70 /min 120 mm[Hg] 62 mm[Hg] Kayleigh Orozco MA [place] [employer] [facility] 3 14:19:46 Social History Question Answer Notes LastModified by Organizat ion Details LastModified Time Tobacco Smoking Status Former Smoker Quit in 2206 Not Available [facility] 11/17/2022 04:40:22 Are You Blind Or Do You Have Difficulty Seeing? No [id number].[id number] Information not available 11/17/2022 What Is Your Level Of Caffeine Consumption? Moderate MIGRATION.285912 0562 Information not available 11/17/2022 How Much Tobacco Do You Chew? None MIGRATION.402122 2140 Information not available 11/17/2022 In The 14 Days Before Symptom Onset, Have You Had Close Contact With A Laboratory-confir med COVID-19 While That Case Was Ill? No MIGRATION.262037 6569 Information not available 11/17/2022 In The 14 Days Before Symptom Onset, Have You Had Close Contact With A Person Who Is Under Investigation For COVID-19 While That Person Was Ill? No MIGRATION.455890 0050 Information not available 11/17/2022 Are You Deaf Or Do You Have Serious Difficulty Hearing? No MIGRATION.795987 9539 Information not available 11/17/2022 What Type Of Diet Are You Following? REGULAR MIGRATION.588713 5989 Information not available 11/17/2022 Which Illicit Or Recreational Drugs Have You Used? None MIGRATION.997923 3919 Information not available 11/17/2022 What Is Your Relationship Status? MIGRATION.605350 1175 Information not available 11/17/2022 Have You Recently Traveled Abroad? No MIGRATION.544626 6047 Information not available 11/17/2022 Do You Have Difficulty Walking Or Climbing Stairs? No MIGRATION.599021 9115 Information not available 11/17/2022 Do You Have Any Dietary Restrictions? No MIGRATION.277392 7278 Information not available 11/17/2022 Sex: Female Functional Status Question Answer Note LastModified by Organizat ion Details LastModified Time What is your level of alcohol consumption? Occasional MIGRATION.737083 9455 Information not available 11/17/2022 Do you or have you ever used smokeless tobacco? Never used smokeless tobacco MIGRATION.072262 2885 Information not available 11/17/2022 Do you have transportation difficulties? No MIGRATION.321511 3963 Information not available 11/17/2022 Are you able to walk? YESWOREST MIGRATION.168180 1397 Information not available 11/17/2022 Do you have difficulty doing errands alone? No MIGRATION.196808 7299 Information not available 11/17/2022 Are you able to care for yourself? Yes MIGRATION.734746 5661 Information not available 11/17/2022 What is your occupation? retired MIGRATION.524782 0113 Information not available 11/17/2022 Do you have difficulty dressing or bathing? No MIGRATION.449374 7407 Information not available 11/17/2022 Do you or have you ever used e-cigarettes or vape? Never used electronic cigarettes MIGRATION.517064 7657 Information not available 11/17/2022 Mental Status Question Answer Note LastModified by Organizat ion Details LastModified Time Do you have difficulty concentrating, remembering or making decisions? No MIGRATION.[id number] 6 Information not available 11/17/2022 Family History Relationship Description Onset Age of this Age Resolved Age Notes LastModified by Organization Details LastModified Time Father Diabetes mellitus MIGRATION.402 [id number] Not available 11/17/2022 04:43:13 Father Heart disease MIGRATION.561 [id number] Not available 11/17/2022 04:43:13 Mother Diabetes mellitus MIGRATION.193 [id number] Not available 11/17/2022 04:43:14 Mother Heart disease MIGRATION.973 [id number] Not available 11/17/2022 04:43:14 Brother Hypothyroidi sm MIGRATION.145 [id number] Not available 11/17/2022 04:43:14 Brother Heart disease MIGRATION.361 [id number] Not available 11/17/2022 04:43:14 Paternal Aunt Ru thyroiditis MIGRATION.599 [id number] Not available 11/17/2022 04:43:14 Medical History Condition Response INSOMNIA Y DEPRESSION (INCLUDING POST ) Y THYROID DISEASE Y ARTHRITIS Y GI PROBLEMS Y HEART DISEASE/HEART PROBLEMS Y Gynecological HistoryNo gynecological history recorded. Obstetrics History GPAL:G 0 P 0 0 0 0 Past Encounters Encounter ID Performer Location Encounter Start Date Encounter Closed Date Diagnosis/Indication Diagnosis SNOMED-CT Code Diagnosis ICD10 Code Diagnosis Note [id number] Felicia Richmond MD [facility] [place] [address] [place] [address] 03/03/2021 00:00:00 03/03/2021 14:26:21 [id number] Felicia Richmond MD [facility] [place] [address] [place] [address] 08/10/2021 00:00:00 08/10/2021 13:54:33 [id number] Felicia Richmond MD [facility] [place] [address] [place] [address] 01/08/2022 00:00:00 01/08/2022 13:17:59 [id number] Felicia Richmond MD [facility] [place] [address] [place] [address] 05/07/2022 00:00:00 05/07/2022 12:14:50 [id number] Felicia Richmond MD [facility] [place] [address] [place] [address] 12/30/2022 14:20:49 12/30/2022 15:11:18 Prediabetes 195333258 R73.03 a1c of 4.9% with low insulin-si nce start of ozempic patient has lost over 50 pounds total- she is down to 159 pounds with goal of 155 pounds to optimize her BMI at 25 or less. Continue on ozempic 0.5 mg once weekly and if tolerating well can plan to start on 1 mg ozempic when she has titrated up to bridging range. Recommende d she incorporat e natural insulin senior data scientist s such as pears, apples, cinnamon, pedro and sweet potatoes to help mobilize her endogenous insulin. Recommende d up to 150 minutes of moderate level activity/e xercise weekly. Hypothyroidism 78827792 E03.9 FT4 high normal range- will drop synthroid down to 100 mcg daily- with continued weight loss - dosing has dropped consistent ly. Continue liothyroni ne 5 mcg twice daily. She was reminded to take her synthroid on empty stomach with glass of water and wait one hour to eat or have her coffee in morning and up to 4 hours if ever taking any heartburn or reflux medication s to help optimize absorption . Discussed paleo like diet with restrictio n of GMOs to help with energy and to optimize absorption of vitamins and minerals and reduce inflammati on. Spent up to 25 minutes preparing to see the patient (eg, review of tests), obtaining and/or reviewing separately obtained history, performing a medically appropriat e examinatio n and evaluation , counseling and educating the patient, ordering medication s, tests, along with documentin g clinical informatio n in the electronic health record, independen tly interpreti ng results and communicat ing results to the patient. RTC in 6 months. Patient was provided a handwritte n lab order which contains our fax number. If she chooses to go outside of the [facility] system to obtain labwork she was advised to provide our fax number and my informatio n to the lab she will be obtaining labwork from in order to have her labs properly forwarded over for me to review so there is no loss of follow up due to use of outside network. She was also advised to contact our clinic informing us that she has completed her labwork so we are aware we will need to reach out to the appropriat e laboratory to request her results be forwarded to us so I might have the ability to review and make further medical decision making in her case. She voiced understand ing. [id number] Felicia Richmond MD [facility] [address] [place] [address] 06/23/2023 13:57:49 06/23/2023 15:29:18 Hypothyroidism 90070311 E03.9 FT4 high normal range- will drop synthroid down to 75 mcg daily- with continued weight loss - dosing has dropped consistent ly. Continue liothyroni ne but only once daily in afternoon if patient ever does struggle with afternoon fatigue. She was reminded to take her synthroid on empty stomach with glass of water and wait one hour to eat or have her coffee in morning and up to 4 hours if ever taking any heartburn or reflux medication s to help optimize absorption . Discussed paleo like diet with restrictio n of GMOs to help with energy and to optimize absorption of vitamins and minerals and reduce inflammati on. Prediabetes 942290456 R7 3.03 a1c of 4.9% with low insulin-si nce start of ozempic patient has lost over 50 pounds total- she is down to her goal 155 pounds as her BMI is now in optimal range. Continue on ozempic 1 mg once weekly as she is tolerating well but she is aware if her sugars drop down to 70 mg/dL range consistent ly she needs to wean off and focus on dietary changes- restrictio n of processed/ refined sugars. Recommende d she incorporat e natural insulin senior data scientist s such as pears, apples, cinnamon, pedro and sweet potatoes to help mobilize her endogenous insulin. Recommende d up to 150 minutes of moderate level activity/e xercise weekly. Spent up to 25 minutes preparing to see the patient (eg, review of tests), obtaining and/or reviewing separately obtained history, performing a medically appropriat e examinatio n and evaluation , counseling and educating the patient, ordering medication s, tests, along with documentin g clinical informatio n in the electronic health record, independen tly interpreti ng results and communicat ing results to the patient. Patient can be followed by PCP - she/he is aware of my resignatio n and last day of July 01. If needed his/her PCP can refer patient to another endocrinol ogist in the area. All questions /concerns answered and refills necessary at visit today. Health Concerns Section Related Observation LastModified by Organization Detai ls LastModified Time None Recorded Concern Status LastModified by Organization Details LastModified Time None Recorded Advance Directives Directive None Recorded Payers Encounter Date Sequence Insurance Name Policy Number Policy Mcneil Covered Member ID Mcneil Member ID Guarantor Name 12/30/2022 1 [place] Kenrick Birgit Tejinder [id number] Kenrick Marr 12/30/2022 2 [place] [id number] Shady Marr [id number] Kenrick Marr 06/23/2023 1 [place] Kenrick Marr [id number] Kenrick Marr 06/23/2023 2 [place] [id number] Shady Marr [id number] Kenrick Marr Notes Date Note Type Note Provider Name and Address Organization Details Recorded Time 12/30/2022 text/html 67 yo female lizzie es in for follow up in management [...] uIU/mlFT4 of 1.90 ng/dLglucose 70 mg/dLCr normalLFT /64/65/78A1 C 4.9%FT3 of 3.9 pg/mL Felicia Richmond MD [address] [facility], [facility] [address], [place], [address], [facility] [employer] 12/30/2022 15:18:22 06/23/2023 text/html 68 yo female [...] mg/dLCr normalLFT normal Felicia Richmond MD [address] [facility], [facility] [address], [place], [address], [place] [facility] [place] [employer] [facility] 06/23/2023 14:59:58 OBGyn Episode No OBEpisode recorded.
--- OUTSIDE RECORDS SUMMARY | 2025-02-06 17:52 | XMS_ITS | Referral Summary ---
Author Organization [facility] [address] Address [address] [place] [address] Care Team Providers Care Knife Finisher Name Role Phone Jacobo Mcintosh MD Primary Care Provider [phone] Allergies Active Allergy Reactions Criticality Noted Date [...] 1 tablet (100 mcg total) by mouth honest john rocket crew member before breakfast Active semaglutide (Ozempic) 0.25 mg or 0.5 mg(2 mg/1.5 mL) pen injector injection Inject under the skin Active cyanocobalamin (Vitamin B-12) 1,000 mcg/mL injection Active Active Problems Problem Noted Date Diagnosed Date Other specified diseases of biliary tract 2023 Visit for wound check 07/22/2020 Pacemaker battery depletion 06/25/2020 Complete heart block 06/25/2020 Lipid screening 06/25/2020 Pacemaker-dependent due to [...] on file 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 Gender Identity Not on file Sexual Orientation Not on file Last Filed Vital Signs Vital Sign Reading Time Taken Comments Blood Pressure 117/66 12/15/2023 4:25 PM CDT Pulse 69 12/15/2023 4:25 PM CDT Temperature 36.2 C (97.2 F) 12/15/2023 1:53 PM CDT Respiratory Rate 23 12/15/2023 4:25 PM CDT Oxygen Saturation 100% 12/15/2023 4:25 PM CDT Inhaled Oxygen Concentration - - Weight 71.7 kg (158 lb) 12/05/2023 1:40 PM CDT Height 165.1 cm (5' 5 ) 12/15/2023 1:53 PM CDT Body Mass Index 26.29 12/05/2023 1:40 PM CDT Plan of Treatment Not on file Insurance MEDICARE [facility] [place] [address] [place] [address] MEDICARE [place] Advance Directives For more information, please contact: [phone] * Full Code (Latest Code Status on File) Date Activated Date Inactivated Comments 12/15/2023 1:47 PM 12/15/2023 8:39 PM Care Teams Knife Finisher Relationship Specialty Start Date End Date Jacobo Mcintosh MD [address] [place] [address] PCP - General Internal Medicine 06/25/20
--- OUTSIDE RECORDS SUMMARY | 2025-02-06 17:52 | XMS_ITS | CONTINUITY OF CARE DOCUMENT ---
Author Name cassi ye Address Unknown Organization [facility] Address [address] [place] [address] [address] [place] [address] Phone [phone] Care Team Providers Care Preschool Aide Name Role Phone Sriram ASHRAF, Marni Unavailable [phone] Asia Black MD Unavailable Asia Black MD Unavailable [phone] INSURANCE PROVIDERS Payer name Policy type / Coverage type Woodson red libertarian ID [place] MED[place] Medicare [id number]
--- OUTSIDE RECORDS SUMMARY | 2025-02-06 17:52 | XMS_ITS | Clinical Summary ---
Author Organization [facility] [address] Address [address] [place] [address] Care Team Providers Care Sales Performance Manager Name Role Phone Jacobo Mcintosh MD Primary Care Provider [phone] Allergies Active Allergy Reactions Criticality Noted Date [...] 1 tablet (100 mcg total) by mouth early childhood associate before breakfast 4 Active semaglutide (Ozempic) 0.25 [...] Pacemaker implant 2010 for complete heart block, [place] TONSILLECTOMY 09/19/1964 - 09/18/1965 HIATAL HERNIA REPAIR [...] History Medical History Date Comments Pacemaker 2010 [facility] pac emaker for complete heart block, [place] GERD (gastroesophageal reflux disease) Fibromyalgia Sjogren's disease Ru's thyroiditis Acid indigestion Diverticulitis Cataracts, bilateral Anxiety and depression Colon polyp Small bowel obstruction (HCC) Elevated LFTs Hypothyroidism Family History Medical [...] on file 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 Gender Identity Not on file Sexual [...] Colon Cancer Screening-Colonoscopy 1953 Depression Screening 1953 Hepatitis C Screening 1953 Osteoporosis Screening-Bone Density Scan 1953 DTaP/Tdap/Td Vaccine (1 - Tdap) 1964 Hepatitis B Screening 1971 Pneumococcal vaccine 65+ (1 of 1 - PCV) 2003 Zoster Vaccine (1 of 2) 2003 Well Visit 65+ 2018 Covid-19 Vaccine (5 - 2023-2 5 season) 2024 06/30/2022, 07/23/2021, 12/08/2020, Additional history exists Fall Risk Assessment 12/14/2024 12/15/2023 Influenza Vaccine (Season Ended) 2025 Insurance MEDICARE [facility] [place] [address] MEDICARE MEDICARE [employer] Advance Directives For more information, please contact: [phone] * Full Code (Latest Code Status on File) Date Activated Date Inactivated Comments 12/15/2023 1:47 PM 12/15/2023 8:39 PM Care Teams Sales Performance Manager Relationship Specialty Start Date End Date Jacobo Mcintosh MD [address] [facility] [address] [place] [address] PCP - General Internal Medicine 06/25/20
--- OUTSIDE RECORDS SUMMARY | 2025-02-06 17:52 | XMS_ITS | Data Portability ---
Author Organization [facility], Physiatry Address [address] [place] [id number] Assessment No assessment recorded. Plan of Treatment Reminders Order Date Submit Date Provider Last Modified By Organization Details Last Modified Time Details Appointments None recorded. Lab None recorded. Referral None recorded. Procedures None recorded. Surgeries None recorded. Imaging None recorded. Medication Orders ivermectin 3 mg tablet 2023 024 [facility] [id number] [employer], [address], [place], [address], 4 18:15:28 permethrin 5 % topical cream 2023 024 [facility] [id number] [employer], [address], [place], [address], 4 18:15:26 Medrol (Bryce) 4 mg tablets in a dose pack 2023 024 [place] [id number] [facility] [employer], [address], [place], [address], 4 18:15:27 Patient TargetsNo targets recorded. Patient InstructionsNo instructions recorded. Reason for Referral None Reported. Problems Name Problem SNOMED Code Status Onset Date Resolution Date Notes Provider Name and Address Organization Details Recorded Time Hyperlipi demia 49052776 Active 2009 E78.5:HYPE RLIPIDEMIA Not Available [facility] 0 19:17:55 Clinical finding Active 2011 K21.9:G E R D Not Available [facility] 0 19:17:55 Hypothyro idism 62657359 Active 2011 E03.8:HYPO THYROIDISM , SECONDARY Not Available [facility] 0 19:17:55 Clinical finding Active 2012 E66.9:OBES ITY Not Available [facility] 0 19:17:[address] Concept Active 2014 Z00.00:CPE Not Available [facility] 0 19:17:55 Sj gren's syndrome 14761488 Active 2014 M35.00:Sjo gren's syndrome Not Available [facility] 0 19:17:55 Finding related to sleep Active 2015 G47.00:Ins omnia, mild Not Available [facility] 0 19:17:55 Clinical finding Active 2016 E11.9:DM, uncomplica emma, type II Not Available [facility] 0 19:17:55 Metabolic syndrome X 555842952 Active 2016 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 Not Available [facility] 0 19:17:55 Abdominal pain 18488548 Active 2018 R10.9:Abdo judi pain Not Available [facility] 0 19:17:55 Urinary tract infectiou s disease 42631962 Active 2018 N39.0:U T I Not Available [facility] 0 19:17:55 Cardiac pacemaker in situ 742777630 Active 2018 Z95.0:Pace maker, permanent Not Available [facility] 0 19:17:55 Irritable bowel syndrome 40473631 Active 2019 K58.9:Irri table bowel, predominan tly constipati on Not Available [facility] 0 19:17:55 Knee pain Active [address] [facility] 0 12:04:39 Problem Notes None recorded. Medical Equipment None Reported. Allergies Allergen ID Allergen Name Allergen Category Reaction Reaction Severity Criticality Documentation Date Start Date Code Code System Note Provider Name and Address Organization Details Recorded Time 26290 codeine sulfate medicatio n Not available Not available Not available 03/13/20202008 99187 RxNorm Not Available [facility] 0 05:06:27 78534 Demerol medicatio n Not available Not available Not available 03/13/20202008 24672 1 RxNorm Not Available [facility] 0 05:06:27 50316 acetamino phen / oxycodone medicatio n Not available Not available Not available 03/13/20202012 35651 3 RxNorm hallu cinat ions Not Available [facility] 0 05:06:27 25631 Talwin NX medicatio n Not available Not available Not available 03/13/20202008 68628 RxNorm Not Available [facility] 0 05:06:27 Medications Name Sig Start Date [...] Address Organization Details Last Updated DateTime 4 60445.4 4 g 79 /min 18 /min 97 % 97 % 97 [degF] 104 mm[Hg] 66 mm[Hg] [facility] 4 18:00:05 Social History None recorded. Functional Status Question Answer Note LastModified by Organizat ion Details LastModified Time What is your level of alcohol consumption? Occasional [email or web address] Information not available 03/02/2024 Mental Status None recorded. Family History Nothing Reported. Medical History No medical history recorded. Gynecological HistoryNo gynecological history recorded. Obstetrics History GPAL:G 0 P 0 0 0 0 Past Encounters Encounter ID Performer Location Encounter Start Date Encounter Closed Date Diagnosis/Indication Diagnosis SNOMED-CT Code Diagnosis ICD10 Code Diagnosis Note [id number] Ryan Denton APN [facility] [id number] [place] [address] 03/02/2024 17:41:40 03/13/2024 23:28:06 Infestation by Sarcoptes scabiei rikki hominis 140284196 B86 infection control education, rx ordered, pt is to follow up with her pcp and go to the er as needed Health Concerns Section Related Observation LastModified by Organization Detai ls LastModified Time None Recorded Concern Status LastModified by Organization Details LastModified Time None Recorded Advance Directives Directive None Recorded Payers Insurance Date Sequence Insurance Name Policy Number Policy Mcneil Covered Member ID Mcneil Member ID Guarantor Name 03/13/2024 2 [employer] [employer] ([place]) [id number] Shady Marr [id number] Kenrick Marr 03/02/2024 1 [place] Kenrick Marr [id number] Kenrick Marr 03/13/2024 MEDICARE B-CO: [employer] Kenrick Marr [id number] Kenrick Marr Notes Date Note Type [...] joint pain; no warmth Ryan Denton APN [id number] [place], [address], [facility] 03/02/2024 18:17:08 OBGyn Episode No OBEpisode recorded.
[2025-02-06 18:03] VITALS: BP 128/62; PULSE 68; RESP 17; TEMP 36.6; O2SAT 99
[2025-02-06 21:39] LABS: Basophils Percent Auto 0.7 % (0.2-1.2); Eosinophils Absolute Auto 0.1 K/mm3 (0-0.3); Hematocrit 44.4 % (37.0-47.0); Hemoglobin 14.2 g/dL (12.0-15.0); Immature Granulocyte Absolute 0.03 K/mm3 (0.00-0.031); Immature Granulocyte Percent A 0.5 % (0-0.5); Lymphocytes Absolute Auto 1.89 K/mm3 (0.9-3.2); Lymphocytes Percent Auto 30.9 % (18.3-44.2); Mean Corpuscular Hemoglobin 29.3 pg (26-34); Mean Corpuscular Volume 91.7 fl (80-100); Mean Platelet Volume 10.3 fl (7.4-10.4); Monocytes Absolute Auto 0.6 K/mm3 (0.1-0.6); Monocytes Percent Auto 9.5 % (2.6-8.5); Neutrophils Absolute Auto 3.5 K/mm3 (1.3-6.7); Neutrophils Percent Auto 56.4 % (45.5-73.1); Platelet Count Result 272 k/mm3 (150-375); Red Blood Count 4.84 M/mm3 (4.2-5.4); Red Cell Distribution Width 15.4 % (11.5-14.5); White Blood Count 6.1 K/mm3 (4.5-10.0)
[2025-02-06 21:47] LABS: Add Urine Microscopic? YES; Appearance Urine Clear (Clear); Bacteria Urine None Seen /hpf; Bilirubin Urine Negative (Negative); Blood Urine Negative (Negative); Color Urine Yellow (Yellow); Glucose Urine UA Negative (Negative); Ketones Urine Negative (Negative); Leukocyte Esterase Ur 2+ LEU/UL (Negative); Nitrate Urine Negative (Negative); Non Pathogenic Casts 0-2; Protein Urine Negative (Negative); RBC Urine 0-2 /hpf (0-2); Specific Grav Ur 1.008 (1.001-1.035); Squamous Epithelial Cell Urine Occasional /hpf (Few); Urobilinogen Urine 0.2 mg/dL (<2.0); pH Urine 5.5 (5.0-9.0)
[2025-02-06 21:49] LABS: Alanine Aminotransferase 16 U/L (6-35); Albumin Level 4.5 g/dL (3.5-5.1); Alkaline Phosphatase 68 U/L (38-126); Anion Gap 8 mmol/L (4-12); Aspartate Amino Transferase 30 U/L (14-36); Bilirubin,Total 0.3 mg/dL (0.2-1.3); Blood Urea Nitrogen 10 mg/dL (7-17); Calcium 9.1 mg/dL (8.4-10.2); Carbon Dioxide 28 mmol/L (22-30); Chloride 103 mmol/L (98-107); Estimated CRCL calculation 55 ml/min; Estimated Glomerular Filt Rate > 60; Glucose 80 mg/dL (65-110); Lipase 173 U/L (23-300); Potassium 3.9 mmol/L (3.4-5.0); Sodium 139 mmol/L (137-145)
--- NOTE | 2025-02-06 22:54 | ED_ITS ---
HPI - General Adult General Chief complaint: Abdominal Pain Stated complaint: abdominal pain Time Seen by Provider: 02/06/25 22:34 History of Present Illness HPI narrative: 69-year-old female presenting to the emergency department for evaluation for nausea and diarrhea this been ongoing for the last 5 days. Patient states the diarrhea has been particularly foul smelling and was light in color. Patient does have a prior history of cholecystectomy. Patient was recently on antibiotics for a urinary tract infection and these were completed on January 27. Patient had been having some left upper quadrant abdominal pain but denies any current abdominal pain. Since arriving to the emergency department patient has had no bowel movements. Patient has no prior history of C diff. Patient does have history diverticulitis. Related Data Home Medications ?Medication ?Instructions ?Recorded ?Confirmed ?Last Taken ?Type magnesium glycinate 100 mg (as 200 mg PO DAILY 07/01/20 02/06/25 05/14/23 History glycinate) tablet melatonin 15 mg PO HS 05/14/23 02/06/25 05/13/23 History cholecalciferol (vitamin D3) 125 125 mcg PO DAILY 01/24/24 02/06/25 Unknown History mcg (5,000 unit) tablet furosemide 20 mg tablet 20 mg PO .PRN 11/13/24 02/06/25 Unknown History Allergies Allergy/AdvReac Type Severity Reaction Status Date / Time morphine Allergy Severe Hives Verified 02/06/25 16:44 meperidine (From Demerol) Allergy Intermediate Hives Verified 02/06/25 16:44 Sulfa (Sulfonamide Allergy Intermediate hives Verified 02/06/25 16:44 Antibiotics) pentazocine (From Talwin) AdvReac Severe nausea Verified 02/06/25 16:44 vomiting oxycodone AdvReac Intermediate vomiting Verified 02/06/25 16:44 propoxyphene AdvReac Intermediate vomiting Verified 02/06/25 16:44 Review of Systems 2 Review of Systems: All systems reviewed & are unremarkable except as noted in HPI and below PMFSH Past Medical History Medical History Sjogrens syndrome 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 Surgical History Surgical History History of exploratory laparotomy 35 years ago had an exploratory surgery due to a duodenal obstruction, did not require bowel resection History of appendectomy during her cholecystectomy History of bilateral knee arthroplasty Status post gastroplasty Gastric stapling about 40 years ago History of hernia repair Hiatal hernia repair during her gastric stapling History of tonsillectomy History of cholecystectomy Open cholecystectomy with incidental appendectomy over 40 years ago History of cataract extraction with lens replacement History of hysterectomy Open partial hysterectomy and eventual open total abdominal hysterectomy History of right oophorectomy History of bunionectomy of both great toes History of permanent cardiac pacemaker placement (11/2010) Saint Danyel dual chamber pacemaker. Family History Family History Father Heart disease Cancer Mother Cancer Sibling Heart disease FH: heart attack Social History Social History Social History: Surrogate medical decision maker: Shady Marr, spouse. Code status: Full code. Smoking packs per day: 1 Smoking cigarettes per day: 20.0 Years smoked: 25 Smoking pack-years: 25.00 Smoking status: Former smoker Second hand tobacco smoke exposure: Yes Alcohol intake: former Alcohol use details: 6 PER YEAR Substance use: never Substance use type: does not use Do You Feel Safe in your Home?: Yes Lack of Transportation: No Lack of Food: Never True Current Housing: I Have Housing Concerned About Future Housing: No Difficulty Paying Gas/Electric Bills: No Difficulty Paying for Meds: No Currently Unemployed: No Education: High School Diploma/GED Difficulty w/ Childcare or Family Care: No Living arrangements: with family Additional living arrangements comments: . Has 2 daughters and a stepdaughter. Enjoys crafting and doing needle work. 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 Spiritual care concerns: No Exam 2 Narrative: APPEARANCE: Well appearing, no pain, no distress, well-nourished. HEAD: normocephalic, atraumatic. EYES: PERRLA/EOMI, conjunctivae clear. NOSE: Normal no drainage EARS:TMS clear with good light reflex. THROAT: Pharynx clear, no exudate. NECK: Supple. No adenopathy, no masses. RESPIRATORY: Airway patent, respirations nonlabored. Clear to auscultation bilaterally, no rales, rhonchi, wheezing. CARDIOVASCULAR: Regular rate and rhythm without murmurs rubs or gallops. ABDOMINAL: Soft, nontender, nondistended, normal bowel sounds MUSCULOSKELETAL: Moves all extremities. Strength/ROM intact, No edema, No calf tenderness. NEURO: Alert. Cranial nerves II through XII intact. Grossly intact SKIN: Warm, dry. Normal Color Course Vital Signs Vital signs: Vital Signs Temperature 97.8 F 02/06/25 18:03 Pulse Rate 68 02/06/25 18:03 Respiratory Rate 17 02/06/25 18:03 Blood Pressure 128/62 02/06/25 18:03 Pulse Oximetry 99 02/06/25 18:03 Temperature 98 F 02/06/25 23:07 Pulse Rate 72 02/06/25 23:16 Respiratory Rate 18 02/06/25 23:16 Blood Pressure 120/75 02/06/25 23:16 Pulse Oximetry 95 02/06/25 23:16 Oxygen Delivery Room Air 02/06/25 23:07 Medical Decision Making [facility] Narrative Medical decision making narrative: 69-year-old female present to the emergency department for evaluation for nausea without vomiting and diarrhea. Patient is currently afebrile with no leukocytosis and hemoglobin of 14.2. Patient has no acute abnormalities on her CMP bleeding normal creatinine normal AST ALT alk-phos and lipase. Patient's abdomen was soft nontender with normal bowel sounds. UA was positive for leukocyte esterase and high white blood cells but negative for bacteria, urine culture was ordered. Was unable to provide a stool sample so stool culture and C diff are not possible. Patient was encouraged to follow a clear liquid diet for the next few days, Zofran for nausea control and to have close follow-up with her primary care physician for outpatient stool testing. Patient and family were comfortable with plan for discharge and outpatient follow-up. Differential Diagnosis Differential Diagnosis: C diff, diarrhea, dehydration, gastritis, esophagitis Vital Signs Vital Signs: Vital Signs Temperature 97.8 F 02/06/25 18:03 Pulse Rate 68 02/06/25 18:03 Respiratory Rate 17 02/06/25 18:03 Blood Pressure 128/62 02/06/25 18:03 Pulse Oximetry 99 02/06/25 18:03 Temperature 98 F 02/06/25 23:07 Pulse Rate 72 02/06/25 23:16 Respiratory Rate 18 02/06/25 23:16 Blood Pressure 120/75 02/06/25 23:16 Pulse Oximetry 95 02/06/25 23:16 Oxygen Delivery Room Air 02/06/25 23:07 Lab Data Lab results reviewed: Yes I reviewed the patient's lab results. 02/06/25 21:25 02/06/25 21:26 Labs: Lab Results 02/06/25 02/06/25 Range/Units 21: 21:26 WBC 6.1 (4.5-10.0) K/mm3 RBC 4.84 (4.2-5.4) M/mm3 Hgb 14.2 D (12.0-15.0) g/dL Hct 44.4 (37.0-47.0) % MCV 91.7 (80-100) fl MCH 29.3 (26-34) pg MCHC 32.0 (32-36) g/dl RDW 15.4 H (11.5-14.5) % Plt Count 272 (150-375) k/mm3 MPV 10.3 (7.4-10.4) fl Immature Gran % (Auto) 0.5 (0-0.5) % Neut % (Auto) 56.4 (45.5-73.1) % Lymph % (Auto) 30.9 (18.3-44.2) % Brewster % (Auto) 9.5 H (2.6-8.5) % Eos % (Auto) 2.0 (0-4.4) % Baso % (Auto) 0.7 (0.2-1.2) % Lymph # (Auto) 1.89 (0.9-3.2) K/mm3 Brewster # (Auto) 0.6 (0.1-0.6) K/mm3 Eos # (Auto) 0.1 (0-0.3) K/mm3 Baso # (Auto) 0.0 (0.0-0.1) K/mm3 Abs Immat Gran (auto) 0.03 (0.00-0.031) K/mm3 Absolute Neuts (auto) 3.5 (1.3-6.7) K/mm3 Absolute Nucleated RBC 0.000 (0.0-0.012) K/mm3 Nucleated RBC % 0.0 (0.0-0.2) % Sodium 139 (137-145) mmol/L Potassium 3.9 (3.4-5.0) mmol/L Chloride 103 (98-107) mmol/L Carbon Dioxide 28 (22-30) mmol/L Anion Gap 8 (4-12) mmol/L BUN 10 D (7-17) mg/dL Creatinine 0.88 (0.7-1.0) mg/dL Estim Creat Clear Calc 55 ml/min Estimated GFR > 60 (59 - ) Glucose 80 (65-110) mg/dL Calcium 9.1 (8.4-10.2) mg/dL Total Bilirubin 0.3 (0.2-1.3) mg/dL AST 30 (14-36) U/L ALT 16 (6-35) U/L Alkaline Phosphatase 68 (38-126) U/L Total Protein 7.0 (6.3-8.2) g/dL Albumin 4.5 (3.5-5.1) g/dL Lipase 173 (23-300) U/L Urine Color Yellow (Yellow) Urine Appearance Clear (Clear) Urine pH 5.5 (5.0-9.0) Ur Specific Og[place] 1.008 (1.001-1.035) Urine Protein Negative (Negative) mg/dL Urine Glucose (UA) Negative (Negative) mg/dL Urine Ketones Negative (Negative) mg/dL Ur Blood (Man) Negative (Negative) Urine Nitrate Negative (Negative) Urine Bilirubin Negative (Negative) Urine Urobilinogen 0.2 (<2.0) mg/dL Leukocyte Esterase Rfl 2+ H (Negative) VAN/UL Urine RBC 0-2 (0-2) /hpf Urine WBC 11-20 H (0-3) /hpf Ur Squamous Epith Cells Occasional (Few) /hpf Urine Bacteria None seen /hpf Urine Casts 0-2 Discharge Plan Discharge Clinical Impression: Nausea, Diarrhea Patient Disposition: Home Condition: Stable Instructions: Antibiotic Form, Clear Liquid Diet (ED), Acute Diarrhea (ED), Abdominal Pain (ED) Additional Instructions: Continue your proton pump inhibitor as prescribed. Zofran as needed for nausea control. Follow a clear liquid diet for the next 1-3 days to help with the diarrhea. If your diarrhea persists then have close follow-up with your primary care physician for outpatient Clostridium difficile testing and stool cultures. Patient Language: Kuwaiti Prescriptions: New ondansetron 4 mg tablet,disintegrating 4 mg PO Q8H PRN (Reason: nausea and vomiting) Qty: 14 0RF No Action magnesium glycinate 100 mg tablet 200 mg PO DAILY cholecalciferol (vitamin D3) 125 mcg (5,000 unit) tablet 125 mcg PO DAILY furosemide 20 mg tablet 20 mg PO .PRN Rx Instructions: Take 1 tab prn daily for edema. melatonin tablet 15 mg PO HS bupropion HCl 150 mg tablet sustained-release 12 hr 150 mg PO BID Qty: 90 3RF levothyroxine [Synthroid] 112 mcg tablet See Rx Instructions .ROUTE .COMPLEX Qty: 125 1RF Dose Instruction: TAKE 1 TABLET DAILY Rx Instructions: take 9 pills a week, one from Tuesday to Fridays , 2 on Saturdays and Sundays pilocarpine HCl 5 mg tablet See Rx Instructions .ROUTE .COMPLEX Qty: 360 3RF Dose Instruction: TAKE 1 TABLET FOUR TIMES A DAY Rx Instructions: TAKE 1 TABLET FOUR TIMES A DAY potassium chloride [Klor-Con 10] 10 mEq tablet extended release 10 meq PO DAILY Qty: 30 5RF Rx Instructions: Take 1 tab prn with Furosemide. tramadol 50 mg tablet 50 mg PO Q8H PRN (Reason: pain) Qty: 30 1RF dexlansoprazole 60 mg capsule,biphase delayed releas 60 mg PO DAILY Qty: 90 3RF Ozempic 1 mg/dose (4 mg/3 mL) pen injector 1 mg subcut WEEKLY Qty: 9 1RF trazodone 150 mg tablet 150 mg PO HS Qty: 90 3RF cyclobenzaprine 5 mg tablet See Rx Instructions .ROUTE .COMPLEX Qty: 180 0RF Dose Instruction: TAKE 1 TABLET TWICE A DAY NEEDED FOR MUSCLE SPASMS Rx Instructions: TAKE 1 TABLET TWICE A DAY NEEDED FOR MUSCLE SPASMS Follow-up/Referrals: Gildardo Vazquez, [Primary Care Provider] -
--- OUTSIDE RECORDS SUMMARY | 2025-02-06 22:55 | XMS_ITS | Clinical Summary ---
Author Organization [facility] [address] Address [address] [place] [address] Care Team Providers Care Care Navigator Name Role Phone Jacobo Mcintosh MD Primary Care Provider [phone] Allergies Active Allergy Reactions Criticality Noted Date [...] 1 tablet (100 mcg total) by mouth barrer and tacker before breakfast 4 Active semaglutide (Ozempic) 0.25 [...] Pacemaker implant 2010 for complete heart block, [place] TONSILLECTOMY 09/19/1964 - 09/18/1965 HIATAL HERNIA REPAIR [...] History Medical History Date Comments Pacemaker 2010 [facility] pac emaker for complete heart block, [place] GERD (gastroesophageal reflux disease) Fibromyalgia Sjogren's disease [...] on file 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
--- OUTSIDE RECORDS SUMMARY | 2025-02-06 22:55 | XMS_ITS | CONTINUITY OF CARE DOCUMENT ---
Author Name cassi ye Address Unknown Organization [facility] Address [address] [place] [address] [address] [place] [address] Phone [phone] Care Team Providers Care Tile Ditcher Name Role Phone Sriram ASHRAF, Marni Unavailable Asia Black MD Unavailable Asia Black MD Unavailable [phone] INSURANCE PROVIDERS Payer name Policy type / Coverage type Sayre red constitution party ID [place] MED[place] Medicare [id number]
--- OUTSIDE RECORDS SUMMARY | 2025-02-06 22:56 | XMS_ITS | Referral Summary ---
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 Gender Identity Not on file Sexual [...] of Treatment Not on file Insurance MEDICARE [facility] [place] [address] [place] [address] MEDICARE [place] [employer] Advance Directives For more information, please contact: [phone] * Full Code (Latest Code Status on File) Date Activated Date Inactivated Comments 12/15/2023 1:47 PM 12/15/2023 8:39 PM Care Teams Aircraft Magneto Mechanic Relationship Specialty Start Date End Date Jacobo Mcintosh MD [address] [place] [address] PCP - General Internal Medicine 06/25/20
[2025-02-06 23:07] VITALS: BP 131/75; PULSE 88; RESP 18; TEMP 36.6; O2SAT 98
[2025-02-06 23:16] VITALS: BP 120/75; PULSE 72; RESP 18; O2SAT 95
== END 2025-02-06 23:17 | disposition home or self-care (01) ==
PROVIDERS: Emergency Provider Emergency Medicine; PCP Internal Medicine
DX: R19.7 Diarrhea, unspecified (principal); R11.0 Nausea; E06.3 Autoimmune thyroiditis; K58.9 Irritable bowel syndrome, unspecified; M79.7 Fibromyalgia; M35.00 Sjogren syndrome, unspecified; G89.4 Chronic pain syndrome; F41.9 Anxiety disorder, unspecified; Z95.0 Presence of cardiac pacemaker; Z96.653 Presence of artificial knee joint, bilateral; Z87.891 Personal history of nicotine dependence; Z87.440 Personal history of urinary (tract) infections; Z96.1 Presence of intraocular lens; Z98.49 Cataract extraction status, unspecified eye; Z90.710 Acquired absence of both cervix and uterus; Z90.721 Acquired absence of ovaries, unilateral; Z90.49 Acquired absence of other specified parts of digestive tract; Z79.899 Other long term (current) drug therapy; Z79.85 Long-term (current) use of injectable non-insulin antidiabetic drugs
CPT/HCPCS: 36415; 80053; 81001; 83690; 85025; 87077; 87086; 87186; 99283